=== PATIENT | female | born 1995 | race Caucasian/White ===

== ENCOUNTER → 2017-03-13 | Outpatient (CLI) | payer OTHER ==
[2017-03-13 12:43] LABS: BASO % 0.2 % (0.0-1.0); EOS # 0.2 K/mm3 (0.0-0.50); EOS % 1.2 % (0.0-3.0); LARGE UNSTAINED CELL # 0.1 K/mm3 (0.0-0.4); LARGE UNSTAINED CELL % 1.2 % (0.0-4.0); LYMPH # 1.9 K/mm3 (1.5-6.5); LYMPH % 14.6 % (24.0-44.0); MEAN CORPUSCULAR HEMOGLOBIN 31.9 pg (27.0-33.0); MEAN CORPUSCULAR HGB CONC 32.9 g/dl (32.0-36.5); MEAN CORPUSCULAR VOLUME 96.9 fl (80.0-96.0); MONO # 0.6 K/mm3 (0.0-0.8); NEUTROPHILS # 9.2 K/mm3 (1.8-7.7); NEUTROPHILS % 77.9 % (36.0-66.0); PLATELET COUNT, AUTOMATED 261 k/mm3 (150-450); RED CELL DISTRIBUTION WIDTH 12.6 % (11.5-14.5); WHITE BLOOD COUNT 11.8 K/mm3 (4.0-10.0)
[2017-03-14 10:48] LABS: HBsAg Prenatal NEGATIVE (NEGATIVE)
== END ==
LOC: M LAB 11:59
PROVIDERS: ATTEND Advanced Practice Midwife
DX: Z34.81 Encounter for supervision of other normal pregnancy, first trimester (principal); Z36 Encounter for antenatal screening of mother

== ENCOUNTER 2017-03-29 09:46 | Emergency (ER) | payer OTHER ==
[~2017-03-29] VITALS: Ht 172.7 cm; Wt 64.0 kg
[2017-03-29 09:47] VITALS: BP 116/81
[2017-03-29] MEDS ORDERED: FOLI1TAB2 PO (09:55)
[2017-03-29] MEDS ORDERED: PRENTAB40 PO (09:55)
[2017-03-29] MEDS ORDERED: PEPC1TAB4 PO (10:41)
[2017-03-29] MEDS ORDERED: BENA25CA4 PO (10:41)
[2017-03-29] MEDS ORDERED: MAGICMW SSP (10:41)
== END 2017-03-29 10:45 | disposition home or self-care (01) ==
LOC: M ED 10:09
DX: L30.9 Dermatitis, unspecified (principal); J02.8 Acute pharyngitis due to other specified organisms; Z3A.10 10 weeks gestation of pregnancy; Z88.0 Allergy status to penicillin; Z88.1 Allergy status to other antibiotic agents; Z88.8 Allergy status to other drugs, medicaments and biological substances; Z79.899 Other long term (current) drug therapy

== ENCOUNTER → 2017-03-29 | Outpatient (REF) | payer OTHER ==
[~2017-03-29] MED LIST: BENA25CA4 PO; FOLI1TAB2 PO; MAGICMW SSP; PEPC1TAB4 PO; PRENTAB40 PO
[2017-04-07 07:16] LABS: SUMMARY SEE SEPARATE REPORT
== END ==
LOC: M LAB REF 13:08
PROVIDERS: ATTEND Advanced Practice Midwife
DX: Z34.81 Encounter for supervision of other normal pregnancy, first trimester (principal); Z36 Encounter for antenatal screening of mother

== ENCOUNTER → 2017-04-10 | Outpatient (REF) | payer OTHER, MEDICAID | LOC: M LAB REF 13:56 | PROVIDERS: ATTEND Specialist | DX: Z34.82 Encounter for supervision of other normal pregnancy, second trimester (principal) ==

== ENCOUNTER → 2017-05-08 | Outpatient (CLI) | payer MEDICAID ==
--- NOTE | 2017-05-09 09:48 | REP ---
OB ULTRASOUND: Real-time sonographic evaluation of the gravid uterus performed utilizing transabdominal and endovaginal technique. There is a single living intrauterine gestation with an estimated gestational age of 17 weeks 4 days based on today's ultrasound measurements. EDC 10/12/2017. BPD 37 mm 17 weeks 1 day, 38th percentile HC 141 mm 17 weeks 3 days, 45th percentile AC 120 mm 17 weeks 5 days, 55th percentile FL 24 mm 17 weeks 2 days, 43rd percentile HC/AC ratio 1.17 within normal range. Estimated weight 197 grams, 45th percentile. Cervix is closed and measures 3.9 cm in length. heart rate 139 beats per minute. SEEN/GROSSLY UNREMARKABLE Lateral ventricles Yes Posterior fossa Yes Upper lip Yes Four-chamber heart Yes LVOT No RVOT Yes Stomach Yes Cord insertion No Three vessel cord No Kidneys No Bladder No Spine No position variable. Placenta is posterior and grade 0. On transvaginal images, the inferior tip of the placenta extends up to the internal cervical os consistent with a marginal previa. Amniotic fluid appears within normal limits for gestational age. Signed by Holger Moreno MD 05/09/2017 07:44 P
== END ==
LOC: M SMT 14:48
PROVIDERS: ATTEND Specialist
DX: Z34.82 Encounter for supervision of other normal pregnancy, second trimester (principal); Z36 Encounter for antenatal screening of mother; Z3A.17 17 weeks gestation of pregnancy

== ENCOUNTER → 2017-05-31 | Outpatient (CLI) | payer MEDICAID, OTHER ==
[~2017-05-31] MED LIST changes: +ACET50TA PO; -FOLI1TAB2 PO; +FOLI1TAB4 PO; +PRENTAB31 PO; +PRIL20CA9 PO; +SUCR10SS PO; +TUMS500C PO; +ZOFR4TAB3 PO
--- NOTE | 2017-05-31 16:10 | REP ---
Clinical: Anatomical evaluation. Comparison: 05/08/2017 . Findings: Examination demonstrates a single live intrauterine in variable presentation. motion is identified by technologist. Placenta is noted posteriorly and grade zero with evidence for marginal placenta previa approximately 12 mm from the internal os. Amniotic fluid volume is normal. Cervix measures 3.9 cm in length and appears closed. No evidence for nuchal cord. Gestational age by LMP 18 weeks 6 days with PEYTON 10/03/2017 . Gestational age by current measurements 17 weeks 4 days with PEYTON 10/12/2017 . FHR equals 139 beats per minute. Estimated weight 197 grams (45th percentile). Anatomical assessment demonstrates normal structures including cranium, choroid plexus, cavum, cerebellum/posterior fossa, facial features, lungs, four-chamber heart/ventricular outflow tracts, diaphragm, stomach, and extremities. Limited evaluation of the three-vessel cord/cord insertion, kidneys, bladder and spine. Impression: 1. Single live intrauterine in variable presentation demonstrating appropriate interval growth. 2. Marginal placenta previa again noted. 3. Anatomical limitations may warrant reevaluation and follow-up. Signed by Dayne Quezada MD 05/31/2017 04:02 P
== END ==
LOC: M SMT 14:23
PROVIDERS: ATTEND Advanced Practice Midwife
DX: O44.22 Partial placenta previa NOS or without hemorrhage, second trimester (principal); Z36 Encounter for antenatal screening of mother; Z3A.18 18 weeks gestation of pregnancy

== ENCOUNTER → 2017-07-06 | Outpatient (CLI) | payer OTHER ==
[2017-07-06 14:25] LABS: MEAN CORPUSCULAR HEMOGLOBIN 32.6 pg (27.0-33.0); MEAN CORPUSCULAR HGB CONC 33.4 g/dl (32.0-36.5); MEAN CORPUSCULAR VOLUME 97.6 fl (80.0-96.0); RED CELL DISTRIBUTION WIDTH 12.9 % (11.5-14.5); WHITE BLOOD COUNT 14.1 K/mm3 (4.0-10.0)
== END ==
LOC: M SMT 10:11
PROVIDERS: ATTEND Obstetrics & Gynecology
DX: Z34.82 Encounter for supervision of other normal pregnancy, second trimester (principal); Z36 Encounter for antenatal screening of mother

== ENCOUNTER → 2017-07-18 | Outpatient (CLI) | payer OTHER ==
[~2017-07-18] MED LIST changes: +ADVI200C5 PO; +CALC500C16 PO; +COLA100C5 PO; +MULT1TAB18 PO
--- NOTE | 2017-07-18 15:05 | REP ---
OB ULTRASOUND: Real-time sonographic evaluation of the gravid uterus is performed. There is a single living intrauterine gestation with estimated gestational age 27 weeks 5 days, EDC 10/12/2017. Today's measurements indicate appropriate growth. Biometry and Growth: BPD 65 mm = 26 weeks 1 day, 20th percentile HC 247 mm = 26 weeks 6 days, 31st percentile AC 222 mm = 26 weeks 4 days, 29th percentile FL 53 mm = 28 weeks 0 days, 56th percentile HC/AC ratio 1.11 within normal range. Estimated weight 1024 grams, 28th percentile. SEEN/GROSSLY UNREMARKABLE Lateral ventricles Yes Posterior fossa Yes Upper lip Yes Four-chamber heart Yes LVOT Yes RVOT Yes Stomach Yes Cord insertion Yes Three vessel cord Yes Kidneys Yes Bladder Yes Spine Yes The umbilical cord is coiled just above the internal cervical os. Cervical length: Closed and measures 3.9 cm in length. heart rate: 153 beats per minute. position: Vertex. Placenta: Posterior and grade 1 with no previa or abruption. Amniotic fluid: Within normal limits, JOHNY 10.0 within normal range of 9.4 to 22.7. S/D ratio 3.45 is within normal range. RI 0.71 is within normal range. Signed by Holger Moreno MD 07/18/2017 05:24 P
== END ==
LOC: M SMT 13:00
PROVIDERS: ATTEND Obstetrics & Gynecology
DX: Z34.82 Encounter for supervision of other normal pregnancy, second trimester (principal); Z36 Encounter for antenatal screening of mother; Z3A.27 27 weeks gestation of pregnancy

== ENCOUNTER 2017-07-28 13:01 | Emergency (ER) | payer OTHER ==
[~2017-07-28] VITALS: Ht 172.7 cm; Wt 75.5 kg
[~2017-07-28 13:01] MED LIST changes: -ACET50TA PO; -ADVI200C5 PO; -CALC500C16 PO; -COLA100C5 PO; -MULT1TAB18 PO; -PRENTAB31 PO; -PRIL20CA9 PO; -SUCR10SS PO; -TUMS500C PO; -ZOFR4TAB3 PO
[2017-07-28] MEDS ORDERED: PRENTAB31 PO (13:25)
[2017-07-28] MEDS ORDERED: NS 1,000 ML IV ONE ×2 (14:00→15:45)
[2017-07-28] MEDS ORDERED: ONDANSETRON 4MG/2ML VIAL (J2405) IV ONE (14:00)
[2017-07-28] MEDS ORDERED: FAMOTIDINE 20 MG TAB PO ONE (14:45)
[2017-07-28] MEDS ORDERED: raNITIdine SYRUP 150 MG/10 ML UDC PO ONE (14:45)
[2017-07-28 14:59] LABS: METHADONE URINE NEGATIVE (NEGATIVE)
--- NOTE | 2017-07-28 14:59 | REP ---
Clinical: Maternal nausea and vomiting for well being. Comparison: 07/18/2017 . Findings: Examination demonstrates a single live intrauterine in cephalic presentation. motion is identified by technologist. Placenta is noted posteriorly and grade 1 without evidence for placenta previa or abruption. Amniotic fluid volume is normal. Cervix measures 3.0 cm in length and appears closed. No evidence for nuchal cord. Gestational age by LMP 30 weeks 3 days with PEYTON 10/03/2017 . Gestational age by first US 29 weeks 1 day with PEYTON 10/12/2017 . FHR equals 150 beats per minute. Amniotic fluid index 7.5 cm (8.9 - 23.6). Examination was terminated before biophysical profile could be completed. Tone - 2 Movement - 2 AFV - 2 Breathing - not determined. Impression: 1. Single live intrauterine in cephalic presentation. 2. Amniotic fluid volume is below normal limits. 3. Biophysical profile could not be completed and breathing cannot be determined due to the patient's inability to tolerate examination. Signed by Dayne Quezada MD 07/28/2017 02:50 P
[2017-07-28 15:10] LABS: ANION GAP 12 MEQ/L (8-16); BLOOD UREA NITROGEN 4 MG/DL (7-18); CALCIUM LEVEL 8.7 MG/DL (8.5-10.1); CARBON DIOXIDE LEVEL 22 MEQ/L (21-32); CHLORIDE LEVEL 107 MEQ/L (98-107); GLOMERULAR FILTRATION RATE > 60.0 (>60); GLUCOSE, FASTING 95 MG/DL (70-105); POTASSIUM SERUM 3.6 MEQ/L (3.5-5.1); SODIUM LEVEL 141 MEQ/L (136-145)
[2017-07-28] MEDS ORDERED: LORazepam 2 MG/ML VIAL (J2060) IV STA (15:10)
[2017-07-28 15:14] LABS: ALBUMIN 3.4 GM/DL (3.2-5.2); ALBUMIN/GLOBULIN RATIO 0.79 (1.00-1.93); BILIRUBIN,DIRECT 0.1 MG/DL (0.0-0.2); BILIRUBIN,TOTAL 0.4 MG/DL (0.2-1.0); TOTAL PROTEIN 7.7 GM/DL (6.4-8.2)
[2017-07-28] MEDS ORDERED: FAMOTIDINE IV BAG 20 MG in APPROPRIATE DILUENT 1 EA IV ONE (15:15)
[2017-07-28 15:26] LABS: BASO % 0.1 % (0.0-1.0); EOS # 0.2 K/mm3 (0.0-0.50); EOS % 1.5 % (0.0-3.0); LARGE UNSTAINED CELL # 0.1 K/mm3 (0.0-0.4); LARGE UNSTAINED CELL % 0.3 % (0.0-4.0); LYMPH % 5.9 % (24.0-44.0); MEAN CORPUSCULAR HEMOGLOBIN 32.7 pg (27.0-33.0); MEAN CORPUSCULAR VOLUME 93.4 fl (80.0-96.0); MONO # 0.5 K/mm3 (0.0-0.8); MONO % 2.8 % (0.0-5.0); NEUTROPHILS % 89.4 % (36.0-66.0); PLATELET COUNT, AUTOMATED 241 k/mm3 (150-450); RED CELL DISTRIBUTION WIDTH 12.7 % (11.5-14.5); WHITE BLOOD COUNT 16.8 K/mm3 (4.0-10.0)
[2017-07-28] MEDS ORDERED: PROMETHAZINE INJ 25 MG/ML VIAL (J2550) IV ONE (15:45)
[2017-07-28] MEDS ORDERED: MORPHINE 4 MG/ML 1ML SYRINGE IV ONE (16:00)
[2017-07-28 16:26] VITALS: BP 128/79
[2017-07-29] MEDS ORDERED: ZOFR4TAB3 PO (15:02)
[2017-07-29] MEDS ORDERED: PRIL20CA9 PO (15:02)
[2017-10-01] MEDS ORDERED: TUMS500C PO (15:07)
[2017-10-04] MEDS ORDERED: CALC500C16 PO (07:35)
[2017-10-04] MEDS ORDERED: MULT1TAB18 PO (07:36)
[2017-10-04] MEDS ORDERED: BENA25CA4 PO (07:37)
[2017-10-04] MEDS ORDERED: ACET50TA PO (07:38)
[2017-10-04] MEDS ORDERED: ADVI200C5 PO (07:39)
[2017-10-04] MEDS ORDERED: COLA100C5 PO (07:39)
== END 2017-07-28 17:15 | disposition admitted as inpatient to this hospital (09) ==
LOC: M ED 13:01
DX: O21.0 Mild hyperemesis gravidarum (principal); Z86.59 Personal history of other mental and behavioral disorders; Z87.891 Personal history of nicotine dependence; F12.10 Cannabis abuse, uncomplicated; Z3A.29 29 weeks gestation of pregnancy; Z79.899 Other long term (current) drug therapy; Z88.0 Allergy status to penicillin
CPT/HCPCS: 76815; 76819; 76820; 80048; 80076; 80307; 81001; 83690; 85025; 96361; 96365; 96374; 96375; 99284; J2060; J2405

== ENCOUNTER 2017-07-28 17:13 | Outpatient (CLI) | payer OTHER ==
[~2017-07-28] VITALS: Ht 172.7 cm; Wt 73.0 kg
[~2017-07-28 17:13] MED LIST changes: +PRENTAB31 PO
[2017-07-28 17:27] VITALS: BP 117/66
[2017-07-28 17:28] VITALS: BP 117/66
[2017-07-28] MEDS ORDERED: LR 1,000 ML IV ONE (19:00)
[2017-07-28] MEDS ORDERED: LR 1,000 ML IV SCH (19:00)
[2017-07-28] MEDS: PROMETHAZINE INJ 25 MG/ML VIAL (J2550) IM PRN (19:24)
[2017-07-28] MEDS ORDERED: zolPIDEM TARTRATE 5 MG TAB PO ONE (20:45)
[2017-07-28] MEDS ORDERED: BICITRA 30ML SOLN UDC PO ONE (20:45)
[2017-07-28 20:59] VITALS: BP 126/78
[2017-07-28 23:50] VITALS: BP 104/58
[2017-07-29 02:07] VITALS: BP 99/55
[2017-07-29] MEDS: PROMETHAZINE INJ 25 MG/ML VIAL (J2550) IM PRN (04:15)
[2017-07-29] MEDS ORDERED: MORPHINE 10 MG/ML 1ML VIAL IV ONE (04:45)
[2017-07-29] MEDS ORDERED: MORPHINE 10 MG/ML 1ML VIAL As Ordered ONE (04:46)
[2017-07-29 06:29] VITALS: BP 108/58
[2017-07-29 07:22] VITALS: BP 108/55
[2017-07-29] MEDS ORDERED: PROCHLORPERAZINE 10 MG/2 ML VIAL (J0780) IV PRN (10:30)
[2017-07-29] MEDS ORDERED: PROMETHAZINE INJ 25 MG/ML VIAL (J2550) IV PRN (10:30)
[2017-07-29 10:53] VITALS: BP 104/58
[2017-07-29] MEDS ORDERED: MULTIVITAMIN -ADULT INJECTION 10 ML, THIAMINE INJection 100 MG, FOLIC ACID 1 MG in NS 1... IV ONE (11:00)
[2017-07-29 12:00] VITALS: BP 118/66
[2017-07-29] MEDS ORDERED: METOCLOPRAMIDE 5 MG TAB PO PRN (12:15)
--- NOTE | 2017-07-29 13:27 | REP ---
Clinical: Acute epigastric and right upper quadrant abdominal pain. Technique: Moreno scale ultrasound using curved array transducer. Findings: The liver, spleen and pancreas are normal in contour, size, and echogenicity without focal hepatic or pancreatic lesions identified. The gallbladder is normal without gallstones, wall thickening or pericholecystic fluid. No biliary ductal dilatation is appreciated, and the common bile duct measures 2.0 mm diameter. The kidneys demonstrate mild pelviectasis/proximal hydronephrosis which may be induced. Right kidney measures 11.9 x 5.0 x 4.8 cm. Left kidney measures 11.2 x 4.6 x 5.4 cm. No ascites. Visualized portions of the abdominal aorta normal and measures 1.6 cm maximal diameter. Impression: 1. Mild right hydronephrosis and left pelviectasis which may be secondary to . 2. Otherwise normal complete abdominal ultrasound. Signed by Dayne Quezada MD 07/29/2017 01:19 P
[2017-07-29 14:03] LABS: MEAN CORPUSCULAR HEMOGLOBIN 33.3 pg (27.0-33.0); MEAN CORPUSCULAR HGB CONC 35.1 g/dl (32.0-36.5); MEAN CORPUSCULAR VOLUME 94.9 fl (80.0-96.0); RED CELL DISTRIBUTION WIDTH 12.5 % (11.5-14.5)
[2017-07-29 14:23] LABS: ALBUMIN 2.3 GM/DL (3.2-5.2); ALBUMIN/GLOBULIN RATIO 0.77 (1.00-1.93); ALKALINE PHOSPHATASE 53 U/L (45-117); ALT/SGPT 14 U/L (12-78); AMYLASE 57 U/L (25-115); ANION GAP 9 MEQ/L (8-16); AST/SGOT 17 U/L (15-37); BILIRUBIN,TOTAL 0.3 MG/DL (0.2-1.0); BLOOD UREA NITROGEN 3 MG/DL (7-18); CALCIUM LEVEL 7.5 MG/DL (8.5-10.1); CARBON DIOXIDE LEVEL 23 MEQ/L (21-32); CHLORIDE LEVEL 111 MEQ/L (98-107); CREATININE FOR GFR 0.43 MG/DL (0.55-1.02); GLOMERULAR FILTRATION RATE > 60.0 (>60); GLUCOSE, FASTING 69 MG/DL (70-105); MAGNESIUM LEVEL 1.5 MG/DL (1.8-2.4); POTASSIUM SERUM 3.4 MEQ/L (3.5-5.1); SODIUM LEVEL 143 MEQ/L (136-145); TOTAL PROTEIN 5.3 GM/DL (6.4-8.2)
[2017-07-29] MEDS ORDERED: MAGNESIUM OXIDE 400 MG TAB (MAG-OX) PO ONE (15:00)
[2017-07-29] MEDS ORDERED: OMEPRAZOLE 20 MG CAP PO ONE (15:00)
[2017-07-29] MEDS ORDERED: ACETAMINOPHEN 500 MG TAB PO PRN (15:00)
[2017-07-29] MEDS ORDERED: ONDANSETRON 4 MG ORAL DISINTEGRATING TAB (S0181) PO PRN (15:00)
[2017-07-29] MEDS ORDERED: POTASSIUM CHLORIDE 10 MEQ SR TABLET PO ONE (15:00)
[2017-07-29] MEDS ORDERED: PRIL20CA9 PO (15:02)
[2017-07-29] MEDS ORDERED: ZOFR4TAB3 PO (15:02)
[2017-07-29 15:41] VITALS: BP 114/80
[2017-07-29] MEDS ORDERED: cefTRIAXone SOD 1 GM in D5W MINI-BAG PLUS 50 ML IV ONE (16:00)
[2017-10-01] MEDS ORDERED: TUMS500C PO (15:07)
[2017-10-04] MEDS ORDERED: CALC500C16 PO (07:35)
[2017-10-04] MEDS ORDERED: MULT1TAB18 PO (07:36)
[2017-10-04] MEDS ORDERED: BENA25CA4 PO (07:37)
[2017-10-04] MEDS ORDERED: ACET50TA PO (07:38)
[2017-10-04] MEDS ORDERED: COLA100C5 PO (07:39)
[2017-10-04] MEDS ORDERED: ADVI200C5 PO (07:39)
== END 2017-07-29 17:00 | disposition home or self-care (01) ==
LOC: M LDO 17:13
PROVIDERS: ATTEND Obstetrics & Gynecology
DX: O99.89 Other specified diseases and conditions complicating pregnancy, childbirth and the puerperium (principal); Z3A.29 29 weeks gestation of pregnancy; R11.2 Nausea with vomiting, unspecified; R19.7 Diarrhea, unspecified; R10.13 Epigastric pain; N39.0 Urinary tract infection, site not specified; F11.21 Opioid dependence, in remission; F12.20 Cannabis dependence, uncomplicated; A08.4 Viral intestinal infection, unspecified
CPT/HCPCS: 36415; 76700; 80053; 82150; 83690; 83735; 85027; 96365; 96372; 96375; J0696; J3411

== ENCOUNTER 2017-07-30 02:08 | Inpatient (IN) | payer OTHER ==
[~2017-07-30] VITALS: Ht 172.7 cm; Wt 73.0 kg
[2017-07-30] VITALS (8 sets, daily range): BP systolic 118–148; BP diastolic 65–86
[~2017-07-30 02:08] MED LIST changes: +PRIL20CA9 PO; +ZOFR4TAB3 PO
[2017-07-30] MEDS ORDERED: MORPHINE 10 MG/ML 1ML VIAL IV ONE (03:00)
[2017-07-30 03:03] LABS: MEAN CORPUSCULAR HEMOGLOBIN 32.6 pg (27.0-33.0); MEAN CORPUSCULAR HGB CONC 35.1 g/dl (32.0-36.5); MEAN CORPUSCULAR VOLUME 92.9 fl (80.0-96.0); RED CELL DISTRIBUTION WIDTH 12.6 % (11.5-14.5); WHITE BLOOD COUNT 14.2 K/mm3 (4.0-10.0)
[2017-07-30 03:14] LABS: INR 0.94
[2017-07-30 03:54] LABS: ALBUMIN 2.9 GM/DL (3.2-5.2); ALBUMIN/GLOBULIN RATIO 0.73 (1.00-1.93); ALKALINE PHOSPHATASE 67 U/L (45-117); ALT/SGPT 19 U/L (12-78); ANION GAP 15 MEQ/L (8-16); AST/SGOT 35 U/L (15-37); BILIRUBIN,TOTAL 0.5 MG/DL (0.2-1.0); BLOOD UREA NITROGEN 3 MG/DL (7-18); CALCIUM LEVEL 8.2 MG/DL (8.5-10.1); CARBON DIOXIDE LEVEL 19 MEQ/L (21-32); CHLORIDE LEVEL 106 MEQ/L (98-107); CREATININE FOR GFR 0.63 MG/DL (0.55-1.02); GLOMERULAR FILTRATION RATE > 60.0 (>60); GLUCOSE, FASTING 88 MG/DL (70-105); POTASSIUM SERUM 3.5 MEQ/L (3.5-5.1); SODIUM LEVEL 140 MEQ/L (136-145); TOTAL PROTEIN 6.9 GM/DL (6.4-8.2)
[2017-07-30] MEDS: PROMETHAZINE INJ 25 MG/ML VIAL (J2550) IV PRN (06:26)
[2017-07-30] MEDS ORDERED: ACETAMINOPHEN 650 MG SUPP PR ONE (08:00)
[2017-07-30] MEDS ORDERED: PANTOPRAZOLE 40MG INJ (PROTONIX) (C9113) IV SCH (09:00)
[2017-07-30 11:49] LABS: AMYLASE 102 U/L (25-115)
[2017-07-30 12:18] LABS: BASO % 0.2 % (0.0-1.0); EOS % 0.4 % (0.0-3.0); LARGE UNSTAINED CELL # 0.1 K/mm3 (0.0-0.4); LYMPH # 1.3 K/mm3 (1.5-6.5); LYMPH % 9.3 % (24.0-44.0); MEAN CORPUSCULAR HEMOGLOBIN 33.2 pg (27.0-33.0); MEAN CORPUSCULAR HGB CONC 35.3 g/dl (32.0-36.5); MONO # 0.7 K/mm3 (0.0-0.8); MONO % 5.3 % (0.0-5.0); NEUTROPHILS # 10.9 K/mm3 (1.8-7.7); NEUTROPHILS % 83.8 % (36.0-66.0); PLATELET COUNT, AUTOMATED 209 k/mm3 (150-450); RED CELL DISTRIBUTION WIDTH 12.7 % (11.5-14.5); WHITE BLOOD COUNT 12.9 K/mm3 (4.0-10.0)
[2017-07-30 12:23] LABS: AMYLASE 66 U/L (25-115)
[2017-07-30] MEDS ORDERED: oxyCODONE 5MG TAB PO ONE (13:30)
[2017-07-30] MEDS: OMEPRAZOLE 20 MG CAP PO SCH ×2 (13:50→22:02)
[2017-07-30] MEDS ORDERED: LIDOCAINE VISCOUS 2% SOLN 15ML UDC PO ONE (18:15)
[2017-07-30] MEDS ORDERED: MAALOX 30 ML SUSP *UDC PO ONE (18:15)
[2017-07-30] MEDS: MAALOX 30 ML SUSP *UDC PO PRN (22:13)
[2017-07-31] MEDS: MAALOX 30 ML SUSP *UDC PO PRN (01:58)
[2017-07-31] MEDS: PROMETHAZINE INJ 25 MG/ML VIAL (J2550) IV PRN ×2 (01:58→16:21)
[2017-07-31 05:49] VITALS: BP 130/81
[2017-07-31 07:57] VITALS: BP 127/78
[2017-07-31] MEDS: SUCRALFATE SUSP 1GM/10ML UD PO SCH ×3 (09:00→21:28)
[2017-07-31] MEDS: OMEPRAZOLE 20 MG CAP PO SCH (09:00)
[2017-07-31] MEDS: KCL 20MEQ IN D5/0.45NS 1000ML 1,000 ML IV SCH ×2 (09:47→18:29)
[2017-07-31 09:58] LABS: BASO % 0.1 % (0.0-1.0); EOS % 0.3 % (0.0-3.0); LARGE UNSTAINED CELL # 0.1 K/mm3 (0.0-0.4); LARGE UNSTAINED CELL % 0.7 % (0.0-4.0); LYMPH # 1.4 K/mm3 (1.5-6.5); LYMPH % 9.3 % (24.0-44.0); MEAN CORPUSCULAR HEMOGLOBIN 32.9 pg (27.0-33.0); MEAN CORPUSCULAR HGB CONC 34.8 g/dl (32.0-36.5); MEAN CORPUSCULAR VOLUME 94.3 fl (80.0-96.0); MONO # 0.6 K/mm3 (0.0-0.8); NEUTROPHILS # 12.4 K/mm3 (1.8-7.7); NEUTROPHILS % 85.6 % (36.0-66.0); PLATELET COUNT, AUTOMATED 267 k/mm3 (150-450); RED CELL DISTRIBUTION WIDTH 12.4 % (11.5-14.5); WHITE BLOOD COUNT 14.5 K/mm3 (4.0-10.0)
[2017-07-31 10:20] LABS: ALBUMIN/GLOBULIN RATIO 0.75 (1.00-1.93); ALKALINE PHOSPHATASE 70 U/L (45-117); ALT/SGPT 19 U/L (12-78); ANION GAP 14 MEQ/L (8-16); AST/SGOT 25 U/L (15-37); BILIRUBIN,TOTAL 0.7 MG/DL (0.2-1.0); BLOOD UREA NITROGEN 3 MG/DL (7-18); CALCIUM LEVEL 8.2 MG/DL (8.5-10.1); CARBON DIOXIDE LEVEL 20 MEQ/L (21-32); CHLORIDE LEVEL 106 MEQ/L (98-107); CREATININE FOR GFR 0.51 MG/DL (0.55-1.02); GLOMERULAR FILTRATION RATE > 60.0 (>60); GLUCOSE, FASTING 67 MG/DL (70-105); POTASSIUM SERUM 3.2 MEQ/L (3.5-5.1); SODIUM LEVEL 140 MEQ/L (136-145)
[2017-07-31 10:26] VITALS: BP 137/78
[2017-07-31] MEDS: MORPHINE 2 MG/ML 1ML SYRINGE IV PRN ×3 (10:29→21:29)
--- NOTE | 2017-07-31 10:48 | HPE ---
DATE OF ADMISSION: 07/31/2017 22-year-old, 1, para 0 female at 30 and 1/7 weeks gestation by last menstrual period and consistent with 9-week ultrasound, estimated date of confinement (EDC) of 10/08/2017, presents with severe mid epigastric abdominal pain that is 10 out of 10 in severity for 4 days. The pain started suddenly. The pain started at rest with no precipitating factors. Her nausea and vomiting increased after the pain started. The nausea comes in waves. She has inability to tolerate oral intake. She has had intermittent nausea and vomiting throughout the , for which she smokes marijuana daily to help keep the nausea under control. She was initially seen in the emergency room and then subsequently discharged home on 07/28/2017. She then represented as the pain was unrelenting. MEDICAL HISTORY: 1. History of opioid abuse and polysubstance abuse. 2. History of pectus excavatum. SURGICAL HISTORY: 1. Appendectomy. 2. JYOTI Procedure for pectus excavatum in 2011. 3. Removal of Bar from JYOTI Procedure 2014 ALLERGIES: AUGMENTIN. SOCIAL HISTORY: The patient has a history of multiple drug abuse. She does smoke cigarettes. She smokes marijuana daily. She has been with her current partner for 4 years. FAMILY HISTORY: Noncontributory. PHYSICAL EXAMINATION: Blood pressure 127/78, pulse 101, respiratory rate 20, temperature 98.7. She appears significantly uncomfortable. HEAD AND NECK EXAM: Normal. LUNGS: Clear. HEART: Regular rate and rhythm. ABDOMEN: Tender in the epigastrium in the midline. Pain extends up into the lower sternum in the xiphoid process area. The entire costal margin on the left and right is also tender. She has a negative Salinas's sign. The uterus is nontender, gravid, soft, nondistended. heart tones are category 1, contractions none. EXTREMITIES: Nontender. LABORATORIES: Blood type A positive, Rubella immune. IMAGING: Right upper quadrant ultrasound is within normal limits. Metabolic panel is normal. ASSESSMENT: 22-year-old 1 at 30 and 1/7 weeks gestation by last menstrual period, consistent with 9-week ultrasound, presents with severe epigastric and substernal pain with increased nausea and vomiting, unclear etiology of her symptoms. Differential diagnosis includes peptic ulcer disease, hiatal hernia with torsion, possible cannabis vomiting syndrome and also possible complications related to JYOTI procedure that she had years ago. The patient will be admitted for IV fluids, pain management. She will be treated with proton pump inhibitor for possible gastric ulcer. We will consult gastroenterology for their expertise in this matter. Consider consulting cardiothoracic surgery in regard to her sternal chest pain. JOHN
[2017-07-31] MEDS ORDERED: E-Z-HD 98% w/w 340GM SUSP BTL As Ordered ONE (12:55)
[2017-07-31] MEDS ORDERED: E-Z-GAS II EFFERVESCENT PACKET (SODIUM BICARB./CITRIC ACID/SIMETHICONE) As Ordered ONE (12:55)
[2017-07-31] MEDS ORDERED: E-Z-PAQUE 96% w/w SUSP 176GM BTL As Ordered ONE (12:55)
[2017-07-31 14:06] VITALS: BP 139/78
[2017-07-31] MEDS ORDERED: GASTROGRAFIN SOLUTION 30ML PO ONE (14:45)
[2017-07-31] MEDS ORDERED: GASTROGRAFIN SOLUTION 30ML (Q9963) PO ONE (15:15)
--- NOTE | 2017-07-31 15:16 | REP ---
Clinical: Epigastric pain. History of Xenia procedure. Findings: Lung bases are clear. Visualized portions of the heart and pericardium are normal. Dense oral contrast within the esophagus, stomach, and left upper quadrant cause significant metallic streak artifact and limit evaluation. Liver, spleen, pancreas, gallbladder, bilateral adrenal glands appear normal for noncontrast evaluation. Kidneys demonstrate hydronephrosis and proximal hydroureter which may be secondary to . Portion of normal enlarged uterus is identified within the [id number] visualized abdomen. No ascites. No obvious adenopathy. No free air. Visualized musculoskeletal structures are intact. Impression: 1. Limited by metallic streak artifact from dense barium in the esophagus, stomach and left upper quadrant. Intrauterine noted. 2. Kidneys demonstrate likely induced hydronephrosis. 3. No further obvious abnormality. Signed by Dayne Quezada MD 07/31/2017 03:07 P
--- NOTE | 2017-07-31 15:28 | REP ---
Clinical: with epigastric pain and history of Xenia procedure. Findings: Dense barium outlines the esophageal lumen and demonstrates a small hiatal hernia at the gastroesophageal junction. The mediastinum is otherwise normal by noncontrast evaluation with normal thoracic aorta, heart and pericardium. No obvious abnormal fluid collection, adenopathy or inflammatory stranding to suggest mediastinitis. The tracheobronchial tree is patent. Bilateral lung mead are symmetric, well aerated and clear. No pulmonary parenchymal consolidation, pleural effusion or pneumothorax. Surrounding musculoskeletal structures appear normal. No obvious changes to the anterior chest wall noted. Impression: 1. Findings suggest small hiatal hernia. 2. The mediastinum is unremarkable and without evidence for mediastinitis. 3. No acute mediastinal or pleuroparenchymal process. Signed by Dayne Quezada MD 07/31/2017 03:18 P
[2017-07-31 15:31] LABS: ABG BASE EXCESS -6.8 (-2.0-2.0); ABG HCO3 14.9 MEQ/L (22.0-26.0); ABG PARTIAL PRESSURE CO2 20.6 mmHg (35.0-45.0); ABG PARTIAL PRESSURE O2 103.8 mmHg (75.0-100.0); ABG TOTAL CO2 15.5 MEQ/L (22.0-29.0); ABG pH (ARTERIAL) 7.476 UNITS (7.350-7.450)
--- NOTE | 2017-07-31 17:16 | CR ---
DATE OF CONSULTATION: 07/31/2017 The patient is seen at the request of Dr. Pearce for sudden onset of epigastric pain. HISTORY OF THE PRESENT ILLNESS: The patient is a 22-year-old 1, para 0 white female who is 30 weeks , who this past Sunday morning awoke suddenly with stabbing epigastric pain. This happened very soon after she got up from bed. This pain has been constant up until today. It was accompanied by nausea and vomiting. It literally came out of the blue, and she had not experienced this type of pain before. She has no shortness of breath with this pain. She does not have a cough, but when she does cough occasionally, she does hurt in the epigastrium. It does not hurt when she takes a deep breath. It, of course, hurts when she has nausea and vomiting. It is notable that the nausea and vomiting started after her pain. She cannot remember what she had for dinner the night before, but she had not had breakfast prior to the onset of this pain in the morning. She has had no diarrhea or constipation. She has had no melena or hematochezia. Most notably, since Sunday she has also had shaking chills. She has not taken her temperature. She has not had any sweats or night sweats. She is status post a Xenia procedure for pectus excavatum. The Xenia procedure required two bars, which is rather unusual. The bars were removed in 2014. PAST MEDICAL HISTORY: Medical illnesses: None. She has had a substance abuse issue, which I will discuss below. MEDICATIONS AT HOME: Tylenol PAST SURGICAL HISTORY: Xenia procedure and an appendectomy. EXPOSURES: She has one dog at home, a Rottweiler. No birds or cats. No exposures to tuberculosis. TRAVEL HISTORY: None outside [facility]. 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 HABITS: Stopped smoking when she became . She has had a substance abuse issue since the age of 14. Her substances of choice have been opioids and Suboxone. She states that she has been clean for the last year after having gone to rehab. It started out by her taking her mom's Darvocet when she was 14 years old. She does occasionally smoke marijuana, particularly the last few days for her pain control. She said she only takes "a couple hits." FAMILY HISTORY: Not applicable and noncontributory. ALLERGIES: AUGMENTIN. REVIEW OF SYSTEMS: CONSTITUTIONAL: See history of the present illness. EYES: Without diplopia, without transient monocular blindness, without prior jaundice. NOSE: Without epistaxis. MOUTH: Has her own teeth. RESPIRATORY: See history of the present illness. CARDIAC: See history of the present illness. Without tachycardia, palpitations or peripheral edema. GASTROINTESTINAL: See history of the present illness. GENITOURINARY: See history of the present illness. Without hematuria, dysuria or prior history of renal stones. ENDOCRINE: Without diabetes, without thyroid disease. LYMPHATICS: Without lumps and bumps in her neck, axilla or groin. NEUROLOGIC: Without prior paresthesias, paralyses or prior seizures. PSYCHIATRIC: With the above substance abuse. No pathologic psychoses, anxieties or depression. HEMATOLOGIC: Without prolonged bleeding times. PHYSICAL EXAMINATION: Well developed, well nourished white female in acute distress secondary to abdominal pain. VITAL SIGNS: Temperature is 99.1 with a heart rate of 88 to 101 and a respiratory rate of 18 to 20 without the use of accessory muscles who is on room air; however, there are no saturations measured. Blood pressure is 139/78. EYES: Pupils equal, round and reactive to light. Extraocular motor intact. Sclerae nonicteric. NOSE: Without deformity. MOUTH: Shows her mucous membranes to be pink and moist. Lips and commissures without lesions. There is no thrush. HEAD: Head is normocephalic. NECK: Neck is supple. There is no jugular venous distention. No subcutaneous emphysema. Trachea is midline. There is no lymphadenopathy. No thyromegaly. She has 2+ carotid upstrokes. LUNGS: Show bilaterally equal breath sounds without wheezes, rhonchi or rales with normal vesicular sounds. Percussion note is full to the diaphragm. CARDIAC: Cardiac is without murmurs, clicks, gallops or rubs. I cannot feel her point of maximum impulse (PMI). S1, S2 are normal. The Xenia procedure scars are well healed. ABDOMEN: Tender in the epigastrium. She does not, however, have rigidity or marked guarding. There is no real rebound tenderness. The tenderness is really in and around her epigastrium. Bowel sounds are positive but hypoactive. There is no costovertebral angle tenderness. EXTREMITIES: Show pretibial edema, no calf tenderness, no differential swelling of the upper extremities. SKIN: Warm, dry and perfused without cyanosis or mottling, including that of the nail beds and the knees. NEUROLOGIC: Shows II-XII intact along with gross motor and gross sensation intact. Gait is not tested. PSYCHIATRIC: Shows her to be awake and alert, oriented times three with appropriate mood and affect and conversational. Her white count today is 14.5 with a hemoglobin and hematocrit of 12.0 and 34.5. Platelet count is 267 with a differential that shows 85% neutrophils, 9% lymphocytes, 4% monocytes. There are no immature forms. No toxic granulations. Her electrolytes show a potassium of 3.2 with a total CO2 of 20, which is marginally low with a CO2 yesterday of 19. Glucose is 67 with a calcium of 8.2 and a corresponding albumin of 3.0. AST and ALT are normal. Amylase and lipase are also normal at 66 and 100 respectively. Her amylase and lipase on admission were 102 over 48. Blood gases, which I have ordered, are pending. PT/INR are 12.7 and 0.94 respectively with a PTT of 24 seconds, her fibrinogen is 392, all within normal limits. Urinalysis shows 2+ ketones, 2+ glucose, 1+ protein but is negative for leukocyte esterase. There is 1+ urine bacteria but only 2 white cells per high power field. There is no imaging on her at all. IMPRESSION: 1. Acute epigastric pain, sudden in onset. 2. Status post Xenia procedure in 2011 with the bars being removed in 2014. 3. Mild metabolic acidosis with a total CO2 of 19. 4. Rigor since Sunday. PLAN AND DISCUSSION: This sounds like an acute inflammatory event. It is located in the epigastrium; however, her lipase and amylase are normal. I do note that they have come down in the last 24 hours, however, and maybe this is a transient pancreatitis. She states that she does not drink, however. Her appendix is out, so we cannot invoke appendicitis. I was asked to see her with regard to complications of the Xenia procedure. I would be doubtful if this is at all related to the Xenia procedure as she had the bars out in 2014. It would be very unusual for mediastinitis to occur this late and furthermore it would have been a more indolent course. I do think we are going to need some imaging. She is now past the embryogenic stage of development. I have spoken to Dr. Pearce, and he has no objections to obtaining CT scans of both her chest and abdomen with contrast material. I do not think she has a perforated viscus as she has no real rebound. She is ketonuric secondary to starvation, although I cannot really explain her increased urine glucose other than as a byproduct of gestation. Certainly her glucoses do not point to diabetes, either chronic or gestational. I am worried about the rigors as that is usually a marker for underlying infection. If she has mediastinitis, we should be able to see inflammatory changes in the mediastinum. Her white count is going up. After review of the CT scans, I will continue to follow along. I can think of very unusual causes for acute epigastric pain, including that referable to the aorta and aortic aneurysm, although I feel no abdominal mass and she is very young. She does not look marfanoid, and I would be loath to invoke an aortic dissection at this point in time.
[2017-07-31 17:59] VITALS: BP 100/54
--- NOTE | 2017-07-31 18:51 | CR.PDOC ---
[facility] Consultation Consultation DATE OF CONSULTATION: Jul 31, 2017 at 09:30 REFERRING PROVIDER: Dr. Paras Pearce ATTENDING PHYSICIAN: Dr. Paras Pearce REASON FOR CONSULTATION/CHIEF COMPLAINT: Severe epigastric abdominal pain. HISTORY OF PRESENT ILLNESS: 22-year-old woman with 30 weeks gestation ( 1) was amitted with severe epigastric abdominal pain and Gi consulted for the same. Patient reports having nausea and vomiting, and later started having severe epigastric abdominal pain since 4 days. Patient continues to have vomiting and unable to tolerate oral diet. Patient does notice streaks of blood initially but no further episodes of blood in the vomiting. Patient reports smoking marijuana daily and she quit smoking cigarettes when she was diagnosed with . Patient denies taking any NSAID. Pertinent negative GI symptoms: Patient denies fever, chills, diarrhea, unintentional weight loss, melena or hematochezia. Patient reports regular bowel movements. 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 Skin: No rash ENT: No ear discharge/ pain, No dysphagia. Eyes: No photophobia. Home medications: reviewed. No Plavix and No anticoagulants Medical h/o: As above. Surgical h/o: Appendectomy, JYOTI procedure for pectus excavatum in 2011 and removal of bar from JYOTI procedure in 2014. Social H/o: history of multiple drug abuse. She quit smoke cigarettes since she was diagnosed with . She smokes marijuana daily Family h/o of GI cancers - None Prior Endoscopies: --- EGD - None. --- Colonoscopy - None Exam: Vitals: reviewed General: Alert and oriented x 3, not in distress HEENT: NO pallor, no icterus. Normal oropharynx, NO cervical lymph nodes. Chest: symmetric with bilateral clear air entry, CVS: S1, S2 heard, normal, no murmurs . Abdomen: non-distended, no surgical scars, soft, tenderness in epigastric area with no palpable masses, normal bowel sounds heard. negative jamil sign. gravid uterus palpable. Rectal exam: Deferred at this time Extremities: no pedal edema, pulses palpable. 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 Moves all extremities Skin: no rash. Labs: reviewed. Imaging of abdomen: --- None ( addendum -Patient was recommended Esophagogram but in the interim had Surgery eval and underwent CT abdomen and chest after I have seen the patient- noted with small hiatal hernia but no acute abnormality. ) IMPRESSION: -- Severe epigastric abdominal pain with nausea and vomiting- likely related marijuana use related. No overt active GI bleeding and Imaing not suggestive any acute pathology. -- with 30 weeks gestation. Recommendations: -- Continue IV PPI drip for 24 hours and switch to PO PPI (40 mg dose) daily for 8 weeks course to be taken rail walker on empty stomach. -- Continue sucralfate 3 - 4 times a day for 5 days. -- NPO for atleast 24 hours. -- IV hydration. -- Pain medications as per primary team but avoid NSAIDs. -- Elective EGD after delivery for further evaluation. -- refer to GI clinic electively. -- Plan of care discussed with patient and primary physician Allergies Coded Allergies: Amoxicillin (Verified Allergy, Intermediate, vomiting, 03/29/17) Clavulanic Acid (Verified Allergy, Intermediate, stomach pains/vomiting, ) Home Medications Scheduled Multivitamins/ ( Forte) 1 Tab Tab, 1 TAB PO DAILY, (Reported) Omeprazole (Prilosec) 20 Mg Cap, 20 MG PO BID, #30 Scheduled PRN Ondansetron (Zofran Odt) 4 Mg Tab, 4 MG PO Q4H PRN for NAUSEA, #30 ELIZABETH WOODALL MD Jul 31, 2017 18:50
--- NOTE | 2017-07-31 19:06 | REP ---
ESOPHAGRAM: The procedure was performed by RICCI Rios under the direct supervision of Dr. Oreilly. All imaging was reviewed with Dr. Oreilly prior to dictation. This a somewhat limited examination due to the patient's status of being 30 weeks . The oropharyngeal stages of deglutition appeared unremarkable. Esophageal transport was prompt and efficient. There was no evidence of esophagitis, stricture, mucosal ring or hiatal hernia. Gastroesophageal reflux was not observed. The visualized portion of the stomach was grossly normal. No gross masses or lesions were identified. At this point the patient became sick to her stomach. We sat her back down and upon being seated she proceeded to vomit up the barium. The duodenum and proximal small bowel were not visualized on this examination due to patient condition. IMPRESSION: Grossly unremarkable upper GI examination. Fluoroscopy time 42 seconds. Reviewed by RICCI Donald 08/03/2017 12:05 PEdited and Signed by Medhat Oreilly MD 08/03/2017 02:12 P
[2017-07-31] MEDS: PANTOPRAZOLE 40MG INJ (PROTONIX) (C9113) IV SCH (21:00)
[2017-07-31 22:35] VITALS: BP 131/68
[2017-08-01 01:55] VITALS: BP 159/74
[2017-08-01] MEDS: KCL 20MEQ IN D5/0.45NS 1000ML 1,000 ML IV SCH ×3 (02:00→17:16)
[2017-08-01] MEDS: PROMETHAZINE INJ 25 MG/ML VIAL (J2550) IV PRN ×2 (02:21→13:07)
[2017-08-01] MEDS: MORPHINE 2 MG/ML 1ML SYRINGE IV PRN ×4 (05:07→21:45)
[2017-08-01 05:52] VITALS: BP 125/77
[2017-08-01 06:32] LABS: BASO % 0.1 % (0.0-1.0); EOS # 0.1 K/mm3 (0.0-0.50); EOS % 0.8 % (0.0-3.0); LARGE UNSTAINED CELL # 0.2 K/mm3 (0.0-0.4); LARGE UNSTAINED CELL % 1.5 % (0.0-4.0); LYMPH # 1.3 K/mm3 (1.5-6.5); LYMPH % 12.1 % (24.0-44.0); MEAN CORPUSCULAR HEMOGLOBIN 33.2 pg (27.0-33.0); MEAN CORPUSCULAR HGB CONC 35.9 g/dl (32.0-36.5); MEAN CORPUSCULAR VOLUME 92.6 fl (80.0-96.0); MONO # 0.5 K/mm3 (0.0-0.8); MONO % 4.9 % (0.0-5.0); NEUTROPHILS # 8.3 K/mm3 (1.8-7.7); NEUTROPHILS % 80.6 % (36.0-66.0); PLATELET COUNT, AUTOMATED 230 k/mm3 (150-450); RED CELL DISTRIBUTION WIDTH 12.5 % (11.5-14.5); WHITE BLOOD COUNT 10.4 K/mm3 (4.0-10.0)
[2017-08-01 06:56] LABS: ANION GAP 11 MEQ/L (8-16); BLOOD UREA NITROGEN 1 MG/DL (7-18); CALCIUM LEVEL 7.7 MG/DL (8.5-10.1); CARBON DIOXIDE LEVEL 21 MEQ/L (21-32); CHLORIDE LEVEL 107 MEQ/L (98-107); CREATININE FOR GFR 0.33 MG/DL (0.55-1.02); GLOMERULAR FILTRATION RATE > 60.0 (>60); GLUCOSE, FASTING 91 MG/DL (70-105); POTASSIUM SERUM 2.7 MEQ/L (3.5-5.1); SODIUM LEVEL 139 MEQ/L (136-145)
[2017-08-01] MEDS ORDERED: KCL 10MEQ IN 100ML SWI (KRUN) 10 MEQ in APPROPRIATE DILUENT 1 EA IV ONE ×6 (08:00→17:00)
[2017-08-01] MEDS: SUCRALFATE SUSP 1GM/10ML UD PO SCH (08:29)
[2017-08-01] MEDS: PANTOPRAZOLE 40MG INJ (PROTONIX) (C9113) IV SCH ×2 (08:30→21:04)
[2017-08-01 14:00] VITALS: BP 120/61
--- NOTE | 2017-08-01 14:30 | IPN ---
DATE: 08/01/2017 Ms. Davis still has her epigastric pain. It is being somewhat dulled and controlled with narcotic analgesia. She has not vomited in the last 24 hours. 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 Her vital signs show a T-max of 98.2 with a heart rate that ranges between 83 and 125 with a regular rate and rhythm and respiratory rate of 16 to 18 without the use of accessory muscles. No saturations are recorded on her. Blood pressure is ranging between 125/77 to 159/74. Her intake and output the past 24 hours has been recorded as 750 in and 400 out for a positivity of 350 mL. She weighs 73 kg today, which is the same as yesterday. On physical examination, her lungs show bilaterally equal sounds which are normal vesicular in nature. percussion notes are full to the diaphragm. Cardiac Exam: Without murmurs, clicks, gallops, or rubs. I cannot feel her PMI. S1, S2 are normal. Abdomen: Still very tender in the epigastrium, but there is no voluntary or involuntary guarding. There are no peritoneal signs. There is no costovertebral angle (CVA) tenderness. Bowel sounds are positive. Extremities: No pretibial edema. No calf tenderness. No differential swelling of the upper extremities. Skin: Warm, dry and perfused. Without cyanosis or mottling, including that of the nail beds and knees. Neck: Supple. There is no jugular venous distention. No subcutaneous emphysema. Trachea is midline. Mouth: Shows her mucous membranes to be pink and moist. Lips and commissures are without lesions. There is no thrush. Eyes: Show her pupils to be equal and reactive. Extraocular movements intact. Sclerae nonicteric. Neurologic: Shows II-XII intact along with gross motor and gross sensation intact. Gait is not tested. Psychiatric shows her to be awake, alert, and oriented times three with appropriate mood and affect and conversational. Her white count today is 10.4, down from 14.5 yesterday. Hemoglobin and hematocrit are 11.2 and 31.1 respectively with a platelet count of 230. H and H are essentially unchanged. Differential shows 80% neutrophils, 12% lymphocytes, 4% monocytes. There are no immature forms and no toxic granulations. Her chemistries today show a potassium of 3.7 with the remainder of her electrolytes normal. Her BUN and creatinine are 1 and 0.33. Glucose is 91 with a calcium of 7.7. Her blood gases yesterday afternoon showed a pH of 7.47, pCO2 of 20, pO2 of 103, with a base excess of -6.8. CT of her chest and abdomen yesterday show no evidence of anatomic disease, including evidence of inflammation and/or mediastinitis, which could be secondary to her prior Xenia bars. I really did not think that the Xenia bars were culprits in this presentation as they were put in 2011 and were removed in 2014. I see no other pathology in the chest to explain her pain. Furthermore, I do not see any real pathology below the diaphragm, including pancreatitis or gallbladder disease. She has some mild hydronephrosis, more pronounced on the left side, but very mild. IMPRESSION: 1. Acute epigastric pain, slightly new onset, etiology unknown at this point in time. 2. Status post Xenia procedure in 2011 with the bars being removed in 2014. 3. Metabolic acidosis with a base excess of -6.8 with a pCO2 of 20 and a normal pH. 4. Hypokalemia. PLAN AND DISCUSSION: I am really quite unclear about her metabolic acidosis. Certainly, she looks to be over breathing and compensating for the acidosis, but I also suspect there is an anxiety component to it as her CO2 is lower than it should be in order to correct the base excess of -6.8. I have asked Dr. Jernigan of the hospitalist service to see her and to weigh in on the acidosis. She has normal glucoses. She did have some glucose in her urine along with ketones in her urine, but I assigned that to starvation as she had not eaten and was vomiting since Sunday. That certainly however does not explain the glycosuria. She is hypokalemic, which would be explained by vomiting. I would expect her to have an alkalosis from vomiting if it were significant. Her creatinine is normal with a BUN which is very low. I have never seen a BUN of 1 in an adult and I am not really sure if that is significant. I also noted yesterday that she had 1+ urine protein which at the time I assigned to proteinuria of . That however may not be the case. She however does not look as if she has nephrotic syndrome. I will await Dr. Jernigan's evaluation. I think I can definitively say however that the constellation of symptoms is not related to the prior Xenia procedure.
[2017-08-01 14:47] LABS: ANION GAP 10 MEQ/L (8-16); BLOOD UREA NITROGEN < 1 MG/DL (7-18); CALCIUM LEVEL 7.4 MG/DL (8.5-10.1); CARBON DIOXIDE LEVEL 22 MEQ/L (21-32); CHLORIDE LEVEL 109 MEQ/L (98-107); CREATININE FOR GFR 0.35 MG/DL (0.55-1.02); GLOMERULAR FILTRATION RATE > 60.0 (>60); GLUCOSE, FASTING 92 MG/DL (70-105); POTASSIUM SERUM 3.1 MEQ/L (3.5-5.1); SODIUM LEVEL 141 MEQ/L (136-145)
[2017-08-01 18:12] VITALS: BP 119/65
[2017-08-01 18:26] LABS: ABG BASE EXCESS -3.3 (-2.0-2.0); ABG HCO3 19.4 MEQ/L (22.0-26.0); ABG PARTIAL PRESSURE O2 90.8 mmHg (75.0-100.0); ABG STANDARD HCO3 21.7 MEQ/L (22.0-26.0); ABG TOTAL CO2 20.2 MEQ/L (22.0-29.0); ABG pH (ARTERIAL) 7.458 UNITS (7.350-7.450)
[2017-08-01] MEDS ORDERED: MORPHINE 2 MG/ML 1ML SYRINGE As Ordered ONE (21:40)
[2017-08-01 22:19] VITALS: BP 138/89
[2017-08-02] MEDS: KCL 20MEQ IN D5/0.45NS 1000ML 1,000 ML IV SCH ×3 (01:46→18:30)
[2017-08-02 02:08] VITALS: BP 142/82
[2017-08-02] MEDS: PROMETHAZINE INJ 25 MG/ML VIAL (J2550) IV PRN (03:03)
[2017-08-02] MEDS: MORPHINE 2 MG/ML 1ML SYRINGE IV PRN ×5 (03:59→21:39)
[2017-08-02 06:26] VITALS: BP 90/53
[2017-08-02] MEDS: PANTOPRAZOLE 40MG INJ (PROTONIX) (C9113) IV SCH ×2 (08:43→21:39)
[2017-08-02] MEDS: SUCRALFATE SUSP 1GM/10ML UD PO SCH ×2 (08:50→21:00)
[2017-08-02 08:57] LABS: ANION GAP 12 MEQ/L (8-16); BLOOD UREA NITROGEN < 1 MG/DL (7-18); CALCIUM LEVEL 8.2 MG/DL (8.5-10.1); CARBON DIOXIDE LEVEL 21 MEQ/L (21-32); CHLORIDE LEVEL 108 MEQ/L (98-107); CREATININE FOR GFR 0.44 MG/DL (0.55-1.02); GLOMERULAR FILTRATION RATE > 60.0 (>60); GLUCOSE, FASTING 87 MG/DL (70-105); POTASSIUM SERUM 3.5 MEQ/L (3.5-5.1); SODIUM LEVEL 141 MEQ/L (136-145)
[2017-08-02 10:00] VITALS: BP 117/57
[2017-08-02 14:00] VITALS: BP 111/55
[2017-08-02 18:31] VITALS: BP 136/80
[2017-08-02 22:30] VITALS: BP 127/73
[2017-08-03] MEDS: KCL 20MEQ IN D5/0.45NS 1000ML 1,000 ML IV SCH ×2 (02:29→09:37)
[2017-08-03] MEDS: MORPHINE 2 MG/ML 1ML SYRINGE IV PRN (02:29)
[2017-08-03 06:30] VITALS: BP 124/60
[2017-08-03] MEDS ORDERED: ONDANSETRON 4 MG ORAL DISINTEGRATING TAB (S0181) SL PRN (07:15)
[2017-08-03] MEDS ORDERED: ACETAMINOPHEN 500 MG TAB PO PRN (07:15)
[2017-08-03] MEDS: PANTOPRAZOLE 40MG INJ (PROTONIX) (C9113) IV SCH (09:00)
[2017-08-03] MEDS: SUCRALFATE SUSP 1GM/10ML UD PO SCH (09:00)
[2017-08-03] MEDS ORDERED: SUCR10SS PO (10:10)
[2017-08-03] MEDS ORDERED: ACET50TA PO (10:21)
--- NOTE | 2017-08-03 12:29 | DSES ---
DATE OF ADMISSION: 07/31/2017 DATE OF DISCHARGE: 22-year-old, 1, estimated date of delivery 10/08/2017, admitted by Dr. Pearce on 07/31/2017, at 30+ weeks gestation with reports of intractable nausea and vomiting related to epigastric pain. Consultation was obtained with GI. A small hiatal hernia was noted, but otherwise normal studies and findings. She has been started on omeprazole daily for relief of symptoms. Today, Nicki states she feels better. Nursing states she ate a full regular breakfast without vomiting. The patient reports it hurt, but I ate anyway. Vital signs are stable. She is normotensive and afebrile, appears in no apparent distress, and NST with category one tracing. ASSESSMENT: Primipara at 30+ weeks gestation, epigastric pain, and hiatal hernia. PLAN: The patient desires discharge home. Reviewed small frequent meals with protein to reduce symptoms. She was counseled to avoid having an empty stomach. Continue her vitamins and the omeprazole. Recommend she follow up in the office next week. Routine precautions. After hours access labor daily. kick counts and warnings were reviewed.
--- NOTE | 2017-08-03 14:26 | CR ---
DATE OF CONSULTATION: 08/01/2017 REASON FOR CONSULTATION: Abnormal arterial blood gas (ABG). The following is a summary of her presentation: This is a 22-year-old patient of Dr. Jin who presented with abdominal pain , nausea, and vomiting. She was admitted on 07/31/2017. The patient shares with me that she has had nausea throughout the entire length of her and it has been difficult to deal with. She has been treating it by smoking marijuana which has provided some relief recently, though she has had pain in her upper abdomen. It is made worse with the use of food, made better with morphine in the hospital, is associated with nausea and she has had difficulty eating and drinking. She does not describe vomiting any blood or coffee-ground emesis. The patient was admitted to the hospital and was seen in consultation by Dr. Rosas in relation to a previous surgery that she has had and has also been seen by gastroenterology (GI) to assess the cause of her nausea, vomiting, and abdominal pain. I was consulted as she had a question about an ABG which may have been abnormal. Past medical history is notable for substance abuse and a pectus excavatum. Surgical history is notable for an appendectomy, a Xenia procedure, and removal of metal from the Xenia procedure. ALLERGIES: AUGMENTIN. She has smoked marijuana daily. The patient is not a good historian regarding her family history. Medications currently in the hospital include Protonix, morphine, sucralfate, which she has been having difficulty taking, Phenergan, she has received simethicone, viscus lidocaine, OxyIR. This is her first and she is 30 weeks . Review of systems is notable for no headache, no visual changes, no runny nose, no sore throat. She has difficulty with painful swallowing which has not been helped with the use of lidocaine, sucralfate, or a proton pump inhibitor (PPI), is helped with morphine. She has not described any fever, chills, diarrhea, or dysuria. On physical examination, temperature 98.5, pulse 77, respiratory rate 18, blood pressure 120/61. She is tall and relatively thin appearing without a protuberant abdomen. She was initially very uncomfortable, though, upon my arrival, but became more comfortable during my stay. Head is normocephalic. Pupils are equal, round, reactive, anicteric, noninjected. Mucous membranes are moist. Neck is supple. No cervical or supraclavicular lymphadenopathy. Breathing is symmetrical. I:E ratio is 1:3. No accessory muscle use. She is speaking in complete sentences. Heart is in a regular rate and rhythm. Normal S1, S2, regular. Distal pulses are 2+. Capillary refill is less than 2 seconds. There is no significant lower extremity edema. Abdomen is gravid, but less so than I would anticipate based on my limited level of knowledge of the gravid abdomen. Mild epigastric tenderness without rebound or guarding. She is moving all four extremities. She has a somewhat flattened affect. White cell count 10.4, hemoglobin 11.2, and platelets of 230. Sodium 141, potassium 3.1, chloride 109, carbon dioxide 22, BUN is less than 1, creatinine 0.35, prealbumin is 16.7. Initial blood gas on 07/31/2017, was 7.47, 20, 103, and 14. Repeated on 08/01/2017, is 7.45, 28, 90, and 19. Imaging done during this stay includes: An esophageal x-ray which shows no significant stricture or ulcer. CT of the head shows small hiatal hernia. CT of the abdomen does not show any specific abnormality. My assessment is as follows: This is a 22-year-old with chronic vomiting, perhaps from hyperemesis gravidarum , perhaps from chronic marijuana use, likely complicated with esophagitis, perhaps esophageal or peptic ulcer, found to have respiratory alkalosis. Plan would be as follows: 1. Respiratory alkalosis. Repeat arterial blood gas (ABG) shows a minimal respiratory alkalosis which is partially compensated and most likely not particularly abnormal for the third trimester of . The day before may have been complicated by pain, but certainly at this point does not seem to be particularly abnormal. I have discussed this in person with Dr. Rosas and by phone with Dr. Pearce. 2. The patient would appear to be malnourished. This could be related to hyperemesis gravidarum, perhaps complicated by polysubstance abuse and the possibility of an underlying eating disorder could be considered. Her prealbumin is low, her BUN is quite low, and her body mass index is lower than I would anticipate for an average member of the community. 3. The patient has polysubstance use and may have an underlying psychiatric disorder. May benefit from a psychiatric consult depending on her clinical course. Will defer to the primary team for the need for or appropriating timing of that type of consult. Thank you for this interesting consult. If I can be of any further assistance in this matter, please let me know. JOHN
[2017-10-01] MEDS ORDERED: TUMS500C PO (15:07)
[2017-10-04] MEDS ORDERED: CALC500C16 PO (07:35)
[2017-10-04] MEDS ORDERED: MULT1TAB18 PO (07:36)
[2017-10-04] MEDS ORDERED: BENA25CA4 PO (07:37)
[2017-10-04] MEDS ORDERED: ACET50TA PO (07:38)
[2017-10-04] MEDS ORDERED: ADVI200C5 PO (07:39)
[2017-10-04] MEDS ORDERED: COLA100C5 PO (07:39)
== END 2017-08-03 11:15 | disposition home or self-care (01) | DRG 566 ==
LOC: M LDO 02:08 → M OBS 07-31 08:59
PROVIDERS: ADMIT Specialist; ATTEND Obstetrics & Gynecology
DX: O99.613 Diseases of the digestive system complicating pregnancy, third trimester (principal); K44.9 Diaphragmatic hernia without obstruction or gangrene; Z3A.30 30 weeks gestation of pregnancy; R10.9 Unspecified abdominal pain; F17.210 Nicotine dependence, cigarettes, uncomplicated; F12.90 Cannabis use, unspecified, uncomplicated; E87.2 Acidosis; Z88.0 Allergy status to penicillin; Z88.8 Allergy status to other drugs, medicaments and biological substances; E87.6 Hypokalemia

== ENCOUNTER → 2017-08-20 | Outpatient (CLI) | payer OTHER ==
[~2017-08-20] MED LIST changes: +ACET50TA PO; +ADVI200C5 PO; +CALC500C16 PO; +COLA100C5 PO; +MULT1TAB18 PO; +SUCR10SS PO; +TUMS500C PO
--- NOTE | 2017-08-21 07:18 | REP ---
Clinical: History of vasa previa. Comparison: 07/28/2017 . Findings: Examination demonstrates a single live intrauterine in cephalic presentation. motion is identified by technologist. Placenta is noted posteriorly and grade zero without evidence for placenta previa or abruption. Amniotic fluid volume is normal. Cervix measures 3.4 cm in length and appears closed. No evidence for nuchal cord. The head abuts the closed internal os and there is no evidence for vasa previa by current examination. Gestational age by LMP 32 weeks 3 days with PEYTON 10/12/2017 . Gestational age by current measurements 31 weeks 0 days with PEYTON 10/22/2017 . FHR equals 153 beats per minute. Estimated weight 1674 grams (17th percentile). Amniotic fluid index equals 9.1 cm. Umbilical cord SD ratio equals 3.69. Impression: 1. Single live advanced gestation in cephalic presentation demonstrating appropriate interval growth. 2. By current examination there is no evidence for vasa previa. 3. Umbilical cord SD ratio mildly elevated. Signed by Dayne Quezada MD 08/21/2017 07:09 A
== END ==
LOC: M SMT 14:41
PROVIDERS: ATTEND Obstetrics & Gynecology
DX: Z34.83 Encounter for supervision of other normal pregnancy, third trimester (principal)

== ENCOUNTER → 2017-09-13 | Outpatient (REF) | payer OTHER | LOC: M LAB REF 16:59 | PROVIDERS: ATTEND Advanced Practice Midwife | DX: Z34.83 Encounter for supervision of other normal pregnancy, third trimester (principal); Z36.85 Encounter for antenatal screening for Streptococcus B ==

== ENCOUNTER 2018-11-19 21:49 | Observation (INO) | payer MEDICAID, OTHER ==
[~2018-11-19] VITALS: Ht 172.7 cm; Wt 63.5 kg
[~2018-11-19 21:49] MED LIST changes: -ACET50TA PO; -FOLI1TAB4 PO; +FOLI1TAB5 PO; +MAPA500T17 PO; -PEPC1TAB4 PO; +PEPC1TAB5 PO; +ZOFR4TAB14 PO; -ZOFR4TAB3 PO
[2018-11-19 23:40] VITALS: BP 139/86
[2018-11-20] VITALS (7 sets, daily range): BP systolic 103–114; BP diastolic 57–67
[2018-11-20] MEDS ORDERED: ACETAMINOPHEN TAB 650MG DOSE (2X325MG) PO PRN (01:15)
[2018-11-20] MEDS ORDERED: ONDANSETRON 4MG/2ML VIAL (J2405) IV PRN (01:15)
[2018-11-20 02:13] LABS: BASO # 0.1 10^3/uL (0.0-0.2); BASO % 0.4 % (0.0-1.0); EOS # 0.6 10^3/uL (0.0-0.50); EOS % 4.7 % (0.0-3.0); HEMATOCRIT 38.5 % (36.0-47.0); HEMOGLOBIN 12.4 g/dl (12.0-15.5); LYMPH # 2.9 10^3/uL (1.5-6.5); LYMPH % 24.5 % (24.0-44.0); MEAN CORPUSCULAR HEMOGLOBIN 31.1 pg (27.0-33.0); MEAN CORPUSCULAR HGB CONC 32.2 g/dl (32.0-36.5); MEAN CORPUSCULAR VOLUME 96.5 fl (80.0-96.0); MONO # 0.9 10^3/uL (0.0-0.8); MONO % 7.2 % (0.0-5.0); NEUTROPHILS # 7.5 10^3/uL (1.8-7.7); NEUTROPHILS % 62.9 % (36.0-66.0); PLATELET COUNT, AUTOMATED 260 10^3/uL (150-450); RED BLOOD COUNT 3.99 10^6/uL (4.00-5.40)
[2018-11-20] MEDS: LR 1,000 ML IV SCH ×3 (02:15→20:20)
[2018-11-20] MEDS ORDERED: GABA800T PO (02:20)
[2018-11-20] MEDS ORDERED: PAXI40TA10 PO (02:20)
[2018-11-20] MEDS ORDERED: ZYPR2.5T2 PO (02:20)
[2018-11-20] MEDS ORDERED: PANT40TA3 PO (02:20)
[2018-11-20] MEDS ORDERED: BUPR15TA PO (02:31)
[2018-11-20] MEDS ORDERED: PRAZ5CAP PO (02:31)
[2018-11-20 02:37] LABS: ALBUMIN 3.2 GM/DL (3.2-5.2); ALT/SGPT 17 U/L (12-78); BILIRUBIN,TOTAL 0.3 MG/DL (0.2-1.0); BLOOD UREA NITROGEN 12 MG/DL (7-18); CARBON DIOXIDE LEVEL 30 MEQ/L (21-32); CHLORIDE LEVEL 107 MEQ/L (98-107); CREATININE FOR GFR 1.01 MG/DL (0.55-1.30); GLOMERULAR FILTRATION RATE > 60.0 (>60); GLUCOSE, FASTING 87 MG/DL (70-100); POTASSIUM SERUM 4.2 MEQ/L (3.5-5.1); SODIUM LEVEL 141 MEQ/L (136-145); TOTAL PROTEIN 6.7 GM/DL (6.4-8.2)
--- NOTE | 2018-11-20 02:56 | REPVR ---
EXAM: US Abdomen Complete EXAM DATE/TIME: 11/20/18 (2:03am) CLINICAL HISTORY: 23 year old female with RUQ / epigastric pain TECHNIQUE: Real-time ultrasound of the abdomen with image documentation COMPARISON: US ABDOMEN (complete) of 07/29/17 FINDINGS: The liver is visually normal in size and texture. The spleen is normal in size (10.4 cm length). The gallbladder demonstrates normal wall thickness, with no stones nor sludge appreciated. No pericholecystic fluid is seen. The sonographic Salinas's sign is reported to be (-). The CBD is not dilated (3.3 mm diameter). The kidneys are normal in size, with no solid masses and no hydronephrosis noted. The right kidney measures 11.0 cm in length. The left kidney measures 10.4 cm in length. The pancreas is unremarkable. No abnormal fluid collections are seen. The abdominal aorta appears unremarkable. IMPRESSION: No acute pathology. The gallbladder is unremarkable, with no stones identified. No biliary obstruction. Electronically signed by: Nella Mcgill On 11/20/2018 02:56:25 AM
[2018-11-20] MEDS ORDERED: OLANZapine 2.5MG TABLET PO ONE (03:00)
[2018-11-20 04:54] LABS: APPEARANCE, URINE CLEAR (CLEAR); BACTERIA, URINE AUTO NEGATIVE (NEGATIVE); BILIRUBIN, URINE AUTO NEGATIVE (NEGATIVE); BLOOD, URINE BLOOD NEGATIVE (NEGATIVE); COLOR, URINE YELLOW (YELLOW); GLUCOSE, URINE (UA) AUTO NEGATIVE (NEGATIVE); KETONE, URINE AUTO NEGATIVE (NEGATIVE); LEUKOCYTE ESTERASE, URINE AUTO NEGATIVE (NEGATIVE); MUCUS, URINE SMALL (NEGATIVE); NITRITE, URINE AUTO NEGATIVE (NEGATIVE); PROTEIN, URINE AUTO NEGATIVE (NEGATIVE); RBC, URINE AUTO 1 /HPF (0-3); SPECIFIC GRAVITY URINE AUTO 1.016 (1.002-1.035); SQUAMOUS EPITHELIAL CELL UR AU 0 /HPF (0-6); UROBILINOGEN, URINE AUTO 0.2 mg/dL (0.0-2.0); WBC, URINE AUTO 0 /HPF (0-3)
[2018-11-20] MEDS: PANTOPRAZOLE 40MG INJ (PROTONIX) (C9113) IV SCH (08:05)
[2018-11-20] MEDS: KETOROLAC 30 MG/ML VIAL (J1885) IV PRN ×2 (08:14→16:13)
[2018-11-20] MEDS: MORPHINE 4 MG/ML 1ML VIAL/SYRINGE (J2270) IV PRN ×3 (10:43→20:20)
[2018-11-20] MEDS: PARoxetine 20 MG TAB PO SCH (11:32)
[2018-11-20] MEDS: GABAPENTIN 400 MG CAP PO SCH ×3 (11:32→20:19)
[2018-11-20] MEDS: buPROPion **XL** TABLET 150MG (WELLBUTRIN XL) PO SCH (11:32)
--- NOTE | 2018-11-20 13:24 | HPE ---
DATE OF ADMISSION: 11/20/2018 The patient is being placed on observation. REASON FOR OBSERVATION: Abdominal pain. HISTORY OF PRESENT ILLNESS: The patient is a 23-year-old woman who presented to [facility] on the evening of November 19 for evaluation of pain in the right subcostal area and right flank. The patient reported that she had noted the onset of pain about a week ago. She reports that it comes and goes. It is generally there most of the time, though fairly mild, but can go away for up to 15 minutes. She reports that after she had something to eat at about 2 o'clock in the afternoon on November 19, the pain became much more severe. She has not noticed any fever or definite shaking chills. The pain became quite severe. She has noted some nausea over the last couple of days with vomiting for also probably several days intermittently. Her appetite has been poor, but she has been trying to eat. She describes pain again in the right upper quadrant area and into her right flank. She also describes that her right shoulder feels tight. She indicates she has had some blood intermittently in her stool, which she describes as red in color. In the emergency department at [facility] she underwent some testing. She apparently had a CT scan done as well as some lab work. Her complete blood count (CBC) was incomplete. I was contacted late in the evening by the physician team assistant at [facility], who was requesting my acceptance of the patient for evaluation in the emergency department at [facility], because they had no access to ultrasound, and the CBC analyzer was malfunctioning. I spoke with the nursing electrical assembly supervisor who indicated that they would prefer that the patient be accepted as a direct admission because the emergency room (ER) was quite busy with two patients on the ventilator, and they did not wish to accept the patient to the ER for evaluation. I therefore accepted the patient as a direct transfer to the floor. On arrival to the floor, she reports that she still having pain. It was not reported to me that she had a CT scan done at [facility] prior to transfer. She is now for evaluation of her pain. MEDICAL HISTORY: Patient has some anxiety and possibly depression. She sees an Nicki Crystal in [facility] for her medical care. SURGICAL HISTORY: Significant for a surgical repair of pectus excavatum back in 2011 with removal of her substernal support bar in 2014. She had an appendectomy at about age 7. ALLERGIES: AUGMENTIN. MEDICATIONS: The patient reports her current medications include: - Paxil 40 mg every morning - Wellbutrin 150 mg every morning - gallbladder 800 mg by mouth three times a day - olanzapine 2.5 mg by mouth at bedtime - prazosin 5 mg at bedtime She reports that all of these medications were restarted about a week ago after she re-acquired insurance. SOCIAL HISTORY: The patient is apparently a fairly regular smoker of marijuana. She has used some other drugs and admits to having used some Suboxone recently. She apparently does smoke cigarettes but denies any significant alcohol intake. FAMILY HISTORY: The patient's mother has accompanied her to the hospital. She reports that her mother, that is, the patient's grandmother, had apparently gallbladder disease. Mother has had some "bowel issues" and some rectal bleeding occasionally. There is not a diagnosis of inflammatory bowel disease. REVIEW OF SYSTEMS: The patient denies any prior chest pain or cardiac issues. She had no shortness of breath, cough, or wheezing. The patient reports very recently she has had some trouble voiding. She denies any dysuria or hematuria. Gastrointestinal (GI) symptoms are covered in the history of present illness. She has not had any significant bone or joint issues other than her pectus excavatum, which was treated. She denies any history of deep vein thrombosis (DVT) or pulmonary embolus. Her most recent menstrual period ended on November 10. She reported that she had bleeding that lasted about 10 days, which is unusual for her. PHYSICAL EXAMINATION: The patient's examination shows a pleasant young woman, sitting propped up on pillows in the hospital bed. She is alert and oriented. She appears somewhat anxious but not obviously in pain. SKIN: Warm and dry. Sclerae are anicteric. Mucous membranes are moist. NECK: Supple without palpable mass, and she has no bruit. HEART: Shows a regular rhythm, which is in the 60s to 70s. LUNGS: Clear to auscultation bilaterally. She has excellent range of motion in her upper extremities. She has palpable radial pulses bilaterally. HEART: Reveals a regular rate and rhythm. ABDOMEN: Flat. She has a well-healed transverse scar her right lower quadrant. She has normoactive bowel sounds. There is no sign of hernia. There is no tenderness to percussion. On palpation the patient reports some tenderness in the right subcostal area and in the epigastrium high up. The abdomen, however, is soft, and there is no guarding and no rebound. No masses appreciated. Lower extremities are without edema, and she has palpable dorsalis pedis pulses bilaterally. LABORATORY STUDIES: From [facility] that are available show a CBC without a white count with a hemoglobin of 12, hematocrit of 37. Se had a urinalysis that showed a specific gravity of 1.025 with 1+ leukocyte esterase, negative nitrite, 0-2 red cells, and 3-5 white cells per high-power field. She had an hCG that was negative. Chemistry profile showed normal BUN and creatinine, glucose, and electrolytes. Liver function tests were normal with a total protein of 7.2 and albumin of 3.6. There is a brief report in the transfer documents indicating that an abdominal and pelvic CT was normal as interpreted by the radiologist. I do not have a written copy of this report. I do have a TD, on which the images were stored, and I reviewed this, and other than perhaps an increased amount of stool in the right side of the colon, I do not see any definite abnormalities. There is one calcification low in the pelvis toward the base of the bladder, and it is not entirely clear to me whether this could represent a small ureteral stone or just a phlebolith. IMPRESSION: 1. Right upper quadrant and flank pain of unclear etiology. 2. Recent nausea and vomiting. 3. Anxiety. PLAN: We will repeat the patient's complete blood count (CBC) with differential to obtain a white blood cell count and differential. An ultrasound of the right upper quadrant and an ultrasound of the right renal system will be obtained to look for any abnormalities to account for her pain. I would note that the patient was previously evaluated for similar pains back in July 2017. This was apparently during her prior . She was seen by thoracic surgery and the hospitalist service while she was being admitted by [facility]. At that time, she underwent workup with CT of the abdomen and chest and an abdominal ultrasound. No etiology for her discomfort was identified at that time. I advised the patient that given her history of substance abuse previously and the medication she is on currently, that pain control may be more difficult, and that she should anticipate that we will not alleviate all of her pain. The patient desires to proceed with the plan as I have outlined it.
[2018-11-20] MEDS ORDERED: OLANZapine 2.5MG TABLET PO SCH (21:00)
[2018-11-20] MEDS ORDERED: PRAZOSIN 1 MG CAP PO SCH (21:00)
[2018-11-21 02:00] VITALS: BP 106/58
[2018-11-21 06:00] VITALS: BP 115/62
[2018-11-21 06:06] LABS: BASO % 0.4 % (0.0-1.0); EOS # 0.4 10^3/uL (0.0-0.50); EOS % 7.9 % (0.0-3.0); HEMOGLOBIN 11.8 g/dl (12.0-15.5); LYMPH # 1.8 10^3/uL (1.5-6.5); LYMPH % 32.5 % (24.0-44.0); MEAN CORPUSCULAR HEMOGLOBIN 31.5 pg (27.0-33.0); MEAN CORPUSCULAR HGB CONC 31.9 g/dl (32.0-36.5); MEAN CORPUSCULAR VOLUME 98.7 fl (80.0-96.0); MONO # 0.5 10^3/uL (0.0-0.8); MONO % 9.3 % (0.0-5.0); NEUTROPHILS # 2.8 10^3/uL (1.8-7.7); NEUTROPHILS % 49.5 % (36.0-66.0); PLATELET COUNT, AUTOMATED 255 10^3/uL (150-450); RED BLOOD COUNT 3.75 10^6/uL (4.00-5.40); WHITE BLOOD COUNT 5.6 10^3/uL (4.0-10.0)
[2018-11-21 06:35] LABS: ALBUMIN 2.8 GM/DL (3.2-5.2); ALT/SGPT 14 U/L (12-78); BILIRUBIN,TOTAL 0.2 MG/DL (0.2-1.0); BLOOD UREA NITROGEN 11 MG/DL (7-18); CALCIUM LEVEL 8.1 MG/DL (8.5-10.1); CARBON DIOXIDE LEVEL 29 MEQ/L (21-32); CHLORIDE LEVEL 114 MEQ/L (98-107); CREATININE FOR GFR 0.91 MG/DL (0.55-1.30); GLOMERULAR FILTRATION RATE > 60.0 (>60); GLUCOSE, FASTING 90 MG/DL (70-100); POTASSIUM SERUM 4.4 MEQ/L (3.5-5.1); SODIUM LEVEL 147 MEQ/L (136-145); TOTAL PROTEIN 5.8 GM/DL (6.4-8.2)
[2018-11-21] MEDS: GABAPENTIN 400 MG CAP PO SCH ×2 (07:54→15:37)
[2018-11-21] MEDS: PARoxetine 20 MG TAB PO SCH (07:54)
[2018-11-21] MEDS: buPROPion **XL** TABLET 150MG (WELLBUTRIN XL) PO SCH (07:54)
[2018-11-21] MEDS: PANTOPRAZOLE 40MG INJ (PROTONIX) (C9113) IV SCH (07:54)
[2018-11-21] MEDS: KETOROLAC 30 MG/ML VIAL (J1885) IV PRN ×2 (07:55→15:37)
[2018-11-21] MEDS: MORPHINE 4 MG/ML 1ML VIAL/SYRINGE (J2270) IV PRN ×4 (08:22→16:10)
--- NOTE | 2018-11-21 08:45 | CR ---
DATE OF CONSULTATION: 11/20/2018 This is a 23-year-old female we were asked for medical consultation. REASON FOR CONSULTATION: Chest pain. The patient is a 23-year-old female with a history of depression and anxiety disorder and drug abuse, specifically marijuana and Suboxone, who was transferred to surgical services from [facility] for evaluation of right upper quadrant abdominal pain. The patient said that the chest pain that she got during hospitalization, which told the nursing staff and surgeon, happened yesterday and was subxiphoid/retrosternal and radiating to her back, but these are the same symptoms that she had from the beginning. She also said that this has been happening for quite some time now. She has no family history of early coronary disease and she denies taking any uppers, such as amphetamine or cocaine. PAST MEDICAL HISTORY: 1. Anxiety disorder. 2. Depression. 3. History of substance abuse, such as marijuana and Suboxone, last Suboxone intake was in May, as per the patient. 4. History of pectus excavatum with surgical repair in 2011 and removal of her substernal support bars in 2014. 5. History of appendectomy. ALLERGIES: PENICILLIN. FAMILY HISTORY: Negative for early coronary artery disease. SOCIAL HISTORY: The patient denies tobacco or alcohol abuse. She admits to currently using marijuana, but denies having used Suboxone since May and did not abuse cocaine or amphetamines. MEDICATIONS: The medications she takes at home are as follows: - bupropion 150 mg daily - gabapentin 800 mg by mouth three times a day - olanzapine 2.5 mg by mouth at bedtime - pantoprazole 40 mg daily - paroxetine 40 mg daily - prazosin 5 mg by mouth at bedtime REVIEW OF SYSTEMS: Negative for all ten major systems except what is mentioned in the history of present illness. VITAL SIGNS: Blood pressure 105/57, heart rate is 55 and regular, respiratory rate is 16, temperature 98.5, oxygen saturation 97% on room air. Head is atraumatic, normocephalic. Neck is supple with no jugular venous distention (JVD). Lungs are clear to auscultation. S1, S2 audible. No murmurs appreciated. Abdomen is soft. Positive bowel sounds. No pedal edema. Skin intact. Musculoskeletal: There is reproducible tenderness in her subxiphoid area, as well as her right lower ribs. Neurologic examination, the patient is awake, alert and oriented times three. LABORATORIES: WBC 12, hemoglobin 12.4, hematocrit 38.5, platelets are 260,000. Sodium 141, potassium 4.2, chloride 107, CO2 of 30, BUN 12, creatinine 1.01, glucose 87. IMPRESSION: 1. Chest pain. PLAN: Recommendations are that this is likely costochondritis and likes this is referred pain from her prior surgery. All abdominal imaging have come back negative. Do not recommend an electrocardiogram (EKG). Do not recommend any further testing. At this time, she is very, very low risk of any coronary artery disease or cardiac events. Thus, we will sign off at this time. Please reconsult us if necessary.
[2018-11-21 10:00] VITALS: BP 132/67
[2018-11-21 14:00] VITALS: BP 119/68
--- NOTE | 2018-11-21 17:43 | IPN ---
DATE: 11/20/2018 HISTORY: The patient was admitted early this morning on transfer from [facility] with a right upper quadrant right flank and right shoulder pain. She had undergone a CT scan at [facility] that showed no significant abdominal abnormalities. Her laboratory started the studies on admission showed a minimal elevation of the white blood cell count with a normal differential, and her chemistries were unrevealing. She had a gallbladder ultrasound and ultrasound of the right kidney performed the early this morning and this showed a normal gallbladder with a common bile duct that was not dilated, and there was no pathology noted in the kidney. The patient reports this morning that she is feeling better with less pain. She is hungry. Vital signs: The patient has been afebrile since admission. Pulse is in the 60s and 70s. Her blood pressure is normal with a normal room air saturation. Intake and output is balanced with excellent urine output. PHYSICAL EXAMINATION: Patient is alert and oriented. She is much more comfortable. She moves readily without evident discomfort. The abdomen is flat and soft. She has no new labs this morning. IMPRESSION: Right upper quadrant, flank, and right shoulder discomfort of unclear etiology. Her mother does point out that the patient has been loading a lot of cut firewood recently and wonders if this might have something to do with her discomfort. The patient was counseled that the etiology of her discomfort is not clear, though certainly some of this could be related to musculoskeletal strain. There are no evident significant abnormalities showing up on a CT scan or ultrasound of the abdomen. PLAN: The patient will be started on a regular diet. Her intravenous (IV) will be cut back, and if she tolerates liquids well, this will be saline lock. She is encouraged to be up ambulatory. I will reassess her later and see if she is able to be discharged. JOHN
== END 2018-11-21 17:30 | disposition home or self-care (01) ==
LOC: M MSPAV 11-20 01:05 → INTOOBSV 11-20 01:05
PROVIDERS: ADMIT Surgery; ATTEND Surgery
DX: R10.11 Right upper quadrant pain (principal); Z79.899 Other long term (current) drug therapy; F41.9 Anxiety disorder, unspecified; F17.210 Nicotine dependence, cigarettes, uncomplicated; F12.90 Cannabis use, unspecified, uncomplicated
CPT/HCPCS: 36415; 76705; 76775; 80053; 81001; 85025; 87086; 96361; 96375; 96376; C9113; J1885; J2270

== ENCOUNTER 2019-01-24 11:19 | Emergency (ER) | payer MEDICAID, OTHER ==
[~2019-01-24] VITALS: Ht 172.7 cm; Wt 70.5 kg
[~2019-01-24 11:19] MED LIST changes: +BUPR15TA PO; +FOLI1TAB11 PO; -FOLI1TAB5 PO; +GABA800T4 PO; -MAPA500T17 PO; +MAPA500T2 PO; +PANT40TA3 PO; +PAXI40TA10 PO; +PRAZ5CAP PO; +ZYPR2.5T2 PO
[2019-01-24] MEDS ORDERED: OLAN10TA2 PO (11:26)
[2019-01-24] MEDS ORDERED: QUET1TAB8 (11:26)
[2019-01-24] MEDS ORDERED: PARO15TA PO (11:26)
[2019-01-24] MEDS ORDERED: cloNIDine HCL 0.3 MG/24 HR PATCH TOP STA (11:58)
[2019-01-24] MEDS ORDERED: diphenhydrAMINE INJ 50MG/ML VIAL (J1200) IM STA (11:59)
[2019-01-24] MEDS ORDERED: PROMETHAZINE INJ 25 MG/ML VIAL (J2550) IM ONE (12:00)
[2019-01-24 12:32] VITALS: BP 126/82
[2019-01-24] MEDS ORDERED: PROM25TA22 PO (13:45)
[2019-01-24] MEDS ORDERED: HYDR-643 PO (13:47)
[2019-01-24 17:30] VITALS: BP 118/63
== END 2019-01-24 17:32 | disposition home or self-care (01) ==
LOC: M ED 11:19
DX: F11.23 Opioid dependence with withdrawal (principal); Z79.899 Other long term (current) drug therapy; Z88.0 Allergy status to penicillin; Z88.8 Allergy status to other drugs, medicaments and biological substances
CPT/HCPCS: 96372; 99284; J1200

== ENCOUNTER 2019-01-26 18:49 | Inpatient (IN) | payer OTHER ==
[~2019-01-26] VITALS: Ht 172.7 cm; Wt 70.3 kg
[~2019-01-26 18:49] MED LIST changes: +HYDR-643 PO; +OLAN10TA2 PO; +PARO15TA PO; +PROM25TA22 PO; +QUET1TAB8
[2019-01-26 19:40] LABS: HEMATOCRIT 32.1 % (36.0-47.0); HEMOGLOBIN 10.8 g/dl (12.0-15.5); MEAN CORPUSCULAR HEMOGLOBIN 31.2 pg (27.0-33.0); MEAN CORPUSCULAR HGB CONC 33.6 g/dl (32.0-36.5); MEAN CORPUSCULAR VOLUME 92.8 fl (80.0-96.0); PLATELET COUNT, AUTOMATED 239 10^3/uL (150-450); RED BLOOD COUNT 3.46 10^6/uL (4.00-5.40); WHITE BLOOD COUNT 5.9 10^3/uL (4.0-10.0)
[2019-01-26] MEDS ORDERED: MORPHINE 30 MG TAB **MSIR PO ONE (20:00)
[2019-01-26] MEDS ORDERED: PHENobarbital 30 MG TAB PO ONE (20:00)
[2019-01-26 20:02] LABS: AMPHETAMINES LEVEL URINE NEGATIVE (NEGATIVE); BARBITURATES URINE NEGATIVE (NEGATIVE); BENZODIAZEPINES URINE NEGATIVE (NEGATIVE); CANNABINOIDS URINE POSITIVE (NEGATIVE); COCAINE METABOLITE URINE NEGATIVE (NEGATIVE); METHADONE URINE NEGATIVE (NEGATIVE); OPIATES URINE NEGATIVE (NEGATIVE); PHENCYCLIDINE URINE NEGATIVE (NEGATIVE)
[2019-01-26 20:11] LABS: ACETAMINOPHEN LEVEL < 2.0 UG/ML (10.0-30.0); ALT/SGPT 28 U/L (12-78); BILIRUBIN,DIRECT < 0.1 MG/DL (0.0-0.2); BILIRUBIN,TOTAL 0.2 MG/DL (0.2-1.0); BLOOD UREA NITROGEN 14 MG/DL (7-18); CALCIUM LEVEL 7.7 MG/DL (8.5-10.1); CARBON DIOXIDE LEVEL 27 MEQ/L (21-32); CHLORIDE LEVEL 107 MEQ/L (98-107); CREATININE FOR GFR 0.82 MG/DL (0.55-1.30); ETHYL ALCOHOL (ETHANOL) < 0.003 % (0.000-0.010); GLOMERULAR FILTRATION RATE > 60.0 (>60); GLUCOSE, FASTING 93 MG/DL (70-100); POTASSIUM SERUM 4.1 MEQ/L (3.5-5.1); SALICYLATE LEVEL 2.8 MG/DL (5.0-30.0); SODIUM LEVEL 143 MEQ/L (136-145); TOTAL PROTEIN 6.5 GM/DL (6.4-8.2)
[2019-01-27] MEDS ORDERED: PHENobarbital 30 MG TAB PO ONE (05:30)
[2019-01-27] MEDS ORDERED: SERTRALINE HCL 50 MG TAB PO SCH (09:00)
[2019-01-27] MEDS ORDERED: GABAPENTIN 400 MG CAP PO ONE (09:45)
[2019-01-27] MEDS ORDERED: PARoxetine 10MG TABLET PO ONE (09:45)
[2019-01-27] MEDS ORDERED: OLANZapine 5 MG TAB PO ONE (09:45)
[2019-01-27] MEDS ORDERED: MAALOX 30 ML SUSP *UDC PO PRN (13:45)
[2019-01-27] MEDS ORDERED: ACETAMINOPHEN TAB 650MG DOSE (2X325MG) PO PRN (13:45)
[2019-01-27] MEDS ORDERED: MOM 30ML SUSPENSION UDC PO PRN (13:45)
[2019-01-27 14:26] VITALS: BP 109/69
[2019-01-27 14:32] VITALS: BP 109/69
[2019-01-27] MEDS: LORazepam 2 MG TAB PO PRN ×2 (14:49→22:16)
[2019-01-27] MEDS: NICOTINE 21MG/24HR 1 EA TRANSDERMAL TD SCH (14:50)
[2019-01-27] MEDS: FOLIC ACID 1 MG TAB PO SCH (14:50)
[2019-01-27] MEDS: MULTIVITAMINS/MINERALS THERAP 1 TAB PO SCH (14:50)
[2019-01-27] MEDS: THIAMINE 100 MG TAB PO SCH ×2 (14:50→21:25)
[2019-01-27 18:00] VITALS: BP 110/72
[2019-01-27] MEDS: traZODone 50 MG TAB PO PRN (21:26)
[2019-01-27 22:15] VITALS: BP 105/60
[2019-01-28] MEDS ORDERED: OLANZapine ORAL DISINTEGRATING TAB 5MG PO PRN (01:45)
[2019-01-28 06:33] VITALS: BP 106/69
[2019-01-28 06:42] VITALS: BP 106/69
[2019-01-28] MEDS: MULTIVITAMINS/MINERALS THERAP 1 TAB PO SCH (08:22)
[2019-01-28] MEDS: PARoxetine 10MG TABLET PO SCH (08:22)
[2019-01-28] MEDS: THIAMINE 100 MG TAB PO SCH ×2 (08:22→20:46)
[2019-01-28] MEDS: FOLIC ACID 1 MG TAB PO SCH (08:22)
[2019-01-28] MEDS: NICOTINE 21MG/24HR 1 EA TRANSDERMAL TD SCH (08:23)
[2019-01-28 08:26] VITALS: BP 124/77
[2019-01-28] MEDS: LORazepam 2 MG TAB PO PRN (08:29)
[2019-01-28 09:53] VITALS: BP 100/56
--- NOTE | 2019-01-28 10:22 | HPEPDOC ---
[facility] Medical History & Physical Date of Admission Jan 27, 2019 History and Physical PCP: Nicki Crystal NP ATTENDING: Dr. Gwyn Smith HPI: 23yoF admitted to [facility] for unspecified mood disorder, being medically examined today. No acute medical complaints today. Denies any fevers, chills, weakness, fatigue, RAZA, CP, SOB, cough, palpitations, abdominal pain, N/V/D or changes in bowel or bladder habits. PMHx: Anxiety Depression Bipolar disorder ADHD PTSD H/O SI Substance use PSHX: appendectomy SOCHX: Resides in: [facility] Marital Status: single Kids: 1 Employment: unemployed Tobacco use: 1 ppd ETOH:1 drink per year Illicit Drugs: H/O opiates oxycontin, Morphine, fentanyl IV Drug Use: Denies Tattoos done unprofessionally: several FAMHX: Mother: Alive, h/o SA, drank antifreeze, anxiety/depression, Bipolar disorder Father: unknown Siblings: Alive, well Children: Alive, well Unexpected deaths due to medical reasons: None. ROS: As noted in HPI, otherwise 11pt ROS of systems reviewed and remarkable only for LMP 01/10/19 PE: GEN: 23yoF, appears stated age. Well-nourished, well developed. No acute distress. Alert and oriented x 3. Anxious throughout exam. HEENT: Normocephalic, atraumatic. Pupils are equal, round, and reactive to light. Extraocular movements are intact. No nystagmus appreciated. Sclera are nonicteric. Conjunctiva without injection. Nose midline. Nasal turbinates without bogginess. EACs both patent BL. TMs both visualized and au with good cone of light, no bulging or erythema. No facial asymmetry. Moist mucous membranes. Dentition fair. Pharynx pink and moist, no cobblestoning. Neck supple, trachea midline. No lymphadenopathy or thyromegaly appreciated. CHEST: Regular rate and rhythm, +S1, +S2 LUNGS: Clear to auscultation bilaterally. No wheezes, rales, or rhonchi. Breathing appears symmetric and easy. Patient is speaking in full sentences. No accessory muscle use. ABD: Round, soft, non-tender, non-distended. +Bowel sounds throughout. No rebound or guarding. No costovertebral angle tenderness. EXT: Pulses 2+ bilaterally dorsalis pedis and radial. No lower extremity edema appreciated. SKIN: Sula, dry, warm. Capillary refill <2sec. No rashes. NEURO: Alert and oriented x 3. Cranial nerves III-XII are intact. No focal deficits appreciated. EKG: pending A&P: 23yoF admitted to [facility] for unspecified mood disorder 1. Psych. Plan per Psychiatry. Obtain baseline EKG to assure the safety of psychiatric medications as they can prolong the QT interval. 2. Nicotine dependence. Patch available. 3. Tatoos done unprofessionally. Pt requests HIV/hepatitis screening. 4. Follow up with PCP on discharge. 5. H/O Substance abuse. Management per psychiatry. 6. Abn AST. recheck CMP in AM. 7. Add HCG to admission labs. 8. Abn UA 01/26/19. UC 01/26/19 negative. Pt is not reporting any urinary symptoms. 9. Staff member Lora ZARAGOZA present throughout exam. Vital Signs Vital Signs Date Time Temp Pulse Resp B/P (MAP) Pulse Ox O2 Delivery O2 Flow Rate FiO2 01/28/19 09:53 97.0 80 16 100/56 (71) 01/28/19 08:20 Room Air 01/27/19 14:32 98 Laboratory Data Labs 24H Item Value Date Time White Blood Count 5.9 10^3/uL 01/26/191926 Red Blood Count 3.46 10^6/uL L 01/26/191926 Hemoglobin 10.8 g/dl L 01/26/191926 Hematocrit 32.1 % L 01/26/191926 Mean Corpuscular Volume 92.8 fl 01/26/191926 Mean Corpuscular Hemoglobin 31.2 pg 01/26/191926 Mean Corpuscular Hemoglobin Concent 33.6 g/dl 01/26/191926 Red Cell Distribution Width 11.0 % L 01/26/191926 Platelet Count 239 10^3/uL 01/26/191926 Nucleated Red Blood Cells % (auto) 0.0 % 01/26/191926 Sodium Level 143 MEQ/L 01/26/191930 Potassium Level 4.1 MEQ/L 01/26/191930 Chloride Level 107 MEQ/L 01/26/191930 Carbon Dioxide Level 27 MEQ/L 01/26/191930 Anion Gap 9 MEQ/L 01/26/191930 Blood Urea Nitrogen 14 MG/DL 01/26/191930 Creatinine 0.82 MG/DL 01/26/191930 Glomerular Filtration Rate > 60.0 01/26/191930 Fasting Glucose 93 MG/DL 01/26/191930 Calcium Level 7.7 MG/DL L 01/26/191930 Total Bilirubin 0.2 MG/DL 01/26/191930 Direct Bilirubin < 0.1 MG/DL 01/26/191930 Aspartate Amino Transf (AST/SGOT) 48 U/L H 01/26/191930 Alanine Aminotransferase (ALT/SGPT) 28 U/L 01/26/191930 Alkaline Phosphatase 94 U/L 01/26/191930 Total Protein 6.5 GM/DL 01/26/191930 Albumin 3.0 GM/DL L 01/26/191930 Albumin/Globulin Ratio 0.86 L 01/26/191930 Thyroid Stimulating Hormone (TSH) 2.670 uIU/ML 01/26/191930 Salicylates Level 2.8 MG/DL L 01/26/191930 Urine Opiates Screen NEGATIVE 01/26/191931 Urine Methadone Screen NEGATIVE 01/26/191931 Acetaminophen Level < 2.0 UG/ML L 01/26/191930 Urine Barbiturates Screen NEGATIVE 01/26/191931 Urine Phencyclidine Screen NEGATIVE 01/26/191931 Urine Amphetamines Screen NEGATIVE 01/26/191931 Urine Benzodiazepines Screen NEGATIVE 01/26/191931 Urine Cocaine Metabolite Screen NEGATIVE 01/26/191931 Urine Cannabinoids Screen POSITIVE H 01/26/191931 Ethyl Alcohol Level < 0.003 % 01/26/191930 Microbiology Microbiology 01/26/19 Urine Culture - Final, Complete Home Medications Scheduled Gabapentin (Gabapentin) 800 Mg Tab, 800 MG PO TID Olanzapine (Olanzapine) 10 Mg Tab, 5 MG PO QAM Paroxetine (Paroxetine HCl) 15 Mg Halftab, 30 MG PO QAM Quetiapine Fumerate (Quetiapine Fumarate) 100 Mg Tab, QHS Allergies Coded Allergies: Amoxicillin (Verified Allergy, Intermediate, vomiting, 01/26/19) Clavulanic Acid (Verified Allergy, Intermediate, stomach pains/vomiting, 01/26/19) Betty Locke Jan 28, 2019 10:22
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
[2019-01-28] MEDS ORDERED: PARoxetine 10MG TABLET PO ONE (11:00)
[2019-01-28] MEDS: METHADONE 10 MG TAB (S0109) PO SCH ×2 (11:54→20:45)
[2019-01-28] MEDS: GABAPENTIN 400 MG CAP PO SCH ×3 (11:55→20:46)
[2019-01-28 13:38] LABS: HCG, SERUM QUALITATIVE NEGATIVE (NEGATIVE)
[2019-01-28 14:28] VITALS: BP 110/68
[2019-01-28 18:18] VITALS: BP 124/88
[2019-01-28] MEDS: QUEtiapine FUMARATE 100 MG TAB PO SCH (20:46)
[2019-01-28] MEDS: traZODone 50 MG TAB PO PRN (20:46)
[2019-01-29 06:12] VITALS: BP 121/74
[2019-01-29 06:28] VITALS: BP 121/74
--- NOTE | 2019-01-29 08:00 | ECGEPIP ---
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
[2019-01-29] MEDS: FOLIC ACID 1 MG TAB PO SCH (08:04)
[2019-01-29] MEDS: PARoxetine 10MG TABLET PO SCH (08:04)
[2019-01-29] MEDS: NICOTINE 21MG/24HR 1 EA TRANSDERMAL TD SCH (08:04)
[2019-01-29] MEDS: MULTIVITAMINS/MINERALS THERAP 1 TAB PO SCH (08:04)
[2019-01-29] MEDS: THIAMINE 100 MG TAB PO SCH ×2 (08:04→22:34)
[2019-01-29] MEDS: GABAPENTIN 400 MG CAP PO SCH ×3 (08:04→22:34)
[2019-01-29] MEDS: METHADONE 10 MG TAB (S0109) PO SCH ×2 (08:04→22:37)
--- NOTE | 2019-01-29 08:43 | MHIPNPDOC ---
[facility] Progress Note Progress Note DATE OF SERVICE: 01/29/19 HISTORY: Patient is a 23 -year-old , female, with a history of substance abuse, depression, ptsd, self-injury, and multiple admissions to [facility] who present to ED endorsing SI with plan to stop eating and drinking due to opiate w/d symptoms of body aches, diarrhea, N/V) since leaving [facility] 12/26/17 where she was started on suboxone and left AMA with a script of suboxone for 1 wk that ran out 4 days ago causing herself to go into opiate withdrawal. Pt also endorsing in the ED depression, anxiety, low energy, poor concentration, CAH to kill herself, and VH of things flying by, clowns, and cloudy vision. Pt stated in the ED that she had been living with her boyfriend and his mother who are supportive of her until she had to go to a homeless [facility] where she's been living since 01/24/19. VITAL SIGNS: See below. NEW TEST RESULTS: See below. CURRENT MEDICATIONS: See below. MENTAL STATUS EXAMINATION: General Appearance: unkempt, disheveled, appears stated age, hospital scrubs/clothing Build: average Demeanor: average, withdrawn Eye Contact: average Activity: average, anxious Behavior: cooperative, withdrawn Speech: clear, reg/rate,rhythm,volume Mood: depressed, anxious Mood "sad" Affect: constricted, flat, congruent, anxious, irritable Thought Process: logical/linear, depressed, intact Thought Content (Delusions): none reported, denies SI, HI, AVH Thought Content (Other): none reported, appropriate Thought Content (Aggressive): none reported Perception (Hallucinations): none reported Perception (Other): none reported Cognition (Impairment of): none reported Cognition(Intelligence Est.): average Oriented: Awake, Alert, Oriented times three Insight: fair Judgment: Fair Psychosis: Denies DIAGNOSES: Depression unspecified R/O substance induce depression secondary opiate withdrawal opiate/cannabis use d/o ptsd ASSESSMENT:Pt seen and states she doesn't feel the methadone is enough, asking for suboxone. Discussed the fact that when she leaves I will not be prescribing her suboxone and she will not have a doctor to prescribe it immediately so she could go thru withdrawal again. To prevent that will continue methadone taper Pt states she's "sad" due to withdrawal and upset she will continued on methadone taper to enable her better on d/c. Pt upset and walked out. Denies SI/HI, hallucinations, delusions. States she's tolerating her other medications and that they're beneficial. Feels safe here. MANAGEMENT PLAN: continue plan Medications: methadone taper for opiate w/d starting at 10mg bid Paxil 30mg daily gabapentin 800mg tid seroquel 100mg qhs TIME SPENT: 30 minutes. Vital Signs Vital Signs Date Time Temp Pulse Resp B/P (MAP) Pulse Ox O2 Delivery O2 Flow Rate FiO2 01/29/19 08:04 16 01/29/19 06:28 75 121/74 01/29/19 06:12 97.4 01/28/19 08:20 Room Air 01/27/19 14:32 98 Laboratory Data 24H Labs Laboratory Tests 2 01/29/19 07:18: Nucleated Red Blood Cells % (auto) 0.0, Anion Gap 7L, Glomerular Filtration Rate > 60.0, Blood Urea Nitrogen 13, Creatinine 0.79, Sodium Level 140, Potassium Level 3.9, Chloride Level 105, Carbon Dioxide Level 28, Calcium Level 8.9#, Aspartate Amino Transf (AST/SGOT) 13, Alanine Aminotransferase (ALT/SGPT) 14, Alkaline Phosphatase 67, Total Bilirubin 0.5#, Total Protein 7.6, Albumin 3.7#, Albumin/Globulin Ratio 0.95L CBC/BMP Laboratory Tests 01/29/19 07:18 Red Blood Count 4.81, Mean Corpuscular Volume 85.7, Mean Corpuscular Hemoglobin 27.4, Mean Corpuscular Hemoglobin Concent 32.0, Red Cell Distribution Width 13.0, Calcium Level 8.9 #, Aspartate Amino Transf (AST/SGOT) 13, Alanine Aminotransferase (ALT/SGPT) 14, Alkaline Phosphatase 67, Total Bilirubin 0.5 #, Total Protein 7.6, Albumin 3.7 # Current Medications Current Medications Acetaminophen (Tylenol Tab) 650 mg Q6HP PRN PO HEADACHE or DISCOMFORT Last administered on 01/27/19at 21:26; Start 01/27/19 at 13:45 Al Hydrox/Mg Hydrox/Simethicone (Mylanta) 30 ml Q4HP PRN PO HEARTBURN/INDIGESTION; Start 01/27/19 at 13:45 Aripiprazole (AbiLIFY) 2.5 mg BID PO Last administered on 01/28/19 08:22; Start 01/27/19 at 09:00; Stop 01/28/19 at 10:59; Status DC Folic Acid (Folic Acid) 1 mg DAILY PO Last administered on 01/29/19 08:04; Start 01/27/19 at 09:00 Gabapentin (Neurontin) 800 mg TID PO Last administered on 01/29/19 08:04; Start 01/28/19 at 09:00 Lorazepam (Ativan) 2 mg ASDIRECTED PRN PO SEE PROTOCOL Last administered on 01/28/19 08:29; Start 01/27/19 at 13:45; Stop 01/28/19 at 10:59; Status DC Magnesium Hydroxide (Milk Of Magnesia) 30 ml DAILYPRN PRN PO CONSTIPATION; Start 01/27/19 at 13:45 Methadone HCl (Dolophine) 10 mg BID PO Last administered on 01/29/19 08:04; Start 01/28/19 at 09:00 Multivitamins (Theragram-M) 1 tab DAILY PO Last administered on 01/29/19 08:04; Start 01/27/19 at 09:00 Nicotine (Nicoderm Cq 21mg) 1 patch DAILY TD Last administered on 01/29/19 08:04; Start 01/27/19 at 09:00 Olanzapine (ZyPREXA ZYDIS) 5 mg Q6HP PRN PO ANXIETY/AGITATION Last administered on 01/28/19 01:39; Start 01/28/19 at 01:45; Stop 01/28/19 at 10:59; Status DC Paroxetine HCl (PAXil) 30 mg QAM PO Last administered on 01/29/19 08:04; Start 01/28/19 at 09:00 Quetiapine Fumarate (SEROquel) 100 mg QHS PO Last administered on 01/28/19 20:46; Start 01/28/19 at 21:00 Sertraline HCl (Zoloft) 50 mg DAILY PO ; Start 01/27/19 at 09:00; Stop 01/27/19 at 17:13; Status DC Thiamine HCl (Thiamine HCl) 100 mg BID PO Last administered on 3/6/19at 08:04; Start 01/27/19 at 14:00; Stop 01/29/19 at 21:01 Trazodone HCl (Desyrel) 50 mg QHSP PRN PO INSOMNIA Last administered on 01/28/19at 20:46; Start 01/27/19 at 13:45 Allergies Coded Allergies: Amoxicillin (Verified Allergy, Intermediate, vomiting, 01/26/19) Clavulanic Acid (Verified Allergy, Intermediate, stomach pains/vomiting, 01/26/19) LIBERTY ROBBINS DO Jan 29, 2019 8:43 am
[2019-01-29 09:30] LABS: HEPATITIS B SURFACE ANTIGEN NEGATIVE (NEGATIVE)
[2019-01-29 09:56] LABS: HEPATITIS B CORE ANTIBODY IGM NEGATIVE (NEGATIVE); HEPATITIS C VIRUS ABY INDEX < 0.0 INDEX (<0.8)
[2019-01-29 09:58] LABS: HEPATITIS A ANTIBODY IGM NEGATIVE (NEGATIVE); HIV 1&2 SCREEN CENTAUR NEGATIVE (NEGATIVE)
[2019-01-29 13:51] LABS: HEMATOCRIT 35.3 % (36.0-47.0); HEMOGLOBIN 11.9 g/dl (12.0-15.5); MEAN CORPUSCULAR HEMOGLOBIN 30.7 pg (27.0-33.0); MEAN CORPUSCULAR HGB CONC 33.7 g/dl (32.0-36.5); PLATELET COUNT, AUTOMATED 274 10^3/uL (150-450); RED BLOOD COUNT 3.88 10^6/uL (4.00-5.40); WHITE BLOOD COUNT 6.6 10^3/uL (4.0-10.0)
[2019-01-29 14:43] LABS: ALBUMIN 3.1 GM/DL (3.2-5.2); ALT/SGPT 25 U/L (12-78); BILIRUBIN,TOTAL 0.1 MG/DL (0.2-1.0); BLOOD UREA NITROGEN 11 MG/DL (7-18); CALCIUM LEVEL 8.3 MG/DL (8.5-10.1); CARBON DIOXIDE LEVEL 29 MEQ/L (21-32); CHLORIDE LEVEL 106 MEQ/L (98-107); CREATININE FOR GFR 0.94 MG/DL (0.55-1.30); GLOMERULAR FILTRATION RATE > 60.0 (>60); GLUCOSE, FASTING 77 MG/DL (70-100); POTASSIUM SERUM 4.5 MEQ/L (3.5-5.1); SODIUM LEVEL 143 MEQ/L (136-145); TOTAL PROTEIN 6.6 GM/DL (6.4-8.2)
[2019-01-29 18:32] VITALS: BP 120/68
[2019-01-29 19:33] VITALS: BP 120/68
[2019-01-29] MEDS: QUEtiapine FUMARATE 100 MG TAB PO SCH (22:34)
[2019-01-30 06:41] VITALS: BP 109/63
[2019-01-30] MEDS: MULTIVITAMINS/MINERALS THERAP 1 TAB PO SCH (08:29)
[2019-01-30] MEDS: FOLIC ACID 1 MG TAB PO SCH (08:29)
[2019-01-30] MEDS: GABAPENTIN 400 MG CAP PO SCH ×3 (08:29→20:43)
[2019-01-30] MEDS: NICOTINE 21MG/24HR 1 EA TRANSDERMAL TD SCH (08:29)
[2019-01-30] MEDS: PARoxetine 10MG TABLET PO SCH (08:29)
[2019-01-30] MEDS: METHADONE 10 MG TAB (S0109) PO SCH ×2 (08:30→20:43)
--- NOTE | 2019-01-30 11:04 | MHIPNPDOC ---
[facility] Progress Note Progress Note DATE OF SERVICE: 01/30/19 HISTORY: Patient is a 23 -year-old , female, with a history of substance abuse, depression, ptsd, self-injury, and multiple admissions to [facility] who present to ED endorsing SI with plan to stop eating and drinking due to opiate w/d symptoms of body aches, diarrhea, N/V) since leaving [facility] 12/26/17 where she was started on suboxone and left AMA with a script of suboxone for 1 wk that ran out 4 days ago causing herself to go into opiate withdrawal. Pt also endorsing in the ED depression, anxiety, low energy, poor concentration, CAH to kill herself, and VH of things flying by, clowns, and cloudy vision. Pt stated in the ED that she had been living with her boyfriend and his mother who are supportive of her until she had to go to a homeless snf where she's been living since 01/24/19. VITAL SIGNS: See below. NEW TEST RESULTS: See below. CURRENT MEDICATIONS: See below. MENTAL STATUS EXAMINATION: General Appearance: unkempt, disheveled, appears stated age, hospital scrubs/clothing Build: average Demeanor: average, withdrawn Eye Contact: average Activity: average, anxious Behavior: uncooperative, withdrawn Speech: clear, reg/rate,rhythm,volume Mood: depressed, anxious Mood "I'm not coming" Affect: constricted, flat, congruent, anxious, irritable Thought Process: logical/linear, depressed, intact Thought Content (Delusions): none reported, denies SI, HI, AVH Thought Content (Other): none reported, appropriate Thought Content (Aggressive): none reported Perception (Hallucinations): none reported Perception (Other): none reported Cognition (Impairment of): none reported Cognition(Intelligence Est.): average Oriented: Awake, Alert, Oriented times three Insight: fair Judgment: Fair Psychosis: Denies DIAGNOSES: Depression unspecified R/O substance induce depression secondary opiate withdrawal opiate/cannabis use d/o ptsd ASSESSMENT:Pt refused to be seen today. Continues to endorse opiate withdrawal even though she's on methadone and upset not receiving suboxone. Per yesterday" Discussed the fact that when she leaves I will not be prescribing her suboxone and she will not have a doctor to prescribe it immediately so she could go thru withdrawal again. To prevent that will continue methadone taper. Pt states she's "sad" due to withdrawal and upset she will continued on methadone taper to enable her better on d/c. Pt upset and walked out. Denies SI/HI, hallucinations, delusions. States she's tolerating her other medications and that they're beneficial." Feels safe here. MANAGEMENT PLAN: continue plan Medications: methadone taper for opiate w/d starting at 10mg bid Paxil 30mg daily gabapentin 800mg tid seroquel 100mg qhs TIME SPENT: 30 minutes. Vital Signs Vital Signs Date Time Temp Pulse Resp B/P (MAP) Pulse Ox O2 Delivery O2 Flow Rate FiO2 01/30/19 08:30 18 01/30/19 06:41 98.8 58 109/63 (78) 01/28/19 08:20 Room Air 01/27/19 14:32 98 Laboratory Data 24H Labs Laboratory Tests 2 01/29/19 13:22: Nucleated Red Blood Cells % (auto) 0.0, Anion Gap 8, Glomerular Filtration Rate > 60.0, Blood Urea Nitrogen 11, Creatinine 0.94, Sodium Level 143, Potassium Level 4.5, Chloride Level 106, Carbon Dioxide Level 29, Calcium Level 8.3L, Aspartate Amino Transf (AST/SGOT) 23, Alanine Aminotransferase (ALT/SGPT) 25, Alkaline Phosphatase 86, Total Bilirubin 0.1L, Total Protein 6.6, Albumin 3.1L, Albumin/Globulin Ratio 0.89L CBC/BMP Laboratory Tests 01/29/19 13:22 Red Blood Count 3.88 L, Mean Corpuscular Volume 91.0, Mean Corpuscular Hemoglobin 30.7, Mean Corpuscular Hemoglobin Concent 33.7, Red Cell Distribution Width 11.0 L, Calcium Level 8.3 L, Aspartate Amino Transf (AST/SGOT) 23, Alanine Aminotransferase (ALT/SGPT) 25, Alkaline Phosphatase 86, Total Bilirubin 0.1 L, Total Protein 6.6, Albumin 3.1 L Current Medications Current Medications Acetaminophen (Tylenol Tab) 650 mg Q6HP PRN PO HEADACHE or DISCOMFORT Last administered on 01/27/19at 21:26; Start 01/27/19 at 13:45 Al Hydrox/Mg Hydrox/Simethicone (Mylanta) 30 ml Q4HP PRN PO HEARTBURN/INDIGESTION; Start 01/27/19 at 13:45 Aripiprazole (AbiLIFY) 2.5 mg BID PO Last administered on 01/28/19 08:22; Start 01/27/19 at 09:00; Stop 01/28/19 at 10:59; Status DC Folic Acid (Folic Acid) 1 mg DAILY PO Last administered on 01/30/19 08:29; Start 01/27/19 at 09:00 Gabapentin (Neurontin) 800 mg TID PO Last administered on 01/30/19 08:29; Start 01/28/19 at 09:00 Lorazepam (Ativan) 2 mg ASDIRECTED PRN PO SEE PROTOCOL Last administered on 01/28/19 08:29; Start 01/27/19 at 13:45; Stop 01/28/19 at 10:59; Status DC Magnesium Hydroxide (Milk Of Magnesia) 30 ml DAILYPRN PRN PO CONSTIPATION; Start 01/27/19 at 13:45 Methadone HCl (Dolophine) 10 mg BID PO Last administered on 01/30/19 08:30; Start 01/28/19 at 09:00 Multivitamins (Theragram-M) 1 tab DAILY PO Last administered on 01/30/19 08:29; Start 01/27/19 at 09:00 Nicotine (Nicoderm Cq 21mg) 1 patch DAILY TD Last administered on 01/30/19 08:29; Start 01/27/19 at 09:00 Olanzapine (ZyPREXA ZYDIS) 5 mg Q6HP PRN PO ANXIETY/AGITATION Last administered on 01/28/19 01:39; Start 01/28/19 at 01:45; Stop 01/28/19 at 10:59; Status DC Paroxetine HCl (PAXil) 30 mg QAM PO Last administered on 01/30/19 08:29; Start 01/28/19 at 09:00 Quetiapine Fumarate (SEROquel) 100 mg QHS PO Last administered on 01/29/19 22:34; Start 01/28/19 at 21:00 Sertraline HCl (Zoloft) 50 mg DAILY PO ; Start 01/27/19 at 09:00; Stop 01/27/19 at 17:13; Status DC Thiamine HCl (Thiamine HCl) 100 mg BID PO Last administered on 01/29/19at 22:34; Start 01/27/19 at 14:00; Stop 01/29/19 at 21:01; Status DC Trazodone HCl (Desyrel) 50 mg QHSP PRN PO INSOMNIA Last administered on 01/28/19at 20:46; Start 01/27/19 at 13:45 Allergies Coded Allergies: Amoxicillin (Verified Allergy, Intermediate, vomiting, 01/26/19) Clavulanic Acid (Verified Allergy, Intermediate, stomach pains/vomiting, 01/26/19) LIBERTY ROBBINS DO Jan 30, 2019 11:04 am
[2019-01-30 18:00] VITALS: BP 112/70
[2019-01-30] MEDS: QUEtiapine FUMARATE 100 MG TAB PO SCH (20:43)
[2019-01-31 06:00] VITALS: BP 95/54
[2019-01-31] MEDS: NICOTINE 21MG/24HR 1 EA TRANSDERMAL TD SCH (08:14)
[2019-01-31] MEDS: PARoxetine 10MG TABLET PO SCH (08:14)
[2019-01-31] MEDS: GABAPENTIN 400 MG CAP PO SCH ×3 (08:14→20:20)
[2019-01-31] MEDS: METHADONE 10 MG TAB (S0109) PO SCH ×2 (08:14→20:21)
[2019-01-31] MEDS: MULTIVITAMINS/MINERALS THERAP 1 TAB PO SCH (08:14)
[2019-01-31] MEDS: FOLIC ACID 1 MG TAB PO SCH (08:14)
--- NOTE | 2019-01-31 10:58 | MHIPNPDOC ---
[facility] Progress Note Progress Note DATE OF SERVICE: 01/31/19 HISTORY: Patient is a 23 -year-old , female, with a history of substance abuse, depression, ptsd, self-injury, and multiple admissions to [facility] who present to ED endorsing SI with plan to stop eating and drinking due to opiate w/d symptoms of body aches, diarrhea, N/V) since leaving [facility] 12/26/17 where she was started on suboxone and left AMA with a script of suboxone for 1 wk that ran out 4 days ago causing herself to go into opiate withdrawal. Pt also endorsing in the ED depression, anxiety, low energy, poor concentration, CAH to kill herself, and VH of things flying by, clowns, and cloudy vision. Pt stated in the ED that she had been living with her boyfriend and his mother who are supportive of her until she had to go to a homeless long-term where she's been living since 01/24/19. VITAL SIGNS: See below. NEW TEST RESULTS: See below. CURRENT MEDICATIONS: See below. MENTAL STATUS EXAMINATION: General Appearance: unkempt, disheveled, appears stated age, hospital scrubs/clothing Build: average Demeanor: average, withdrawn Eye Contact: average Activity: average, anxious Behavior: cooperative, withdrawn Speech: clear, reg/rate,rhythm,volume Mood: depressed, anxious Mood "so-so" Affect: constricted, flat, congruent, anxious Thought Process: logical/linear, depressed, intact Thought Content (Delusions): none reported, denies SI, HI, AVH Thought Content (Other): none reported, appropriate Thought Content (Aggressive): none reported Perception (Hallucinations): none reported Perception (Other): none reported Cognition (Impairment of): none reported Cognition(Intelligence Est.): average Oriented: Awake, Alert, Oriented times three Insight: fair Judgment: Fair Psychosis: Denies DIAGNOSES: Depression unspecified R/O substance induce depression secondary opiate withdrawal opiate/cannabis use d/o ptsd ASSESSMENT:Pt seen in room today and states she's slowly starting to get better with less opiate withdrawal symptoms. States her mood is "so-so" and denies SI. Per treatment team pt isolative to room most of the day in bed and only came ou t in late afternoon. D/c data processing systems project planner called inpatient rehabs to start the referral process for the pt which she is appreciative of. Continues to endorse overall depression and avolition. enies SI/HI, hallucinations, delusions. States she's tolerating her other medications and that they're beneficial. Feels safe here. MANAGEMENT PLAN: continue plan Medications: methadone taper for opiate w/d starting at 10mg bid Paxil 30mg daily gabapentin 800mg tid seroquel 100mg qhs TIME SPENT: 30 minutes. Vital Signs Vital Signs Date Time Temp Pulse Resp B/P (MAP) Pulse Ox O2 Delivery O2 Flow Rate FiO2 01/31/19 08:14 16 01/31/19 06:00 99.0 75 95/54 (68) 01/28/19 08:20 Room Air 01/27/19 14:32 98 Current Medications Current Medications Acetaminophen (Tylenol Tab) 650 mg Q6HP PRN PO HEADACHE or DISCOMFORT Last administered on 01/27/19 21:26; Start 01/27/19 at 13:45 Al Hydrox/Mg Hydrox/Simethicone (Mylanta) 30 ml Q4HP PRN PO HEARTBURN/INDIGESTION; Start 01/27/19 at 13:45 Aripiprazole (AbiLIFY) 2.5 mg BID PO Last administered on 01/28/19 08:22; Start 01/27/19 at 09:00; Stop 01/28/19 at 10:59; Status DC Folic Acid (Folic Acid) 1 mg DAILY PO Last administered on 01/31/19 08:14; Start 01/27/19 at 09:00 Gabapentin (Neurontin) 800 mg TID PO Last administered on 01/31/19 08:14; Start 01/28/19 at 09:00 Lorazepam (Ativan) 2 mg ASDIRECTED PRN PO SEE PROTOCOL Last administered on 01/28/19 08:29; Start 01/27/19 at 13:45; Stop 01/28/19 at 10:59; Status DC Magnesium Hydroxide (Milk Of Magnesia) 30 ml DAILYPRN PRN PO CONSTIPATION; Start 01/27/19 at 13:45 Methadone HCl (Dolophine) 10 mg BID PO Last administered on 01/31/19 08:14; Start 01/28/19 at 09:00 Multivitamins (Theragram-M) 1 tab DAILY PO Last administered on 01/31/19 08:14; Start 01/27/19 at 09:00 Nicotine (Nicoderm Cq 21mg) 1 patch DAILY TD Last administered on 01/31/19 08:14; Start 01/27/19 at 09:00 Olanzapine (ZyPREXA ZYDIS) 5 mg Q6HP PRN PO ANXIETY/AGITATION Last administered on 01/28/19 01:39; Start 01/28/19 at 01:45; Stop 01/28/19 at 10:59; Status DC Paroxetine HCl (PAXil) 30 mg QAM PO Last administered on 01/31/19 08:14; Start 01/28/19 at 09:00 Quetiapine Fumarate (SEROquel) 100 mg QHS PO Last administered on 01/30/19 20:43; Start 01/28/19 at 21:00 Sertraline HCl (Zoloft) 50 mg DAILY PO ; Start 01/27/19 at 09:00; Stop 01/27/19 at 17:13; Status DC Thiamine HCl (Thiamine HCl) 100 mg BID PO Last administered on 01/29/19 22:34; Start 01/27/19 at 14:00; Stop 01/29/19 at 21:01; Status DC Trazodone HCl (Desyrel) 50 mg QHSP PRN PO INSOMNIA Last administered on 01/28/19 20:46; Start 01/27/19 at 13:45 Allergies Coded Allergies: Amoxicillin (Verified Allergy, Intermediate, vomiting, 01/26/19) Clavulanic Acid (Verified Allergy, Intermediate, stomach pains/vomiting, 01/26/19) LIBERTY ROBBINS DO Jan 31, 2019 10:58 am
[2019-01-31 18:12] VITALS: BP 117/67
[2019-01-31] MEDS: QUEtiapine FUMARATE 100 MG TAB PO SCH (20:20)
[2019-02-01 06:14] VITALS: BP 124/68
[2019-02-01] MEDS: FOLIC ACID 1 MG TAB PO SCH (08:08)
[2019-02-01] MEDS: NICOTINE 21MG/24HR 1 EA TRANSDERMAL TD SCH (08:08)
[2019-02-01] MEDS: METHADONE 10 MG TAB (S0109) PO SCH ×2 (08:08→20:46)
[2019-02-01] MEDS: MULTIVITAMINS/MINERALS THERAP 1 TAB PO SCH (08:08)
[2019-02-01] MEDS: PARoxetine 10MG TABLET PO SCH (08:09)
[2019-02-01] MEDS: GABAPENTIN 400 MG CAP PO SCH ×3 (08:09→20:45)
[2019-02-01 18:43] VITALS: BP 106/59
[2019-02-01] MEDS: QUEtiapine FUMARATE 100 MG TAB PO SCH (20:46)
[2019-02-02 06:09] VITALS: BP 124/66
[2019-02-02] MEDS: MULTIVITAMINS/MINERALS THERAP 1 TAB PO SCH (08:53)
[2019-02-02] MEDS: PARoxetine 10MG TABLET PO SCH (08:53)
[2019-02-02] MEDS: FOLIC ACID 1 MG TAB PO SCH (08:53)
[2019-02-02] MEDS: GABAPENTIN 400 MG CAP PO SCH ×3 (08:53→20:25)
[2019-02-02] MEDS: NICOTINE 21MG/24HR 1 EA TRANSDERMAL TD SCH (08:53)
[2019-02-02] MEDS: METHADONE 10 MG TAB (S0109) PO SCH ×2 (08:53→20:26)
[2019-02-02 18:00] VITALS: BP 118/75
[2019-02-02] MEDS: QUEtiapine FUMARATE 100 MG TAB PO SCH (20:25)
[2019-02-03 06:20] VITALS: BP 117/68
[2019-02-03] MEDS: MULTIVITAMINS/MINERALS THERAP 1 TAB PO SCH (08:30)
[2019-02-03] MEDS: FOLIC ACID 1 MG TAB PO SCH (08:30)
[2019-02-03] MEDS: PARoxetine 10MG TABLET PO SCH (08:31)
[2019-02-03] MEDS: GABAPENTIN 400 MG CAP PO SCH ×3 (08:31→20:55)
[2019-02-03] MEDS: NICOTINE 21MG/24HR 1 EA TRANSDERMAL TD SCH (08:31)
[2019-02-03] MEDS: METHADONE 10 MG TAB (S0109) PO SCH (08:32)
--- NOTE | 2019-02-03 09:47 | MHIPNPDOC ---
[facility] Progress Note Progress Note DATE OF SERVICE: 02/03/19 HISTORY: Patient is a 23 -year-old , female, with a history of substance abuse, depression, ptsd, self-injury, and multiple admissions to [facility] who present to ED endorsing SI with plan to stop eating and drinking due to opiate w/d symptoms of body aches, diarrhea, N/V) since leaving [facility] 12/26/17 where she was started on suboxone and left AMA with a script of suboxone for 1 wk that ran out 4 days ago causing herself to go into opiate withdrawal. Pt also endorsing in the ED depression, anxiety, low energy, poor concentration, CAH to kill herself, and VH of things flying by, clowns, and cloudy vision. Pt stated in the ED that she had been living with her boyfriend and his mother who are supportive of her until she had to go to a homeless alf where she's been living since 01/24/19. VITAL SIGNS: See below. NEW TEST RESULTS: See below. CURRENT MEDICATIONS: See below. MENTAL STATUS EXAMINATION: General Appearance: unkempt, disheveled, appears stated age, hospital scrubs/clothing Build: average Demeanor: average, withdrawn Eye Contact: average Activity: average, isolative to room, not participating in treatment Behavior: cooperative, withdrawn Speech: clear, reg/rate,rhythm,volume Mood: depressed, annoyed Mood "ok" Affect: constricted, flat, congruent, annoyed Thought Process: logical/linear, depressed, intact Thought Content (Delusions): none reported, denies SI, HI, AVH Thought Content (Other): none reported, appropriate Thought Content (Aggressive): none reported Perception (Hallucinations): none reported Perception (Other): none reported Cognition (Impairment of): none reported Cognition(Intelligence Est.): average Oriented: Awake, Alert, Oriented times three Insight: fair Judgment: Fair Psychosis: Denies DIAGNOSES: Depression unspecified R/O substance induce depression secondary opiate withdrawal opiate/cannabis use d/o ptsd ASSESSMENT:Per treatment team this am pt is not participating in treatment, groups, follow-up with rehab phone calls and has been lying in bed refusing to get up or meet with staff. Pt seen this morning in her room in bed and highly encouraged to participate in treatment, talk with staff, attend groups, and call rehabs. Pt states "ok... I will" slightly annoyed. Pt opiate withdrawal improved and will d/c methadone to 10mg daily to prepare pt for d/c later this week when will receive no methadone. D/c corporate event planner called inpatient rehabs to start the referral process for the pt and pt highly encourage to call rehabs. Continues to endorse overall depression and avolition. Denies SI/HI, hallucinations, delusions. States she's tolerating her other medications and that they're beneficial. Feels safe here. MANAGEMENT PLAN: continue plan Medications: methadone taper for opiate w/d to 10mg daily Paxil 30mg daily gabapentin 800mg tid seroquel 100mg qhs TIME SPENT: 30 minutes. Vital Signs Vital Signs Date Time Temp Pulse Resp B/P (MAP) Pulse Ox O2 Delivery O2 Flow Rate FiO2 02/03/19 08:32 65 18 02/03/19 06:20 98.2 117/68 (84) 01/28/19 08:20 Room Air Current Medications Current Medications Acetaminophen (Tylenol Tab) 650 mg Q6HP PRN PO HEADACHE or DISCOMFORT Last administered on 01/27/19 21:26; Start 01/27/19 at 13:45 Al Hydrox/Mg Hydrox/Simethicone (Mylanta) 30 ml Q4HP PRN PO HEARTBURN/INDIGESTION; Start 01/27/19 at 13:45 Aripiprazole (AbiLIFY) 2.5 mg BID PO Last administered on 01/28/19 08:22; Start 01/27/19 at 09:00; Stop 01/28/19 at 10:59; Status DC Folic Acid (Folic Acid) 1 mg DAILY PO Last administered on 02/03/19 08:30; Start 01/27/19 at 09:00 Gabapentin (Neurontin) 800 mg TID PO Last administered on 02/03/19 08:31; Start 01/28/19 at 09:00 Lorazepam (Ativan) 2 mg ASDIRECTED PRN PO SEE PROTOCOL Last administered on 01/28/19 08:29; Start 01/27/19 at 13:45; Stop 01/28/19 at 10:59; Status DC Magnesium Hydroxide (Milk Of Magnesia) 30 ml DAILYPRN PRN PO CONSTIPATION; Start 01/27/19 at 13:45 Methadone HCl (Dolophine) 10 mg BID PO Last administered on 02/03/19 08:32; Start 01/28/19 at 09:00; Stop 02/03/19 at 09:36; Status DC Methadone HCl (Dolophine) 10 mg DAILY PO ; Start 02/04/19 at 09:00 Miscellaneous (Unresolved Clarification Entry) SEE LABEL COMMENTS DAILY XX ; Start 02/03/19 at 09:00 Multivitamins (Theragram-M) 1 tab DAILY PO Last administered on 02/03/19 08:30; Start 01/27/19 at 09:00 Nicotine (Nicoderm Cq 21mg) 1 patch DAILY TD Last administered on 02/03/19 08:31; Start 01/27/19 at 09:00 Olanzapine (ZyPREXA ZYDIS) 5 mg Q6HP PRN PO ANXIETY/AGITATION Last administered on 01/28/19 01:39; Start 01/28/19 at 01:45; Stop 01/28/19 at 10:59; Status DC Paroxetine HCl (PAXil) 30 mg QAM PO Last administered on 02/03/19 08:31; Start 01/28/19 at 09:00 Quetiapine Fumarate (SEROquel) 100 mg QHS PO Last administered on 02/02/19 20:25; Start 01/28/19 at 21:00 Sertraline HCl (Zoloft) 50 mg DAILY PO ; Start 01/27/19 at 09:00; Stop 01/27/19 at 17:13; Status DC Thiamine HCl (Thiamine HCl) 100 mg BID PO Last administered on 01/29/19 22:34; Start 01/27/19 at 14:00; Stop 01/29/19 at 21:01; Status DC Trazodone HCl (Desyrel) 50 mg QHSP PRN PO INSOMNIA Last administered on 01/28/19 20:46; Start 01/27/19 at 13:45 Allergies Coded Allergies: Amoxicillin (Verified Allergy, Intermediate, vomiting, 01/26/19) Clavulanic Acid (Verified Allergy, Intermediate, stomach pains/vomiting, 01/26/19) LIBERTY ROBBINS DO Feb 03, 2019 9:47 am
[2019-02-03 18:00] VITALS: BP 115/68
[2019-02-03] MEDS: QUEtiapine FUMARATE 100 MG TAB PO SCH (20:55)
[2019-02-04 06:15] VITALS: BP 112/70
[2019-02-04] MEDS: GABAPENTIN 400 MG CAP PO SCH ×3 (09:08→20:07)
[2019-02-04] MEDS: FOLIC ACID 1 MG TAB PO SCH (09:08)
[2019-02-04] MEDS: NICOTINE 21MG/24HR 1 EA TRANSDERMAL TD SCH (09:08)
[2019-02-04] MEDS: PARoxetine 10MG TABLET PO SCH (09:08)
[2019-02-04] MEDS: MULTIVITAMINS/MINERALS THERAP 1 TAB PO SCH (09:08)
[2019-02-04] MEDS: METHADONE 10 MG TAB (S0109) PO SCH (09:09)
--- NOTE | 2019-02-04 09:52 | MHIPNPDOC ---
[facility] Progress Note Progress Note DATE OF SERVICE: 02/04/19 HISTORY: Patient is a 23 -year-old , female, with a history of substance abuse, depression, ptsd, self-injury, and multiple admissions to [facility] who present to ED endorsing SI with plan to stop eating and drinking due to opiate w/d symptoms of body aches, diarrhea, N/V) since leaving [facility] 12/26/17 where she was started on suboxone and left AMA with a script of suboxone for 1 wk that ran out 4 days ago causing herself to go into opiate withdrawal. Pt also endorsing in the ED depression, anxiety, low energy, poor concentration, CAH to kill herself, and VH of things flying by, clowns, and cloudy vision. Pt stated in the ED that she had been living with her boyfriend and his mother who are supportive of her until she had to go to a homeless intermediate where she's been living since 01/24/19. VITAL SIGNS: See below. NEW TEST RESULTS: See below. CURRENT MEDICATIONS: See below. MENTAL STATUS EXAMINATION: General Appearance: unkempt, disheveled, appears stated age, hospital scrubs/clothing Build: average Demeanor: average, less withdrawn Eye Contact: average Activity: average Behavior: cooperative, less withdrawn Speech: clear, reg/rate,rhythm,volume Mood: less depressed Mood "ok" Affect: less constricted, congruent Thought Process: logical/linear, depressed, intact Thought Content (Delusions): none reported, denies SI, HI, AVH Thought Content (Other): none reported, appropriate Thought Content (Aggressive): none reported Perception (Hallucinations): none reported Perception (Other): none reported Cognition (Impairment of): none reported Cognition(Intelligence Est.): average Oriented: Awake, Alert, Oriented times three Insight: fair Judgment: Fair Psychosis: Denies DIAGNOSES: Depression unspecified R/O substance induce depression secondary opiate withdrawal opiate/cannabis use d/o ptsd ASSESSMENT:Pt is participating more in treatment and called rehab facilities yesterday with a possible bed at [place] [facility] tomorrow that she's looking forward to. Pt opiate withdrawal improving and tolerated methadone change to 10mg daily yesterday to prepare pt for d/c later this week when will receive no methadone. States depression and avolition are improving. Denies SI/HI, hallucinations, delusions. States she's tolerating her other medications and that they're beneficial. Feels safe here. MANAGEMENT PLAN: continue plan Medications: methadone taper for opiate w/d to 10mg daily Paxil 30mg daily gabapentin 800mg tid seroquel 100mg qhs TIME SPENT: 30 minutes. Vital Signs Vital Signs Date Time Temp Pulse Resp B/P (MAP) Pulse Ox O2 Delivery O2 Flow Rate FiO2 02/04/19 09:09 61 12 02/04/19 06:15 99.0 112/70 (84) Current Medications Current Medications Acetaminophen (Tylenol Tab) 650 mg Q6HP PRN PO HEADACHE or DISCOMFORT Last administered on 01/27/19 21:26; Start 01/27/19 at 13:45 Al Hydrox/Mg Hydrox/Simethicone (Mylanta) 30 ml Q4HP PRN PO HEARTBURN/INDIGESTION; Start 01/27/19 at 13:45 Aripiprazole (AbiLIFY) 2.5 mg BID PO Last administered on 01/28/19 08:22; Start 01/27/19 at 09:00; Stop 01/28/19 at 10:59; Status DC Folic Acid (Folic Acid) 1 mg DAILY PO Last administered on 02/04/19 09:08; Start 01/27/19 at 09:00 Gabapentin (Neurontin) 800 mg TID PO Last administered on 02/04/19 09:08; Start 01/28/19 at 09:00 Lorazepam (Ativan) 2 mg ASDIRECTED PRN PO SEE PROTOCOL Last administered on 01/28/19 08:29; Start 01/27/19 at 13:45; Stop 01/28/19 at 10:59; Status DC Magnesium Hydroxide (Milk Of Magnesia) 30 ml DAILYPRN PRN PO CONSTIPATION; Start 01/27/19 at 13:45 Methadone HCl (Dolophine) 10 mg BID PO Last administered on 02/03/19 08:32; Start 01/28/19 at 09:00; Stop 02/03/19 at 09:36; Status DC Methadone HCl (Dolophine) 10 mg DAILY PO Last administered on 02/04/19 09:09; Start 02/04/19 at 09:00 Miscellaneous (Unresolved Clarification Entry) SEE LABEL COMMENTS DAILY XX ; Start 02/03/19 at 09:00 Multivitamins (Theragram-M) 1 tab DAILY PO Last administered on 02/04/19 09:08; Start 01/27/19 at 09:00 Nicotine (Nicoderm Cq 21mg) 1 patch DAILY TD Last administered on 02/04/19 09:08; Start 01/27/19 at 09:00 Olanzapine (ZyPREXA ZYDIS) 5 mg Q6HP PRN PO ANXIETY/AGITATION Last administered on 01/28/19 01:39; Start 01/28/19 at 01:45; Stop 01/28/19 at 10:59; Status DC Paroxetine HCl (PAXil) 30 mg QAM PO Last administered on 02/04/19 09:08; Start 01/28/19 at 09:00 Quetiapine Fumarate (SEROquel) 100 mg QHS PO Last administered on 02/03/19at 20:55; Start 01/28/19 at 21:00 Sertraline HCl (Zoloft) 50 mg DAILY PO ; Start 01/27/19 at 09:00; Stop 01/27/19 at 17:13; Status DC Thiamine HCl (Thiamine HCl) 100 mg BID PO Last administered on 01/29/19 22:34; Start 01/27/19 at 14:00; Stop 01/29/19 at 21:01; Status DC Trazodone HCl (Desyrel) 50 mg QHSP PRN PO INSOMNIA Last administered on 01/28/19 20:46; Start 01/27/19 at 13:45 Allergies Coded Allergies: Amoxicillin (Verified Allergy, Intermediate, vomiting, 01/26/19) Clavulanic Acid (Verified Allergy, Intermediate, stomach pains/vomiting, 01/26/19) LIBERTY ROBBINS DO Feb 04, 2019 9:52 am
[2019-02-04 18:00] VITALS: BP 126/77
[2019-02-04] MEDS: QUEtiapine FUMARATE 100 MG TAB PO SCH (20:07)
[2019-02-05 06:37] VITALS: BP 102/58
[2019-02-05] MEDS: NICOTINE 21MG/24HR 1 EA TRANSDERMAL TD SCH (09:00)
[2019-02-05] MEDS ORDERED: PAXI30TA11 PO (09:06)
[2019-02-05] MEDS ORDERED: QUET1TAB8 PO (09:06)
--- NOTE | 2019-02-05 09:06 | MHDSPDOC ---
[facility] Discharge Summary Discharge Summary DATE OF ADMISSION: Jan 27, 2019 at 2:06 pm DATE OF DISCHARGE: Feb 05, 2019 DISCHARGE DIAGNOSES: Depression unspecified R/O substance induce depression secondary opiate withdrawal opiate/cannabis use d/o ptsd REASON FOR ADMISSION: Patient is a 23 -year-old , female, with a history of substance abuse, depression, ptsd, self-injury, and multiple admissions to [facility] who present to ED endorsing SI with plan to stop eating and drinking due to opiate w/d symptoms of body aches, diarrhea, N/V) since [facility] where she was started on suboxone and left [place] with a script of suboxone for 1 wk that ran out 4 days ago causing herself to go into opiate withdrawal. Pt also endorsing in the ED depression, anxiety, low energy, poor concentration, CAH to kill herself, and VH of things flying by, clowns, and cloudy vision. Pt stated in the ED that she had been living with her boyfriend and his mother who are supportive of her until she had to go to a homeless half-way where she's been living since 01/24/19. CONSULTANTS INVOLVED: none TREATMENT AND PROGRESS ON THE UNIT : Pt was admitted to [facility], seen for psychiatric assessment and started on a methadone taper for opiate withdrawal that she tolerated well with improvement of opiate withdrawal symptoms to none. She was restarted on her paxil 30mg daily, seroquel 100mg qhs for mood, and gabapentin 800mg tid. She was provided trazodone 50mg qhs prn insomnia. Pt found her medications beneficial and tolerated them well. She attended groups daily toward the end of her stay when she was feeling better. Her symptoms improved with treatment. On day of discharge she denied depression, anxiety, insomnia, SI/HI, hallucinations, delusions. She was discharged to friend's parents house as she works toward getting into rehab. Will follow-up at [facility]. She felt safe for discharge. DISCHARGE ASSESSMENT: Pt states she's her mood is good and she's looking forward to going to rehab today. Pt has participating more in treatment and attending groups. Pt opiate withdrawal improved to none after tolerating methadone taper. States depression and avolition are greatly improved. Denies depression, anxiety, insomnia, opiate withdrawal, SI/HI, hallucinations, delusions. States she's tolerating her medications and feels they're beneficial. Feels safe to be discharged. MENTAL STATUS EXAMINATION ON DISCHARGE: General Appearance: clean, appears stated age, hospital scrubs/clothing Build: average Demeanor: average Eye Contact: average Activity: average Behavior: cooperative Speech: clear, reg/rate,rhythm,volume Mood: euthymic, full Mood "good" Affect: euthymic, full Thought Process: logical/linear, intact, future oriented toward recovery Thought Content (Delusions): none reported, denies SI, HI, AVH Thought Content (Other): none reported, appropriate Thought Content (Aggressive): none reported Perception (Hallucinations): none reported Perception (Other): none reported Cognition (Impairment of): none reported Cognition(Intelligence Est.): average Oriented: Awake, Alert, Oriented times three Insight: fair-good Judgment: Fair-good Psychosis: Denies MEDICATIONS ON DISCHARGE: Paxil 30mg daily gabapentin 800mg tid seroquel 100mg qhs PLAN/FOLLOWUP ARRANGEMENTS: D/c to friend's parent's house as she works toward getting into rehab. Will follow-up at [facility]. The amount of time spent in the coordination of care for this patient was ap proximately 30 minutes. Vital Signs/I&Os Vital Signs Date Time Temp Pulse Resp B/P (MAP) Pulse Ox O2 Delivery O2 Flow Rate FiO2 02/05/19 06:37 97.6 58 14 102/58 (73) Laboratory Data Microbiology Microbiology 01/26/19 Urine Culture - Final, Complete Medications Scheduled Gabapentin (Gabapentin) 800 Mg Tab, 800 MG PO TID, (Reported) Olanzapine (Olanzapine) 10 Mg Tab, 5 MG PO QAM, (Reported) Paroxetine (Paroxetine HCl) 15 Mg Halftab, 30 MG PO QAM, (Reported) Quetiapine Fumerate (Quetiapine Fumarate) 100 Mg Tab, QHS, (Reported) Allergies Coded Allergies: Amoxicillin (Verified Allergy, Intermediate, vomiting, 01/26/19) Clavulanic Acid (Verified Allergy, Intermediate, stomach pains/vomiting, 01/26/19) LIBERTY ROBBINS DO Feb 05, 2019 9:06 am
[2019-02-05] MEDS: PARoxetine 10MG TABLET PO SCH (09:10)
[2019-02-05] MEDS: GABAPENTIN 400 MG CAP PO SCH ×2 (09:10→15:06)
[2019-02-05] MEDS: MULTIVITAMINS/MINERALS THERAP 1 TAB PO SCH (09:10)
[2019-02-05] MEDS: FOLIC ACID 1 MG TAB PO SCH (09:10)
[2019-02-05] MEDS: METHADONE 10 MG TAB (S0109) PO SCH (09:11)
== END 2019-02-05 17:13 | disposition home or self-care (01) | DRG 754 ==
LOC: M ED 18:49 → M ED INP 01-27 14:06 → M PSY 01-27 14:20
PROVIDERS: ADMIT Psychiatry & Neurology Psychiatry; ATTEND Psychiatry & Neurology Psychiatry
DX: F32.9 Major depressive disorder, single episode, unspecified (principal); F19.94 Other psychoactive substance use, unspecified with psychoactive substance-induced mood disorder; F11.90 Opioid use, unspecified, uncomplicated; F12.90 Cannabis use, unspecified, uncomplicated; F43.10 Post-traumatic stress disorder, unspecified; Z79.899 Other long term (current) drug therapy; Z88.0 Allergy status to penicillin; Z88.8 Allergy status to other drugs, medicaments and biological substances; F17.200 Nicotine dependence, unspecified, uncomplicated

== ENCOUNTER 2019-02-26 11:04 | Inpatient (IN) | payer OTHER ==
[~2019-02-26] VITALS: Ht 172.7 cm; Wt 76.0 kg
[~2019-02-26 11:04] MED LIST changes: +PARoxetine 10MG TABLET PO SCH; +PAXI30TA11 PO; +QUET1TAB8 PO
[2019-02-26] MEDS ORDERED: LORazepam 2 MG/ML VIAL (J2060) IM STA (11:18)
[2019-02-26] MEDS ORDERED: GABAPENTIN 400 MG CAP PO ONE (11:30)
[2019-02-26] MEDS ORDERED: PARoxetine 10MG TABLET PO ONE (11:30)
[2019-02-26] MEDS ORDERED: buPROPion 100 MG TAB PO ONE (11:30)
[2019-02-26] MEDS ORDERED: PARO30TA3 PO (12:09)
[2019-02-26] MEDS ORDERED: BUPR50TA PO (12:09)
[2019-02-26] MEDS ORDERED: NICO2GUM40 PO (12:09)
[2019-02-26] MEDS ORDERED: QUET1TAB8 PO (12:09)
[2019-02-26] MEDS ORDERED: LORazepam 2 MG TAB PO STA (12:55)
[2019-02-26] MEDS ORDERED: MAALOX 30 ML SUSP *UDC PO PRN (14:30)
[2019-02-26] MEDS ORDERED: ACETAMINOPHEN TAB 650MG DOSE (2X325MG) PO PRN (14:30)
[2019-02-26] MEDS ORDERED: MOM 30ML SUSPENSION UDC PO PRN (14:30)
[2019-02-26 15:57] VITALS: BP 132/86
[2019-02-26] MEDS ORDERED: GABAPENTIN 400 MG CAP PO SCH (16:00)
[2019-02-26] MEDS ORDERED: IBUPROFEN 800 MG TAB PO PRN (17:00)
[2019-02-26] MEDS: GABAPENTIN 400 MG CAP PO SCH ×2 (17:11→20:30)
[2019-02-26] MEDS: hydrOXYzine 50 MG TAB PO PRN (17:48)
[2019-02-26] MEDS: METHADONE 10 MG TAB (S0109) PO SCH (20:30)
[2019-02-26] MEDS ORDERED: QUEtiapine FUMARATE 100 MG TAB PO SCH (21:00)
[2019-02-27] MEDS: OLANZapine ORAL DISINTEGRATING TAB 5MG PO PRN (06:46)
[2019-02-27 06:52] VITALS: BP 136/82
[2019-02-27] MEDS: PARoxetine 10MG TABLET PO SCH (08:05)
[2019-02-27] MEDS: GABAPENTIN 400 MG CAP PO SCH ×3 (08:05→21:27)
[2019-02-27] MEDS: METHADONE 10 MG TAB (S0109) PO SCH ×2 (08:07→20:02)
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
[2019-02-27] MEDS: buPROPion (WELLBUTRIN SR) 100 MG SR TAB PO SCH ×2 (14:06→20:02)
[2019-02-27 18:00] VITALS: BP 106/60
[2019-02-27] MEDS: hydrOXYzine 50 MG TAB PO PRN (19:53)
[2019-02-27] MEDS: traZODone 50 MG TAB PO PRN (21:19)
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
[2019-02-28 06:31] VITALS: BP 116/67
[2019-02-28] MEDS: METHADONE 10 MG TAB (S0109) PO SCH ×2 (08:05→21:50)
[2019-02-28] MEDS: GABAPENTIN 400 MG CAP PO SCH ×3 (08:05→21:50)
[2019-02-28] MEDS: NICOTINE 21MG/24HR 1 EA TRANSDERMAL TD SCH (08:05)
[2019-02-28] MEDS: buPROPion (WELLBUTRIN SR) 100 MG SR TAB PO SCH ×2 (08:05→21:49)
[2019-02-28] MEDS: PARoxetine 10MG TABLET PO SCH (08:05)
--- NOTE | 2019-02-28 17:32 | MHIPN ---
DATE: 02/28/2019 SUBJECTIVE: "I'm feeling better. I want to go to a substance abuse rehab." OBJECTIVE: She is a 23-year-old female with history of depression and significant substance abuse problems who was admitted because of suicidal thoughts to hurt herself. Her anxiety increased after her Wellbutrin was raised from 100 mg to 300 mg. Currently her Wellbutrin has been decreased, and patient is feeling better. Patient is also on methadone for her opioid dependence. MENTAL STATUS EXAMINATION: Appearance: Well groomed. Behavior cooperative. Eye contact normal. Speech spontaneous, conversant. Mood is mildly depressed. Affect is appropriate for the mood. Thought process linear, goal directed. Thought content: Denies any suicidal or homicidal ideas. Denied any delusions. She is alert and oriented to time, place, and person. Memory is intact. Denied any auditory or visual hallucinations. Insight and judgment are fair. DIAGNOSES: 1. 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 2. Opioid and cannabis use disorder. 3. Posttraumatic stress disorder. VITAL SIGNS: Temperature 97.3, pulse is 83, respiratory rate is 14, blood pressure is 116/67. CURRENT MEDICATIONS: - Paxil 30 mg once daily - bupropion 100 mg twice a day - gabapentin 400 mg three times a day - trazodone 50 mg at bedtime as needed ASSESSMENT: Patient has some craving for drugs. Mildly depressed. PLAN: Continue current medication. Continue individual and group therapy. Coordination of care provided with social media marketing analyst, nursing staff, and treatment team. ANTICIPATED DISCHARGE: 3-4 days.
[2019-02-28] MEDS: traZODone 50 MG TAB PO PRN (23:11)
[2019-03-01 07:06] VITALS: BP 115/73
[2019-03-01] MEDS: NICOTINE 21MG/24HR 1 EA TRANSDERMAL TD SCH (08:23)
[2019-03-01] MEDS: GABAPENTIN 400 MG CAP PO SCH ×3 (08:24→20:03)
[2019-03-01] MEDS: PARoxetine 10MG TABLET PO SCH (08:24)
[2019-03-01] MEDS: METHADONE 10 MG TAB (S0109) PO SCH ×2 (08:24→20:04)
[2019-03-01] MEDS: buPROPion (WELLBUTRIN SR) 100 MG SR TAB PO SCH ×2 (08:24→20:04)
--- NOTE | 2019-03-01 17:35 | MHIPN ---
DATE: 03/01/2019 SUBJECTIVE: "I'm feeling very anxious. I need something to help with my anxiety." OBJECTIVE: She is a 23-year-old female with a history of depression and substance abuse problems who was admitted because of suicidal thoughts. Patient asked for increase of her methadone; however, she agreed to take increased Paxil for her anxiety. MENTAL STATUS EXAMINATION: Well groomed, alert, oriented to time, place, and person, cooperative. Made good eye contact. Speech is spontaneous, conversant. Mood is mildly depressed. Affect is appropriate for the mood. Thought process is linear, goal directed. Thought content: Denies any suicidal or homicidal ideas. Denied any delusions. Her memory is intact. Denied any auditory or visual hallucinations. Insight and judgment are fair. DIAGNOSES: 1. Depressive disorder, not otherwise specified, rule out depressive disorder due to substance abuse. 2. Opioid and cannabis use disorder. 3. Posttraumatic stress disorder. VITAL SIGNS: Temperature 97.2, pulse 91, respiratory rate 14, blood pressure 115/73. MEDICATIONS: - Paxil 30 mg daily - bupropion 100 mg twice a day - methadone 10 mg twice a day - gabapentin 400 mg twice a day PLAN: Increase Paxil to 40 mg once daily. Titrate and continue to monitor the patient. ESTIMATED LENGTH OF STAY: 4-5 dys. Continue individual and group therapy. DISCHARGE PLAN: Discharge her to an inpatient rehabilitation.
[2019-03-01 18:00] VITALS: BP 104/58
[2019-03-01] MEDS: traZODone 50 MG TAB PO PRN (22:17)
[2019-03-02 07:05] VITALS: BP 107/56
[2019-03-02] MEDS: buPROPion (WELLBUTRIN SR) 100 MG SR TAB PO SCH ×2 (09:08→20:05)
[2019-03-02] MEDS: PARoxetine 20 MG TAB PO SCH (09:08)
[2019-03-02] MEDS: GABAPENTIN 400 MG CAP PO SCH ×3 (09:08→20:05)
[2019-03-02] MEDS: NICOTINE 21MG/24HR 1 EA TRANSDERMAL TD SCH (09:09)
[2019-03-02] MEDS: METHADONE 10 MG TAB (S0109) PO SCH ×2 (09:09→20:05)
[2019-03-02 18:00] VITALS: BP 118/76
--- NOTE | 2019-03-02 19:11 | MHIPN ---
DATE: 03/02/2019 SUBJECTIVE: "I am feeling better and I am less depressed, I slept well." OBJECTIVE: She is a 23-year-old female with a history of depression and significant substance abuse problem, who was admitted because of suicidal thoughts. Currently, she is improving, and she wants to go to a substance abuse rehabilitation program. MENTAL STATUS EXAMINATION: Appearancde: Well groomed. Behavior is cooperative. Eye contact is normal. Speech is spontaneous, conversant. Mood is mildly depressed. Affect is appropriate for the mood. Thought process is linear, goal directed. Thought content: Denies any suicidal or homicidal ideas. Denied any delusions. She is alert and oriented to time, place and person. Her memory is intact. Denied any auditory or visual hallucinations. Insight and judgment are fair. DIAGNOSES: 1. Depressive disorder, unspecified. 2. Opioid and cannabis use disorder. 3. Posttraumatic stress disorder. VITAL SIGNS: Temperature 96.5, pulse 57, respiratory rate 16, blood pressure 107/66. Laboratories: Complete blood count (CBC): She is mildly anemic. Otherwise, within normal limits. Basic metabolic panel (BMP) within normal limits. HCG is negative. Toxicology: Positive for cannabis. MEDICATIONS: - Paxil 30 mg daily - bupropion 100 mg twice a day - methadone 10 mg twice a day - gabapentin 400 mg twice a day PLAN: Continue current medications. Continue individual and group therapy. Estimated length of stay is 3 to 4 days.
[2019-03-02] MEDS: traZODone 50 MG TAB PO PRN (21:03)
[2019-03-03 06:33] VITALS: BP 122/75
[2019-03-03] MEDS: NICOTINE 21MG/24HR 1 EA TRANSDERMAL TD SCH (08:08)
[2019-03-03] MEDS: PARoxetine 20 MG TAB PO SCH (08:09)
[2019-03-03] MEDS: METHADONE 10 MG TAB (S0109) PO SCH ×2 (08:09→20:29)
[2019-03-03] MEDS: buPROPion (WELLBUTRIN SR) 100 MG SR TAB PO SCH ×2 (08:09→20:30)
[2019-03-03] MEDS: GABAPENTIN 400 MG CAP PO SCH (08:09)
--- NOTE | 2019-03-03 13:47 | MHIPN ---
DATE: 03/03/2019 SUBJECTIVE: "I am still very anxious, though I don't have any suicidal thoughts. I feel it would have been better if I were ". OBJECTIVE: She is a 23-year-old female who has history of depression and a significant substance abuse problem who was admitted because of severe anxiety, panic attack and suicidal thoughts. The patient has made some improvement, but still complains of anxiety. MENTAL STATUS EXAMINATION: Appearance: Well groomed with clean clothes. Behavior is cooperative. Made good eye contact. Speech is spontaneous, conversant. Mood is depressed. Affect is appropriate for the mood. Thought process is linear, goal directed. Thought content: Denied any delusions. Has some passive suicidal thoughts. She is alert and oriented to time, place and person. Memory is intact. Denied any auditory or visual hallucinations. DIAGNOSES: 1. Depressive disorder, not otherwise specified. 2. Opioid and cannabis use disorder. 3. Posttraumatic stress disorder. VITAL SIGNS: Temperature 97.2, pulse 73, respiratory rate 16, blood pressure 122/75. MEDICATIONS: - Paxil 40 mg once daily - Wellbutrin 100 mg twice a day - methadone 10 mg twice a day - Hydroxyzine 50 mg every 4 hours as needed - gabapentin 400 mg three times a day PLAN: To increase her gabapentin 600 mg three times a day. The patient reported she was taking 800 mg three times a day. Continue observing the patient. The patient is willing to go to an inpatient rehabilitation. We are exploring the place where she could be transferred. ESTIMATED LENGTH OF STAY: 3 to 4 days.
[2019-03-03] MEDS: GABAPENTIN 300 MG CAP PO SCH ×2 (15:26→20:29)
[2019-03-03 18:05] VITALS: BP 131/79
[2019-03-03] MEDS: traZODone 50 MG TAB PO PRN (21:29)
[2019-03-04 06:33] VITALS: BP 104/59
[2019-03-04] MEDS: buPROPion (WELLBUTRIN SR) 100 MG SR TAB PO SCH ×3 (09:23→20:30)
[2019-03-04] MEDS: PARoxetine 20 MG TAB PO SCH (09:23)
[2019-03-04] MEDS: GABAPENTIN 300 MG CAP PO SCH ×3 (09:23→20:29)
[2019-03-04] MEDS: METHADONE 10 MG TAB (S0109) PO SCH ×2 (09:24→20:29)
[2019-03-04] MEDS: NICOTINE 21MG/24HR 1 EA TRANSDERMAL TD SCH (09:24)
--- NOTE | 2019-03-04 14:34 | MHIPN ---
DATE: 03/04/2019 SUBJECTIVE: "I am still depressed. I want my Wellbutrin to be increased. The panic attack I had was not due to Wellbutrin increase because it was all because of my posttraumatic stress disorder (PTSD)." OBJECTIVE: She is a 23-year-old female who has a history of depression and polysubstance abuse problems, admitted because of severe anxiety, panic attack and suicidal thoughts. She made initially some improvement. Currently, she reports she has been depressed again and had some anxiety as well. MENTAL STATUS EXAMINATION: Appearance: Well-groomed, clean clothes. Cooperative. Made good eye contact. Speech: Coherent, goal directed. Rate, rhythm and volume are good. Mood is depressed. Affect is constricted. Though content: Denied any suicidal or homicidal ideas, however, she is somewhat preoccupied. Her insight and judgment are limited. Denied any auditory or visual hallucinations. DIAGNOSES: Depressive disorder, unspecified. Opioid/cannabis use disorder. Posttraumatic stress disorder. VITAL SIGNS: Temperature 98.7, pulse 62, respiration 12, blood pressure 104/59. MEDICATIONS: - gabapentin 600 mg three times a day - Paxil 40 mg once daily - bupropion 100 mg twice a day PLAN: Plan to increase her Wellbutrin to 100 mg three times a day. Continue the rest of the medications. Continue individual and group therapy. Continuity of care is provided with the social services assistant, nursing staff and treatment team.
[2019-03-04 18:00] VITALS: BP 115/61
[2019-03-05] MEDS: hydrOXYzine 50 MG TAB PO PRN (02:08)
[2019-03-05 07:00] VITALS: BP 95/54
[2019-03-05] MEDS: buPROPion (WELLBUTRIN SR) 100 MG SR TAB PO SCH ×3 (08:29→20:14)
[2019-03-05] MEDS: PARoxetine 20 MG TAB PO SCH (08:29)
[2019-03-05] MEDS: GABAPENTIN 300 MG CAP PO SCH ×3 (08:29→20:15)
[2019-03-05] MEDS: NICOTINE 21MG/24HR 1 EA TRANSDERMAL TD SCH (08:29)
[2019-03-05] MEDS: METHADONE 5 MG TAB (S0109) PO SCH ×2 (09:59→20:14)
--- NOTE | 2019-03-05 14:09 | MHIPN ---
DATE: 03/05/2019 SUBJECTIVE: Increase of Wellbutrin helped me. I am less depressed. OBJECTIVE: She is a 23-year-old female with history of depression, significant substance abuse problems who was admitted because of suicidal thoughts. Currently, she is improving, however, complains of some anxiety and insomnia. 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 MENTAL STATUS EXAMINATION: She is well groomed. Behavior is cooperative. Makes good eye contact. Psychomotor activity is normal. Speech spontaneous, conversant. Mood is depressed. Affect is appropriate for the mood. Denies any auditory or visual hallucinations. Denies suicidal or homicidal ideas. Thought process linear and goal directed. She is alert and oriented to time, place and person. Memory: Immediate, remote, and recent are good. Insight and judgment are fair. DIAGNOSIS: Depressive disorder unspecified. Opioid and cannabis dependent abuse disorder. Posttraumatic stress disorder (PTSD). PLAN: The plan is to increased the trazodone to 100 mg at night and add Benadryl 50 mg at night. As per the patient it helps her with her anxiety.
[2019-03-05 18:00] VITALS: BP 117/62
[2019-03-05] MEDS: diphenhydrAMINE 50 MG CAP PO SCH (20:15)
[2019-03-05] MEDS: traZODone 100 MG TAB PO PRN (20:36)
[2019-03-06 07:06] VITALS: BP 88/47
[2019-03-06] MEDS: buPROPion (WELLBUTRIN SR) 100 MG SR TAB PO SCH ×3 (08:13→20:18)
[2019-03-06] MEDS: GABAPENTIN 300 MG CAP PO SCH ×3 (08:13→20:18)
[2019-03-06] MEDS: METHADONE 5 MG TAB (S0109) PO SCH (08:13)
[2019-03-06] MEDS: PARoxetine 20 MG TAB PO SCH (08:13)
[2019-03-06] MEDS: NICOTINE 21MG/24HR 1 EA TRANSDERMAL TD SCH (08:13)
--- NOTE | 2019-03-06 11:26 | MHIPN ---
DATE: 03/06/2019 SUBJECTIVE: "I slept well and I am looking into the possibilities of getting discharged to a half-way." OBJECTIVE: She is a 23-year-old female with a history of depression, polysubstance abuse, admitted because of anxiety, panic attacks, and suicidal thoughts. Patient has made some improvement. She reports she is less depressed but has some mild anxiety. MENTAL STATUS EXAMINATION: Appearance: Well-groomed in clean clothes. Cooperative. Made good eye contact. Speech is coherent and goal-directed. Rate, rhythm and volume are good. Mood is depressed. Affect is mood congruent. Thought content: Denied any suicidal or homicidal ideas. Her insight and judgment are limited. Denied any auditory or visual hallucinations. DIAGNOSES: 1. Depressive disorder not otherwise specified. 2. Opioid cannabis use disorder. 3. Posttraumatic stress disorder. PLAN: Plan is to continue current medications of Wellbutrin 100 mg three times a day, gabapentin 600 mg three times a day, Paxil 40 mg daily. Decrease her methadone to 5 mg daily for one dose tomorrow and discontinue. Continue individual and group therapy.
[2019-03-06 18:00] VITALS: BP 113/69
[2019-03-06] MEDS: diphenhydrAMINE 50 MG CAP PO SCH (20:18)
[2019-03-06] MEDS: traZODone 100 MG TAB PO PRN (22:07)
[2019-03-06] MEDS: OLANZapine ORAL DISINTEGRATING TAB 5MG PO PRN (22:14)
[2019-03-07 06:56] VITALS: BP 111/67
[2019-03-07] MEDS: GABAPENTIN 300 MG CAP PO SCH ×3 (09:36→21:10)
[2019-03-07] MEDS: buPROPion (WELLBUTRIN SR) 100 MG SR TAB PO SCH ×3 (09:36→21:10)
[2019-03-07] MEDS: PARoxetine 20 MG TAB PO SCH (09:36)
[2019-03-07] MEDS: NICOTINE 21MG/24HR 1 EA TRANSDERMAL TD SCH (09:37)
--- NOTE | 2019-03-07 09:46 | MHIPNPDOC ---
[facility] Progress Note Progress Note DATE OF SERVICE: 03/07/19 HISTORY: Patient is a 23 -year-old , female, with a history of depression, substance abuse, SA, [facility]19 who was brought to ED by [facility] due to be endorsing extreme anxiety and panic attacks for the past 3 days causing her to fear she will be suicidal and harm herself. Pt denied knowing causing of anxiety/panic. Wellbutrin recently increased from 100mg daily to 300mg daily outpatient per pt (could easily be cause of anxiety as wellbutrin side effect is anxiety). Pt seen to have small scratches and scars on b/l arms she stated from "digging and scratching" her arms secondary to anxiety. VITAL SIGNS: See below. She is a 23-year-old female with a history of depression, polysubstance abuse, admitted because of anxiety, panic attacks, and suicidal thoughts. Patient improving. D/c methadone today and will monitor for withdrawal. Anxious so will experience withdrawal. States mood is ok but appears depressed. Complaint of anxiety and encouraged to take prn hydroxyzine. Is tolerating meds and finding helpful.. Is attending groups. Feels safe here. D/c community development planner working on rehab referral and pt is motivated to go to and complete rehab. MENTAL STATUS EXAMINATION: Appearance: Well-groomed in clean clothes. Cooperative. Made good eye contact. Speech is coherent and goal-directed. Rate, rhythm and volume are good. Mood is depressed. Affect is mood congruent. Thought content: Denied any suicidal or homicidal ideas. Her insight and judgment are limited. Denied any auditory or visual hallucinations. DIAGNOSES: 1. Depressive disorder not otherwise specified. 2. Opioid cannabis use disorder. 3. Posttraumatic stress disorder. PLAN: Plan is to continue current medications of Wellbutrin 100 mg three times a day, gabapentin 600 mg three times a day, Paxil 40 mg daily. D/C methadone Continue individual and group therapy. Vital Signs Vital Signs Date Time Temp Pulse Resp B/P (MAP) Pulse Ox O2 Delivery O2 Flow Rate FiO2 03/07/19 06:56 97.7 52 14 111/67 (82) 03/05/19 08:47 Room Air Current Medications Current Medications Acetaminophen (Tylenol Tab) 650 mg Q6HP PRN PO HEADACHE or DISCOMFORT; Start 02/26/19 at 14:30 Al Hydrox/Mg Hydrox/Simethicone (Mylanta) 30 ml Q4HP PRN PO HEARTBURN/INDIGESTION; Start 02/26/19 at 14:30 Bupropion HCl (Wellbutrin Sr) 100 mg BID PO Last administered on 03/04/19at 09:23; Start 02/27/19 at 09:00; Stop 03/04/19 at 13:32; Status DC Bupropion HCl (Wellbutrin Sr) 100 mg TID PO Last administered on 03/06/19at 20:18; Start 03/04/19 at 16:00 Diphenhydramine HCl (Benadryl) 50 mg QHS PO Last administered on 03/06/19at 20:18; Start 03/05/19 at 21:00 Gabapentin (Neurontin) 400 mg TID PO Last administered on 03/03/19at 08:09; Start 02/26/19 at 16:00; Stop 03/03/19 at 13:30; Status DC Gabapentin (Neurontin) 600 mg TID PO Last administered on 03/06/19at 20:18; Start 03/03/19 at 16:00 Gabapentin (Neurontin) 800 mg TID PO ; Start 02/26/19 at 16:00; Status Cancel Home Med (Med Rec Complete!) ASDIRECTED XX ; Start 02/26/19 at 12:15; Stop 02/26/19 at 12:15; Status DC Hydroxyzine HCl (Atarax) 50 mg Q4HP PRN PO ANXIETY/AGITATION Last administered on 03/05/19at 02:08; Start 02/26/19 at 17:00; Stop 03/05/19 at 13:50; Status DC Ibuprofen (Advil) 800 mg Q6HP PRN PO MODERATE PAIN (PS 5-7); Start 02/26/19 at 17:00 Lorazepam (Ativan) 2 mg STAT STAT IM Last administered on 02/26/19at 11:39; St art 02/26/19 at 11:18; Stop 02/26/19 at 11:19; Status DC Lorazepam (Ativan) 2 mg STAT STAT PO Last administered on 02/26/19at 13:06; Start 02/26/19 at 12:55; Stop 02/26/19 at 12:57; Status DC Magnesium Hydroxide (Milk Of Magnesia) 30 ml DAILYPRN PRN PO CONSTIPATION; Start 02/26/19 at 14:30 Methadone HCl (Dolophine) 5 mg BID PO Last administered on 03/06/19 08:13; Start 03/05/19 at 09:00; Stop 03/06/19 at 11:19; Status DC Methadone HCl (Dolophine) 10 mg BID PO Last administered on 03/04/19 20:29; Start 02/26/19 at 21:00; Stop 03/05/19 at 09:51; Status DC Miscellaneous (Unresolved Clarification Entry) SEE LABEL COMMENTS DAILY XX ; S tart 03/05/19 at 09:00; Stop 03/05/19 at 13:54; Status DC Nicotine (Nicoderm Cq 21mg) 1 patch DAILY TD Last administered on 03/06/19 08:13; Start 02/28/19 at 09:00 Olanzapine (ZyPREXA ZYDIS) 5 mg Q4HP PRN PO ANXIETY/AGITATION Last administered on 03/06/19at 22:14; Start 02/26/19 at 14:30 Paroxetine HCl (PAXil) 30 mg DAILY PO ; Start 02/26/19 at 09:00; Stop 02/26/19 at 14:51; Status DC Paroxetine HCl (PAXil) 30 mg DAILY PO Last administered on 03/01/19at 08:24; Start 02/27/19 at 09:00; Stop 03/01/19 at 15:05; Status DC Paroxetine HCl (PAXil) 40 mg DAILY PO Last administered on 03/06/19at 08:13; Start 03/02/19 at 09:00 Quetiapine Fumarate (SEROquel) 100 mg QHS PO ; Start 02/26/19 at 21:00; Status Cancel Trazodone HCl (Desyrel) 50 mg QHSP PRN PO INSOMNIA Last administered on 03/03/19 21:29; Start 02/26/19 at 14:30; Stop 03/05/19 at 13:50; Status DC Trazodone HCl (Desyrel) 100 mg QHSP PRN PO INSOMNIA Last administered on 03/06/19at 22:07; Start 03/05/19 at 13:45 Allergies Coded Allergies: amoxicillin (Verified Allergy, Mild, STOMACH PAINS/VOMITING, 02/26/19) clavulanic acid (Verified Allergy, Mild, STOMACH PAINS/VOMITING, 02/26/19) LIBERTY ROBBINS DO Mar 07, 2019 9:46 am
[2019-03-07] MEDS ORDERED: METHADONE 5 MG TAB (S0109) PO ONE (12:00)
[2019-03-07 18:32] VITALS: BP 109/63
[2019-03-07] MEDS: diphenhydrAMINE 50 MG CAP PO SCH (21:10)
[2019-03-08 07:03] VITALS: BP 92/46
[2019-03-08] MEDS: buPROPion (WELLBUTRIN SR) 100 MG SR TAB PO SCH ×3 (08:30→20:07)
[2019-03-08] MEDS: PARoxetine 20 MG TAB PO SCH (08:30)
[2019-03-08] MEDS: NICOTINE 21MG/24HR 1 EA TRANSDERMAL TD SCH (08:30)
[2019-03-08] MEDS: GABAPENTIN 300 MG CAP PO SCH ×3 (08:30→20:07)
[2019-03-08] MEDS: OLANZapine ORAL DISINTEGRATING TAB 5MG PO PRN (17:17)
[2019-03-08] MEDS ORDERED: QUEtiapine FUMARATE 100 MG TAB PO ONE (18:00)
[2019-03-08 18:39] VITALS: BP 116/72
[2019-03-08] MEDS: traZODone 100 MG TAB PO PRN (20:07)
[2019-03-08] MEDS: diphenhydrAMINE 50 MG CAP PO SCH (20:07)
[2019-03-09 06:35] VITALS: BP 108/59
[2019-03-09] MEDS: NICOTINE 21MG/24HR 1 EA TRANSDERMAL TD SCH (09:00)
[2019-03-09] MEDS: GABAPENTIN 300 MG CAP PO SCH ×3 (09:10→20:07)
[2019-03-09] MEDS: PARoxetine 20 MG TAB PO SCH (09:10)
[2019-03-09] MEDS: buPROPion (WELLBUTRIN SR) 100 MG SR TAB PO SCH ×3 (09:10→20:06)
[2019-03-09] MEDS: NICOTINE POLACRILEX 2 MG GUM PO PRN ×2 (12:59→15:08)
[2019-03-09 18:29] VITALS: BP 118/78
[2019-03-09] MEDS: diphenhydrAMINE 50 MG CAP PO SCH (20:07)
[2019-03-10 07:12] VITALS: BP 115/57
[2019-03-10] MEDS: NICOTINE 21MG/24HR 1 EA TRANSDERMAL TD SCH (08:57)
[2019-03-10] MEDS: NICOTINE POLACRILEX 2 MG GUM PO PRN (08:58)
[2019-03-10] MEDS: PARoxetine 20 MG TAB PO SCH (08:59)
[2019-03-10] MEDS: GABAPENTIN 300 MG CAP PO SCH (08:59)
[2019-03-10] MEDS: buPROPion (WELLBUTRIN SR) 100 MG SR TAB PO SCH (08:59)
[2019-03-10] MEDS ORDERED: GABA-843 PO (10:08)
[2019-03-10] MEDS ORDERED: PARO20TA3 PO (10:08)
[2019-03-10] MEDS ORDERED: BUPR10TASR PO (10:08)
[2019-03-10] MEDS ORDERED: TRAZ10TA PO (10:09)
--- NOTE | 2019-03-10 10:09 | MHDSPDOC ---
[facility] Discharge Summary Discharge Summary DATE OF ADMISSION: Feb 26, 2019 at 2:29 pm DATE OF DISCHARGE: March 10, 2019 DISCHARGE DIAGNOSES: 1. Depressive disorder not otherwise specified. 2. Opioid cannabis use disorder. 3. Posttraumatic stress disorder. REASON FOR ADMISSION: Patient is a 23 -year-old , female, with a history of depression, substance abuse, SA, admit [facility] 02/03/19 who was brought to ED by [facility] due to be endorsing extreme anxiety and panic attacks for the past 3 days causing her to fear she will be suicidal and harm herself. Pt denied knowing causing of anxiety/panic. Wellbutrin recently increased from 100mg daily to 300mg daily outpatient per pt (could easily be cause of anxiety a s wellbutrin side effect is anxiety). Pt seen to have small scratches and scars on b/l arms she stated from "digging and scratching" her arms secondary to anxiety. CONSULTANTS INVOLVED: none TREATMENT AND PROGRESS ON THE UNIT : Pt was admitted to [facility], seen for psychiatric assessment and started on a methadone taper for opiate withdrawal that she tolerated well with improvement of opiate withdrawal symptoms to none. She was restarted on her paxil increased to 40mg daily, wellbutrin 100mg tid for mood, and gabapentin 600mg tid. She was provided trazodone 50mg qhs prn insomnia. Pt found her medications beneficial and tolerated them well. She attended groups daily toward the end of her stay when she was feeling better. Her symptoms improved with treatment. On day prior to d/c (12/09/18) peer pt told staff that pt and another pt swapping meds while also handing out jellybeans and pt's both restricted visitors and had to take meds at med window with oral check and sitting in med room watch for 10min after taking meds. Pt denies she was swapping meds and that they were just sharing jellybeans. On day of discharge she denied depression, anxiety, insomnia, SI/HI, hallucinations, delusions. She was discharged to mother's home as she works toward getting into rehab. Will follow-up at [facility]. She felt safe for discharge. DISCHARGE ASSESSMENT: Pt states she's her mood is good and she's plans to stay with her mom. Pt has participating more in treatment and attending groups. Pt opiate withdrawal improved to none after tolerating methadone taper. States depression and anxiety are greatly improved. Denies depression, anxiety, insomnia, opiate withdrawal, SI/HI, hallucinations, delusions. States she's tolerating her medications and feels they're beneficial. Feels safe to be discharged. MENTAL STATUS EXAMINATION ON DISCHARGE: 1. Depressive disorder not otherwise specified. 2. Opioid cannabis use disorder. 3. Posttraumatic stress disorder. MEDICATIONS ON DISCHARGE: Wellbutrin 100 mg three times a day gabapentin 600 mg three times a day Paxil 40 mg daily PLAN/FOLLOWUP ARRANGEMENTS: D/c to DSS with follow-up at [facility]. The amount of time spent in the coordination of care for this patient was approximately 30 minutes. Vital Signs/I&Os Vital Signs Date Time Temp Pulse Resp B/P (MAP) Pulse Ox O2 Delivery O2 Flow Rate FiO2 03/10/19 07:12 97.6 69 16 115/57 (76) 03/05/19 08:47 Room Air Medications Scheduled Bupropion HCl (Bupropion HCl) 50 Mg Halftab, 300 MG PO DAILY, (Reported) RX WRITTEN FOR 100MG DAILY, PT STATES DR.AMANDA GONZÁLES RECENTLY INCREASED TO 300MG DAILY Gabapentin (Gabapentin) 800 Mg Tab, 800 MG PO TID, (Reported) Paroxetine HCl (Paroxetine) 30 Mg Tab, 30 MG PO DAILY, (Reported) Quetiapine Fumarate (Quetiapine Fumarate) 100 Mg Tab, 100 MG PO QHS, (Reported) Scheduled PRN Nicotine Polacrilex (Nicotine Gum) 2 Mg Gum, 2 MG PO for NICOTINE WITHDRAWAL, (Reported) Allergies Coded Allergies: amoxicillin (Verified Allergy, Mild, STOMACH PAINS/VOMITING, 02/26/19) clavulanic acid (Verified Allergy, Mild, STOMACH PAINS/VOMITING, 02/26/19) LIBERTY ROBBINS DO Mar 10, 2019 10:09 am
== END 2019-03-10 11:40 | disposition home or self-care (01) | DRG 754 ==
LOC: M ED 11:04 → M ED INP 14:29 → M PSY 15:51
PROVIDERS: ADMIT Psychiatry & Neurology Psychiatry; ATTEND Psychiatry & Neurology Psychiatry
DX: F32.9 Major depressive disorder, single episode, unspecified (principal); R45.851 Suicidal ideations; F12.90 Cannabis use, unspecified, uncomplicated; F11.90 Opioid use, unspecified, uncomplicated; F43.10 Post-traumatic stress disorder, unspecified; Z79.899 Other long term (current) drug therapy; Z88.0 Allergy status to penicillin; Z88.8 Allergy status to other drugs, medicaments and biological substances

== ENCOUNTER 2019-06-10 12:20 | Inpatient (IN) | payer OTHER ==
[~2019-06-10] VITALS: Ht 172.7 cm; Wt 75.6 kg
[~2019-06-10 12:20] MED LIST changes: +BUPR10TASR PO; +BUPR50TA PO; +GABA-843 PO; +NICO2GUM40 PO; +PARO20TA3 PO; +PARO30TA3 PO; -PARoxetine 10MG TABLET PO SCH; +TRAZ10TA PO
[2019-06-10] MEDS ORDERED: NICO1PAT36 TOP (12:33)
[2019-06-10] MEDS ORDERED: DEPA1TAB3 PO (12:33)
[2019-06-10] MEDS ORDERED: BUPR-321 PO (12:33)
[2019-06-10] MEDS ORDERED: SUBO12MI SL (12:33)
[2019-06-10 13:01] LABS: HEMATOCRIT 44.7 % (36.0-47.0); HEMOGLOBIN 14.8 g/dl (12.0-15.5); MEAN CORPUSCULAR HEMOGLOBIN 30.3 pg (27.0-33.0); MEAN CORPUSCULAR HGB CONC 33.1 g/dl (32.0-36.5); MEAN CORPUSCULAR VOLUME 91.4 fl (80.0-96.0); PLATELET COUNT, AUTOMATED 220 10^3/uL (150-450); RED BLOOD COUNT 4.89 10^6/uL (4.00-5.40); WHITE BLOOD COUNT 6.1 10^3/uL (4.0-10.0)
[2019-06-10 13:33] LABS: AMPHETAMINES LEVEL URINE NEGATIVE (NEGATIVE); BARBITURATES URINE NEGATIVE (NEGATIVE); BENZODIAZEPINES URINE NEGATIVE (NEGATIVE); CANNABINOIDS URINE POSITIVE (NEGATIVE); COCAINE METABOLITE URINE NEGATIVE (NEGATIVE); METHADONE URINE NEGATIVE (NEGATIVE); OPIATES URINE NEGATIVE (NEGATIVE); PHENCYCLIDINE URINE NEGATIVE (NEGATIVE)
[2019-06-10 13:34] LABS: HCG, SERUM QUALITATIVE NEGATIVE (NEGATIVE)
[2019-06-10 13:42] LABS: ACETAMINOPHEN LEVEL < 2.0 UG/ML (10.0-30.0); ALBUMIN 4.2 GM/DL (3.2-5.2); ALT/SGPT 23 U/L (12-78); BILIRUBIN,DIRECT < 0.1 MG/DL (0.0-0.2); BILIRUBIN,TOTAL 0.4 MG/DL (0.2-1.0); BLOOD UREA NITROGEN 12 MG/DL (7-18); CALCIUM LEVEL 9.2 MG/DL (8.5-10.1); CARBON DIOXIDE LEVEL 28 MEQ/L (21-32); CHLORIDE LEVEL 103 MEQ/L (98-107); CREATININE FOR GFR 1.03 MG/DL (0.55-1.30); ETHYL ALCOHOL (ETHANOL) < 0.003 % (0.000-0.010); GLOMERULAR FILTRATION RATE > 60.0 (>60); GLUCOSE, FASTING 83 MG/DL (70-100); POTASSIUM SERUM 3.9 MEQ/L (3.5-5.1); SALICYLATE LEVEL < 1.7 MG/DL (5.0-30.0); SODIUM LEVEL 139 MEQ/L (136-145); TOTAL PROTEIN 8.3 GM/DL (6.4-8.2)
[2019-06-10] MEDS ORDERED: LORazepam 2 MG TAB PO STA (13:49)
[2019-06-10] MEDS ORDERED: ONDANSETRON 4 MG ORAL DISINTEGRATING TAB (Q0162 PER 1MG) PO ONE (14:00)
[2019-06-10] MEDS ORDERED: BUPR75TA5 PO (14:50)
[2019-06-10] MEDS ORDERED: SUBO8MIS SL (14:50)
[2019-06-10] MEDS ORDERED: NICO2GUM8 PO (14:50)
[2019-06-10] MEDS ORDERED: MAALOX 30 ML SUSP *UDC PO PRN (15:15)
[2019-06-10] MEDS ORDERED: MOM 30ML SUSPENSION UDC PO PRN (15:15)
[2019-06-10] MEDS ORDERED: ACETAMINOPHEN TAB 650MG DOSE (2X325MG) PO PRN (15:15)
[2019-06-10] MEDS: NICOTINE 21MG/24HR 1 EA TRANSDERMAL TD SCH (17:48)
[2019-06-10] MEDS ORDERED: hydrOXYzine 50 MG TAB PO PRN (18:15)
[2019-06-10 20:52] VITALS: BP 122/87
[2019-06-10] MEDS: traZODone 50 MG TAB PO PRN (20:52)
[2019-06-10] MEDS: DIVALPROEX 500 MG TAB PO SCH (20:52)
[2019-06-10] MEDS: diphenhydrAMINE 50 MG CAP PO PRN (22:02)
[2019-06-11 06:29] VITALS: BP 122/68
[2019-06-11] MEDS: NICOTINE 21MG/24HR 1 EA TRANSDERMAL TD SCH (08:54)
[2019-06-11] MEDS: DIVALPROEX 500 MG TAB PO SCH ×2 (08:55→21:45)
[2019-06-11] MEDS: BUPRENORPHINE/NALOXONE 8-2MG SUBLINGUAL TABLET(SUBOXONE) SL SCH (08:55)
[2019-06-11] MEDS: buPROPion 100 MG TAB PO SCH (08:55)
--- NOTE | 2019-06-11 10:34 | MHHPEPDOC ---
[facility] History & Physical Vital Signs Vital Signs Date Time Temp Pulse Resp B/P (MAP) Pulse Ox O2 Delivery O2 Flow Rate FiO2 06/11/19 06:29 99.7 70 16 122/68 (86) 06/10/19 15:48 99 06/10/19 12:21 Room Air Laboratory Data 24H Labs Laboratory Tests 2 06/10/19 12:45: Nucleated Red Blood Cells % (auto) 0.0, Anion Gap 8, Glomerular Filtration Rate > 60.0, Calcium Level 9.2, Aspartate Amino Transf (AST/SGOT) 20, Alanine Aminotransferase (ALT/SGPT) 23, Alkaline Phosphatase 91, Total Bilirubin 0.4, Direct Bilirubin < 0.1, Total Protein 8.3H, Albumin 4.2, Albumin/Globulin Ratio 1.02, Thyroid Stimulating Hormone (TSH) 2.850, Human Chorionic Gonadotropin, Qual NEGATIVE, Salicylates Level < 1.7L, Urine Amphetamines Screen NEGATIVE, Urine Benzodiazepines Screen NEGATIVE, Urine Opiates Screen NEGATIVE, Urine Methadone Screen NEGATIVE, Acetaminophen Level < 2.0L, Urine Barbiturates Screen NEGATIVE, Urine Phencyclidine Screen NEGATIVE, Urine Cocaine Metabolite Screen NEGATIVE, Urine Cannabinoids Screen POSITIVEH, Ethyl Alcohol Level < 0.003 CBC/BMP Laboratory Tests 06/10/19 12:45 Red Blood Count 4.89, Mean Corpuscular Volume 91.4, Mean Corpuscular Hemoglobin 30.3, Mean Corpuscular Hemoglobin Concent 33.1, Red Cell Distribution Width 11.9 Medications Scheduled Buprenorphine HCl/Naloxone HCl (Suboxone 8 mg-2 mg Sl Film) 1 Each Film, 1.5 STRIP SL DAILY, (Reported) Bupropion HCl (Bupropion HCl) 75 Mg Tablet, 75 MG PO DAILY, (Reported) Divalproex Sodium (Depakote) 500 Mg Tablet.dr, 500 MG PO BID, (Reported) Nicotine (Nicotine Patch) 14 Mg/24 Hr Patch.td24, 1 PATCH TOP DAILY, (Reported) Scheduled PRN Nicotine Polacrilex (Nicorette) 2 Mg Gum, 2 MG PO Q2H PRN for NICOTINE WITHDRAWAL, (Reported) Allergies Coded Allergies: haloperidol (Verified Allergy, Severe, tardive dyskinesia, 06/10/19) amoxicillin (Verified Allergy, Mild, STOMACH PAINS/VOMITING, 02/26/19) clavulanic acid (Verified Allergy, Mild, STOMACH PAINS/VOMITING, 02/26/19) RACHELLE MONTANEZ DO Jun 11, 2019 10:34
[2019-06-11] MEDS: diphenhydrAMINE 50 MG CAP PO PRN ×3 (11:33→22:46)
--- NOTE | 2019-06-11 16:21 | IPNPDOC ---
Text Note Date of Service The patient was seen on 06/11/19. NOTE It was requested by [facility] to consult on the patient. Upon the presence of MD in [facility], pt has refused any medical visit today. As per RN pt has refused psychiatrist too. Please do not hesitate to reconsult when pt agreeable. VS,Fishbone, I+O VS, Fishbone, I+O Vital Signs Date Time Temp Pulse Resp B/P (MAP) Pulse Ox O2 Delivery O2 Flow Rate FiO2 06/11/19 06:29 99.7 70 16 122/68 (86) 06/10/19 15:48 99 06/10/19 12:21 Room Air LALIT SOLORZANO MD Jun 11, 2019 16:20
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
[2019-06-11] MEDS: LURASIDONE 20 MG TAB (LATUDA) PO SCH (18:08)
[2019-06-11] MEDS ORDERED: LORazepam 0.5 MG TAB PO ONE (18:15)
[2019-06-11 18:33] VITALS: BP 112/60
[2019-06-11] MEDS: traZODone 50 MG TAB PO PRN (21:45)
[2019-06-12 06:32] VITALS: BP 92/54
[2019-06-12] MEDS: buPROPion 100 MG TAB PO SCH (08:01)
[2019-06-12] MEDS: DIVALPROEX 500 MG TAB PO SCH ×2 (08:01→22:09)
[2019-06-12] MEDS: BUPRENORPHINE/NALOXONE 8-2MG SUBLINGUAL TABLET(SUBOXONE) SL SCH (08:01)
[2019-06-12] MEDS: NICOTINE 21MG/24HR 1 EA TRANSDERMAL TD SCH (08:01)
[2019-06-12] MEDS: diphenhydrAMINE 50 MG CAP PO PRN ×2 (14:22→22:21)
[2019-06-12] MEDS: LURASIDONE 20 MG TAB (LATUDA) PO SCH (17:58)
[2019-06-12 18:00] VITALS: BP 111/60
--- NOTE | 2019-06-12 18:25 | MHIPNPDOC ---
[facility] Progress Note Progress Note Inpatient Progress Note Nicki Davis Age 24 Female Date of : 1995 Date of Service: 06/12/2019 History of Present Illness The patient presents to . She is a 24 year old woman with a history of reported bipolar disorder previously treated on our inpatient unit and presents in a reported paranoid state where she feels others are watching her, reporting that she does hear auditory hallucinations of a man speaking to her telling her negative things about herself and that she should harm herself. She describes that she does have episodes of depression with low mood, fatigue, and impulsivity. However, on screening for phoebe she does not appear to qualify and she has very little impulsive behavior when she reports being "high" which is likely an elaboration of being within euthymia. The patient describes that she was feeling significantly paranoid on the unit and that she had for the last several months increasing auditory hallucinations and paranoia. She describes that these are separate from her depressed mood and can occur with or without. She does describe significant guilt and psychosocial stressors in the form of being refused access to her child of which she shares joint custody with. She reports currently being on Depakote and Wellbutrin as an outpatient. Interval History The patient is met with today. She describes she still has paranoia and that the Ativan has been unhelpful. She states in the past she has been given 2 mg of Ativan at night due to her significant substance use history. I discussed that if her paranoia was the primary problem that a medication such as fluphenazine would be more helpful. She reports no effects positive or negative from Latuda at this time. She has been isolative to room at times and staff have noticed no major outbursts as she had had when she had presented. She has been cooperating with the medical provider and does appear to be very mildly improved. Review Of Systems Denies any side effects from Latuda such as tremors or GI upset. Psychotherapy None on this visit. Vital Signs Reviewed. Mental Status Examination General: Fair hygiene Speech: Sparse Thought processes: Linear and logical MSK: Smooth and coordinated gait, no signs of tremors or involuntary orofacial movements Thought content: Paranoid and worried Abstract reasoning, and computation: Intact Description of associations: [employer] Description of abnormal or psychotic thoughts: Denies any suicidal or homicidal ideation. Denies any auditory or visual hallucinations. Does not appear to be responding to internal stimuli. Appears to be endorsing paranoid ideation that she is being watched. Judgment: poor Insight: poor Orientation: Alert and orientated 3 Cognition: Grossly normal Recent and remote memory: Intact Attention span and concentration: Intact Fund of knowledge: Adequate Mood: "bad" Affect: Dysphoric with a constricted range Diagnoses Unspecified psychotic disorder: unstable. Rule out substance induced. Opioid use disorder, severe. Tobacco use disorder, severe. Cannabis use disorder, severe. Assessment and Plan The patient a 24 year old woman with a reported history of significant substance use presents in a paranoid state. She does use a significant amount of cannabis that can likely lead to chronic paranoia. Her underlying mental health problems are not easily parsed out from her significant substance use and current replacement treatment for opioid use Discontinue Latuda and start fluphenazine 5 mg nightly. Disposition The patient will need a further inpatient admission in order to treat her paranoia and bizarre affect, as well as inability to care for herself. Time Spent 10 minutes [id number]. Vital Signs Vital Signs Date Time Temp Pulse Resp B/P (MAP) Pulse Ox O2 Delivery O2 Flow Rate FiO2 06/12/19 06:32 98.5 80 14 92/54 (67) 06/10/19 15:48 99 06/10/19 12:21 Room Air Current Medications Current Medications Acetaminophen (Tylenol Tab) 650 mg Q6HP PRN PO HEADACHE or DISCOMFORT; Start 06/10/19 at 15:15 Al Hydrox/Mg Hydrox/Simethicone (Mylanta) 30 ml Q4HP PRN PO HEARTBURN/INDIGESTION; Start 06/10/19 at 15:15 Buprenorphine/ Naloxone (Suboxone 8/2mg) 1.5 tab DAILY SL Last administered on 06/12/19at 08:01; Start 06/11/19 at 09:00 Bupropion HCl (Wellbutrin) 100 mg DAILY PO Last administered on 06/12/19at 08:01; Start 06/11/19 at 09:00 Diphenhydramine HCl (Benadryl) 50 mg Q4HP PRN PO ANXIETY/AGITATION Last administered on 06/12/19at 14:22; Start 06/10/19 at 21:45 Divalproex Sodium (Depakote) 500 mg BID PO Last administered on 06/12/19 08:01; Start 06/10/19 at 21:00 Home Med (Med Rec Complete!) ASDIRECTED XX ; Start 06/10/19 at 15:00; Stop 06/10/19 at 15:00; Status DC Hydroxyzine HCl (Atarax) 50 mg Q4HP PRN PO anxiety Last administered on 06/10/19 18:22; Start 06/10/19 at 18:15 Lorazepam (Ativan) 2 mg STAT STAT PO Last administered on 06/10/19 13:55; Start 06/10/19 at 13:49; Stop 06/10/19 at 13:50; Status DC Lurasidone HCl (Latuda) 20 mg DAILY@18 PO Last administered on 06/12/19 17:58; Start 06/11/19 at 18:00 Magnesium Hydroxide (Milk Of Magnesia) 30 ml DAILYPRN PRN PO CONSTIPATION Last administered on 06/11/19 11:34; Start 06/10/19 at 15:15 Nicotine (Nicoderm Cq 21mg) 1 patch DAILY TD Last administered on 06/12/19 08:01; Start 06/10/19 at 09:00 Trazodone HCl (Desyrel) 50 mg QHSP PRN PO INSOMNIA Last administered on 06/11/19 21:45; Start 06/10/19 at 15:15 Allergies Coded Allergies: haloperidol (Verified Adverse Reaction, Severe, tardive dyskinesia, 06/12/19) amoxicillin (Verified Adverse Reaction, Mild, STOMACH PAINS/VOMITING, 06/12/19) clavulanic acid (Verified Adverse Reaction, Mild, STOMACH PAINS/VOMITING, 06/12/19) RACHELLE MONTANEZ DO Jun 12, 2019 18:25
[2019-06-12] MEDS: traZODone 50 MG TAB PO PRN (22:21)
--- NOTE | 2019-06-13 06:34 | MHIPNPDOC ---
[facility] Progress Note Progress Note Inpatient Progress Note Nicki Davis Age 24 Female Date of : 1995 Date of Service: 06/13/2019 History of Present Illness The patient presents to [facility]. She is a 24-year-old woman with a history of reported bipolar disorder previously treated on our inpatient unit and presents in a reported paranoid state where she feels others are watching her, reporting that she does hear auditory hallucinations of a man speaking to her telling her negative things about herself and that she should harm herself. She describes that she does have episodes of depression with low mood, fatigue, and impulsivity. However, on screening for phoebe she does not appear to qualify and she has very little impulsive behavior when she reports being "high" which is likely an elaboration of being within euthymia. The patient describes that she was feeling significantly paranoid on the unit and that she had for the last several months increasing auditory hallucinations and paranoia. She describes that these are separate from her depressed mood and can occur with or without. She does describe significant guilt and psychosocial stressors in the form of being refused access to her child of which she shares joint custody with. She reports currently being on Depakote and Wellbutrin as an outpatient. Interval History The patients is met with today. She describes feeling increasingly paranoid and was unable to leave her room for the majority of the day. She describes that she has not noticed significant effect from the fluphenazine, positive or negative. She continues to report difficulties with severe anxiety. She at times appears to be medication seeking for high dose Ativan, which is consistent with her previous admissions. Staff has noted that she is generally isolated to her room with no major behavioral problems. She does not attend groups fairly regularly. Review Of Systems As above. Psychotherapy None on this visit. Vital Signs Reviewed. Mental Status Examination General: Fair hygiene Speech: Sparse Thought processes: Linear and logical MSK: Smooth and coordinated gait, no signs of tremors or involuntary orofacial movements Thought content: Paranoid and worried Abstract reasoning, and computation: Intact Description of associations: [employer] Description of abnormal or psychotic thoughts: Admits to hopelessness due to anxiety but denies overt suicidal ideation or homicidal ideation. Denies any auditory or visual hallucinations. Does not appear to be responding to internal stimuli. Appears to be endorsing paranoid ideation that she is being watched. Judgment: poor Insight: poor Orientation: Alert and orientated 3 Cognition: Grossly normal Recent and remote memory: Intact Attention span and concentration: Intact Fund of knowledge: Adequate Mood: "bad" Affect: Dysphoric with a constricted range Diagnoses Unspecified psychotic disorder: unstable. Rule out substance induced. Opioid use disorder, severe. Tobacco use disorder, severe. Cannabis use disorder, severe. Assessment and Plan The patient a 24-year-old woman with a reported history of significant substance use presents in a paranoid state. She does use a significant amount of cannabis that can likely lead to chronic paranoia. Her underlying mental health problems are not easily parsed out from her significant substance use and current replacement treatment for opioid use Increase fluphenazine to 5 mg nightly with Zyprexa Zydis 5 mg every 4 hours PRN for paranoia and anxiety. Disposition The patient will need a further inpatient admission in order to treat her paranoia and bizarre affect, as well as inability to care for herself. Time Spent 15 minutes [id number]. Sunday Vital Signs Vital Signs Date Time Temp Pulse Resp B/P (MAP) Pulse Ox O2 Delivery O2 Flow Rate FiO2 06/12/19 18:00 98.9 88 16 111/60 (77) 06/10/19 15:48 99 06/10/19 12:21 Room Air Current Medications Current Medications Acetaminophen (Tylenol Tab) 650 mg Q6HP PRN PO HEADACHE or DISCOMFORT; Start 06/10/19 at 15:15 Al Hydrox/Mg Hydrox/Simethicone (Mylanta) 30 ml Q4HP PRN PO HEARTBURN/INDIGESTION; Start 06/10/19 at 15:15 Buprenorphine/ Naloxone (Suboxone 8/2mg) 1.5 tab DAILY SL Last administered on 06/12/19at 08:01; Start 06/11/19 at 09:00 Bupropion HCl (Wellbutrin) 100 mg DAILY PO Last administered on 06/12/19at 08:01; Start 06/11/19 at 09:00 Diphenhydramine HCl (Benadryl) 50 mg Q4HP PRN PO ANXIETY/AGITATION Last administered on 06/12/19at 22:21; Start 06/10/19 at 21:45 Divalproex Sodium (Depakote) 500 mg BID PO Last administered on 06/12/19 22:09; Start 06/10/19 at 21:00 Fluphenazine HCl (Prolixin) 5 mg QHS PO Last administered on 06/12/19at 22:09; Start 06/12/19 at 21:00 Home Med (Med Rec Complete!) ASDIRECTED XX ; Start 06/10/19 at 15:00; Stop 06/10/19 at 15:00; Status DC Hydroxyzine HCl (Atarax) 50 mg Q4HP PRN PO anxiety Last administered on 06/10/19at 18:22; Start 06/10/19 at 18:15 Lorazepam (Ativan) 2 mg STAT STAT PO Last administered on 06/10/19 13:55; Start 06/10/19 at 13:49; Stop 06/10/19 at 13:50; Status DC Lurasidone HCl (Latuda) 20 mg DAILY@18 PO Last administered on 06/12/19at 17:58; Start 06/11/19 at 18:00; Stop 06/12/19 at 18:48; Status DC Magnesium Hydroxide (Milk Of Magnesia) 30 ml DAILYPRN PRN PO CONSTIPATION Last administered on 06/11/19 11:34; Start 06/10/19 at 15:15 Nicotine (Nicoderm Cq 21mg) 1 patch DAILY TD Last administered on 06/12/19 08:01; Start 06/10/19 at 09:00 Trazodone HCl (Desyrel) 50 mg QHSP PRN PO INSOMNIA Last administered on 06/12/19 22:21; Start 06/10/19 at 15:15 Allergies Coded Allergies: haloperidol (Verified Adverse Reaction, Severe, tardive dyskinesia, 06/12/19) amoxicillin (Verified Adverse Reaction, Mild, STOMACH PAINS/VOMITING, 06/12/19) clavulanic acid (Verified Adverse Reaction, Mild, STOMACH PAINS/VOMITING, 06/12/19) RACHELLE MONTANEZ DO Jun 13, 2019 06:34
[2019-06-13 06:47] VITALS: BP 97/55
[2019-06-13] MEDS: DIVALPROEX 500 MG TAB PO SCH ×2 (08:05→20:40)
[2019-06-13] MEDS: NICOTINE 21MG/24HR 1 EA TRANSDERMAL TD SCH (08:06)
[2019-06-13] MEDS: buPROPion 100 MG TAB PO SCH (08:06)
[2019-06-13] MEDS: BUPRENORPHINE/NALOXONE 8-2MG SUBLINGUAL TABLET(SUBOXONE) SL SCH (08:07)
[2019-06-13] MEDS: diphenhydrAMINE 50 MG CAP PO PRN ×2 (11:51→17:11)
[2019-06-13 18:00] VITALS: BP 111/67
[2019-06-13] MEDS: traZODone 50 MG TAB PO PRN (20:40)
[2019-06-13] MEDS: OLANZapine ORAL DISINTEGRATING TAB 5MG PO PRN (20:40)
[2019-06-14 06:40] VITALS: BP 98/53
[2019-06-14] MEDS: NICOTINE 21MG/24HR 1 EA TRANSDERMAL TD SCH (08:07)
[2019-06-14] MEDS: DIVALPROEX 500 MG TAB PO SCH ×2 (08:07→20:53)
[2019-06-14] MEDS: buPROPion 100 MG TAB PO SCH (08:07)
[2019-06-14] MEDS: BUPRENORPHINE/NALOXONE 8-2MG SUBLINGUAL TABLET(SUBOXONE) SL SCH (08:08)
[2019-06-14] MEDS ORDERED: IBUPROFEN 400 MG TAB PO PRN (13:15)
[2019-06-14] MEDS: OLANZapine ORAL DISINTEGRATING TAB 5MG PO PRN (15:04)
[2019-06-14 18:16] VITALS: BP 108/70
[2019-06-15] MEDS: traZODone 50 MG TAB PO PRN ×2 (00:41→20:54)
[2019-06-15 06:46] VITALS: BP 114/62
[2019-06-15] MEDS: buPROPion 100 MG TAB PO SCH (08:01)
[2019-06-15] MEDS: NICOTINE 21MG/24HR 1 EA TRANSDERMAL TD SCH (08:01)
[2019-06-15] MEDS: DIVALPROEX 500 MG TAB PO SCH ×2 (08:01→20:54)
[2019-06-15] MEDS: BUPRENORPHINE/NALOXONE 8-2MG SUBLINGUAL TABLET(SUBOXONE) SL SCH (08:02)
--- NOTE | 2019-06-15 09:40 | MHIPN ---
DATE OF SERVICE: 06/14/2019 CHIEF COMPLAINT: Says has a headache. SUBJECTIVE: Seen for followup in the presence of staff. She is lying in bed. Says has a headache and that it started recently. Says had such a headache in the past. She feels tired, as well. She indicates had been feeling depressed. Vague on suicidal thoughts. MENTAL STATUS EXAMINATION: She is lying in bed. She is coherent. No agitation. No psychomotor retardation. Appears a bit tired. She is vague on suicidal thoughts. Has a restricted affect. No homicidal ideas or intents. No evidence of any psychosis. Cognition grossly intact. Judgment is questionable, as is insight. ASSESSMENT: 1. Other specified psychotic disorder. 2. Consider a mood disorder with psychosis. 3. Opioid use disorder. PLAN: Continue current care and observations. Will give her some ibuprofen to help with the headache. Will also continue with current observations. Further recommendations will be made depending on the clinical picture. VITAL SIGNS: Blood pressure 98/53, pulse 75, temperature 97.9.
[2019-06-15 18:22] VITALS: BP 101/51
[2019-06-15] MEDS: OLANZapine ORAL DISINTEGRATING TAB 5MG PO PRN (21:41)
[2019-06-16 06:22] VITALS: BP 102/59
[2019-06-16] MEDS: DIVALPROEX 500 MG TAB PO SCH ×2 (08:22→21:15)
[2019-06-16] MEDS: buPROPion 100 MG TAB PO SCH (08:23)
[2019-06-16] MEDS: NICOTINE 21MG/24HR 1 EA TRANSDERMAL TD SCH (08:23)
[2019-06-16] MEDS: PILL CUTTER 1 EACH XX PRN (08:26)
[2019-06-16] MEDS: BUPRENORPHINE/NALOXONE 8-2MG SUBLINGUAL TABLET(SUBOXONE) SL SCH (08:26)
--- NOTE | 2019-06-16 10:39 | MHIPNPDOC ---
[facility] Progress Note Progress Note Inpatient Progress Note Date of Service: 06/16/2019 History of Present Illness The patient presents to [facility]. She is a 24-year-old woman with a history of reported bipolar disorder previously treated on our inpatient unit and presents in a reported paranoid state where she feels others are watching her, reporting that she does hear auditory hallucinations of a man speaking to her telling her negative things about herself and that she should harm herself. She describes that she does have episodes of depression with low mood, fatigue, and impulsivity. However, on screening for phoebe she does not appear to qualify and she has very little impulsive behavior when she reports being "high" which is likely an elaboration of being within euthymia. The patient describes that she was feeling significantly paranoid on the unit and that she had for the last several months increasing auditory hallucinations and paranoia. She describes that these are separate from her depressed mood and can occur with or without. She does describe significant guilt and psychosocial stressors in the form of being refused access to her child of which she shares joint custody with. She reports currently being on Depakote and Wellbutrin as an outpatient. Interval History The patient was met with several times today. Initially, she was found to be in her bedroom reporting that she felt "sick," but could not describe it. She was seen by the medical provider over the weekend for reported UTI of what she was started on antibiotic for. She reports significant paranoia, but does not engage the provider significantly on the first visit. She does find this provider later in the day and wishes to speak with him. She describes significant paranoia and auditory hallucinations that are fake in nature, but reportedly tell the patient that she should leave the unit. The patient asks for medications to be changed as she feels the fluphenazine is not very effective for her symptoms at this time. Review Of Systems Reports feelings of malaise. Denies GI upset. Denies fevers. Denies night sweats or any other signs and symptoms of medication side effects. Psychotherapy None on this visit. Vital Signs Reviewed. Mental Status Examination General: Fair hygiene Speech: Sparse Thought processes: Linear and logical MSK: Smooth and coordinated gait, no signs of tremors or involuntary orofacial movements Thought content: Paranoid and worried Abstract reasoning, and computation: Intact Description of associations: Luc[employer] Description of abnormal or psychotic thoughts: Admits to hopelessness due to a nxiety but denies overt suicidal ideation or homicidal ideation. Denies any auditory or visual hallucinations. Does not appear to be responding to internal stimuli. Appears to be endorsing paranoid ideation that she is being watched. Judgment: poor Insight: poor Orientation: Alert and orientated 3 Cognition: Grossly normal Recent and remote memory: Intact Attention span and concentration: Intact Fund of knowledge: Adequate Mood: "bad" Affect: Dysphoric with a constricted range Diagnoses Unspecified psychotic disorder: unstable. Rule out substance induced. Opioid use disorder, severe. Tobacco use disorder, severe. Cannabis use disorder, severe. Assessment and Plan The patient will likely need a medication adjustment to a stronger second gener ation. Discontinue fluphenazine at this time and start Invega 3 mg nightly. Auditory hallucinations, continue Depakote 500 mg BID. Psychometric testing, we'll have to wait as the patient reports feeling fairly paranoid and unable to attend to her needs. Disposition The patient will need a further inpatient admission in order to treat her paranoia and bizarre affect, as well as inability to care for herself. Time Spent 20 minutes [id number]. Sunday Vital Signs Vital Signs Date Time Temp Pulse Resp B/P (MAP) Pulse Ox O2 Delivery O2 Flow Rate FiO2 06/16/19 06:22 97.4 76 16 102/59 (73) 06/14/19 08:28 Room Air 06/10/19 15:48 99 Laboratory Data 24H Labs Laboratory Tests 2 06/15/19 20:45: Urine Color YELLOW, Urine Appearance HAZY, Urine pH 7.0, Urine Specific [place] 1.012, Urine Protein NEGATIVE, Urine Glucose (UA) NEGATIVE, Urine Ketones TRACEH, Urine Blood NEGATIVE, Urine Nitrite NEGATIVE, Urine Bilirubin NEGATIVE, Urine Urobilinogen 0.2, Urine Leukocyte Esterase NEGATIVE, Urine WBC (Auto) 3, Urine RBC (Auto) 0, Urine Hyaline Casts (Auto) 0, Urine Bacteria (Auto) 2+H, Urine Squamous Epithelial Cells 7, Urine Mucus (Auto) SMALL, Urine Sperm (Auto) Current Medications Current Medications Acetaminophen (Tylenol Tab) 650 mg Q6HP PRN PO HEADACHE or DISCOMFORT; Start 06/10/19 at 15:15 Al Hydrox/Mg Hydrox/Simethicone (Mylanta) 30 ml Q4HP PRN PO HE ARTBURN/INDIGESTION; Start 06/10/19 at 15:15 Buprenorphine/ Naloxone (Suboxone 8/2mg) 1.5 tab DAILY SL Last administered on 06/16/19at 08:26; Start 06/11/19 at 09:00 Bupropion HCl (Wellbutrin) 100 mg DAILY PO Last administered on 06/16/19 08:23; Start 06/11/19 at 09:00 Diphenhydramine HCl (Benadryl) 50 mg Q4HP PRN PO ANXIETY/AGITATION Last administered on 06/13/19at 17:11; Start 06/10/19 at 21:45; Stop 06/13/19 at 18:24; Status DC Divalproex Sodium (Depakote) 500 mg BID PO Last administered on 06/16/19 08:22; Start 06/10/19 at 21:00 Fluphenazine HCl (Prolixin) 5 mg QHS PO Last administered on 06/12/19at 22:09; Start 06/12/19 at 21:00; Stop 06/13/19 at 09:05; Status DC Fluphenazine HCl (Prolixin) 10 mg QHS PO Last administered on 06/15/19at 20:54; Start 06/13/19 at 21:00 Home Med (Med Rec Complete!) ASDIRECTED XX ; Start 06/10/19 at 15:00; Stop 06/10/19 at 15:00; Status DC Hydroxyzine HCl (Atarax) 50 mg Q4HP PRN PO anxiety Last administered on 06/10/19at 18:22; Start 06/10/19 at 18:15 Ibuprofen (Advil) 400 mg TIDP PRN PO HEADACHE Last administered on 06/15/19at 14:11; Start 06/14/19 at 13:15 Lorazepam (Ativan) 2 mg STAT STAT PO Last administered on 06/10/19at 13:55; Start 06/10/19 at 13:49; Stop 06/10/19 at 13:50; Status DC Lurasidone HCl (Latuda) 20 mg DAILY@18 PO Last administered on 06/12/19at 17:58; Start 06/11/19 at 18:00; Stop 06/12/19 at 18:48; Status DC Magnesium Hydroxide (Milk Of Magnesia) 30 ml DAILYPRN PRN PO CONSTIPATION Last administered on 06/11/19 11:34; Start 06/10/19 at 15:15 Nicotine (Nicoderm Cq 21mg) 1 patch DAILY TD Last administered on 06/15/19 08:01; Start 06/10/19 at 09:00 Olanzapine (ZyPREXA ZYDIS) 5 mg Q4HP PRN PO ANXIETY/AGITATION Last administered on 06/15/19 21:41; Start 06/13/19 at 18:30 Trazodone HCl (Desyrel) 50 mg QHSP PRN PO INSOMNIA Last administered on 06/15/19 20:54; Start 06/10/19 at 15:15 Allergies Coded Allergies: haloperidol (Verified Adverse Reaction, Severe, tardive dyskinesia, 06/12/19) amoxicillin (Verified Adverse Reaction, Mild, STOMACH PAINS/VOMITING, 06/12/19) clavulanic acid (Verified Adverse Reaction, Mild, STOMACH PAINS/VOMITING, 06/12/19) RACHELLE MONTANEZ DO Jun 16, 2019 10:39
[2019-06-16 18:00] VITALS: BP 109/56
[2019-06-16] MEDS ORDERED: CHLORASEPTIC SPRAY MT PRN (18:00)
[2019-06-16] MEDS ORDERED: LORazepam 0.5 MG TAB PO ONE (18:30)
[2019-06-16] MEDS ORDERED: PALIPERIDONE 3 MG ER TAB (INVEGA) PO ONE (18:30)
[2019-06-16] MEDS: traZODone 50 MG TAB PO PRN (21:15)
[2019-06-17 06:36] VITALS: BP 101/56
[2019-06-17] MEDS: NICOTINE 21MG/24HR 1 EA TRANSDERMAL TD SCH (08:04)
[2019-06-17] MEDS: DIVALPROEX 500 MG TAB PO SCH ×2 (08:05→20:20)
[2019-06-17] MEDS: PILL CUTTER 1 EACH XX PRN (10:55)
[2019-06-17] MEDS: BUPRENORPHINE/NALOXONE 8-2MG SUBLINGUAL TABLET(SUBOXONE) SL SCH (10:55)
--- NOTE | 2019-06-17 12:36 | MHIPNPDOC ---
[facility] Progress Note Progress Note Date of Service: 06/17/2019 History of Present Illness The patient presents to [facility]. She is a 24-year-old woman with a history of reported bipolar disorder previously treated on our inpatient unit and presents in a reported paranoid state where she feels others are watching her, reporting that she does hear auditory hallucinations of a man speaking to her telling her negative things about herself and that she should harm herself. She describes that she does have episodes of depression with low mood, fatigue, and impulsivity. However, on screening for phoebe she does not appear to qualify and she has very little impulsive behavior when she reports being "high" which is likely an elaboration of being within euthymia. The patient describes that she was feeling significantly paranoid on the unit and that she had for the last several months increasing auditory hallucinations and paranoia. She describes that these are separate from her depressed mood and can occur with or without. She does describe significant guilt and psychosocial stressors in the form of being refused access to her child of which she shares joint custody with. She reports currently being on Depakote and Wellbutrin as an outpatient. Interval History The patient is met with today multiple different times. Initially in the morning, she was noted to be fairly agitated and upset when her Suboxone order was up for renewal. Some of the nursing staff were concerned that she was primarily behavioral, she has remained isolated to room and has not attended groups. She has been noted to take her medication and subsequently go to sleep. At time, she reports auditory hallucinations, but initially this morning reports that she's feeling better with very little if no auditory hallucinations. Later on the day when she is checked on again, she declines to do the psychometric testing, but states that she was feeling better and subsequently found this provider again and stated that she was feeling "worse." Review Of Systems Denies any side effects from her medications to determine her GI upset. Reports no further "malaise." Psychotherapy None on this visit. Vital Signs Reviewed. Mental Status Examination General: Fair hygiene Speech: Sparse Thought processes: Linear and logical MSK: Smooth and coordinated gait, no signs of tremors or involuntary orofacial movements Thought content: Paranoid and worried Abstract reasoning, and computation: Intact Description of associations: loose Description of abnormal or psychotic thoughts: The patient admits to continued hopelessness and passive suicidal ideation. Denies homicidal ideation. Admits to continuing auditory hallucinations that are fluctuating. Denies visual hallucinations. Does not appear to be responding to internal stimuli. Judgment: poor Insight: poor Orientation: Alert and orientated 3 Cognition: Grossly normal Recent and remote memory: Intact Attention span and concentration: Intact Fund of knowledge: Adequate Mood: "bad" Affect: Dysphoric with a constricted range Diagnoses Unspecified psychotic disorder: unstable. Rule out substance induced. Opioid use disorder, severe. Tobacco use disorder, severe. Cannabis use disorder, severe. Assessment and Plan The patient's current situation appears to be fairly complex and nuanced. She has declined to do the psychometric testing today, which could be quite helpful. She does appear to be isolating to her room to a significant degree beyond what would be considered behavioral as she interacts very little and stays in her bed for the majority of the day. We'll continue Suboxone 1.5 tablets daily, continuing Depakote 500 mg BID, levels drawn today at roughly 89, which is therapeutic. We'll increase Invega to 6 mg daily as there did appear to be some effect. It's not entirely clear what her diagnosis is, but it does not appear to be improving well. Disposition The patient will need a further inpatient stay due to the severity of the reported psychotic symptoms as well as the severe social isolation. Further testing will help elaborate whether there is any secondary gain, but at this time, the patient's symptoms and presentation due warrant further inpatient stay for treatment and titration of medications. Time Spent 20 minutes [id number]. Sunday Vital Signs Vital Signs Date Time Temp Pulse Resp B/P (MAP) Pulse Ox O2 Delivery O2 Flow Rate FiO2 06/17/19 06:36 98.6 80 12 101/56 (71) 06/14/19 08:28 Room Air Laboratory Data 24H Labs Laboratory Tests 2 06/17/19 11:17: Valproic Acid (Depakene) Level 87.1 Current Medications Current Medications Acetaminophen (Tylenol Tab) 650 mg Q6HP PRN PO HEADACHE or DISCOMFORT; Start 06/10/19 at 15:15 Al Hydrox/Mg Hydrox/Simethicone (Mylanta) 30 ml Q4HP PRN PO HEARTBURN/INDIGESTION; Start 06/10/19 at 15:15 Buprenorphine/ Naloxone (Suboxone 8/2mg) 1.5 tab DAILY SL Last administered on 06/17/19at 10:55; Start 06/11/19 at 09:00 Bupropion HCl (Wellbutrin) 100 mg DAILY PO Last administered on 06/16/19at 0 8:23; Start 06/11/19 at 09:00; Stop 06/16/19 at 17:53; Status DC Diphenhydramine HCl (Benadryl) 50 mg Q4HP PRN PO ANXIETY/AGITATION Last administered on 06/13/19at 17:11; Start 06/10/19 at 21:45; Stop 06/13/19 at 18:24; Status DC Divalproex Sodium (Depakote) 500 mg BID PO Last administered on 06/17/19 08:05; Start 06/10/19 at 21:00 Fluphenazine HCl (Prolixin) 5 mg QHS PO Last administered on 06/12/19at 22:09; Start 06/12/19 at 21:00; Stop 06/13/19 at 09:05; Status DC Fluphenazine HCl (Prolixin) 10 mg QHS PO Last administered on 06/15/19at 20:54; Start 06/13/19 at 21:00; Stop 06/16/19 at 17:53; Status DC Home Med (Med Rec Complete!) ASDIRECTED XX ; Start 06/10/19 at 15:00; Stop 06/10/19 at 15:00; Status DC Hydroxyzine HCl (Atarax) 50 mg Q4HP PRN PO anxiety Last administered on 06/10/19 18:22; Start 06/10/19 at 18:15 Ibuprofen (Advil) 400 mg TIDP PRN PO HEADACHE Last administered on 06/15/19at 14:11; Start 06/14/19 at 13:15 Lorazepam (Ativan) 2 mg STAT STAT PO Last administered on 06/10/19 13:55; Start 06/10/19 at 13:49; Stop 06/10/19 at 13:50; Status DC Lurasidone HCl (Latuda) 20 mg DAILY@18 PO Last administered on 06/12/19 17:58; Start 06/11/19 at 18:00; Stop 06/12/19 at 18:48; Status DC Magnesium Hydroxide (Milk Of Magnesia) 30 ml DAILYPRN PRN PO CONSTIPATION Last administered on 7/17/19at 11:34; Start 06/10/19 at 15:15 Miscellaneous (Unresolved Clarification Entry) SEE LABEL COMMENTS DAILY XX ; Start 06/17/19 at 09:00; Stop 06/17/19 at 10:55; Status DC Nicotine (Nicoderm Cq 21mg) 1 patch DAILY TD Last administered on 06/15/19at 08:01; Start 06/10/19 at 09:00 Olanzapine (ZyPREXA ZYDIS) 5 mg Q4HP PRN PO ANXIETY/AGITATION Last administered on 06/15/19at 21:41; Start 06/13/19 at 18:30 Paliperidone (Invega) 3 mg QHS PO ; Start 06/17/19 at 21:00 Phenol (Chloraseptic [place]) 1 spray Q2HP PRN MT SORE THROAT Last administered on 06/17/19at 10:25; Start 06/16/19 at 18:00 Trazodone HCl (Desyrel) 50 mg QHSP PRN PO INSOMNIA Last administered on 06/16/19at 21:15; Start 06/10/19 at 15:15 Allergies Coded Allergies: haloperidol (Verified Adverse Reaction, Severe, tardive dyskinesia, 06/12/19) amoxicillin (Verified Adverse Reaction, Mild, STOMACH PAINS/VOMITING, 06/12/19) clavulanic acid (Verified Adverse Reaction, Mild, STOMACH PAINS/VOMITING, 06/12/19) RACHELLE MONTANEZ DO Jun 17, 2019 12:36
[2019-06-17 18:00] VITALS: BP 105/64
[2019-06-17] MEDS: traZODone 50 MG TAB PO PRN (20:19)
[2019-06-17] MEDS ORDERED: PALIPERIDONE 3 MG ER TAB (INVEGA) PO SCH (21:00)
[2019-06-18 06:47] VITALS: BP 105/70
[2019-06-18] MEDS: NICOTINE 21MG/24HR 1 EA TRANSDERMAL TD SCH (07:59)
[2019-06-18] MEDS: DIVALPROEX 500 MG TAB PO SCH ×2 (08:00→21:48)
[2019-06-18] MEDS: PILL CUTTER 1 EACH XX PRN (11:07)
[2019-06-18] MEDS: BUPRENORPHINE/NALOXONE 8-2MG SUBLINGUAL TABLET(SUBOXONE) SL SCH (11:07)
--- NOTE | 2019-06-18 14:45 | MHIPNPDOC ---
[facility] Progress Note Progress Note Date of Service: 06/18/2019 History of Present Illness The patient presents to [facility]. She is a 24-year-old woman with a history of reported bipolar disorder previously treated on our inpatient unit and presents in a reported paranoid state where she feels others are watching her, reporting that she does hear auditory hallucinations of a man speaking to her telling her negative things about herself and that she should harm herself. She describes that she does have episodes of depression with low mood, fatigue, and impulsivity. However, on screening for phoebe she does not appear to qualify and she has very little impulsive behavior when she reports being "high" which is likely an elaboration of being within euthymia. The patient describes that she was feeling significantly paranoid on the unit and that she had for the last several months increasing auditory hallucinations and paranoia. She describes that these are separate from her depressed mood and can occur with or without. She does describe significant guilt and psychosocial stressors in the form of being refused access to her child of which she shares joint custody with. She reports currently being on Depakote and Wellbutrin as an outpatient. Interval History The patient this morning had difficulties and she had not been attending groups and her Suboxone was held. However, when this provider initially tried to meet with her, she had subsequently attended groups and her Suboxone was continued at current dose. The patient has generally been isolated to a room and engages very little with the treatment team. She has had noted behavioral problems when her Suboxone was delayed, becoming irritable and slamming doors. The patient has been intermittently compliant with the agreed plan regarding her Suboxone. She reports that she is doing better from her reported hallucinations and paranoia today. Psychometric testing is done today in addition to parse out whether there is underlying psychotic disorder or whether it is lingered for secondary gain. Review for insurance was done and she was granted additional days until Sunday. Review Of Systems As above. Psychotherapy None on this visit. Vital Signs Reviewed. Mental Status Examination General: Fair hygiene Speech: Sparse Thought processes: Linear and logical MSK: Smooth and coordinated gait, no signs of tremors or involuntary orofacial movements Thought content: Paranoid and worried Abstract reasoning, and computation: Intact Description of associations: [employer] Description of abnormal or psychotic thoughts: The patient denies any suicidal or homicidal ideation. Denies any auditory or visual hallucinations at this time. Does not appear to be endorsing any paranoid or bizarre ideation. Does not appear to be responding to internal stimuli. Judgment: poor Insight: poor Orientation: Alert and orientated 3 Cognition: Grossly normal Recent and remote memory: Intact Attention span and concentration: Intact Fund of knowledge: Adequate Mood: "Okay" Affect: More euthymic with a extended range Diagnoses Unspecified psychotic disorder: unstable. Rule out substance induced. Opioid use disorder, severe. Tobacco use disorder, severe. Cannabis use disorder, severe. Assessment and Plan The patient appears to be making some mild improvement on 6 mg of Invega. We'll continue her Depakote 500 mg BID. The psychometric testing will be very important in order to parse out her underlying diagnosis and whether she is presenting multiple times for secondary gain or whether she is developing a psychotic disorder. Her Suboxone will be continued at 1.5 tablets daily based upon her attending groups and languishing in her room as was discussed with her. Disposition The patient will need a further inpatient stay due to the severity of the reported psychotic symptoms as well as the severe social isolation. Further testing will help elaborate whether there is any secondary gain, but at this time, the patient's symptoms and presentation due warrant further inpatient stay for treatment and titration of medications. Time Spent 15 minutes [id number]. Sunday Vital Signs Vital Signs Date Time Temp Pulse Resp B/P (MAP) Pulse Ox O2 Delivery O2 Flow Rate FiO2 06/18/19 06:47 98.4 80 12 105/70 (82) 06/14/19 08:28 Room Air Current Medications Current Medications Acetaminophen (Tylenol Tab) 650 mg Q6HP PRN PO HEADACHE or DISCOMFORT Last adm inistered on 06/18/19at 11:07; Start 06/10/19 at 15:15 Al Hydrox/Mg Hydrox/Simethicone (Mylanta) 30 ml Q4HP PRN PO HEARTBURN/IND IGESTION; Start 06/10/19 at 15:15 Buprenorphine/ Naloxone (Suboxone 8/2mg) 1.5 tab DAILY SL Last administered on 06/18/19 11:07; Start 06/11/19 at 09:00 Bupropion HCl (Wellbutrin) 100 mg DAILY PO Last administered on 06/16/19at 08:23; Start 06/11/19 at 09:00; Stop 06/16/19 at 17:53; Status DC Diphenhydramine HCl (Benadryl) 50 mg Q4HP PRN PO ANXIETY/AGITATION Last administered on 06/13/19at 17:11; Start 06/10/19 at 21:45; Stop 06/13/19 at 18:24; Status DC Divalproex Sodium (Depakote) 500 mg BID PO Last administered on 06/18/19 08:00; Start 06/10/19 at 21:00 Fluphenazine HCl (Prolixin) 5 mg QHS PO Last administered on 06/12/19at 22:09; Start 06/12/19 at 21:00; Stop 06/13/19 at 09:05; Status DC Fluphenazine HCl (Prolixin) 10 mg QHS PO Last administered on 06/15/19at 20:54; Start 06/13/19 at 21:00; Stop 06/16/19 at 17:53; Status DC Home Med (Med Rec Complete!) ASDIRECTED XX ; Start 06/10/19 at 15:00; Stop 06/10/19 at 15:00; Status DC Hydroxyzine HCl (Atarax) 50 mg Q4HP PRN PO anxiety Last administered on 06/10/19 18:22; Start 06/10/19 at 18:15 Ibuprofen (Advil) 400 mg TIDP PRN PO HEADACHE Last administered on 06/15/19at 14:11; Start 06/14/19 at 13:15 Lorazepam (Ativan) 2 mg STAT STAT PO Last administered on 06/10/19at 13:55; Start 06/10/19 at 13:49; Stop 06/10/19 at 13:50; Status DC Lurasidone HCl (Latuda) 20 mg DAILY@18 PO Last administered on 06/12/19at 17:58; Start 06/11/19 at 18:00; Stop 06/12/19 at 18:48; Status DC Magnesium Hydroxide (Milk Of Magnesia) 30 ml DAILYPRN PRN PO CONSTIPATION Last administered on 06/11/19at 11:34; Start 06/10/19 at 15:15 Miscellaneous (Unresolved Clarification Entry) SEE LABEL COMMENTS DAILY XX ; Start 06/17/19 at 09:00; Stop 06/17/19 at 10:55; Status DC Nicotine (Nicoderm Cq 21mg) 1 patch DAILY TD Last administered on 06/15/19 08:01; Start 06/10/19 at 09:00 Olanzapine (ZyPREXA ZYDIS) 5 mg Q4HP PRN PO ANXIETY/AGITATION Last administered on 06/15/19 21:41; Start 06/13/19 at 18:30 Paliperidone (Invega) 3 mg QHS PO Last administered on 06/17/19at 20:19; Start 06/17/19 at 21:00; Stop 06/17/19 at 21:03; Status DC Paliperidone (Invega) 6 mg QHS PO ; Start 06/18/19 at 21:00 Phenol (Chloraseptic [place]) 1 spray Q2HP PRN MT SORE THROAT Last administered on 06/17/19at 10:25; Start 06/16/19 at 18:00 Trazodone HCl (Desyrel) 50 mg QHSP PRN PO INSOMNIA Last administered on 06/17/19 20:19; Start 06/10/19 at 15:15 Allergies Coded Allergies: haloperidol (Verified Adverse Reaction, Severe, tardive dyskinesia, 06/12/19) amoxicillin (Verified Adverse Reaction, Mild, STOMACH PAINS/VOMITING, 06/12/19) clavulanic acid (Verified Adverse Reaction, Mild, STOMACH PAINS/VOMITING, 06/12/19) RACHELLE MONTANEZ DO Jun 18, 2019 14:45
[2019-06-18 18:00] VITALS: BP 115/71
[2019-06-18] MEDS: PALIPERIDONE 6 MG ER TAB (INVEGA) PO SCH (21:48)
[2019-06-19 06:32] VITALS: BP 91/54
[2019-06-19] MEDS: NICOTINE 21MG/24HR 1 EA TRANSDERMAL TD SCH (08:38)
[2019-06-19] MEDS: DIVALPROEX 500 MG TAB PO SCH ×3 (08:38→22:44)
[2019-06-19] MEDS: BUPRENORPHINE/NALOXONE 8-2MG SUBLINGUAL TABLET(SUBOXONE) SL SCH (08:39)
[2019-06-19] MEDS ORDERED: ONDANSETRON 4 MG TAB (S0181) PO ONE (13:00)
[2019-06-19] MEDS ORDERED: ONDANSETRON 4 MG TAB (S0181) PO PRN (17:45)
[2019-06-19 19:08] VITALS: BP 123/59
[2019-06-19] MEDS: PALIPERIDONE 6 MG ER TAB (INVEGA) PO SCH ×2 (21:00→22:44)
[2019-06-19] MEDS: traZODone 50 MG TAB PO PRN (22:44)
[2019-06-20 06:49] VITALS: BP 97/55
[2019-06-20] MEDS: NICOTINE 21MG/24HR 1 EA TRANSDERMAL TD SCH (08:02)
[2019-06-20] MEDS: DIVALPROEX 500 MG TAB PO SCH (08:04)
[2019-06-20] MEDS: BUPRENORPHINE/NALOXONE 8-2MG SUBLINGUAL TABLET(SUBOXONE) SL SCH (08:04)
--- NOTE | 2019-06-20 08:43 | MHIPNPDOC ---
[facility] Progress Note Progress Note Date of Service: 06/19/2019 History of Present Illness The patient presents to [facility]. She is a 24-year-old woman with a history of reported bipolar disorder previously treated on our inpatient unit and presents in a reported paranoid state where she feels others are watching her, reporting that she does hear auditory hallucinations of a man speaking to her telling her negative things about herself and that she should harm herself. She describes that she does have episodes of depression with low mood, fatigue, and impulsivity. However, on screening for phoebe she does not appear to qualify and she has very little impulsive behavior when she reports being "high" which is likely an elaboration of being within euthymia. The patient describes that she was feeling significantly paranoid on the unit and that she had for the last several months increasing auditory hallucinations and paranoia. She describes that these are separate from her depressed mood and can occur with or without. She does describe significant guilt and psychosocial stressors in the form of being refused access to her child of which she shares joint custody with. She reports currently being on Depakote and Wellbutrin as an outpatient. Interval History The patient is met with today. She reports that she is feeling much improved wit h no hallucinations or paranoia currently on the Invega. She reports she is tolerating well without any side effects. She has reported some nausea throughout the day that has been resistant to a dose of Zofran. Her testing is still in process, however, preliminary results indicate a strong bias towards malingering. The patient reports that she wishes to go home tomorrow. She has de nied any suicidal or homicidal threats and has been attending groups more frequently at the prompting of staff with less agitation over frustration. Review Of Systems Denies any side effects of Invega such as tremor, headache, or other concerning side effects. Psychotherapy None on this visit. Vital Signs Reviewed. Mental Status Examination General: Fair hygiene Speech: Sparse Thought processes: Linear and logical MSK: Smooth and coordinated gait, no signs of tremors or involuntary orofacial movements Thought content: Paranoid and worried Abstract reasoning, and computation: Intact Description of associations: [employer] Description of abnormal or psychotic thoughts: The patient denies any suicidal or homicidal ideation. Denies any auditory or visual hallucinations at this time. Does not appear to be endorsing any paranoid or bizarre ideation. Does not appear to be responding to internal stimuli. Judgment: poor Insight: poor Orientation: Alert and orientated 3 Cognition: Grossly normal Recent and remote memory: Intact Attention span and concentration: Intact Fund of knowledge: Adequate Mood: "Okay" Affect: More euthymic with a extended range Diagnoses Unspecified psychotic disorder: unstable. Rule out substance induced. Opioid use disorder, severe. Tobacco use disorder, severe. Cannabis use disorder, severe. Assessment and Plan The patient appears to be making sufficient improvement on the Invega 6 mg from her reported symptoms. We will continue her other medications as below. The testing preliminary results seem to suggest that the patient is unlikely to be psychotic in nature. Secondary gain is increasingly likely as aligning her refills with her inpatient admission seem to coincide with likely overuse of her Suboxone. Contacted the medical provider to screen for the nausea and vomiting to further parse out if there is any action that needs to be taken. Disposition The patient will be discharged tomorrow. Time Spent 15 minutes [id number]. Vital Signs Vital Signs Date Time Temp Pulse Resp B/P (MAP) Pulse Ox O2 Delivery O2 Flow Rate FiO2 06/20/19 06:49 97.6 83 14 97/55 (69) 06/14/19 08:28 Room Air Current Medications Current Medications Medications (Trade) Dose Ordered Sig/Kim Route PRN Reason Start Time Stop Time Status Last Admin Dose Admin Acetaminophen (Tylenol Tab) 650 mg Q6HP PRN PO HEADACHE or DISCOMFORT 06/10/19 15:15 06/18/19 11:07 Al Hydrox/Mg Hydrox/Simethicone (Mylanta) 30 ml Q4HP PRN PO HEARTBURN/INDIGESTION 06/10/19 15:15 Buprenorphine/ Naloxone (Suboxone 8/2mg) 1.5 tab DAILY SL 06/11/19 09:00 06/20/19 08:04 Bupropion HCl (Wellbutrin) 100 mg DAILY PO 06/11/19 09:00 06/16/19 17:53 DC 06/16/19 08:23 Diphenhydramine HCl (Benadryl) 50 mg Q4HP PRN PO ANXIETY/AGITATION 06/10/19 21:45 06/13/19 18:24 DC 06/13/19 17:11 Divalproex Sodium (Depakote) 500 mg BID PO 06/10/19 21:00 06/20/19 08:04 Fluphenazine HCl (Prolixin) 5 mg QHS PO 06/12/19 21:00 06/13/19 09:05 DC 06/12/19 22:09 Fluphenazine HCl (Prolixin) 10 mg QHS PO 06/13/19 21:00 06/16/19 17:53 DC 06/15/19 20:54 Home Med (Med Rec Complete!) ASDIRECTED XX 06/10/19 15:00 06/10/19 15:00 DC Hydroxyzine HCl (Atarax) 50 mg Q4HP PRN PO anxiety 06/10/19 18:15 06/10/19 18:22 Ibuprofen (Advil) 400 mg TIDP PRN PO HEADACHE 06/14/19 13:15 06/15/19 14:11 Lorazepam (Ativan) 2 mg STAT STAT PO 06/10/19 13:49 06/10/19 13:50 DC 06/10/19 13:55 Lurasidone HCl (Latuda) 20 mg DAILY@18 PO 06/11/19 18:00 06/12/19 18:48 DC 06/12/19 17:58 Magnesium Hydroxide (Milk Of Magnesia) 30 ml DAILYPRN PRN PO CONSTIPATION 06/10/19 15:15 06/11/19 11:34 Miscellaneous (Unresolved Clarification Entry) SEE LABEL COMMENTS DAILY XX 06/17/19 09:00 06/17/19 10:55 DC Nicotine (Nicoderm Cq 21mg) 1 patch DAILY TD 06/10/19 09:00 06/19/19 08:38 Olanzapine (ZyPREXA ZYDIS) 5 mg Q4HP PRN PO ANXIETY/AGITATION 06/13/19 18:30 06/15/19 21:41 Ondansetron HCl (Zofran) 4 mg Q6HP PRN PO NAUSEA OR VOMITING 06/19/19 17:45 06/19/19 17:49 Paliperidone (Invega) 3 mg QHS PO 06/17/19 21:00 06/17/19 21:03 DC 06/17/19 20:19 Paliperidone (Invega) 6 mg QHS PO 06/18/19 21:00 06/19/19 21:00 Phenol (Chloraseptic [place]) 1 spray Q2HP PRN MT SORE THROAT 06/16/19 18:00 06/17/19 10:25 Trazodone HCl (Desyrel) 50 mg QHSP PRN PO INSOMNIA 06/10/19 15:15 06/19/19 22:44 Allergies Coded Allergies: haloperidol (Verified Adverse Reaction, Severe, tardive dyskinesia, 06/12/19) amoxicillin (Verified Adverse Reaction, Mild, STOMACH PAINS/VOMITING, 06/12/19) clavulanic acid (Verified Adverse Reaction, Mild, STOMACH PAINS/VOMITING, 06/12/19) RACHELLE MONTANEZ DO Jun 20, 2019 08:42
[2019-06-20] MEDS ORDERED: PALI1TAB3 PO (09:18)
--- NOTE | 2019-06-20 09:24 | MHDSPDOC ---
[facility] Discharge Summary Discharge Summary DATE OF ADMISSION: Jun 10, 2019 at 15:10 DATE OF DISCHARGE: 06/20/19 Discharge Nicki Davis Age 24 Female Date of : 1995 Date of Service: 06/20/2019 Diagnoses Unspecified trauma/stressor-related disorder. Factitious disorder. Opioid use disorder on Suboxone. Tobacco use disorder. Cannabis use disorder. History of Present Illness The patient presents to [facility]. She is a 24-year-old woman with a history of reported bipolar disorder previously treated on our inpatient unit and presents in a reported paranoid state where she feels others are watching her, reporting that she does hear auditory hallucinations of a man speaking to her telling her negative things about herself and that she should harm herself. She describes that she does have episodes of depression with low mood, fatigue, and impulsivity. However, on screening for phoebe she does not appear to qualify and she has very little impulsive behavior when she reports being "high" which is likely an elaboration of being within euthymia. The davion ent describes that she was feeling significantly paranoid on the unit and that she had for the last several months increasing auditory hallucinations and paranoia. She describes that these are separate from her depressed mood and can occur with or without. She does describe significant guilt and psychosocial stressors in the form of being refused access to her child of which she shares joint custody with. She reports currently being on Depakote and Wellbutrin as an outpatient. Consultants Involved Hospitalist/PCP screening Treatment and Progress On The Unit The patient was admitted to the inpatient unit and subsequently restarted on her home medications which included Wellbutrin 100 mg daily, Depakote 500 mg BID, and Latuda 20 mg daily. She was noted to endorse paranoia and hallucinations as her primary problem with some intermittent passive ideation of suicide. However, this quickly went away. Her Depakote levels were in the therapeutic range, roughly around 89, and the patient appeared to generally isolate to her room, only becoming angry when she was denied her buprenorphine. Due to the complexity of her condition and her non-response to fluphenazine that was tried up to 10 mg to treat her psychosis, she was tried on Invega and titrated up to 6 mg with g ood effect. She completed a personality assessment inventory; however, it was uninterpretable due to a strong bias towards presenting negatively, where malingering appeared to be quite high on the differential. She additionally had had a Rorschach done and the preliminary results suggested no major thought disorder, which would be consistent with the behavior observed. She reported paranoia; however, this appeared to vacillate consistently through her admission. She was noted to be only interested in getting her Suboxone. Multiple admissions compared to her I-STOP appear to support the hypothesis that she is potentially getting admitted due to overuse or diversion of her buprenorphine. The patient requested discharge, as she was doing well and had demonstrated no safety problems. She did not appear overtly paranoid or psychotic for the most part on the unit other than isolating to her room. She had had multiple somatic complaints, including nausea the day prior to discharge; however, prior to the lead medical technologist seeing her, she reported that the nausea had resolved. She additionally reported a yeast infection on her discharge. However, it was recommended that she follow up with primary care and she was given an appointment. Given the observed behavior as well as her strong bias towards attempting to demonstrate psychotic symptoms without any signs that would be consistent with such, it appeared that she had been here for secondary gain. Discharge Assessment The patient a 24-year-old woman who possibly has PTSD or another trauma-related disorder which appears much more consistent with her substance use, presents likely attempting to feign psychotic symptoms, being primarily interested in her Suboxone. When she was instructed that she would need to attend groups in order to get her Suboxone, she subsequently improved greatly and attended groups and was very social, further suggesting that the patient does not have an underlying psychotic disorder. Mental Status Examination General: Well dressed with good hygiene Speech: Spontaneous and fluid Thought processes: Linear and logical MSK: Smooth and coordinated gait, no signs of tremors or involuntary orofacial movements Thought content: Future orientated Abstract reasoning, and computation: Intact Description of associations: Intact Description of abnormal or psychotic thoughts: Denies any suicidal or homicidal ideation. Denies any auditory or visual hallucinations. Does not appear to be responding to internal stimuli. Does not appear to be endorsing any bizarre or paranoid ideation. Judgment: fair Insight: fair Orientation: Alert and orientated 3 Cognition: Grossly normal Recent and remote memory: Intact Attention span and concentration: Intact Fund of knowledge: Adequate Mood: "okay" Affect: Euthymic with a full range Follow Up The social work team worked during the predischarge meeting in order to evaluate for further issues of lethality address them fully before discharge. They worked on safety planning with the patient's family members in order to ensure that the patient will have a safe and effective discharge. Time Spent The amount of time spent in the coordination of care for this patient was approximately 30 minutes. Vital Signs/I&Os Vital Signs Date Time Temp Pulse Resp B/P (MAP) Pulse Ox O2 Delivery O2 Flow Rate FiO2 06/20/19 06:49 97.6 83 14 97/55 (69) 06/14/19 08:28 Room Air Medications Scheduled Buprenorphine HCl/Naloxone HCl (Suboxone 8 mg-2 mg Sl Film) 1 Each Film, 1.5 STRIP SL DAILY, (Reported) Divalproex Sodium (Depakote) 500 Mg Tablet.dr, 500 MG PO BID, (Reported) Nicotine (Nicotine Patch) 14 Mg/24 Hr Patch.td24, 1 PATCH TOP DAILY, (Reported) Paliperidone (Paliperidone ER) 6 Mg Tab.er.24, 6 MG PO QHS for mood for 7 Days, #7 Scheduled PRN Nicotine Polacrilex (Nicorette) 2 Mg Gum, 2 MG PO Q2H PRN for NICOTINE WITHDRAWAL, (Reported) Allergies Coded Allergies: haloperidol (Verified Adverse Reaction, Severe, tardive dyskinesia, 06/12/19) amoxicillin (Verified Adverse Reaction, Mild, STOMACH PAINS/VOMITING, 06/12/19) clavulanic acid (Verified Adverse Reaction, Mild, STOMACH PAINS/VOMITING, 06/12/19) RACHELLE MONTANEZ DO Jun 20, 2019 09:24
== END 2019-06-20 11:30 | disposition home or self-care (01) | DRG 755 ==
LOC: M ED 12:20 → M ED INP 15:10 → M PSY 17:20
PROVIDERS: ADMIT Psychiatry & Neurology Addiction Medicine; ATTEND Psychiatry & Neurology Addiction Medicine
DX: F43.9 Reaction to severe stress, unspecified (principal); F68.11 Factitious disorder imposed on self, with predominantly psychological signs and symptoms; F11.90 Opioid use, unspecified, uncomplicated; F17.200 Nicotine dependence, unspecified, uncomplicated; F12.90 Cannabis use, unspecified, uncomplicated; Z79.899 Other long term (current) drug therapy; Z88.0 Allergy status to penicillin; Z88.8 Allergy status to other drugs, medicaments and biological substances

== ENCOUNTER 2019-10-08 02:22 | Inpatient (IN) | payer OTHER ==
[~2019-10-08] VITALS: Ht 172.7 cm; Wt 68.4 kg
[~2019-10-08 02:22] MED LIST changes: +BUPR-321 PO; +BUPR75TA5 PO; +DEPA1TAB3 PO; +NICO1PAT36 TOP; +NICO2GUM8 PO; +PALI1TAB3 PO; +SUBO12MI SL; +SUBO8MIS SL
[2019-10-08] MEDS ORDERED: DRAM1CHW PO (02:54)
[2019-10-08] MEDS ORDERED: ZOFR4TAB16 PO (02:54)
[2019-10-08] MEDS ORDERED: MOM 30ML SUSPENSION UDC PO PRN (04:15)
[2019-10-08] MEDS ORDERED: ACETAMINOPHEN TAB 650MG DOSE (2X325MG) PO PRN (04:15)
[2019-10-08] MEDS ORDERED: traZODone 50 MG TAB PO PRN (04:15)
[2019-10-08] MEDS ORDERED: MAALOX 30 ML SUSP *UDC PO PRN (04:15)
[2019-10-08] MEDS ORDERED: NICOTINE 21MG/24HR 1 EA TRANSDERMAL TD PRN (04:15)
[2019-10-08 05:22] VITALS: BP 133/78
[2019-10-08 06:26] VITALS: BP 140/100
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
[2019-10-08] MEDS ORDERED: METHADONE 10 MG TAB (S0109) PO ONE (12:15)
[2019-10-08] MEDS: ONDANSETRON 4 MG ORAL DISINTEGRATING TAB (Q0162 PER 1MG) PO PRN ×2 (14:58→21:33)
[2019-10-08 16:26] VITALS: BP 115/73
[2019-10-09 00:20] VITALS: BP 126/86
[2019-10-09] MEDS ORDERED: ONDANSETRON 4MG/2ML VIAL (J2405) IV PRN (00:30)
[2019-10-09] MEDS ORDERED: ONDANSETRON 4 MG ORAL DISINTEGRATING TAB (Q0162 PER 1MG) PO PRN (00:45)
[2019-10-09 02:10] VITALS: BP 164/116
--- NOTE | 2019-10-09 08:43 | MHDSPDOC ---
[facility] Discharge Summary Discharge Summary DATE OF ADMISSION: Oct 08, 2019 at 04:11 DATE OF DISCHARGE: Oct 09, 2019 at 02:00 DISCHARGE DIAGNOSES: Unsp Depressive disorder Opioid use disorder severe Please see h/p for assessment, patient had severe N/V, unclear if withdrawal patient was transferred to medicine to have treatment of dehydration, recommend 1:1 sitter, recons psych once medically cleared for dispo back to psych. Concern that patient has been malingering for suboxone (please see ISTOP) as she ran out of it sometime ago, also tries to get Ativan and other medications, currently pr egnant, recommend caution with controlled medications. Vital Signs/I&Os Vital Signs Date Time Temp Pulse Resp B/P (MAP) Pulse Ox O2 Delivery O2 Flow Rate FiO2 10/09/19 02:10 98.2 126 20 164/116 (132) 100 Room Air Medications Scheduled Buprenorphine HCl/Naloxone HCl (Suboxone 8 mg-2 mg Sl Film) 1 Each Film, 1.5 STRIP SL DAILY, (Reported) Allergies Coded Allergies: haloperidol (Verified Adverse Reaction, Severe, tardive dyskinesia, 10/08/19) amoxicillin (Verified Adverse Reaction, Mild, STOMACH PAINS/VOMITING, 10/08/19) clavulanic acid (Verified Adverse Reaction, Mild, STOMACH PAINS/VOMITING, 10/08/19) RACHELLE MONTANEZ DO Oct 09, 2019 08:43
[2019-10-09] MEDS ORDERED: INFLUENZA QUADRIVALENT PF VACCINE 0.5ML SYRINGE (90686) IM ONE (09:00)
== END 2019-10-09 02:00 | disposition other institution (70) | DRG 754 ==
LOC: M ED 02:22 → M ED INP 04:11 → M PSY 04:55 → M MSPAV 10-09 02:10 → M PSY 10-09 02:10
PROVIDERS: ADMIT Psychiatry & Neurology Psychiatry; ATTEND Psychiatry & Neurology Addiction Medicine
DX: F32.9 Major depressive disorder, single episode, unspecified (principal); F11.90 Opioid use, unspecified, uncomplicated; Z88.8 Allergy status to other drugs, medicaments and biological substances; Z79.899 Other long term (current) drug therapy

== ENCOUNTER 2019-10-09 01:11 | Inpatient (IN) | payer OTHER ==
[~2019-10-09 01:11] MED LIST changes: +DRAM1CHW PO; +ZOFR4TAB16 PO
--- NOTE | 2019-10-09 01:20 | HPEPDOC ---
[facility] Medical History & Physical Date of Admission Oct 09, 2019 Date of Service: Oct 09, 2019 Attending Physician: REINA CARPENTER MD History and Physical TIME OF SERVICE 305AM CHIEF COMPLAINT: Nausea and vomiting HISTORY OF PRESENT ILLNESS: This is a 24 yr old F who was admitted in [facility] for management of SI and ineffective copping; per d/w her RN she has had intractable n/v that has not responded to oral zofran therefore we decided to transfer her to the medical floor so that she could receive IV zofran and IVF. Currently she is c/o of nonbloody emesis for 48H along with 10/10 epigastric pain. She denies having fevers or chills. She requested ativan because she feels "very anxious". She reports last receiving suboxone the day before yesterday. ROS: 12 point review of systems negative except as listed in HPI PAST MEDICAL / SURGICAL / PSYCHIATRIC HISTORY: Bipolar disorder Factious Disorder + SOCIAL HISTORY: + tobacco - alcohol +TCH + Suboxone w remote hx of opiate use FAMILY HISTORY: denies family hx of lung problems, heart problems or DM ALLERGIES: Please see below. HOME MEDICATIONS: Please see below. PHYSICAL EXAMINATION: VITAL SIGNS: T 98.2 / HR 126 / BP 164/116 / O2 100% on RA GENERAL APPEARANCE: well nourished / well developed HEENT: NCAT / mucus membranes slightly dry CARDIOVASCULAR: slightly tachycardic / NMRG LUNGS: CTAB on RA ABDOMEN: soft / the patient grimaces w light palpation MUSCULOSKELETAL: LIZETH x 4 extremities NEUROLOGICAL: CN 2-12 grossly intact / speech not dysarthric PSYCHIATRIC: A&OX 3 / able to understand and follow all commands/ anxious & teary LABORATORY DATA: pending MICROBIOLOGY: Please see below. ASSESSMENT: is a 24 yr old F w a PMH of Bipolar disorder who was transferred to the medical floor for management of n/v possibly due to withdrawal. PLAN: 1. N/V Possibly due to opiate withdrawal HTN and tachycardia are also likely due to withdrawal Plan: admit to medical floor / IV zofran / IVF / f/u CBC and BMP 2. Abdominal Pain Likely 2/2 n/v Plan: f/u UA 3. Possible SI Plan: 1:1 sitter / reconsult Psychiatrist once n/v have resolved 4.Bipolar Disorder Plan: f/u w Pharm on meds 5.Polysubstance Abuse Unable to give nicotine patch bc it is a preg category D drug DVT Px w SCDs Dispo: likely back to in-patient psych after less than 2 midnight's stay. Home Medications Scheduled Buprenorphine HCl/Naloxone HCl (Suboxone 8 mg-2 mg Sl Film) 1 Each Film, 1.5 STRIP SL DAILY Allergies Coded Allergies: haloperidol (Verified Adverse Reaction, Severe, tardive dyskinesia, 10/08/19) amoxicillin (Verified Adverse Reaction, Mild, STOMACH PAINS/VOMITING, 10/08/19) clavulanic acid (Verified Adverse Reaction, Mild, STOMACH PAINS/VOMITING, 10/08/19) A-FIB/CHADSVASC A-FIB History Current/History of A-Fib/PAF?: No Current PO Anticoag Therapy: REINA Bronson MD Oct 09, 2019 01:20
[2019-10-09] MEDS ORDERED: SODIUM CHLORIDE 0.9% 1000ML IV ONE (01:30)
[2019-10-09 02:10] VITALS: BP 164/116
[2019-10-09 03:13] VITALS: BP 145/95
[2019-10-09] MEDS ORDERED: ONDANSETRON 4MG/2ML VIAL (J2405) IV ONE (03:30)
[2019-10-09] MEDS: NS 1,000 ML IV SCH ×3 (03:50→23:55)
[2019-10-09] MEDS ORDERED: ONDANSETRON 4MG/2ML VIAL (J2405) IV SCH ×2 (05:00→07:30)
[2019-10-09 06:00] VITALS: BP 144/95
[2019-10-09 06:37] LABS: HEMATOCRIT 43.4 % (36.0-47.0); MEAN CORPUSCULAR HEMOGLOBIN 30.5 pg (27.0-33.0); MEAN CORPUSCULAR HGB CONC 34.6 g/dl (32.0-36.5); MEAN CORPUSCULAR VOLUME 88.4 fl (80.0-96.0); PLATELET COUNT, AUTOMATED 372 10^3/uL (150-450); RED BLOOD COUNT 4.91 10^6/uL (4.00-5.40); WHITE BLOOD COUNT 17.2 10^3/uL (4.0-10.0)
[2019-10-09 06:57] LABS: BLOOD UREA NITROGEN 14 MG/DL (7-18); CREATININE FOR GFR 0.91 MG/DL (0.55-1.30); GLUCOSE, FASTING 106 MG/DL (70-100)
[2019-10-09 06:58] LABS: CALCIUM LEVEL 9.5 MG/DL (8.5-10.1); CARBON DIOXIDE LEVEL 23 MEQ/L (21-32); CHLORIDE LEVEL 97 MEQ/L (98-107); GLOMERULAR FILTRATION RATE > 60.0 (>60); POTASSIUM SERUM 3.2 MEQ/L (3.5-5.1); SODIUM LEVEL 134 MEQ/L (136-145)
[2019-10-09] MEDS: ONDANSETRON 4MG/2ML VIAL (J2405) IV PRN ×3 (08:38→17:15)
[2019-10-09] MEDS: KCL 10MEQ/100ML SWI (KRUN) 10 MEQ in IV 1 EA IV SCH ×2 (08:39→11:28)
[2019-10-09] MEDS ORDERED: METHADONE 10 MG TAB (S0109) PO SCH (09:00)
[2019-10-09 09:44] LABS: MAGNESIUM LEVEL 2.1 MG/DL (1.8-2.4)
--- NOTE | 2019-10-09 11:40 | IPNPDOC ---
Text Note Date of Service The patient was seen on 10/09/19. NOTE Patient received the house loss. Suboxone 12 mg 2 days ago with Nurse hospital nonprofit fundraiser Patient is actively withdrawing from Opiods and recently she was found out that she is of unknown duration I discussed the case was Dr. Gomez from psychiatry as Suboxone is contraindicated in and all Bupenorphine without Naloxone can be used, which unfortunately we don't have available in pharmacy. I had a long discussion with pharmacist (Sophia) as well. Finally it was decided to start patient on methadone 10 mg by mouth twice a day and then rapidly wean off for a rapid detox. And tomorrow if the patient is feeling better , she'll be discharged back to an Inpt. mental health unit VS,Italo, I+O VS, Italo, I+O Laboratory Tests 10/09/19 05:59 Vital Signs Date Time Temp Pulse Resp B/P (MAP) Pulse Ox O2 Delivery O2 Flow Rate FiO2 10/09/19 06:00 98.2 103 18 144/95 (111) 100 Room Air I&O- Last 24 Hours up to 6 AM 10/09/19 06:00 Intake Total 250 ml Output Total 500 ml Balance -250 ml PONCHO SHIN MD Oct 09, 2019 11:40
[2019-10-09 14:00] VITALS: BP 142/98
[2019-10-09 22:00] VITALS: BP 129/70
[2019-10-10] MEDS: ONDANSETRON 4MG/2ML VIAL (J2405) IV PRN ×4 (01:41→20:28)
[2019-10-10 06:00] VITALS: BP 110/65
[2019-10-10 06:15] LABS: BASO % 0.1 % (0.0-1.0); EOS % 0.1 % (0.0-3.0); HEMATOCRIT 38.2 % (36.0-47.0); LYMPH # 1.9 10^3/uL (1.5-5.0); LYMPH % 16.8 % (24.0-44.0); MEAN CORPUSCULAR HEMOGLOBIN 30.7 pg (27.0-33.0); MEAN CORPUSCULAR HGB CONC 33.5 g/dl (32.0-36.5); MEAN CORPUSCULAR VOLUME 91.6 fl (80.0-96.0); MONO # 0.9 10^3/uL (0.0-0.8); MONO % 7.5 % (0.0-5.0); NEUTROPHILS # 8.5 10^3/uL (1.5-8.5); NEUTROPHILS % 75.1 % (36.0-66.0); PLATELET COUNT, AUTOMATED 302 10^3/uL (150-450); RED BLOOD COUNT 4.17 10^6/uL (4.00-5.40); WHITE BLOOD COUNT 11.3 10^3/uL (4.0-10.0)
[2019-10-10 06:21] LABS: HEMOGLOBIN 12.8 g/dl (12.0-15.5)
[2019-10-10 06:49] LABS: ALBUMIN 3.5 GM/DL (3.2-5.2); ALT/SGPT 18 U/L (12-78); BLOOD UREA NITROGEN 10 MG/DL (7-18); CALCIUM LEVEL 8.2 MG/DL (8.5-10.1); CARBON DIOXIDE LEVEL 28 MEQ/L (21-32); CHLORIDE LEVEL 103 MEQ/L (98-107); CREATININE FOR GFR 0.79 MG/DL (0.55-1.30); GLOMERULAR FILTRATION RATE > 60.0 (>60); GLUCOSE, FASTING 90 MG/DL (70-100); MAGNESIUM LEVEL 2.1 MG/DL (1.8-2.4); POTASSIUM SERUM 2.9 MEQ/L (3.5-5.1); SODIUM LEVEL 137 MEQ/L (136-145); TOTAL PROTEIN 7.1 GM/DL (6.4-8.2)
[2019-10-10] MEDS ORDERED: POTASSIUM CHLORIDE 10 MEQ SR TABLET PO ONE ×2 (07:00→16:00)
[2019-10-10] MEDS ORDERED: METHADONE 5 MG TAB (S0109) PO ONE (09:00)
--- NOTE | 2019-10-10 11:47 | DS.PDOC ---
Discharge Summary General Date of Admission Oct 09, 2019 at 02:01 Date of Discharge 10/10/19 Discharge Summary PROCEDURES PERFORMED DURING STAY: None. ADMITTING DIAGNOSES: 1. Opioid withdrawal, suicidal ideations, nausea, vomiting. DISCHARGE DIAGNOSES: 1. , Nausea, vomiting, or pedal withdrawal, hypokalemia, suicidal ideations. 1-2 weeks. COMPLICATIONS/CHIEF COMPLAINT: Vomiting. HISTORY OF PRESENT ILLNESS: This is a 24 yr old F who was admitted in [facility] for management of SI and ineffective copping; per d/w her RN she has had intractable n/v that has not responded to oral zofran therefore we decided to transfer her to the medical floor so that she could receive IV zofran and IVF. Currently she is c/o of nonbloody emesis for 48H along with 10/10 epigastric pain. She denies having fevers or chills. She requested ativan because she feels "very anxious". She reports last receiving suboxone the day before yesterday. HOSPITAL COURSE: Patient was transferred to medical unit from inpatient mental health unit secondary to persistent nausea, vomiting. Patient very agitated, crying, shivering, most likely going through opiate withdrawal. Patient was also found to be , about 1-2 weeks, she has been taking Suboxone as an outpatient, but she has not taken since last 2 days. She is she is been and the [facility] U. I had extensive discussion with the psychiatry adoption specialist. Dr. Major and the agreed with starting patient on methadone for rapid detox starting with 10 mg by mouth given yesterday and 5 mg every given today and she is has been advised to follow with her Suboxone provider, Suboxone is contraindicated in , but she can take subacute tracks as outpatient. Patient also was advised to follow up with [facility] and she follows up with Dr. Tellez for all her OB issues. Patient is completely asymptomatic now. No more nausea or vomiting. She has taken a shower. IV fluids have been DC'd and is very cooperative with the medical plan now. Discussed with Dr. Beckford, he will evaluate patient today and possibly will be transferred back to inpatient mental health unit. Patient's hypokalemia has been corrected with by mouth KCl 40 mEq this morning and we'll repeat labs at 2 PM the 40s patient is discharged to mental unit.. DISCHARGE MEDICATIONS: Please see below. ALLERGIES: Please see below. PHYSICAL EXAMINATION ON DISCHARGE: VITAL SIGNS: Please see below. GENERAL: Within normal limits HEENT: PERRLA. Extraocular muscles intact NECK: Supple CARDIOVASCULAR EXAMINATION: S1, S2, regular RESPIRATORY EXAMINATION: Clear to A&P ABDOMINAL EXAMINATION: , Soft, nontender, bowel sound present EXTREMITIES: No clubbing, cyanosis, edema SKIN: Within normal limits NEUROLOGICAL EXAMINATION: no Focal motor sensory deficit PSYCHIATRIC EXAMINATION: Within normal limits LABORATORY DATA: Please see below. IMAGING: None PROGNOSIS: Good ACTIVITY: As tolerated. DIET: As tolerated DISCHARGE PLAN: Discharged back to [facility] DISPOSITION: [facility]. DISCHARGE INSTRUCTIONS: 1. As per discharge instructions. ITEMS TO FOLLOWUP ON ON OUTPATIENT: 1. Further, as per [facility]. DISCHARGE CONDITION: Stable. TIME SPENT ON DISCHARGE: 30 minutes. Vital Signs/I&Os Vital Signs Date Time Temp Pulse Resp B/P (MAP) Pulse Ox O2 Delivery O2 Flow Rate FiO2 10/10/19 06:00 97.0 82 18 110/65 (80) 97 10/09/19 14:00 Room Air I&O- Last 24 Hours up to 6 AM 10/10/19 06:00 Intake Total 4000 ml Output Total 1200 ml Balance 2800 ml Laboratory Data Labs 24H Laboratory Tests 2 10/09/19 13:03: Human Chorionic Gonadotropin, Quant 95 10/10/19 06:01: Immature Granulocyte % (Auto) 0.4, Neutrophils (%) (Auto) 75.1H, Lymphocytes (%) (Auto) 16.8L, Monocytes (%) (Auto) 7.5H, Eosinophils (%) (Auto) 0.1, Basophils (%) (Auto) 0.1, Neutrophils # (Auto) 8.5, Lymphocytes # (Auto) 1.9, Monocytes # (Auto) 0.9H, Eosinophils # (Auto) 0.0, Basophils # (Auto) 0.0, Nucleated Red Blood Cells % (auto) 0.0, Anion Gap 6L, Glomerular Filtration Rate > 60.0, Calcium Level 8.2L, Magnesium Level 2.1, Total Bilirubin 1.0, Aspartate Amino T ransf (AST/SGOT) 12, Alanine Aminotransferase (ALT/SGPT) 18, Alkaline Phosphatase 58, Total Protein 7.1, Albumin 3.5, Albumin/Globulin Ratio 0.97L CBC/BMP Laboratory Tests 10/10/19 06:01 Discharge Medications Scheduled Buprenorphine HCl/Naloxone HCl (Suboxone 8 mg-2 mg Sl Film) 1 Each Film, 1.5 STRIP SL DAILY, (Reported) Allergies Coded Allergies: haloperidol (Verified Adverse Reaction, Severe, tardive dyskinesia, 10/08/19) amoxicillin (Verified Adverse Reaction, Mild, STOMACH PAINS/VOMITING, 10/08/19) clavulanic acid (Verified Adverse Reaction, Mild, STOMACH PAINS/VOMITING, 10/08/19) PONCHO SHIN MD Oct 10, 2019 11:47
[2019-10-10 14:00] VITALS: BP 138/86
[2019-10-10 14:52] LABS: BLOOD UREA NITROGEN 8 MG/DL (7-18); CALCIUM LEVEL 8.9 MG/DL (8.5-10.1); CARBON DIOXIDE LEVEL 24 MEQ/L (21-32); CHLORIDE LEVEL 104 MEQ/L (98-107); CREATININE FOR GFR 0.83 MG/DL (0.55-1.30); GLOMERULAR FILTRATION RATE > 60.0 (>60); GLUCOSE, FASTING 81 MG/DL (70-100); MAGNESIUM LEVEL 2.2 MG/DL (1.8-2.4); POTASSIUM SERUM 2.9 MEQ/L (3.5-5.1); SODIUM LEVEL 137 MEQ/L (136-145)
[2019-10-10] MEDS: KCL 10MEQ/100ML SWI (KRUN) 10 MEQ in IV 1 EA IV SCH ×2 (17:37→18:55)
[2019-10-10] MEDS ORDERED: PYRIDOXINE 50 MG TAB PO PRN (21:45)
[2019-10-10 22:00] VITALS: BP 118/70
[2019-10-11] MEDS: ONDANSETRON 4MG/2ML VIAL (J2405) IV PRN ×2 (01:02→05:49)
[2019-10-11 06:00] VITALS: BP 146/99
[2019-10-11] MEDS ORDERED: cloNIDine 0.1 MG TAB PO ONE (08:30)
[2019-10-11 09:05] VITALS: BP 138/94
[2019-10-11 09:08] LABS: BLOOD UREA NITROGEN 8 MG/DL (7-18); CALCIUM LEVEL 8.7 MG/DL (8.5-10.1); CARBON DIOXIDE LEVEL 23 MEQ/L (21-32); CHLORIDE LEVEL 102 MEQ/L (98-107); CREATININE FOR GFR 0.76 MG/DL (0.55-1.30); GLOMERULAR FILTRATION RATE > 60.0 (>60); GLUCOSE, FASTING 88 MG/DL (70-100); POTASSIUM SERUM 3.3 MEQ/L (3.5-5.1); SODIUM LEVEL 136 MEQ/L (136-145)
--- NOTE | 2019-10-11 10:37 | IPNPDOC ---
Subjective Date Seen The patient was seen on 10/11/19. Subjective Chief Complaint/HPI Patient is still has some nausea and had few episodes of vomiting yesterday, but overall improving status General: Denies: ROS Unobtainable, Chills, Night Sweats, Fatigue, Malaise, Normal Appetite, Other Symptoms Constitutional: Denies: Chills, Fever, Malaise, Night Sweats, Weakness, Fatigue, Weight Loss, Lethargy, Other Skin: Denies: Rash, Lesions, Jaundice, Bruising, Itching, Dry, Breakdown, Nail Changes, Other Pulmonary: Denies: Dyspnea, Cough, Pleuritic Chest Pain, Other Symptoms Cardiovascular: Denies: Chest Pain, Palpitations, Orthopnea, Paroxysmal Noc. Dyspnea, Edema, Lt Headedness, Other Symptoms Gastrointestinal: Reports: Nausea Musculoskeletal: Denies: Neck Pain, Back Pain, Shoulder Pain, Arm Pain, Hand Pain, Leg Pain, Foot Pain, Joint Pain, Muscle Pain, Spasms, Other Symptoms Neurological: Denies: Weakness, Numbness, Incoordination, Change in speech, Confusion, Seizures, Other Symptoms Objective Physical Examination General Exam: Positive: Alert Eye Exam: Positive: PERRLA, Conjunctiva & lids normal ENT Exam: Positive: Atraumatic, Mucous membr. moist/pink Neck Exam: Positive: Supple Chest Exam: Positive: Clear to auscultation, Normal air movement Heart Exam: Positive: Rate Normal, Normal S1, Normal S2 Abdomen Exam: Positive: Normal bowel sounds, Soft Extremity Exam: Positive: Normal pulses Skin Exam: Positive: Nl turgor and temperature Assessment /Plan Problems (1) Opioid withdrawal Status: Acute Problem Text: Patient was admitted with opiate withdrawal had a symptoms of anxiety, nausea, vomiting, body aches and pains . She did receive a methadone 10 mg on the first day and methadone 5 mg on the second day . She is still has some nausea, but she is comfortable and restful Started on clonidine 0.1 mg by mouth 1 dose to suppress autonomic withdrawal symptoms such as nausea, body aches and abdominal cramps and will continue clonidine as needed basis Dr. Beckford was called yesterday to reevaluate patient for taken her back to psych unit, but I will see official note on the chart. We'll try to call him today (2) Suicidal ideation Status: Acute Problem Text: One-to-one watch Further, as per psych (3) Status: Acute Problem Text: Patient is a 1-2 weeks . HCG testing She follows up with Dr. Tellez as outpatient (4) Hypokalemia Status: Acute Problem Text: Ptreceived potassium supplement. It is 3.1, now Will give 2 more K runs of KCl 10 mEq Repeat serum potassium and magnesium level this afternoon and a.m. Plan/VTE VTE Prophylaxis Ordered?: No VTE Exclusion Mechanical Proph: Low Risk for VTE VTE Exclusion Pharmacological: At Low Risk for VTE VS, I&O, 24H, Fishbone Vital Signs/I&O Vital Signs Date Time Temp Pulse Resp B/P (MAP) Pulse Ox O2 Delivery O2 Flow Rate FiO2 10/11/19 09:05 138/94 10/11/19 06:00 98.8 95 16 100 Room Air I&O- Last 24 Hours up to 6 AM 10/11/19 06:00 Intake Total 1160 ml Output Total 900 ml Balance 260 ml Laboratory Data 24H LABS Laboratory Tests 2 10/10/19 14:09: Anion Gap 9, Glomerular Filtration Rate > 60.0, Calcium Level 8.9, Magnesium Level 2.2 10/11/19 07:27: Anion Gap 11, Glomerular Filtration Rate > 60.0, Calcium Level 8.7 CBC/BMP Laboratory Tests 10/10/19 14:09 10/11/19 07:27 PONCHO SHIN MD Oct 11, 2019 10:37
[2019-10-11] MEDS: KCL 10MEQ/100ML SWI (KRUN) 10 MEQ in IV 1 EA IV SCH ×4 (11:37→23:59)
--- NOTE | 2019-10-11 12:01 | MHCR ---
DATE OF CONSULTATION: 10/10/2019 HISTORY OF PRESENT ILLNESS: This is a 24-year-old white female, , with a diagnosis of depressive disorder unspecified and opiate use disorder severe. She is on Suboxone from a outpatient provider. Patient was referred initially from [facility]. She was seen there for abdominal pain. She was depressed and suicidal at the time so was transferred here to [facility]. She was seen by Dr. Johnston and was hospitalized briefly in our psychiatric soto before being transferred back to medicine. Patient is having severe nausea and vomiting supposedly from her . She claims she had similar symptoms during her first . Patient has been given methadone instead of Suboxone given her . Staff report that Subutex is not on the hospital formulary. Patient is seen on a psychiatric consult at the request of the hospitalist with plans for transfer back to [facility] once the patient is medically cleared. MENTAL STATUS EXAMINATION: Patient is alert and oriented. She is reasonably cooperative. She was seen in the medical soto with a sitter. She still reports depressive symptoms but is no longer suicidal. She is complaining of severe nausea and vomiting, however. Mood is somewhat labile but no current signs of dangerousness. She is not psychotic. No signs of hallucinations or delusions. Insight and judgment appear marginal. There is likely some lingering. Requesting more methadone or Suboxone. No signs of cognitive deficits. Memory functions appear intact. DIAGNOSIS: Depressive disorder unspecified. Opiate use disorder severe. PLAN: Patient to be transferred back to [facility] once she is medically cleared.
[2019-10-11 14:00] VITALS: BP 134/79
[2019-10-11] MEDS ORDERED: IBUPROFEN 600 MG TAB PO PRN (14:00)
[2019-10-11 16:32] LABS: MAGNESIUM LEVEL 1.9 MG/DL (1.8-2.4)
[2019-10-11] MEDS ORDERED: diphenhydrAMINE 50 MG CAP PO ONE (19:00)
[2019-10-11 22:00] VITALS: BP 117/70
[2019-10-11] MEDS ORDERED: RAMELTEON 8 MG TAB (ROZEREM) PO SCH (23:00)
[2019-10-12 06:00] VITALS: BP 101/65
[2019-10-12] MEDS ORDERED: PROMETHAZINE 25 MG TAB PO PRN (06:00)
[2019-10-12] MEDS: ONDANSETRON 4MG/2ML VIAL (J2405) IV PRN (06:33)
[2019-10-12 07:03] LABS: BLOOD UREA NITROGEN 8 MG/DL (7-18); CALCIUM LEVEL 9.1 MG/DL (8.5-10.1); CARBON DIOXIDE LEVEL 26 MEQ/L (21-32); CHLORIDE LEVEL 105 MEQ/L (98-107); CREATININE FOR GFR 0.89 MG/DL (0.55-1.30); GLOMERULAR FILTRATION RATE > 60.0 (>60); GLUCOSE, FASTING 90 MG/DL (70-100); POTASSIUM SERUM 4.1 MEQ/L (3.5-5.1); SODIUM LEVEL 138 MEQ/L (136-145)
[2019-10-12] MEDS ORDERED: PROM25TA12 PO (10:13)
--- NOTE | 2019-10-12 10:46 | DS.PDOC ---
Discharge Summary General Date of Admission Oct 11, 2019 at 12:31 Date of Discharge 10/12/19 Discharge Summary PROCEDURES PERFORMED DURING STAY: None. ADMITTING DIAGNOSES: 1. Persistent nausea, vomiting, opioid Withdrawal. DISCHARGE DIAGNOSES: 1. Persistent nausea, vomiting, opioid withdrawal, hypokalemia, hyperemesis gravidarum. COMPLICATIONS/CHIEF COMPLAINT: Vomiting. HISTORY OF PRESENT ILLNESS: This is a 24 yr old F who was admitted in [facility] for management of SI and ineffective copping; per d/w her RN she has had intractable n/v that has not responded to oral zofran therefore we decided to transfer her to the medical floor so that she could receive IV zofran and IVF. Currently she is c/o of nonbloody emesis for 48H along with 10/10 epigastric pain. She denies having fevers or chills. She requested ativan because she feels "very anxious". She reports last receiving suboxone the day before yesterday.. HOSPITAL COURSE: [Patient was admitted to medical unit from inpatient mental health unit with persistent nausea, vomiting since last 48 hours. Patient's last dose of Suboxone was 2 days before admission to inpatient mental health unit. Initially patient exhibited signs and symptoms of acute opioid withdrawal, which was addressed with a short detox with methadone for 2 days. O on. She was started on clonidine yesterday and today. Patient is clinically stable, mild nausea, but she gets it with the hyperemesis gravidarum as she had previously with similar symptoms. During her last . Patient responds very well to Phenergan. I spoke with from psychiatry and I asked him to see the patient today for possible transfer to inpatient mental health unit. Dr. Beckford saw the patient and determined that she is not suicidal anymore and can be discharged home. Patient will be discharged home on by mouth Phenergan when necessary and she will follow up with her PCP and her [employer]ER, Dr. Tellez as soon as possible. DISCHARGE MEDICATIONS: Please see below. ALLERGIES: Please see below. PHYSICAL EXAMINATION ON DISCHARGE: VITAL SIGNS: Please see below. GENERAL: Within normal limits HEENT: PERRLA. Extraocular muscles intact NECK: Supple CARDIOVASCULAR EXAMINATION: , S2, regular RESPIRATORY EXAMINATION: Clear to A&P ABDOMINAL EXAMINATION: Benign EXTREMITIES: no Clubbing, cyanosis, edema SKIN: Normal NEUROLOGICAL EXAMINATION: . No focal motor sensory deficit PSYCHIATRIC EXAMINATION: , Not suicidal, homicidal danger to herself or others LABORATORY DATA: Please see below. IMAGING: None PROGNOSIS: Good ACTIVITY: As tolerated. DIET: As tolerated DISCHARGE PLAN: Follow with PCP and RAILW[employer]NA[employer]ING [employer]ER as soon as possible DISPOSITION: . Home DISCHARGE INSTRUCTIONS: 1. As per discharge instruction. ITEMS TO FOLLOWUP ON ON OUTPATIENT: 1. Follow with PCP and RAILW[employer]NA[employer]ING [employer]ER as soon as possible. DISCHARGE CONDITION: Stable. TIME SPENT ON DISCHARGE: 35 minutes. Vital Signs/I&Os Vital Signs Date Time Temp Pulse Resp B/P (MAP) Pulse Ox O2 Delivery O2 Flow Rate FiO2 10/12/19 06:00 97.6 65 18 101/65 (77) 98 10/11/19 14:00 Room Air I&O- Last 24 Hours up to 6 AM 10/12/19 06:00 Intake Total 1920 ml Output Total 550 ml Balance 1370 ml Laboratory Data Labs 24H Laboratory Tests 2 10/11/19 16:03: Magnesium Level 1.9 10/12/19 06:00: Anion Gap 7L, Glomerular Filtration Rate > 60.0, Calcium Level 9.1 CBC/BMP Laboratory Tests 10/11/19 16:03 10/11/19 19:13 10/12/19 06:00 Discharge Medications Scheduled PRN Promethazine HCl (Promethazine HCl) 25 Mg Tablet, 25 MG PO Q6HP PRN for NAUSEA OR VOMITING Allergies Coded Allergies: haloperidol (Verified Adverse Reaction, Severe, tardive dyskinesia, ) amoxicillin (Verified Adverse Reaction, Mild, STOMACH PAINS/VOMITING, 10/08/19) clavulanic acid (Verified Adverse Reaction, Mild, STOMACH PAINS/VOMITING, 10/08/19) PONCHO SHIN MD Oct 12, 2019 10:46
--- NOTE | 2019-10-13 06:55 | MHCR ---
DATE OF CONSULTATION: 10/12/2019 HISTORY OF PRESENT ILLNESS: This is a 24-year-old white female, , with a diagnosis of depressive disorder, unspecified, and opiate use disorder, severe. The patient has severe nausea and vomiting from her . She required transfer from [facility] to the medical soto for treatment and observation. She is now medically cleared by the hospitalist. The patient now reports having no wish to harm self or others. She wants to return home. The patient lives with her boyfriend and her daughter. The patient reports her relationship with her boyfriend is good. There are no safety issues at home. The patient is stressed by the severe GI symptoms from her , but otherwise denies any major stressors. She is agreeable to following up with her outpatient provider who provides her Suboxone as well as mental health services. She has no other complaints. MENTAL STATUS EXAMINATION: The patient is alert, oriented and reasonably cooperative. She is still in some discomfort from her nausea, but is not severely indisposed. She reports mild anxiety. The patient reports dysphoria from her GI upset, but is not suicidal. She denies any homicidal ideation. No current signs of impulsivity or dangerousness. The patient is not psychotic. Insight and judgment appear appropriate. No signs of cognitive deficits. DIAGNOSIS: Depressive disorder, unspecified. Opiate use disorder, severe. . PLAN: The patient may be discharged home to her family with followup with outpatient care provider.
== END 2019-10-12 11:48 | disposition home or self-care (01) | DRG 566 ==
LOC: M MSPAV 02:01 → INTOOBSV 02:01 → OBSVTOIN 10-11 12:31
PROVIDERS: ADMIT Internal Medicine; ATTEND Internal Medicine
DX: O99.321 Drug use complicating pregnancy, first trimester (principal); R45.851 Suicidal ideations; F11.23 Opioid dependence with withdrawal; R11.2 Nausea with vomiting, unspecified; Z88.0 Allergy status to penicillin; Z88.8 Allergy status to other drugs, medicaments and biological substances; F31.9 Bipolar disorder, unspecified; O99.341 Other mental disorders complicating pregnancy, first trimester; E87.6 Hypokalemia; Z3A.01 Less than 8 weeks gestation of pregnancy

== ENCOUNTER 2020-03-18 12:14 | Inpatient (IN) | payer OTHER ==
[~2020-03-18] VITALS: Ht 172.7 cm; Wt 63.0 kg
[~2020-03-18 12:14] MED LIST changes: +PROM25TA12 PO; +QUET100T2; +QUET100T2 PO; -QUET1TAB8; -QUET1TAB8 PO; -SUCR10SS PO; +SUCR1ORA2 PO; -TRAZ10TA PO; +TRAZ1TAB12 PO
[2020-03-18] MEDS ORDERED: WELL100T2 PO (17:00)
[2020-03-18] MEDS ORDERED: SUBO8MIS SL (17:00)
[2020-03-18] MEDS ORDERED: ZOLO50TA PO (17:00)
[2020-03-18] MEDS: NITROFURANTOIN (MACROBID) 100 MG CAP PO SCH (21:00)
[2020-03-18 23:16] VITALS: BP 129/73
[2020-03-18] MEDS ORDERED: METOCLOPRAMIDE INJ 10MG/2ML VIAL (J2765 PER 1) IV PRN (23:30)
--- NOTE | 2020-03-18 23:38 | HPEPDOC ---
General Date of Admission 03/18/2020 Date of Service: Mar 18, 2020 Chief Complaint The patient is a 24-year-old female admitted with a reason for visit of Suicidal Ideations. Hospitalist services consulted for confusion and suspected drug use History of Present Illness Patient is a 24-year-old female with a past medical history of bipolar disorder, anxiety, depression and opiate dependence (on Suboxone) who has presented to [facility] for evaluation of her . Hospital services consultation because of confusion and suspected drug use. Patient reports that shes been experiencing confusion for the last 2 days. She denies any recent changes in her medications. Patient reports that she takes Phenergan suppositories 25 mg. She has started this at the start of her . Reported that she took this infrequently early in the , but has been taking it on a daily basis more recently. Her last dose of medication was for AM today. Patient reports that shes been hearing voices over the last 3 days. Patient has reported that she began experiencing this after she had the inability to sleep. Patient has tried melatonin and Benadryl without any relief. Patient reports the voices she hears or her 2 year old daughter. Patient reports that shes unable to get ahold of her thoughts. Patient has been taking her medications regularly until 2 days ago. Patient follows with Nick[facility] for psychiatry. Prior to her , patient was taken off of gabapentin. The remainder of her medications remained the same. Patient reports that her nausea and vomiting has been persistent since . She does report epigastric pain, however, has indicated that this has started long before . . Currently, she reports her pain as a 10/10 and it has always been the case even prior to . She reports a burning-like sensation. Patient denies any chest pain, shortness of breath, cough, palpitations, fevers, chills, or urinary discomfort. Patient has denied any diarrhea or constipation. Patient reports her last bowel movement was yesterday. Denies any abnormalities including any blood within the stool. Patient reports that she has a poor appetite and throughout the course of her has experienced a weight loss of approximately 5-10 pounds (over 26 weeks). Home Medications Scheduled Buprenorphine HCl/Naloxone HCl (Suboxone 8 mg-2 mg Sl Film) 1 Each Film, 1 STRIP SL DAILY, (Reported) Bupropion HCl (Wellbutrin Sr) 100 Mg Tab.sr.12h, 100 MG PO BID, (Reported) Sertraline Hcl (Zoloft) 50 Mg Tablet, 1 TAB PO DAILY, (Reported) Scheduled PRN Promethazine HCl (Promethazine HCl) 25 Mg Tablet, 25 MG PO Q6HP PRN for NAUSEA OR VOMITING Allergies Coded Allergies: haloperidol (Verified Adverse Reaction, Severe, tardive dyskinesia, 03/18/20) amoxicillin (Verified Adverse Reaction, Mild, STOMACH PAINS/VOMITING, 03/18/20) clavulanic acid (Verified Adverse Reaction, Mild, STOMACH PAINS/VOMITING, 03/18/20) Past Medical History Medical History Bipolar disorder, Anxiety, Depression and Opiate dependence (on Suboxone) Surgical History No reported surgeries Family History - Patient denies any prior family history Social History - Patient reports that she has quit smoking, at the start of her - Patient denies the use of alcohol - Patient has a history of drug abuse and has been opiate dependence after she had abused morphine, Percocet and hydrocodone; she has been prescribed Suboxone 8 mg daily that she has been compliant with; patient has also a tested to the use of marijuana 3 days ago - Denies recent travel or sick contacts - Lives with boyfriend and daughter; patient reports that boyfriends brother also lives with them - Occupation; patient reports that she is unemployed and worked as a [employer] Review of Systems Other systems 10 point review of systems complete, all negative otherwise stated in HPI Vital Signs - Vitals: BP 101/65, HR 65, RR 18, Sat 98%RA, Temp 97.6F - General: Lying in bed, appears drowsy, AAOx3 - HEENT: NC, AT, PERRLA, EOMI, patients left nostril did contain dry bright yellow material - CVS: RRR, +S1S2 - Lungs: Fair air entry bilaterally, No appreciable wheezing / rales / rhonchi - Abdomen: Soft, Gravid appearing abdomen, heart monitor in place, Epigastric tenderness noted - Extremities: No lower extremity edema, No calf tenderness - Neuro: No focal motor or sensory deficit - Skin: No visible rashes Plan / VTE VTE Prophylaxis Ordered?: Yes Plan Plan Confusion - likely 2/2 medications, possibly 2/2 illicit use, possibly 2/2 withdrawal - Hospitalist service was consult and for confusion and drowsiness - Clinically patient is alert and oriented 3 - Physical does not reveal any focal neurologic deficits; pupils are round and reactive to light bilaterally - Evidence of dry bright yellow material found in left nostril - Patient has reported that she has consumed marijuana 3 days ago - Will repeat urine drug screen - Will resume Suboxone Depression / Suicidal ideation - Patient has reported that she she would rather be didnt feel this was - Patient has a history of inpatient mental health unit admissions - Extensive psychiatric history with bipolar disorder, anxiety and depression - Will keep patient bed rest with bedside commode - Suicidal precautions and one-to-one observation - Primary team has consulted psychiatry Nausea / Vomiting / Abdominal pain - likely 2/2 , - Patient has reported that she has been experiencing nausea since start of her - Has been taking Phenergan suppositories 25 mg; has increased the frequency more recently - Physical reveals epigastric tenderness - Hemoglobin appears stable - Lab work without any electrolyte abnormalities noted - Will check amylase, lipase, stool for occult blood and H. pylori workup - Primary team has already started anti-emetics continue with the same - Will start Carafate Bacteriuria of - Currently, patient has leukocytosis of 16.2 - No fevers noted - Urine analysis is consistent with possible urinary tract infection - Will check Urine cultures - Will consider starting antibiotics; patient has been given cefuroxime in October 2019 - Will start nitrofurantoin DVT prophylaxis - Will c/w early ambulation MAYA ACUÑA MD Mar 18, 2020 23:38
[2020-03-19] MEDS ORDERED: FAMO20TA PO (00:17)
[2020-03-19] MEDS ORDERED: PROM25SU2 PR (00:17)
[2020-03-19] MEDS ORDERED: PREN1TAB25 PO (00:17)
[2020-03-19 06:00] VITALS: BP 120/72
[2020-03-19 06:55] LABS: BASO % 0.3 % (0.0-1.0); EOS # 0.2 10^3/uL (0.0-0.5); EOS % 1.5 % (0.0-3.0); HEMATOCRIT 31.3 % (36.0-47.0); HEMOGLOBIN 10.5 g/dl (12.0-15.5); LYMPH % 25.8 % (24.0-44.0); MEAN CORPUSCULAR HEMOGLOBIN 31.6 pg (27.0-33.0); MEAN CORPUSCULAR HGB CONC 33.5 g/dl (32.0-36.5); MEAN CORPUSCULAR VOLUME 94.3 fl (80.0-96.0); MONO # 0.8 10^3/uL (0.0-0.8); MONO % 6.5 % (0.0-5.0); NEUTROPHILS # 7.6 10^3/uL (1.5-8.5); NEUTROPHILS % 65.2 % (36.0-66.0); PLATELET COUNT, AUTOMATED 234 10^3/uL (150-450); RED BLOOD COUNT 3.32 10^6/uL (4.00-5.40); WHITE BLOOD COUNT 11.7 10^3/uL (4.0-10.0)
[2020-03-19 07:17] LABS: BLOOD UREA NITROGEN 6 MG/DL (7-18); CALCIUM LEVEL 8.2 MG/DL (8.5-10.1); CARBON DIOXIDE LEVEL 24 MEQ/L (21-32); CHLORIDE LEVEL 105 MEQ/L (98-107); CREATININE FOR GFR 0.48 MG/DL (0.55-1.30); GLOMERULAR FILTRATION RATE > 60.0 (>60); GLUCOSE, FASTING 70 MG/DL (70-100); MAGNESIUM LEVEL 1.4 MG/DL (1.8-2.4); POTASSIUM SERUM 3.4 MEQ/L (3.5-5.1); SODIUM LEVEL 136 MEQ/L (136-145)
[2020-03-19] MEDS ORDERED: MAGNESIUM OXIDE 400 MG TAB (MAG-OX) PO ONE (08:00)
[2020-03-19 08:11] LABS: ALBUMIN 2.4 GM/DL (3.2-5.2); ALT/SGPT 12 U/L (12-78); BILIRUBIN,TOTAL 0.2 MG/DL (0.2-1.0); TOTAL PROTEIN 5.8 GM/DL (6.4-8.2)
[2020-03-19] MEDS: SUCRALFATE 1 GM TAB PO SCH ×3 (08:29→15:50)
[2020-03-19] MEDS ORDERED: BUPRENORPHINE/NALOXONE 8-2MG SUBLINGUAL TABLET(SUBOXONE) SL SCH (09:00)
[2020-03-19 09:07] LABS: APPEARANCE, URINE CLOUDY (CLEAR); BACTERIA, URINE AUTO 1+ (NEGATIVE); BILIRUBIN, URINE AUTO NEGATIVE (NEGATIVE); BLOOD, URINE BLOOD NEGATIVE (NEGATIVE); COLOR, URINE AMBER (YELLOW); GLUCOSE, URINE (UA) AUTO 1+ mg/dL (NEGATIVE); KETONE, URINE AUTO TRACE mg/dL (NEGATIVE); LEUKOCYTE ESTERASE, URINE AUTO TRACE (NEGATIVE); MUCUS, URINE SMALL (NEGATIVE); NITRITE, URINE AUTO NEGATIVE (NEGATIVE); PROTEIN, URINE AUTO NEGATIVE (NEGATIVE); RBC, URINE AUTO 1 /HPF (0-3); SQUAMOUS EPITHELIAL CELL UR AU 16 /HPF (0-6); WBC, URINE AUTO 6 /HPF (0-3)
[2020-03-19] MEDS: NITROFURANTOIN (MACROBID) 100 MG CAP PO SCH (09:38)
[2020-03-19 14:00] VITALS: BP 116/74
[2020-03-19] MEDS ORDERED: POTASSIUM CHLORIDE 10 MEQ SR TABLET PO ONE (15:30)
[2020-03-19] MEDS ORDERED: MAG400TA PO (15:41)
[2020-03-19] MEDS ORDERED: NITR100C2 PO (15:45)
--- NOTE | 2020-03-19 16:42 | DS.PDOC ---
Discharge Summary General Date of Admission Mar 18, 2020 at 23:05 Date of Discharge 03/19/20 Attending Physician: Lula Ventura MD Specialist/Consultants Involve: Ed Ontiveros DO Specialist/Consultants Involve Dr. Francis- psychiatry Discharge Summary HISTORY OF PRESENT ILLNESS: Patient is a 24-year-old female with a past medical history of bipolar disorder, anxiety, depression and opiate dependence (on Suboxone) who has presented to [facility] for evaluation of her . Patient reports that shes been experiencing confusion for the last 2 days. She denies any recent changes in her medications. Patient reports that she takes Phenergan suppositories 25 mg. She has started this at the start of her . Reported that she took this infrequently early in the , but has been taking it on a daily basis more recently. Patient reports that shes been hearing voices over the last 3 days. Patient has reported that she began experiencing this after she had the inability to sleep. Patient has tried melatonin and Benadryl without any relief. Patient reports the voices she hears or her 2 year old daughter. Patient reports that shes unable to get a hold of her thoughts. Patient has been taking her medications regularly until 2 days ago. Patient follows with Nicki Michelle for psychiatry. Prior to her , patient was taken off of gabapentin. The remainder of her medications remained the same. Patient reports that her nausea and vomiting has been persistent since . She does report epigastric pain, however, has indicated that this has started long before . Currently, she reports her pain as a 10/10 and it has always been the case even prior to . She reports a burning-like sensation. Patient denies any chest pain, shortness of breath, cough, palpit ations, fevers, chills, or urinary discomfort. Patient has denied any diarrhea or constipation. Patient reports her last bowel movement was yesterday. Denies any abnormalities including any blood within the stool. Patient reports that she has a poor appetite and throughout the course of her has experienced a weight loss of approximately 5-10 pounds (over 26 weeks). HOSPITAL COURSE: UA was + for UTI, UCx was sent. WBC improved to 11.7 after several doses of nitrofurantoin. Patient had a 1:1 sitter. She needed replacement of magnesium and potassium. Nausea was intermittent but otherwise controlled. The patient's urine drug screen was negative except for cannabinoids. The patient admits to occasionally still hearing voices, but denies homicidal or suicidal ideation currently. Dr. Francis, psychiatry, evaluated the patient and felt she was appropriate for inpatient mental health. She will be started on a daily dose of magnesium and continue nitrofurantoin for a total of 7 days. I believe her transfer is appropriate and we will be happy to be reconsulted to see her while there as well. At the time of discharge the patient denies chest pain, shortness of breath, nausea, vomiting, chills, fevers, abdominal pain. I also touched base with Dr. Ontiveros, PORTABLE [employer]CH [employer]IV[employer]ER. They are doing daily stress tests of the baby and can also be consulted during her stay with inpatient mental health. ROS: 10 point review of systems complete, all negative otherwise stated in HPI PAST MEDICAL HISTORY: Bipolar disorder, Anxiety, Depression and Opiate dependence (on Suboxone) PAST SURGICAL HISTORY: No reported surgeries FAMILY HISTORY: Patient denies any prior family history SOCIAL HISTORY: - Patient reports that she has quit smoking, at the start of her - Patient denies the use of alcohol - Patient has a history of drug abuse and has been opiate dependence after she had abused morphine, Percocet and hydrocodone; she has been prescribed Suboxone 8 mg daily that she has been compliant with; patient has also a tested to the use of marijuana 3 days ago - Denies recent travel or sick contacts - Lives with boyfriend and daughter; patient reports that boyfriends brother also lives with them - Occupation; patient reports that she is unemployed and worked as a [employer]ER VITAL SIGNS: Please see below. PHYSICAL EXAMINATION: - General: Sitting up in bed, AAOx3 - HEENT: NC, AT, PERRLA, EOMI - CVS: RRR, +S1S2 - Lungs: Fair air entry bilaterally, No appreciable wheezing / rales / rhonchi - Abdomen: Soft, Gravid appearing abdomen, heart monitor in place, Epigas tric tenderness noted - Extremities: No lower extremity edema, No calf tenderness - Neuro: No focal motor or sensory deficit - Skin: No visible rashes IMAGING: No new imaging. LABORATORY: Please see below ASSESSMENT: 24 y/o F treated for confusion likely 2/2 to UTI and medications, depression/suicidal ideation. PLAN: 1. Confusion likely multifactorial to UTI, medications - UDS neg except for marijuana - Currently patient is alert and oriented 3 - C/w treatment of UTI below 2. Depression / Suicidal ideation - C/w current treatment - Will defer to psychiatry 3. Nausea / Vomiting / Abdominal pain - likely 2/2 - Acute w/u neg - C/w antiemetics. 4. Bacteriuria in - WBC improved to 11.7, asymptomatic - UCx pending - C/w nitrofurantoin for total of 7 days. 5. Hypomagnesemia. - Supplemented with 400 mg PO daily. Recommend following up magnesium on . 6. Hypokalemia - Given 30 mEq today. Recommend following up BMP on 03/20/20. 7. Gestation 26 weeks. - office inspector doing daily stress tests - Dr. Ontiveros notified of transfer 8. Opioid dependency - C/w suboxone DISPOSITION: Discharging today to Inpatient Mental Health Unit, Dr. Francis accepting physician. Will continue to follow while there if needed. TIME SPENT ON DISCHARGE: Greater than 30 minutes. Vital Signs/I&Os Vital Signs Date Time Temp Pulse Resp B/P (MAP) Pulse Ox O2 Delivery O2 Flow Rate FiO2 03/19/20 14:00 96.8 87 15 116/74 (88) 98 Room Air I&O- Last 24 Hours up to 6 AM 03/19/20 05:59 Intake Total 120 ml Output Total 0 ml Balance 120 ml Laboratory Data Labs 24H Laboratory Tests 2 03/18/20 21:24: 03/19/20 06:32: Immature Granulocyte % (Auto) 0.7, Neutrophils (%) (Auto) 65.2, Lymphocytes (%) (Auto) 25.8, Monocytes (%) (Auto) 6.5H, Eosinophils (%) (Auto) 1.5, Basophils (%) (Auto) 0.3, Neutrophils # (Auto) 7.6, Lymphocytes # (Auto) 3.0, Monocytes # (Auto) 0.8, Eosinophils # (Auto) 0.2, Basophils # (Auto) 0.0, Nucleated Red Blood Cells % (auto) 0.0, Anion Gap 7L, Glomerular Filtration Rate > 60.0, Calcium Level 8.2L, Magnesium Level 1.4L, Total Bilirubin 0.2, Aspartate Amino Transf (AST/SGOT) 10, Alanine Aminotransferase (ALT/SGPT) 12, Alkaline Phosphatase 63, Total Protein 5.8L, Albumin 2.4#L, Albumin/Globulin Ratio 0.71L 03/19/20 08:44: Urine Color LIAN, Urine Appearance CLOUDYH, Urine pH 7.0, Urine Specific [place] 1.020, Urine Protein NEGATIVE, Urine Glucose (Auto)(UA) 1+H, Urine Ketones (Auto) TRACEH, Urine Blood NEGATIVE, Urine Nitrite NEGATIVE, Urine Bilirubin NEGATIVE, Urine Urobilinogen 2.0H, Urine Leukocyte Esterase (Auto) TRACEH, Urine WBC (Auto) 6H, Urine RBC (Auto) 1, Urine Hyaline Casts (Auto) 0, Urine Bacteria (Auto) 1+H, Urine Squamous Epithelial Cells 16, Urine Mucus (Auto) SMALL, Urine Sperm (Auto) CBC/BMP Laboratory Tests 03/19/20 06:32 Microbiology Microbiology 03/19/20 Urine Culture, Received Pending Discharge Medications Scheduled Buprenorphine HCl/Naloxone HCl (Suboxone 8 mg-2 mg Sl Film) 1 Each Film, 1 STRIP SL DAILY, (Reported) Bupropion HCl (Wellbutrin Sr) 100 Mg Tab.sr.12h, 100 MG PO BID, (Reported) Famotidine (Famotidine) 20 Mg Tablet, 20 MG PO BID, (Reported) Magnesium Oxide (Magnesium Oxide) 400 Mg Tablet, 400 MG PO DAILY Nitrofurantoin Monohyd/M-Cryst (Nitrofurantoin [place]-Mcr 100 mg) 100 Mg Capsule, 100 MG PO BID Pnv No.95/Ferrous Fum/Folic AC ( Caplet) 1 Each Tablet, 1 TAB PO DAILY, (Reported) Sertraline Hcl (Zoloft) 50 Mg Tablet, 50 MG PO DAILY, (Reported) Scheduled PRN Promethazine HCl (Promethegan) 25 Mg Supp.rect, 25 MG [place] Q6H PRN for NAUSEA OR VOMITING, (Reported) Allergies Coded Allergies: haloperidol (Verified Adverse Reaction, Severe, tardive dyskinesia, 03/18/20) amoxicillin (Verified Adverse Reaction, Mild, STOMACH PAINS/VOMITING, 03/18/20) clavulanic acid (Verified Adverse Reaction, Mild, STOMACH PAINS/VOMITING, 03/18/20) Lula Ventura MD Mar 19, 2020 16:42
[2020-03-20] MEDS ORDERED: MAGNESIUM OXIDE 400 MG TAB (MAG-OX) PO SCH (09:00)
== END 2020-03-19 16:47 | DRG 566 ==
LOC: M MSPAV 23:05 → UNDOADMIN 23:05 → UNDODISIN 03-19 11:53
PROVIDERS: ADMIT Internal Medicine; ATTEND Internal Medicine
DX: O99.322 Drug use complicating pregnancy, second trimester (principal); R45.851 Suicidal ideations; O23.42 Unspecified infection of urinary tract in pregnancy, second trimester; E83.42 Hypomagnesemia; O21.9 Vomiting of pregnancy, unspecified; F31.9 Bipolar disorder, unspecified; O99.342 Other mental disorders complicating pregnancy, second trimester; F41.9 Anxiety disorder, unspecified; Z3A.26 26 weeks gestation of pregnancy; O99.282 Endocrine, nutritional and metabolic diseases complicating pregnancy, second trimester; E87.6 Hypokalemia; F11.90 Opioid use, unspecified, uncomplicated; Z79.899 Other long term (current) drug therapy; Z88.8 Allergy status to other drugs, medicaments and biological substances; Z88.0 Allergy status to penicillin; Z87.891 Personal history of nicotine dependence

== ENCOUNTER 2020-03-18 16:29 | Outpatient (CLI) | payer OTHER ==
[~2020-03-18 16:29] MED LIST changes: +BUPRENORPHINE/NALOXONE 8-2MG SUBLINGUAL TABLET(SUBOXONE) SL SCH
[2020-03-18] MEDS ORDERED: LR 1,000 ML IV ONE (16:45)
[2020-03-18] MEDS ORDERED: WELL100T2 PO (17:00)
[2020-03-18] MEDS ORDERED: SUBO8MIS SL (17:00)
[2020-03-18] MEDS ORDERED: ZOLO50TA PO (17:00)
[2020-03-18 17:17] LABS: HEMATOCRIT 35.2 % (36.0-47.0); MEAN CORPUSCULAR HEMOGLOBIN 31.3 pg (27.0-33.0); MEAN CORPUSCULAR HGB CONC 34.1 g/dl (32.0-36.5); MEAN CORPUSCULAR VOLUME 91.7 fl (80.0-96.0); PLATELET COUNT, AUTOMATED 293 10^3/uL (150-450); RED BLOOD COUNT 3.84 10^6/uL (4.00-5.40); WHITE BLOOD COUNT 16.2 10^3/uL (4.0-10.0)
[2020-03-18 17:44] LABS: ALBUMIN 3.1 GM/DL (3.2-5.2); ALT/SGPT 16 U/L (12-78); BILIRUBIN,TOTAL 0.3 MG/DL (0.2-1.0); BLOOD UREA NITROGEN 5 MG/DL (7-18); CALCIUM LEVEL 9.3 MG/DL (8.5-10.1); CARBON DIOXIDE LEVEL 24 MEQ/L (21-32); CHLORIDE LEVEL 104 MEQ/L (98-107); CREATININE FOR GFR 0.68 MG/DL (0.55-1.30); GLOMERULAR FILTRATION RATE > 60.0 (>60); GLUCOSE, FASTING 85 MG/DL (70-100); SODIUM LEVEL 136 MEQ/L (136-145)
[2020-03-18] MEDS ORDERED: LR 1,000 ML IV SCH (18:00)
[2020-03-18 18:39] LABS: APPEARANCE, URINE TURBID (CLEAR); BACTERIA, URINE AUTO 1+ (NEGATIVE); BILIRUBIN, URINE AUTO NEGATIVE (NEGATIVE); BLOOD, URINE BLOOD NEGATIVE (NEGATIVE); COLOR, URINE AMBER (YELLOW); GLUCOSE, URINE (UA) AUTO NEGATIVE (NEGATIVE); KETONE, URINE AUTO NEGATIVE (NEGATIVE); LEUKOCYTE ESTERASE, URINE AUTO 3+ (NEGATIVE); NITRITE, URINE AUTO NEGATIVE (NEGATIVE); PROTEIN, URINE AUTO 1+ mg/dL (NEGATIVE); RBC, URINE AUTO 0 /HPF (0-3); SPECIFIC GRAVITY URINE AUTO 1.017 (1.002-1.035); SQUAMOUS EPITHELIAL CELL UR AU 54 /HPF (0-6); UROBILINOGEN, URINE AUTO 0.2 mg/dL (0.0-2.0); WBC, URINE AUTO 35 /HPF (0-3)
[2020-03-18 18:42] LABS: AMPHETAMINES URINE REFLEX NEGATIVE (NEGATIVE); BARBITURATES URINE REFLEX NEGATIVE (NEGATIVE); BENZODIAZEPINES URINE REFLEX NEGATIVE (NEGATIVE); COCAINE METABOLITE URINE REFLE NEGATIVE (NEGATIVE); METHADONE URINE REFLEX NEGATIVE (NEGATIVE); OPIATES URINE REFLEX NEGATIVE (NEGATIVE); PHENCYCLIDINE URINE REFLEX NEGATIVE (NEGATIVE)
[2020-03-18 19:12] LABS: CANNABINOIDS URINE REFLEX PENDING CONFIRMATION (NEGATIVE)
[2020-03-18 19:26] VITALS: BP 104/70
[2020-03-18 20:50] LABS: AMYLASE 77 U/L (25-115); LIPASE 54 U/L (73-393)
[2020-03-18 20:55] LABS: H PYLORI QUALITATIVE IgG NEGATIVE (NEGATIVE)
[2020-03-18] MEDS ORDERED: NITROFURANTOIN (MACROBID) 100 MG CAP PO SCH (21:00)
[2020-03-18 21:53] VITALS: BP 115/68
[2020-03-18] MEDS ORDERED: SUCRALFATE 1 GM TAB PO SCH (22:00)
[2020-03-18 22:25] LABS: MAGNESIUM LEVEL 1.5 MG/DL (1.8-2.4)
[2020-03-18 22:28] LABS: BASO % 0.1 % (0.0-1.0); EOS # 0.1 10^3/uL (0.0-0.5); EOS % 0.3 % (0.0-3.0); LYMPH # 2.2 10^3/uL (1.5-5.0); LYMPH % 13.6 % (24.0-44.0); MONO # 0.9 10^3/uL (0.0-0.8); MONO % 5.8 % (0.0-5.0); NEUTROPHILS # 12.8 10^3/uL (1.5-8.5); NEUTROPHILS % 79.8 % (36.0-66.0)
[2020-03-18 22:55] LABS: AMPHETAMINES URINE REFLEX NEGATIVE (NEGATIVE); BARBITURATES URINE REFLEX NEGATIVE (NEGATIVE); BENZODIAZEPINES URINE REFLEX NEGATIVE (NEGATIVE); COCAINE METABOLITE URINE REFLE NEGATIVE (NEGATIVE); METHADONE URINE REFLEX NEGATIVE (NEGATIVE); OPIATES URINE REFLEX NEGATIVE (NEGATIVE); PHENCYCLIDINE URINE REFLEX NEGATIVE (NEGATIVE)
--- NOTE | 2020-03-18 23:34 | HPE ---
DATE OF ADMISSION: 03/18/2020 Most of her history was taken through her medical record as patient is a poor historian. She is a 24-year-old female, 2, para 1-0-0-1, who presented at approximately 26 weeks gestation. She does have a history significant for bipolar disorder, factitious disorder. She had multiple admissions for suicidal ideation, nausea, and vomiting. She presented today with a complaint of hearing voices and nausea and vomiting. Upon evaluation in labor and delivery, her initial labs appeared to be within normal limits. Her heart rate was in the 150s initially; however, while waiting for her urine toxicology, patient went to the bathroom and came back and was found to be somewhat lethargic but was able to arouse after several attempts. Because of her extensive psych history, a psych consult has been called earlier. Awaiting her psych evaluation. Her obstetric (OB) record reviewed. Patient was seen earlier on at [facility] (ER) for similar complaint and was brought up here by her mother. Patient is receiving mental health care in [facility]. She is currently on Suboxone, sertraline, and Wellbutrin PAST MEDICAL HISTORY: Significant for bipolar disorder, factitious disorder. SOCIAL HISTORY: She is a smoker, approximately a pack of cigarettes per day. She does use marijuana and has had abuse of cocaine in the past. She is currently on Suboxone. FAMILY HISTORY: Significant for diabetes and heart disease. PHYSICAL EXAMINATION: Thin female in no acute distress. Abdomen: Is soft, nontender, nondistended. Extremities: No clubbing, cyanosis, or edema. Vaginal exam: Deferred. Tracing reviewed. heart rate 140 to 150s. No contraction. Initial labs done shows a white count of 16, hemoglobin and hematocrit (H and H) of 12 over 35 with platelet count of 293. Chemistry panel shows normal electrolytes, glucose of 85, potassium of 4, sodium 136, chloride 104, AST, ALT within normal limits. Urine toxicology pending. However, upon further review of the ER visit she had at [facility], her urine toxicology was negative for cocaine and barbiturates. ASSESSMENT: Intrauterine at 26 weeks gestation with multiple psych illness, currently complaining of hearing voices and nausea/vomiting. No episode of nausea/vomiting while in labor and delivery. PLAN: Intravenous (IV) fluid hydration. Awaiting labs. Psych consult called for patient to be evaluated.
[2020-03-19 00:13] LABS: CANNABINOIDS URINE REFLEX PENDING CONFIRMATION (NEGATIVE)
[2020-03-19] MEDS ORDERED: PREN1TAB25 PO (00:17)
[2020-03-19] MEDS ORDERED: FAMO20TA PO (00:17)
[2020-03-19] MEDS ORDERED: PROM25SU2 PR (00:17)
[2020-03-19 05:06] LABS: PLATELET ESTIMATE NORMAL (NORMAL)
[2020-03-19] MEDS ORDERED: MAG400TA PO (15:41)
[2020-03-19] MEDS ORDERED: NITR100C2 PO (15:45)
[2020-03-22 14:07] LABS: Cannabinoid Positive (.); GC Carboxy THC >300 ng/mL (Cutoff=10)
[2020-03-22 14:07] LABS: Cannabinoid Positive (.); GC Carboxy THC >300 ng/mL (Cutoff=10)
== END 2020-03-18 23:01 | disposition other institution (70) ==
LOC: M LDO 16:29
PROVIDERS: ATTEND Obstetrics & Gynecology
DX: O21.2 Late vomiting of pregnancy (principal); O99.340 Other mental disorders complicating pregnancy, unspecified trimester; F68.10 Factitious disorder imposed on self, unspecified; F31.9 Bipolar disorder, unspecified; Z79.891 Long term (current) use of opiate analgesic; Z79.899 Other long term (current) drug therapy; Z3A.26 26 weeks gestation of pregnancy
CPT/HCPCS: 36415; 59025; 80053; 80307; 81001; 82150; 83690; 83735; 85027; 86677; 87040; 87086; 96360; 96361; G0480

== ENCOUNTER 2020-03-19 14:52 | Inpatient (IN) | payer OTHER ==
[~2020-03-19] VITALS: Ht 172.7 cm; Wt 60.1 kg
[~2020-03-19 14:52] MED LIST changes: -BUPRENORPHINE/NALOXONE 8-2MG SUBLINGUAL TABLET(SUBOXONE) SL SCH; +FAMO20TA PO; +PREN1TAB25 PO; +PROM25SU2 PR; +WELL100T2 PO; +ZOLO50TA PO
[2020-03-19] MEDS ORDERED: MAG400TA PO (15:41)
[2020-03-19] MEDS ORDERED: NITR100C2 PO (15:45)
[2020-03-19] MEDS ORDERED: ACETAMINOPHEN TAB 650MG DOSE (2X325MG) PO PRN (16:30)
[2020-03-19] MEDS ORDERED: MAALOX 30 ML SUSP *UDC PO PRN (16:30)
[2020-03-19] MEDS ORDERED: MOM 30ML SUSPENSION UDC PO PRN (16:30)
[2020-03-19] MEDS ORDERED: traZODone 50 MG TAB PO PRN (16:30)
[2020-03-19 16:55] VITALS: BP 111/76
[2020-03-19] MEDS: SERTRALINE 100 MG TAB PO SCH (18:57)
[2020-03-19] MEDS: ARIPiprazole 2 MG TAB PO SCH (18:57)
[2020-03-19] MEDS: buPROPion 100 MG TAB PO SCH (21:54)
[2020-03-20 06:05] VITALS: BP 123/68
[2020-03-20] MEDS: BUPRENORPHINE/NALOXONE 8-2MG SUBLINGUAL TABLET(SUBOXONE) SL SCH (08:01)
[2020-03-20] MEDS: SERTRALINE 100 MG TAB PO SCH (08:01)
[2020-03-20] MEDS: buPROPion 100 MG TAB PO SCH ×2 (08:01→20:17)
[2020-03-20] MEDS: ARIPiprazole 2 MG TAB PO SCH (08:01)
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
--- NOTE | 2020-03-20 11:53 | HPEPDOC ---
[facility] Medical History & Physical Date of Admission Mar 19, 2020 Date of Service: Mar 20, 2020 Attending Physician: Lula Ventura MD History and Physical HISTORY OF PRESENT ILLNESS: Patient is a 24-year-old female with a past medical history of bipolar disorder, anxiety, depression and opiate dependence (on Suboxone) who has presented to [facility] ER on 03/18/20 for evaluation of her . Patient reports she was experiencing confusion for the last 2 days. She denies any recent changes in her medications. Patient reports that she takes Phenergan suppositories 25 mg. She has started this at the start of her . Reported that she took this infrequently early in the , but has been taking it on a daily basis more recently. Patient reports that shes been hearing voices over the last 3 days prior to admission. Patient has reported that she began experiencing this after she had the inability to sleep. Patient has tried melatonin and Benadryl without any relief. Patient reports the voices she hears are of her 2 year old daughter. Patient reports that shes unable to get a hold of her thoughts. Patient has been taking her medications regularly until 2 days ago. She admits to feelings of hopelessness, loss of interest and depression. Patient follows with Nicki Michelle for psychiatry. Prior to her , patient was taken off of gabapentin. The remainder of her medications remained the same. Patient reports that her nausea and vomiting has been persistent since . She does report epigastric pain, however, has indicated that this has started long before . Currently, she reports her pain as a 10/10 and it has always been the case even prior to . She reports a burning-like sensation. Patient denied any chest pain, shortness of b reath, cough, palpitations, fevers, chills, or urinary discomfort. Patient has denied any diarrhea or constipation. Denies any abnormalities including any blood within the stool. Patient reports that she has a poor appetite and throughout the course of her has experienced a weight loss of approximately 5-10 pounds (over 26 weeks). She was initially admitted under metal and plastic heater and later hospitalist service. UA was + for UTI, UCx was sent. WBC improved to 11.7 after several doses of nitrofurantoin. Patient had a 1:1 sitter. She needed replacement of magnesium and potassium. Nausea was intermittent but otherwise controlled. The patient's urine drug screen was negative except for cannabinoids. The patient admits to occasionally still hearing voices, but denies homicidal or suicidal ideation currently. Dr. Francis, psychiatry, evaluated the patient and felt she was appropriate for inpatient mental health. She will be started on a daily dose of magnesium and continue nitrofurantoin for a total of 7 days. I believe her transfer is appropriate and we will be happy to be reconsulted to see her while there as well. At the time of discharge the patient denies chest pain, shortness of breath, nausea, vomiting, chills, fevers, abdominal pain. I also touched base with Dr. Ontiveros, IMPLEMENTATION PROJECT MANAGER. They are doing daily stress tests of the baby. Dx to inpatient mental health: Unspecified depressive disorder, Unspecified psychosis. We were again consulted to see patient today. I reassessed patient today who had no acute complaints, I ordered repeat labs to ensure magnesium and potassium (we supplemented both inpatient) were stable. She denied any harmful thoughts to herself or others. She denied chest pain, n/v/d, shortness of breath, fevers or chills currently. ROS: 10 point review of systems complete, all negative otherwise stated in HPI PAST MEDICAL HISTORY: Bipolar disorder, Anxiety, Depression and Opiate dependence (on Suboxone) PAST SURGICAL HISTORY: No reported surgeries FAMILY HISTORY: Patient denies any prior family history SOCIAL HISTORY: - Patient reports that she has quit smoking, at the start of her - Patient denies the use of alcohol - Patient has a history of drug abuse and has been opiate dependence after she had abused morphine, Percocet and hydrocodone; she has been prescribed Suboxone 8 mg daily that she has been compliant with; patient has also a tested to the use of marijuana 3 days ago - Denies recent travel or sick contacts - Lives with boyfriend and daughter; patient reports that boyfriends brother also lives with them - 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 PHYSICAL EXAMINATION: - General: Sitting up in bed, AAOx3 - HEENT: NC, AT, PERRLA, EOMI - CVS: RRR, +S1S2 - Lungs: Fair air entry bilaterally, No appreciable wheezing / rales / rhonchi - Abdomen: Soft, Gravid appearing abdomen, heart monitor in place, Epigastric tenderness noted - Extremities: No lower extremity edema, No calf tenderness - Neuro: No focal motor or sensory deficit - Skin: No visible rashes IMAGING: No new imaging. LABORATORY: Please see below CURRENT MEDICATIONS: Please see below. ASSESSMENT: 24 y/o F admitted to inpatient mental health unit for unspecified depressive disorder, suicidal ideation and unspecified psychosis. PLAN: 1. Depression / Suicidal ideation - C/w current treatment - Will defer to psychiatry 2. Psychosis - Will defer to psychiatry - Acute bacteriuria not likely cause 3. Nausea / Vomiting / Abdominal pain - likely 2/2 - Acute w/u neg - C/w antiemetics. 4. Bacteriuria in , acute - WBC 11.7 03/19/20 - UCx showed NG,asymptomatic - C/w nitrofurantoin (currently day 3) for 5 days only 5. Hypomagnesemia, acute - Supplemented with 400 mg PO daily (started 03/19/20) - F/u mag level today. 6. Hypokalemia, acute - Given 30 mEq 03/19/20 - F/u BMP today 7. - gestation 26 weeks. 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 Ontiveros notified of her transfer on 03/19/20 - Would recommend consulting them to follow 8. Opioid dependency - C/w suboxone DISPOSITION: Will follow up on labs today ordered and add supplementation PRN. At this time patient is very stable, not requiring much from the medicine standpoint. After today, will sign off. If we are needed to reevalute please feel free to call at any time. Vital Signs Vital Signs Date Time Temp Pulse Resp B/P (MAP) Pulse Ox O2 Delivery O2 Flow Rate FiO2 03/20/20 06:05 98.9 82 16 123/68 (86) 96 Room Air Home Medications Scheduled Buprenorphine HCl/Naloxone HCl (Suboxone 8 mg-2 mg Sl Film) 1 Each Film, 1 STRIP SL DAILY Bupropion HCl (Wellbutrin Sr) 100 Mg Tab.sr.12h, 100 MG PO BID Famotidine (Famotidine) 20 Mg Tablet, 20 MG PO BID Magnesium Oxide (Magnesium Oxide) 400 Mg Tablet, 400 MG PO DAILY Nitrofurantoin Monohyd/M-Cryst (Nitrofurantoin [place]-Mcr 100 mg) 100 Mg Capsule, 100 MG PO BID Pnv No.95/Ferrous Fum/Folic AC ( Caplet) 1 Each Tablet, 1 TAB PO DAILY Sertraline Hcl (Zoloft) 50 Mg Tablet, 50 MG PO DAILY Scheduled PRN Promethazine HCl (Promethegan) 25 Mg Supp.rect, [address] Q6H PRN for NAUSEA OR VOMITING Allergies Coded Allergies: haloperidol (Verified Adverse Reaction, Severe, tardive dyskinesia, 03/18/20) amoxicillin (Verified Adverse Reaction, Mild, STOMACH PAINS/VOMITING, 03/18/20) clavulanic acid (Verified Adverse Reaction, Mild, STOMACH PAINS/VOMITING, 03/18/20) A-FIB/CHADSVASC A-FIB History Current/History of A-Fib/PAF?: No Current PO Anticoag Therapy: No Age/Risk Factor Scoring CHADSVASC: CHADSVASC Response (Comments) Value Age Risk Factor Age < 65 years old 0 Gender Risk Factor Female 1 Hx of CHF No 0 Hx of HTN No 0 Hx of Stroke/TIA/or VTE No 0 Hx of Diabetes No 0 Hx of Vascular Disease No 0 Total 1 Treatment Treatment ordered: NONE (encourage ambulation) Lula Ventura MD Mar 20, 2020 11:53
[2020-03-20 12:31] LABS: HEMATOCRIT 37.3 % (36.0-47.0); HEMOGLOBIN 12.4 g/dl (12.0-15.5); MEAN CORPUSCULAR HEMOGLOBIN 30.9 pg (27.0-33.0); MEAN CORPUSCULAR HGB CONC 33.2 g/dl (32.0-36.5); PLATELET COUNT, AUTOMATED 267 10^3/uL (150-450); RED BLOOD COUNT 4.01 10^6/uL (4.00-5.40)
[2020-03-20 13:03] LABS: ALBUMIN 2.8 GM/DL (3.2-5.2); ALT/SGPT 16 U/L (12-78); BILIRUBIN,TOTAL 0.4 MG/DL (0.2-1.0); BLOOD UREA NITROGEN 5 MG/DL (7-18); CALCIUM LEVEL 8.5 MG/DL (8.5-10.1); CARBON DIOXIDE LEVEL 27 MEQ/L (21-32); CHLORIDE LEVEL 103 MEQ/L (98-107); CREATININE FOR GFR 0.56 MG/DL (0.55-1.30); GLOMERULAR FILTRATION RATE > 60.0 (>60); GLUCOSE, FASTING 71 MG/DL (70-100); MAGNESIUM LEVEL 1.9 MG/DL (1.8-2.4); POTASSIUM SERUM 4.6 MEQ/L (3.5-5.1); SODIUM LEVEL 136 MEQ/L (136-145); TOTAL PROTEIN 6.4 GM/DL (6.4-8.2)
[2020-03-20] MEDS: NICOTINE 7 MG/24 HR TRANSDERMAL TD SCH (15:27)
[2020-03-20 16:21] VITALS: BP 128/82
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
[2020-03-21 06:08] VITALS: BP 131/86
[2020-03-21] MEDS: BUPRENORPHINE/NALOXONE 8-2MG SUBLINGUAL TABLET(SUBOXONE) SL SCH (08:00)
[2020-03-21] MEDS: buPROPion 100 MG TAB PO SCH ×2 (08:00→20:01)
[2020-03-21] MEDS: ARIPiprazole 2 MG TAB PO SCH (08:00)
[2020-03-21] MEDS: NICOTINE 7 MG/24 HR TRANSDERMAL TD SCH (08:00)
[2020-03-21] MEDS: SERTRALINE 100 MG TAB PO SCH (08:00)
[2020-03-21] MEDS: NITROFURANTOIN (MACROBID) 100 MG CAP PO SCH ×2 (10:16→20:01)
[2020-03-21] MEDS ORDERED: ONDANSETRON 4 MG TAB PO ONE (13:00)
[2020-03-21] MEDS ORDERED: ONDANSETRON 4 MG TAB PO PRN (16:15)
--- NOTE | 2020-03-21 16:16 | CR.PDOC ---
General Date of Consultation: Mar 21, 2020 Referring Provider: Lula Ventura MD Attending Physician: ALEX TABARES CNM Consultation REASON FOR CONSULTATION/CHIEF COMPLAINT: at 27.1 weeks admitted to [facility] HISTORY OF PRESENT ILLNESS: Patient is a 24-year-old female who is a who is 27+ weeks with PEYTON of 06/19/20. she is receiving care in [facility]. States is switching care to [facility] and has an appointment for 03/29/20. She states she has had no issues during her and had an anatomy sono done showing that she is having a female. She reports active movement. She denies vaginal bleeding, leaking of fluid or contractions. She was admitted to [facility] for depression, SI, and hearing voices. ALLERGIES: Please see below. HOME MEDICATIONS: Please see below. PAST MEDICAL HISTORY: depression, phoebe, psychosis, PTSD, anxiety, previous suicide attempts PAST SURGICAL HISTORY: appendectomy and broken sternum FAMILY HISTORY: Mother with pericarditis and hep C; Paternal grandmother with diabetes; mother with bipolar and history of opioid addiction; father heroin addiction SOCIAL HISTORY: Marital status and/or living arrangements: in a relationship and lives with him and her other child Children: 1 child and currently Employment: unemployed Tobacco use: currently smoking ETOH: denies Illicit drug use: history of opioid and marijuana use REVIEW OF SYSTEMS: RESPIRATORY: No complaints GENITOURINARY: No complaints. GASTROINTESTINAL: Reports nausea and difficulty eating. SKIN: no complaints. NEUROLOGICAL: reports fatigue. PSYCHIATRIC: Reports she is doing much better since being admitted to [facility]. PHYSICAL EXAMINATION: VITAL SIGNS: Please see below. GENERAL APPEARANCE: Appears appropriate for situation with good eye contact. RESPIRATORY: Regular rate and rhythm with no use of accessory muscles. ABDOMEN: gravid; Fundal height is about 22-23 cm. NEUROLOGICAL: A+Ox3. PSYCHIATRIC: mood is appropriate. She is able to answer all questions about her and care she has received. She states she is having a female. She appears to show excitement about her . LABORATORY DATA: Please see below. ASSESSMENT/PLAN: 1. Growth ultrasound ordered due to a size date discrepancy. 2. FHR to be obtained daily via doppler one time per day. 3. Reviewed access to care, appropriate kick count, labor signs and danger signs to report. 4. Patient is to keep her scheduled appointment in our office. Vital Signs/I&O Vital Signs Date Time Temp Pulse Resp B/P (MAP) Pulse Ox O2 Delivery O2 Flow Rate FiO2 03/21/20 06:08 98.5 80 18 131/86 (101) 99 Room Air Laboratory Data Labs 24H EXAMINATION REQUESTED: US OBS SUZAN PIÑA REASON FOR PATIENT VISIT: UNSPECIFIED DEPRESSIVE DISORDER REASON FOR EXAMINATION: growth and JOHNY. Measurements smaller than dates ADDENDUM REPORT 2 Additional re-scan images were submitted. The contour of the anterior abdominal wall is normal with no evidence of anterior abdominal wall defect. The previously described apparent contour abnormality was related to increased transducer pressure. It resolves with light transducer pressure. Electronically signed by: Bre Blum On 03/21/2020 20:31:56 PM DD: BRE BLUM MD 03/21/201751 DT: RONIT 03/21/202030 DS: RENO 03/21/202030 ADDENDUM REPORT 1 THIS REPORT CONTAINS FINDINGS THAT MAY BE CRITICAL TO PATIENT CARE. The findings were verbally communicated via telephone conference with ALEX TABARES at 8:00 PM EDT on 03/21/2020. The findings were acknowledged and understood. Electronically signed by: Bre Blum On 03/21/2020 20:00:51 PM DD: BRE BLUM MD 03/21/201751 DT: RONIT 03/21/201999 DS: RENO 03/21/201999 PROCEDURE INFORMATION: Exam: US After First Trimester, Transabdominal Exam date and time: 03/21/2020 5:52 PM Age: 24 years old Clinical indication: Lmp or gestational age (in weeks): 09/13/2019; Antepartum complications; Weight - insufficient gain; ; Additional info: Growth and johny. Measurements smaller than dates TECHNIQUE: Imaging protocol: Real-time transabdominal obstetrical ultrasound of the maternal pelvis and a second or third trimester with image documentation. COMPARISON: US OBS FOLL UP OR REPEAT EACH GES 08/20/2017 2:56 PM FINDINGS: GESTATION: Biometry BPD = 6.4 cm; estimated menstrual age = 26W 0D; 23W 6D-28W 2D HC = 25.2 cm; estimated menstrual age = 27W 3D; 25W 2D-29W 4D AC = 22.7 cm; estimated menstrual age = 27W 1D; 24W 6D-29W 2D FL = 5.2 cm; estimated menstrual age = 27W 4D; 25W 3D -29W 5D HC/AC Ratio = 1.11 (1-1.18) EFW = 1043 g (45th percentile) JOHNY= 12.3 Placenta: Posterior and free of the cervical os HR = 153 bpm Survey Lips and mouth = normal Lateral ventricles = Normal Posterior Fossa = Normal Spine = Normal Heart = four-chamber view not well seen. Outflow tracts not well seen due to position. Stomach = present Kidneys = not well seen Bladder = Normal 4 extremities = Normal Three-vessel cord = normal Abdominal cord insertion = identified Maternal: Cervix equals 4.3 cm in length and closed at the time of the examination IMPRESSION: Single live intrauterine gestation with an estimated menstrual age of 27 weeks and 1 day with expected date of delivery 06/19/2020. 2. Repeat images are recommended of the abdomen with specific attention to anterior abdominal wall.. Submitted images suggests the possibility of a anterior abdominal wall defect. This was discussed with fibre technologist Nicki Davis who will attempt to recall the patient. Electronically signed by: Bre Blum On 03/21/2020 19:32:52 PM Allergies Coded Allergies: haloperidol (Verified Adverse Reaction, Severe, tardive dyskinesia, 03/18/20) amoxicillin (Verified Adverse Reaction, Mild, STOMACH PAINS/VOMITING, 03/18/20) clavulanic acid (Verified Adverse Reaction, Mild, STOMACH PAINS/VOMITING, 03/18/20) Home Medications Scheduled Aripiprazole (Abilify) 2 Mg Tablet, 2 MG PO DAILY for mood for 7 Days, #7 Buprenorphine HCl/Naloxone HCl (Suboxone 8 mg-2 mg Sl Film) 1 Each Film, 1 STRIP SL DAILY, (Reported) Bupropion HCl (Wellbutrin Sr) 100 Mg Tab.sr.12h, 100 MG PO BID, (Reported) Famotidine (Famotidine) 20 Mg Tablet, 20 MG PO BID, (Reported) Magnesium Oxide (Magnesium Oxide) 400 Mg Tablet, 400 MG PO DAILY for 30 Days, #30 Nicotine (Nicotine Patch) 7 Mg Patch.td24, 1 PATCH TD DAILY for tobacco for 30 Days, #30 Nitrofurantoin Monohyd/M-Cryst (Nitrofurantoin [place]-Mcr 100 mg) 100 Mg Capsule, 100 MG PO BID for uti for 6 Days, #12 Pnv No.95/Ferrous Fum/Folic AC ( Caplet) 1 Each Tablet, 1 TAB PO DAILY, (Reported) Sertraline HCl (Sertraline HCl) 100 Mg Tablet, 100 MG PO DAILY for mood for 7 Days, #7 Scheduled PRN Promethazine HCl (Promethegan) 25 Mg Supp.rect, 25 MG IA Q6H PRN for NAUSEA OR VOMITING, (Reported) ALEX TABARES CNM Mar 21, 2020 16:16
[2020-03-21 16:23] VITALS: BP 122/73
--- NOTE | 2020-03-21 19:33 | REPVR ---
PROCEDURE INFORMATION: Exam: US After First Trimester, Transabdominal Exam date and time: 03/21/2020 5:52 PM Age: 24 years old Clinical indication: Lmp or gestational age (in weeks): 09/13/2019; Antepartum complications; Weight - insufficient gain; ; Additional info: Growth and johny. Measurements smaller than dates TECHNIQUE: Imaging protocol: Real-time transabdominal obstetrical ultrasound of the maternal pelvis and a second or third trimester with image documentation. COMPARISON: US OBS FOLL UP OR REPEAT EACH GES 08/20/2017 2:56 PM FINDINGS: GESTATION: Biometry BPD = 6.4 cm; estimated menstrual age = 26W 0D; 23W 6D-28W 2D HC = 25.2 cm; estimated menstrual age = 27W 3D; 25W 2D-29W 4D AC = 22.7 cm; estimated menstrual age = 27W 1D; 24W 6D-29W 2D FL = 5.2 cm; estimated menstrual age = 27W 4D; 25W 3D -29W 5D HC/AC Ratio = 1.11 (1-1.18) EFW = 1043 g (45th percentile) JOHNY= 12.3 Placenta: Posterior and free of the cervical os HR = 153 bpm Survey Lips and mouth = normal Lateral ventricles = Normal Posterior Fossa = Normal Spine = Normal Heart = four-chamber view not well seen. Outflow tracts not well seen due to position. Stomach = present Kidneys = not well seen Bladder = Normal 4 extremities = Normal Three-vessel cord = normal Abdominal cord insertion = identified Maternal: Cervix equals 4.3 cm in length and closed at the time of the examination IMPRESSION: Single live intrauterine gestation with an estimated menstrual age of 27 weeks and 1 day with expected date of delivery 06/19/2020. 2. Repeat images are recommended of the abdomen with specific attention to anterior abdominal wall.. Submitted images suggests the possibility of a anterior abdominal wall defect. This was discussed with environmental health technologist Nicki Davis who will attempt to recall the patient. Electronically signed by: Bre Blum On 03/21/2020 19:32:52 PM
--- NOTE | 2020-03-21 22:30 | MHIPNPDOC ---
[facility] Progress Note Progress Note DATE OF SERVICE: 03/21/20 HISTORY: She came to the Medical floor for hyperemesis and a urinary tract infection but then she was transferred to the inpatient mental health unit. Today, 03/21/2020 she reports sleeping well last night, she was uptat 4:30 this morning, she went back to sleep at 6 a.m. She doesn't eat much because she becomes nauseous but she also reports low appetite since she became . She says it was her doctor in [facility], Nicki Crystal, who started her on Wellbutrin, Zoloft and she also prescribed Suboxone. She says Dr. Francis prescribed Abilify last Sunday. VITAL SIGNS: See below. NEW TEST RESULTS: See below CURRENT MEDICATIONS: See below. MENTAL STATUS EXAMINATION: Mental Status Examination Mental Status Examination General Appearance: Clean, dressed in hospital clothes, pleasant and cooperative Build: thin Demeanor: average Eye Contact: average Activity: calm, cooperative Behavior: cooperative Speech: clear, spontaneous, reg/rate,rhythm,volume Mood: "I feel comfortable" Affect: full, appropriate, congruent Thought Process: logical/linear Thought Content (Delusions): none reported Thought Content (Other): Denies suicidal ideation, homicidal ideation and thought delusions Thought Content (Aggressive): none reported Perception (Hallucinations): none reported Perception (Other): none reported Cognition (Impairment of): none reported Cognition(Intelligence Est.): average Oriented: Awake, Alert, Oriented times three Insight: good Judgment: Good Psychosis: Denies ASSESSMENT: Patient seems to be stable, she is goal orientated, her mood and affect have improved, she is responding to medications MANAGEMENT PLAN: Continue current treatment plan TIME SPENT: 20 minutes. Vital Signs Vital Signs Date Time Temp Pulse Resp B/P (MAP) Pulse Ox O2 Delivery O2 Flow Rate FiO2 03/21/20 06:08 98.5 80 18 131/86 (101) 99 Room Air Laboratory Data 24H Labs Laboratory Tests 2 03/20/20 12:16: Nucleated Red Blood Cells % (auto) 0.0, Anion Gap 6L, Glomerular Filtration Rate > 60.0, Calcium Level 8.5, Magnesium Level 1.9, Total Bilirubin 0.4#, Aspartate Amino Transf (AST/SGOT) 15, Alanine Aminotransferase (ALT/SGPT) 16, Alkaline Phosphatase 75, Total Protein 6.4, Albumin 2.8L, Albumin/Globulin Ratio 0.78L CBC/BMP Laboratory Tests 03/20/20 12:16 Current Medications Current Medications Medications (Trade) Dose Ordered Sig/Kim Route PRN Reason Start Time Stop Time Status Last Admin Dose Admin Acetaminophen (Tylenol Tab) 650 mg Q6HP PRN PO HEADACHE or DISCOMFORT 03/19/20 16:30 Al Hydrox/Mg Hydrox/Simethicone (Mylanta) 30 ml Q4HP PRN PO HEARTBURN/INDIGESTION 03/19/20 16:30 03/20/20 21:04 Aripiprazole (AbiLIFY) 2 mg DAILY PO 03/19/20 09:00 03/21/20 08:00 Buprenorphine/ Naloxone (Suboxone 8/2mg) 1 tab DAILY SL 03/20/20 09:00 03/21/20 08:00 Bupropion HCl (Wellbutrin) 100 mg BID PO 03/19/20 21:00 03/21/20 08:00 Magnesium Hydroxide (Milk Of Magnesia) 30 ml DAILYPRN PRN PO CONSTIPATION 03/19/20 16:30 Nicotine (Nicoderm Cq 7 Mg) 1 patch DAILY TD 03/20/20 09:00 03/21/20 08:00 Nitrofurantoin Monoh/Nitrofur Macro (Macrobid) 100 mg BID PO 03/21/20 09:00 03/24/20 21:00 03/21/20 10:16 Sertraline HCl (Zoloft) 100 mg DAILY PO 03/19/20 09:00 03/21/20 08:00 Trazodone HCl (Desyrel) 50 mg QHSP PRN PO INSOMNIA 03/19/20 16:30 Allergies Coded Allergies: haloperidol (Verified Adverse Reaction, Severe, tardive dyskinesia, 03/18/20) amoxicillin (Verified Adverse Reaction, Mild, STOMACH PAINS/VOMITING, 03/18/20) clavulanic acid (Verified Adverse Reaction, Mild, STOMACH PAINS/VOMITING, 03/18/20) GRACIE SERRANO MD Mar 21, 2020 10:35
[2020-03-22 06:23] VITALS: BP 136/88
[2020-03-22] MEDS: NITROFURANTOIN (MACROBID) 100 MG CAP PO SCH (08:08)
[2020-03-22] MEDS: SERTRALINE 100 MG TAB PO SCH (08:08)
[2020-03-22] MEDS: buPROPion 100 MG TAB PO SCH (08:08)
[2020-03-22] MEDS: NICOTINE 7 MG/24 HR TRANSDERMAL TD SCH (08:08)
[2020-03-22] MEDS: BUPRENORPHINE/NALOXONE 8-2MG SUBLINGUAL TABLET(SUBOXONE) SL SCH (08:08)
[2020-03-22] MEDS: ARIPiprazole 2 MG TAB PO SCH (08:08)
--- NOTE | 2020-03-22 09:18 | MHIPNPDOC ---
[facility] Progress Note Progress Note DATE OF SERVICE: 03/22/20 HISTORY: . VITAL SIGNS: See below. NEW TEST RESULTS: . CURRENT MEDICATIONS: See below. MENTAL STATUS EXAMINATION: Patient is a -year old female, who is . Speech: Is . Language skills are . Thought processes including: . Thought content: . Abstract reasoning, and computation: . Description of asso ciations: . Description of abnormal or psychotic thoughts: . Judgment: . Insight: [very limited, good, fair. poor]. Orientation: . Recent and remote memory: . Attention span and concentration: . Language: . Fund of knowledge: . Mood: . Affect: . DIAGNOSES: 1. . 2. . 3. . ASSESSMENT: MANAGEMENT PLAN: . TIME SPENT: minutes. Vital Signs Vital Signs Date Time Temp Pulse Resp B/P (MAP) Pulse Ox O2 Delivery O2 Flow Rate FiO2 03/22/20 06:23 97.6 77 16 136/88 (104) 99 Room Air Current Medications Current Medications Medications (Trade) Dose Ordered Sig/Kim Route PRN Reason Start Time Stop Time Status Last Admin Dose Admin Acetaminophen (Tylenol Tab) 650 mg Q6HP PRN PO HEADACHE or DISCOMFORT 03/19/20 16:30 Al Hydrox/Mg Hydrox/Simethicone (Mylanta) 30 ml Q4HP PRN PO HEARTBURN/INDIGESTION 03/19/20 16:30 03/20/20 21:04 Aripiprazole (AbiLIFY) 2 mg DAILY PO 03/19/20 09:00 03/22/20 08:08 Buprenorphine/ Naloxone (Suboxone 8/2mg) 1 tab DAILY SL 03/20/20 09:00 03/22/20 08:08 Bupropion HCl (Wellbutrin) 100 mg BID PO 03/19/20 21:00 03/22/20 08:08 Magnesium Hydroxide (Milk Of Magnesia) 30 ml DAILYPRN PRN PO CONSTIPATION 03/19/20 16:30 Nicotine (Nicoderm Cq 7 Mg) 1 patch DAILY TD 03/20/20 09:00 03/22/20 08:08 Nitrofurantoin Monoh/Nitrofur Macro (Macrobid) 100 mg BID PO 03/21/20 09:00 03/24/20 21:00 03/22/20 08:08 Ondansetron HCl (Zofran) 4 mg Q8HP PRN PO nausea 03/21/20 16:15 Sertraline HCl (Zoloft) 100 mg DAILY PO 03/19/20 09:00 03/22/20 08:08 Trazodone HCl (Desyrel) 50 mg QHSP PRN PO INSOMNIA 03/19/20 16:30 Allergies Coded Allergies: haloperidol (Verified Adverse Reaction, Severe, tardive dyskinesia, 03/18/20) amoxicillin (Verified Adverse Reaction, Mild, STOMACH PAINS/VOMITING, 03/18/20) clavulanic acid (Verified Adverse Reaction, Mild, STOMACH PAINS/VOMITING, 03/18/20) RACHELLE MONTANEZ DO Mar 22, 2020 09:18
--- NOTE | 2020-03-22 10:37 | MHDSPDOC ---
[facility] Discharge Summary Discharge Summary DATE OF ADMISSION: Mar 19, 2020 at 14:52 DATE OF DISCHARGE: 03/22/20 Discharge Nicki Davis Age 24 Female Date of : 1995 Date of Service: 03/22/2020 Diagnoses Unspecified depressive disorder. Rule out adjustment versus malingering. Opioid use disorder, severe. History of Present Illness The patient a 24-year-old woman presents after becoming sick with hyperemesis due to her , she has a reported history of psychosis, however, it appears quite likely that it is malingering after psychological testing. The patient is admitted out of an abundance of caution due to reported hopelessness and passive suicidal ideation. Consultants Involved Hospitalist/PCP screening Treatment and Progress On The Unit The patient is admitted to the inpatient mental health unit, resumed on her home medications with no major changes other than the augmentation of Abilify 2 mg, the patient is observed and her suicidal ideation rapidly vanishes and she no longer endorses any auditory or visual hallucinations. She engages well in treatment and has improved insight and is generally friendly and amenable much to the change of her previous admissions. She eventually requested discharge as she has made significant improvement. Discharge Assessment 24-year-old woman with likely adjustment versus personality presents after reportedly having hyperemesis gravidarum. She has a history of substance abuse that makes it difficult to determine her underlying diagnosis. However, she engages well on this admission and has fair insight much of the contrary on her previous admissions. She requests discharge and has been engaging well. The patient at the time of discharge did not meet criteria for involuntary admission/extension due to having a normal mental status exam, fair insight into the situation, They are engaged in the discharge process, as well as being friendly and amenable in behavioral control and havent been engaging in any observed concerning behavior or ideation recently. They decline voluntary extension/admission at this time and must be discharged in good mike, as Im unable to make a case for holding the patient against their will. They may have historical risk factors of admissions and other interactions with psychiatry however, those are not modifiable from a clinical perspective. The patient will need to be discharged in good mike. Plan Mental Status Examination General: Well dressed with good hygiene Speech: Spontaneous and fluid Thought processes: Linear and logical MSK: Smooth and coordinated gait, no signs of tremors or involuntary orofacial movements Thought content: Future orientated Abstract reasoning, and computation: Intact Description of associations: Intact Description of abnormal or psychotic thoughts: Denies any suicidal or homicidal ideation. Denies any auditory or visual hallucinations. Does not appear to be responding to internal stimuli. Does not appear to be endorsing any bizarre or paranoid ideation. Judgment: fair Insight: fair Orientation: Alert and orientated 3 Cognition: Grossly normal Recent and remote memory: Intact Attention span and concentration: Intact Fund of knowledge: Adequate Mood: "okay" Affect: Euthymic with a full range Follow Up The social work team worked during the predischarge meeting in order to evaluate for further issues of lethality address them fully before discharge. They worked on safety planning with the patient's family members in order to ensure that the patient will have a safe and effective discharge. Time Spent The amount of time spent in the coordination of care for this patient was appro ximately 45 minutes. Sunday Vital Signs/I&Os Vital Signs Date Time Temp Pulse Resp B/P (MAP) Pulse Ox O2 Delivery O2 Flow Rate FiO2 03/22/20 06:23 97.6 77 16 136/88 (104) 99 Room Air Medications Scheduled Aripiprazole (Abilify) 2 Mg Tablet, 2 MG PO DAILY for mood for 7 Days, #7 Buprenorphine HCl/Naloxone HCl (Suboxone 8 mg-2 mg Sl Film) 1 Each Film, 1 STRIP SL DAILY, (Reported) Bupropion HCl (Wellbutrin Sr) 100 Mg Tab.sr.12h, 100 MG PO BID, (Reported) Famotidine (Famotidine) 20 Mg Tablet, 20 MG PO BID, (Reported) Magnesium Oxide (Magnesium Oxide) 400 Mg Tablet, 400 MG PO DAILY for 30 Days, #30 Nicotine (Nicotine Patch) 7 Mg Patch.td24, 1 PATCH TD DAILY for tobacco for 30 Days, #30 Nitrofurantoin Monohyd/M-Cryst (Nitrofurantoin Murray-Mcr 100 mg) 100 Mg Capsule, 100 MG PO BID for uti for 6 Days, #12 Pnv No.95/Ferrous Fum/Folic AC ( Caplet) 1 Each Tablet, 1 TAB PO DAILY, (Reported) Sertraline HCl (Sertraline HCl) 100 Mg Tablet, 100 MG PO DAILY for mood for 7 Days, #7 Scheduled PRN Promethazine HCl (Promethegan) 25 Mg Supp.rect, 25 MG SC Q6H PRN for NAUSEA OR VOMITING, (Reported) Allergies Coded Allergies: haloperidol (Verified Adverse Reaction, Severe, tardive dyskinesia, 03/18/20) amoxicillin (Verified Adverse Reaction, Mild, STOMACH PAINS/VOMITING, 03/18/20) clavulanic acid (Verified Adverse Reaction, Mild, STOMACH PAINS/VOMITING, 03/18/20) RACHELLE MONTANEZ DO Mar 22, 2020 10:37
[2020-03-22] MEDS ORDERED: NICO7PA TD (10:38)
[2020-03-22] MEDS ORDERED: SERT-138 PO (10:38)
[2020-03-22] MEDS ORDERED: ABIL1TAB13 PO (13:11)
[2020-03-22] MEDS ORDERED: NITR100C2 PO (13:12)
== END 2020-03-22 13:40 | disposition home or self-care (01) | DRG 566 ==
LOC: M PSY 14:52
PROVIDERS: ADMIT Psychiatry & Neurology Psychiatry; ATTEND Psychiatry & Neurology Addiction Medicine
DX: O99.343 Other mental disorders complicating pregnancy, third trimester (principal); F43.20 Adjustment disorder, unspecified; Z76.5 Malingerer [conscious simulation]; F11.90 Opioid use, unspecified, uncomplicated; R45.851 Suicidal ideations; Z79.899 Other long term (current) drug therapy; Z88.0 Allergy status to penicillin; Z88.8 Allergy status to other drugs, medicaments and biological substances; Z87.891 Personal history of nicotine dependence; Z3A.26 26 weeks gestation of pregnancy; E83.42 Hypomagnesemia; E87.6 Hypokalemia; F32.9 Major depressive disorder, single episode, unspecified; O99.283 Endocrine, nutritional and metabolic diseases complicating pregnancy, third trimester; O21.1 Hyperemesis gravidarum with metabolic disturbance

== ENCOUNTER 2020-04-23 00:14 | Outpatient (CLI) | payer OTHER, MEDICAID ==
[2020-04-23] VITALS (21 sets, daily range): BP systolic 104–145; BP diastolic 56–88
[~2020-04-23] VITALS: Ht 172.7 cm; Wt 60.1 kg
[~2020-04-23 00:14] MED LIST changes: +ABIL1TAB13 PO; +MAG400TA PO; +NICO7PA TD; +NITR100C2 PO; -PARO15TA PO; +PARO30TA4 PO; +SERT-138 PO
[2020-04-23] MEDS ORDERED: TUMS500C PO (00:45)
[2020-04-23] MEDS: LR 1,000 ML IV SCH ×3 (00:48→17:39)
[2020-04-23 01:04] LABS: HEMOGLOBIN 11.2 g/dl (12.0-15.5); LYMPH % 12.4 % (24.0-44.0); MEAN CORPUSCULAR HGB CONC 33.9 g/dl (32.0-36.5); MEAN CORPUSCULAR VOLUME 91.4 fl (80.0-96.0); MONO % 6.7 % (0.0-5.0); NEUTROPHILS % 79.9 % (36.0-66.0); PLATELET COUNT, AUTOMATED 274 10^3/uL (150-450); RED BLOOD COUNT 3.61 10^6/uL (4.00-5.40)
[2020-04-23 01:05] LABS: BASO % 0.2 % (0.0-1.0); EOS # 0.1 10^3/uL (0.0-0.5); EOS % 0.4 % (0.0-3.0); LYMPH # 1.6 10^3/uL (1.5-5.0); MONO # 0.9 10^3/uL (0.0-0.8); NEUTROPHILS # 10.4 10^3/uL (1.5-8.5)
[2020-04-23] MEDS: MORPHINE 4 MG/ML 1ML VIAL/SYRINGE (J2270) IV PRN ×4 (01:10→15:28)
[2020-04-23] MEDS: SUCRALFATE SUSP 1GM/10ML UD PO SCH ×3 (01:18→17:35)
[2020-04-23 01:32] LABS: ALBUMIN 2.7 GM/DL (3.2-5.2); ALT/SGPT 19 IU/L (0-32)
[2020-04-23 01:33] LABS: BLOOD UREA NITROGEN 5 MG/DL (7-18); CALCIUM LEVEL 9.3 MG/DL (8.5-10.1); CHLORIDE LEVEL 105 MEQ/L (98-107)
[2020-04-23 01:34] LABS: BILIRUBIN,TOTAL 0.3 MG/DL (0.2-1.0); CARBON DIOXIDE LEVEL 25 mmol/L (20-29); GLOMERULAR FILTRATION RATE > 60.0 (>60); GLUCOSE, FASTING 87 MG/DL (70-100); LIPASE 81 U/L (73-393); POTASSIUM SERUM 3.6 MEQ/L (3.5-5.1); SODIUM LEVEL 138 MEQ/L (136-145)
[2020-04-23 01:35] LABS: TOTAL PROTEIN 6.3 GM/DL (6.4-8.2)
[2020-04-23 02:46] LABS: AMPHETAMINES URINE REFLEX NEGATIVE (NEGATIVE); BARBITURATES URINE REFLEX NEGATIVE (NEGATIVE); BENZODIAZEPINES URINE REFLEX NEGATIVE (NEGATIVE); CANNABINOIDS URINE REFLEX PENDING CONFIRMATION (NEGATIVE); COCAINE METABOLITE URINE REFLE NEGATIVE (NEGATIVE); METHADONE URINE REFLEX NEGATIVE (NEGATIVE); OPIATES URINE REFLEX PENDING CONFIRMATION (NEGATIVE)
[2020-04-23 02:47] LABS: PHENCYCLIDINE URINE REFLEX NEGATIVE (NEGATIVE)
--- NOTE | 2020-04-23 04:53 | HPE ---
DATE OF ADMISSION: 04/23/2020 25-year-old, G2, P1 female at 31-6/7 weeks gestation by last menstrual period (LMP), consistent with ultrasound, estimated date of confinement (EDC) 06/19/2020, presents to triage with severe epigastric pain that radiates to the right side associated with nausea and vomiting. This was first reported approximately a month prior to evaluation. The pain is 10/10 in intensity. Vomiting is unrelenting. She was diagnosed with possible gallbladder problem and biliary colic on an ultrasound approximately a month ago, which showed gallstones and sludge in the gallbladder but no gallbladder wall thickening. She has been on a low-fat diet at home. She says the pain has never improved. MEDICAL HISTORY: 1. Depression. 2. Cathy. 3. Psychosis. 4. Posttraumatic stress disorder. 5. Anxiety. 6. History of suicide attempts. 7. Small hiatal hernia. 8. History of drug abuse, including opioid addiction. Currently on Suboxone. SURGICAL HISTORY: 1. Appendectomy. 2. Xenia procedure for pectus excavatum. 3. She subsequently had rods for the Xenia procedure removed from her sternum in 2014. ALLERGIES: - AUGMENTIN - HALDOL SOCIAL HISTORY: The patient lives with the father of the baby. She is currently unemployed. She smokes marijuana daily. She takes Suboxone. MEDICATIONS: - Wellbutrin SR 100 mg daily - Zoloft 100 mg daily - Abilify 10 mg daily - vitamins FAMILY HISTORY: Hepatitis C. Drug addiction. PHYSICAL EXAMINATION: Blood pressure 124/84, pulse 84, afebrile. She appears significantly uncomfortable. Head/neck exam: Normal. Lungs: Clear. Heart: Regular rate and rhythm. Abdomen: Is moderately tender diffusely in the upper abdomen, worse on the right. Tender to light touch. Patient has significant guarding. Abdomen is nondistended. Extremities: Nontender. ASSESSMENT: 25-year-old, G2, P1 at 31-6/7 weeks gestation with upper abdominal pain, nausea, and vomiting. Differential diagnosis includes: 1. Cannabis vomiting syndrome. 2. Costochondritis. 3. Gastritis. 4. Possible biliary colic. 5. Psychosomatic disorder. PLAN: Patient will be admitted for observation. She will be given intravenous (IV) fluids. Recommend starting IV Protonix as well as sucralfate. We will give narcotic pain management in order to improve the extreme pain that she is in. We will keep the patient nothing by mouth for the time being. Plan to continue to monitor the protocol. JOHN
[2020-04-23] MEDS: BUPRENORPHINE/NALOXONE 8-2MG SUBLINGUAL TABLET(SUBOXONE) SL SCH ×2 (05:44→07:27)
[2020-04-23] MEDS ORDERED: CALCIUM CARBONATE 500 MG CHEW U/D PO ONE (05:45)
[2020-04-23] MEDS ORDERED: PANTOPRAZOLE 40MG VIAL (C9113 PER 1) IV SCH (09:00)
--- NOTE | 2020-04-23 16:34 | CR ---
DATE OF CONSULTATION: 04/23/2020 CHIEF COMPLAINT: Right epigastric pain with radiation into the right axillary area. REFERRING PHYSICIAN: Dr. Blackburn HISTORY OF PRESENT ILLNESS: Nicki is a 25-year-old, 2, para 1 female, at 31-6/7 weeks' gestation who presented to the emergency room with severe epigastric pain associated with nausea and vomiting. She was diagnosed with possible gallbladder problems approximately 1 month ago, but there was no information on ultrasound. The patient states the pain has never improved. She is in severe discomfort today upon awakening. Rating her pain level is at 10/10. Describes pain as a burning and stabbing pain in the right epigastric area with radiation to the right mid axillary area that is constant. Currently receiving morphine 4 mg IV, which the patient states is helpful for about 20 minutes. Currently on Suboxone therapy with a history of drug abuse, including opioid addiction. Extensive mental health history. MEDICAL HISTORY: 1. Depression. 2. Cathy. 3. Psychosis. 4. Posttraumatic stress disorder. 5. Anxiety, 6. History of suicide attempt. 7. Small hiatal hernia. 8. History of drug abuse, including opioid addiction, currently Suboxone. SURGICAL HISTORY: 1. Appendectomy. 2. Xenia procedure for pectus excavatum. 3. Rods for the Xenia procedure removed from her sternum in 2014. ALLERGIES: - AUGMENTIN - HALDOL SOCIAL HISTORY: Lives with the father of the baby. Currently unemployed. Smokes marijuana daily. FAMILY HISTORY: Hepatitis C. Drug addiction. PHYSICAL EXAMINATION: The patient is awakened easily when entering room. Begins to rise in discomfort. Appears uncomfortable. Vital Signs: 98.2, 96, 18. Blood pressure 123/73. Denies increased pain in chest area with deep inspiration. Reporting tenderness to light touch over the right epigastric area radiating to right mid axillary area. Increased pressure placed in this area causes increased pain. Cardiac: S1, S2, normal rate and rhythm. Respiratory: Lung sounds are clear. Respirations nonlabored. ASSESSMENT: Right epigastric pain, 2, para 1, at 31-6/7 weeks' gestation, nausea and vomiting. PLAN: History and physical was reviewed with Dr. Ricks. We contacted Dr. Blackburn and recommended Toradol and observation. Dr. Ricks is not recommending pain block injection at this point. He would be glad to be reached for consult by Dr. Garcia in regards to medication management and offered to see patient in the clinic in consultation for Dr. Garcia. Concerns being Suboxone therapy and possibly weaning down and off of that so that she would have a better chance at pain control post (C) section or post vaginal delivery. Thank you for allowing us to consult with your patient. Please do not hesitate to contact us.
[2020-04-23] MEDS ORDERED: KETOROLAC 30 MG/ML 1ML VIAL IV ONE (18:00)
--- NOTE | 2020-04-23 19:08 | IPNPDOC ---
Text Note Date of Service The patient was seen on 04/23/20. NOTE Outpatient Reviewed recommendations for toradol and referral to outpatient pain management clinic Pt states "it's not just the pain, its the nausea, vomiting. I've lost weight and don't want to lose my baby." Refused to take toradol "it doesn't work, I won't try it. I just want to go home if you aren't going to help me." Offered routine reglan with prn phenergan suppositories to manage nausea "won't work." States "the morphine only works for 15 minutes" Pt agitated, crying and slamming bathroom door. 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 Crying to her mother on the phone "just come get me; they won't repeat the gallbladder ultrasound because they don't think that's it." heart reassuring for gestation. Episodes of minimal variability due to narcotic use. No contractions. Dr Garcia consulted. Agreed with plan of care regarding discharge. Is aware of pt refusing medications offered. Will discharge pt home with instructions to keep future appts for her care. VS,Fishbone, I+O VS, Fishbone, I+O Laboratory Tests 04/23/20 00:47 Vital Signs Date Time Temp Pulse Resp B/P (MAP) Pulse Ox O2 Delivery O2 Flow Rate FiO2 04/23/20 17:41 98.2 75 18 104/71 (82) 04/23/20 08:10 Room Air Mari Gonsalez CNM April 23, 2020 18:54
[2020-04-23] MEDS ORDERED: ARIPiprazole 2 MG TAB PO ONE (19:30)
[2020-04-23] MEDS ORDERED: SERTRALINE 100 MG TAB PO ONE (19:30)
[2020-04-23] MEDS ORDERED: buPROPion (WELLBUTRIN SR) 100 MG SR TAB PO ONE (19:30)
[2020-04-23] MEDS ORDERED: PROMETHAZINE 25 MG SUPP PR ONE (20:15)
--- NOTE | 2020-04-24 18:41 | CR ---
DATE OF CONSULTATION: 04/23/2020 REASON FOR CONSULTATION: Right upper quadrant pain. HISTORY OF PRESENT ILLNESS: The patient is a 25-year-old female at 31 weeks days and 6 days gestation by last menstrual period. She currently is on the labor and delivery (L and D) floor under the care of Dr. Pearce. The reason she is here is for persistent 10/10 abdominal pains. She was diagnosed a couple weeks ago with possible gallbladder disease, and she is fixated on the fact that there is something wrong with her gallbladder and feels like it needs to be removed. On her previous a couple years ago, she had similar pains that started to happen around 30 weeks as well. These pains are the same this time. They went away after she delivered her previous child. The pain is constant. The only thing that occasionally will improve it is different positioning. No change with food. She does have some nausea, vomiting, and increased heartburn along with the pain. The pain is described as mostly in the right upper quadrant, radiating around towards her side. She has had a history of a Xenia procedure for pectus excavatum when she was younger. Also had the rods removed and 2015. No recent trauma to the abdomen. No recent fevers. Imaging of the gallbladder just showed stones and sludge. No other abnormalities. PAST MEDICAL HISTORY: 1. Depression. 2. Cathy and psychosis. 3. Posttraumatic stress disorder (PTSD). 4. Anxiety. 5. Suicide attempts. 6. Small hiatal hernia. 7. Had drug abuse. PAST SURGICAL HISTORY: 1. Appendectomy. 2. Xenia procedure and matthew removal. ALLERGIES: AUGMENTIN, HALDOL. MEDICATIONS: Please see medication reconciliation. SOCIAL HISTORY: Smokes marijuana daily. Uses Suboxone. FAMILY HISTORY: Noncontributory. REVIEW OF SYSTEMS. Pertinent positives and negatives as stated in the history of present illness (HPI). PHYSICAL EXAMINATION: VITAL SIGNS: Temperature 98.7, pulse 107, respirations 18, blood pressure 134/80. HEENT: Pupils equal round and reactive to light and accommodation. HEART: S1, S2, regular rate and rhythm. LUNGS: Clear to auscultation bilaterally. ABDOMEN: Soft, tender to palpation in the right upper quadrant, and both the left and right lower rib cages have severe pain to palpation. There is guarding to the right upper abdomen and right ribcage and left rib cage as well. No rebound. EXTREMITIES: No clubbing, cyanosis, or edema. LABORATORY DATA: White count was 13, hemoglobin 11.2, platelets 274. Potassium 3.6, creatinine 0.6. The liver function tests (LFTs) were all within normal range, and bilirubin was 0.3. IMAGING STUDIES: Gallbladder ultrasound from March 24 showed layering sludge. No wall thickening. Small shadowing stones within the gallbladder. Positive sonographic Salinas sign. Common bile duct at 0.4 cm. ASSESSMENT AND PLAN: A 25-year-old female, currently 31 weeks with severe lower chest and upper right quadrant abdominal pains. At this point, her pains are severe and they are constant, and there is no elevation in any of her liver enzymes and no signs of inflammation on her ultrasound of the gallbladder. I do not feel that this is a cholecystitis or even symptomatic cholelithiasis. This is most likely consistent with severe costochondritis, especially with the severe pain to palpation of the ribs themselves on both the left and the right sides. Recommendation is to continue with anti-inflammatories. Possible discussion with pain clinic to see if there is anything they can do as far as nerve ablation. I am not sure if that is something that can be done inpatient or even during , but that would be the only other viable option at this point. There is not an indication for surgery currently. Thank you for the consult.
[2020-04-27 05:07] LABS: Cannabinoid Positive (.); Codeine Negative (Cutoff=200); GC Carboxy THC 574 ng/mL (Cutoff=10); GC Morphine 3596 ng/mL (Cutoff=200); Morphine Positive (.); Opiates Positive (.)
== END 2020-04-23 19:10 | disposition home or self-care (01) ==
LOC: M LDO 00:14
PROVIDERS: ATTEND Specialist
DX: O26.893 Other specified pregnancy related conditions, third trimester (principal); R10.13 Epigastric pain; O21.2 Late vomiting of pregnancy; Z3A.31 31 weeks gestation of pregnancy
CPT/HCPCS: 59025; 80053; 80307; 83690; 85025; 96360; 96361; 96374; 96375; 96376; C9113; G0480; J2270

== ENCOUNTER → 2020-04-26 | Outpatient (CLI) | payer OTHER, MEDICAID ==
--- NOTE | 2020-04-27 02:53 | REP ---
Clinical: Anatomical evaluation. Comparison: 03/21/2020 . Findings: Examination demonstrates a single live intrauterine in cephalic presentation. motion is identified by technologist. Placenta is noted posterior and grade I I without evidence for placenta previa or abruption. Amniotic fluid volume is normal. Cervix measures 3.4 cm in length and appears closed. No evidence for nuchal cord. Gestational age by LMP 32 weeks 2 days with PEYTON 06/19/2020 . Gestational age by current measurements 31 weeks 3 days with PEYTON 06/25/2020 . FHR equals 139 beats per minute. Amniotic fluid index: 12.0 cm Estimated weight 1688 grams ( 19th percentile). Anatomical assessment demonstrates normal structures including cranium, facial features, diaphragm, stomach, cord insertion/three-vessel cord, kidneys/bladder, and spine. Impression: Single live advanced gestation in cephalic presentation demonstrating appropriate estimated weight/growth. Limited evaluation of the heart/ventricular outflow tracts again noted due to advanced age and positioning.
== END ==
LOC: M WHC 13:50
PROVIDERS: ATTEND Advanced Practice Midwife
DX: Z36.89 Encounter for other specified antenatal screening (principal); Z3A.31 31 weeks gestation of pregnancy

== ENCOUNTER 2020-05-20 11:49 | Outpatient (CLI) | payer OTHER ==
[~2020-05-20] VITALS: Ht 172.7 cm; Wt 61.2 kg
[2020-05-20 12:09] VITALS: BP 108/61
[2020-05-20] MEDS ORDERED: MAPA500T2 PO (12:18)
[2020-05-20] MEDS ORDERED: PROM1SUP2 PR (12:18)
[2020-05-20] MEDS: KETOROLAC 30 MG/ML 1ML VIAL IV ONE (13:01)
[2020-05-20] MEDS: LACTATED RINGER'S 1000 ML IV STA (13:01)
[2020-05-20 13:34] LABS: BASO % 0.1 % (0.0-1.0); HEMATOCRIT 40.1 % (36.0-47.0); HEMOGLOBIN 12.9 g/dl (12.0-15.5); LYMPH # 1.7 10^3/uL (1.5-5.0); LYMPH % 9.5 % (24.0-44.0); MEAN CORPUSCULAR HEMOGLOBIN 30.4 pg (27.0-33.0); MEAN CORPUSCULAR HGB CONC 32.2 g/dl (32.0-36.5); MEAN CORPUSCULAR VOLUME 94.4 fl (80.0-96.0); MONO # 0.5 10^3/uL (0.0-0.8); MONO % 2.9 % (0.0-5.0); NEUTROPHILS # 15.4 10^3/uL (1.5-8.5); NEUTROPHILS % 86.8 % (36.0-66.0); PLATELET COUNT, AUTOMATED 310 10^3/uL (150-450); RED BLOOD COUNT 4.25 10^6/uL (4.00-5.40); WHITE BLOOD COUNT 17.8 10^3/uL (4.0-10.0)
[2020-05-20 13:56] LABS: AMPHETAMINES URINE REFLEX NEGATIVE (NEGATIVE); BARBITURATES URINE REFLEX NEGATIVE (NEGATIVE); BENZODIAZEPINES URINE REFLEX NEGATIVE (NEGATIVE); COCAINE METABOLITE URINE REFLE NEGATIVE (NEGATIVE); METHADONE URINE REFLEX NEGATIVE (NEGATIVE); OPIATES URINE REFLEX NEGATIVE (NEGATIVE); PHENCYCLIDINE URINE REFLEX NEGATIVE (NEGATIVE)
[2020-05-20 14:03] LABS: CANNABINOIDS URINE REFLEX PENDING CONFIRMATION (NEGATIVE)
[2020-05-20 14:07] LABS: ALBUMIN 2.8 GM/DL (3.2-5.2); ALT/SGPT 15 U/L (12-78); BILIRUBIN,TOTAL 0.2 MG/DL (0.2-1.0); BLOOD UREA NITROGEN 6 MG/DL (7-18); CALCIUM LEVEL 9.5 MG/DL (8.5-10.1); CARBON DIOXIDE LEVEL 25 MEQ/L (21-32); CHLORIDE LEVEL 104 MEQ/L (98-107); CREATININE FOR GFR 0.71 MG/DL (0.55-1.30); GLOMERULAR FILTRATION RATE > 60.0 (>60); GLUCOSE, FASTING 93 MG/DL (70-100); LIPASE 62 U/L (73-393); POTASSIUM SERUM 3.8 MEQ/L (3.5-5.1); SODIUM LEVEL 139 MEQ/L (136-145); TOTAL PROTEIN 7.1 GM/DL (6.4-8.2)
[2020-05-20] MEDS: LR 1,000 ML IV SCH (14:16)
[2020-05-20 14:17] VITALS: BP 111/52
[2020-05-20] MEDS: CALCIUM CARBONATE 500 MG CHEW U/D PO PRN (14:33)
[2020-05-20] MEDS: MORPHINE 4 MG/ML 1ML VIAL/SYRINGE (J2270) IV PRN (14:33)
[2020-05-20 16:41] VITALS: BP 136/69
[2020-05-20] MEDS: PROMETHAZINE INJ 25 MG/ML VIAL (J2550) IV PRN (18:03)
[2020-05-20 18:26] VITALS: BP 100/57
--- NOTE | 2020-05-20 23:33 | IPN ---
DATE: 05/20/2020 A 25-year-old 2, para 1 female at 35-5/7 weeks gestation, presents with severe constant right upper quadrant pain for several hours. She is vomiting intermittently. This pain is not new for her; she has had this on and off throughout . She has had vomiting syndrome for years, even prior to . OBJECTIVE: She is afebrile. Vital signs stable. She appears uncomfortable. Head and Neck Exam: Normal. Lungs: Clear. Heart: Regular. Abdomen: Nontender. She is exquisitely tender along the costal margin to light palpation. LABORATORY: White blood count 17, labs otherwise normal. ASSESSMENT: A 25-year-old 2, para 1 at 35-5/7 weeks gestation with costochondritis. The patient has multiple psych issues, as well as a history of drug use. PLAN: The patient was given IV fluids. She was given pain management. Her pain improved during hospitalization. She felt comfortable and desired to go home the same day that she was evaluated.
[2020-05-23 23:09] LABS: Cannabinoid Positive (.); GC Carboxy THC >300 ng/mL (Cutoff=10)
== END 2020-05-20 20:40 | disposition home or self-care (01) ==
LOC: M LDO 11:49
PROVIDERS: ATTEND Specialist
DX: O26.893 Other specified pregnancy related conditions, third trimester (principal); R10.11 Right upper quadrant pain; O21.8 Other vomiting complicating pregnancy; Z3A.35 35 weeks gestation of pregnancy

== ENCOUNTER → 2020-05-26 | Outpatient (REF) | payer OTHER, MEDICAID ==
[~2020-05-26] MED LIST changes: +DOCU100C16 PO; +IBUP1TAB7 PO; +PROM1SUP2 PR
== END ==
LOC: M SFHCWAGY 16:51
PROVIDERS: ATTEND Obstetrics & Gynecology
DX: Z36.89 Encounter for other specified antenatal screening (principal); Z3A.36 36 weeks gestation of pregnancy

== ENCOUNTER 2020-05-29 20:24 | Outpatient (CLI) | payer MEDICAID, OTHER ==
[~2020-05-29] VITALS: Ht 165.1 cm; Wt 61.7 kg
[~2020-05-29 20:24] MED LIST changes: -DOCU100C16 PO; -IBUP1TAB7 PO
[2020-05-29 20:55] VITALS: BP 112/65
[2020-05-29] MEDS ORDERED: buPROPion 100 MG TAB PO SCH (21:00)
[2020-05-29] MEDS ORDERED: BUPRENORPHINE/NALOXONE 8-2MG SUBLINGUAL TABLET(SUBOXONE) SL SCH ×2 (21:00→22:00)
[2020-05-29] MEDS ORDERED: KETOROLAC 30 MG/ML 1ML VIAL As Ordered ONE (21:50)
[2020-05-29] MEDS: BUPRENORPHINE/NALOXONE 8-2MG SUBLINGUAL TABLET(SUBOXONE) SL ONE (21:53)
[2020-05-29] MEDS: KETOROLAC 60MG 2ML VIAL IM ONE (21:54)
[2020-05-29 22:13] LABS: AMPHETAMINES URINE REFLEX NEGATIVE (NEGATIVE); BARBITURATES URINE REFLEX NEGATIVE (NEGATIVE); BENZODIAZEPINES URINE REFLEX NEGATIVE (NEGATIVE); COCAINE METABOLITE URINE REFLE NEGATIVE (NEGATIVE); METHADONE URINE REFLEX NEGATIVE (NEGATIVE); OPIATES URINE REFLEX NEGATIVE (NEGATIVE); PHENCYCLIDINE URINE REFLEX NEGATIVE (NEGATIVE)
[2020-05-29 22:36] LABS: CANNABINOIDS URINE REFLEX PENDING CONFIRMATION (NEGATIVE)
[2020-05-30 02:23] VITALS: BP 89/53
[2020-05-30 07:48] VITALS: BP 118/64
[2020-05-30] MEDS ORDERED: SERTRALINE 100 MG TAB PO SCH (09:00)
[2020-05-30] MEDS ORDERED: PRENATAL VITAMINS CHEWABLE TABLET PO SCH (09:00)
[2020-05-30] MEDS ORDERED: ARIPiprazole 2 MG TAB PO SCH (09:00)
[2020-05-30] MEDS: BUPRENORPHINE/NALOXONE 8-2MG SUBLINGUAL TABLET(SUBOXONE) SL ONE (09:03)
[2020-05-30 09:05] VITALS: BP 101/58
--- NOTE | 2020-05-30 10:03 | IPN ---
DATE: 05/30/2020 25-year-old, G2, P1 female at 37-1/7 weeks gestation presents with right upper abdominal pain for the last day, which got worse. She had intermittent vomiting. The patient has a history of drug use as well as psychiatric issues. She takes Suboxone but has run out of her prescription. She is unable to get that filled until the following Sunday. OBJECTIVE: Vital signs: Blood pressure 112/65. Pulse 59. Afebrile. She appears mildly uncomfortable. Head and neck: Exam normal. Lungs: Clear. Heart: Regular. Abdomen: Nontender. Gravid. heart tones category 1. Contractions rare. Extremities: Nontender. ASSESSMENT: 25-year-old, G2, P1 female at 37-1/7 weeks gestation with costochondritis. Patient has multiple psychiatric issues as well as a history of drug use. PLAN: We will give Suboxone for pain management since the patient is on Suboxone for maintenance anyway. Also give one dose of Toradol to help with pain. Patient will be observed to assess response to pain management. She will followup with her Suboxone clinic on Sunday for maintenance.
[2020-06-03 04:07] LABS: Cannabinoid Positive (.); GC Carboxy THC >300 ng/mL (Cutoff=10)
== END 2020-05-30 10:00 | disposition home or self-care (01) ==
LOC: M LDO 20:24
PROVIDERS: ATTEND Specialist
DX: O21.9 Vomiting of pregnancy, unspecified (principal); O99.89 Other specified diseases and conditions complicating pregnancy, childbirth and the puerperium; M94.0 Chondrocostal junction syndrome [Tietze]; Z3A.37 37 weeks gestation of pregnancy; Z86.59 Personal history of other mental and behavioral disorders

== ENCOUNTER 2020-06-11 05:40 | Inpatient (IN) | payer MEDICAID, OTHER ==
[2020-06-11] VITALS (33 sets, daily range): BP systolic 97–138; BP diastolic 51–92
[~2020-06-11] VITALS: Ht 172.7 cm; Wt 63.6 kg
[~2020-06-11 05:40] MED LIST changes: +BUPR-69 PO; -BUPR50TA PO; +PANT40TA29 PO; -PANT40TA3 PO; -PROM25SU2 PR; +PROM25SU3 PR
[2020-06-11] MEDS: LR 1,000 ML IV SCH ×2 (08:11→13:03)
[2020-06-11] MEDS ORDERED: PROMETHAZINE INJ 25 MG/ML VIAL (J2550) IV ONE (08:15)
[2020-06-11] MEDS ORDERED: ceFAZolin SOD 2 GM in IV 1 EA IV ONE (08:15)
[2020-06-11] MEDS ORDERED: BUTORPHANOL 2 MG/ML INJ (J0595) IV ONE (08:15)
[2020-06-11] MEDS ORDERED: LACTATED RINGER'S 1000 ML IV ONE (08:15)
--- NOTE | 2020-06-11 08:15 | IPNPDOC ---
Text Note Date of Service The patient was seen on 06/11/20. NOTE Outpatient 25yo PEYTON 06/19/2020. Presents @ 38w6d with complaints of abdominal pain and cramping. Denies LOF, bleeding. Fetus is active. Appears uncomfortable, writhing in bed. Abdomen soft, gravid. No UC palpated. No UC on monitor. FH 135, Cat I SVE 2/50/-2. UA 2+blood, 3+ leuk esterase, 32WBC, 3+ bacteria Will hydrate, sedate. Treat urine. Evaluate for labor. Mari Gonsalez CNM Jun 11, 2020 08:15
[2020-06-11] MEDS: BUPRENORPHINE/NALOXONE 8-2MG SUBLINGUAL TABLET(SUBOXONE) SL SCH ×2 (08:40→21:43)
[2020-06-11 09:12] LABS: AMPHETAMINES URINE REFLEX NEGATIVE (NEGATIVE); BARBITURATES URINE REFLEX NEGATIVE (NEGATIVE); BENZODIAZEPINES URINE REFLEX NEGATIVE (NEGATIVE); COCAINE METABOLITE URINE REFLE NEGATIVE (NEGATIVE); METHADONE URINE REFLEX NEGATIVE (NEGATIVE); OPIATES URINE REFLEX NEGATIVE (NEGATIVE); PHENCYCLIDINE URINE REFLEX NEGATIVE (NEGATIVE)
[2020-06-11 09:48] LABS: CANNABINOIDS URINE REFLEX PENDING CONFIRMATION (NEGATIVE)
[2020-06-11] MEDS ORDERED: LR 1,000 ML IV SCH (11:17)
[2020-06-11] MEDS ORDERED: OXYTOCIN DRIP 30 UNITS in IV 1 EA IV SCH ×2 (11:30→15:50)
[2020-06-11 11:48] LABS: HEMATOCRIT 34.4 % (36.0-47.0); HEMOGLOBIN 11.3 g/dl (12.0-15.5); MEAN CORPUSCULAR HEMOGLOBIN 30.1 pg (27.0-33.0); MEAN CORPUSCULAR HGB CONC 32.8 g/dl (32.0-36.5); MEAN CORPUSCULAR VOLUME 91.7 fl (80.0-96.0); PLATELET COUNT, AUTOMATED 272 10^3/uL (150-450); RED BLOOD COUNT 3.75 10^6/uL (4.00-5.40); WHITE BLOOD COUNT 12.6 10^3/uL (4.0-10.0)
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
[2020-06-11] MEDS ORDERED: FENTANYL 2MCG/ML ROPIVACAINE 0.2% IN 0.9% NACL 100ML IVBAG As Ordered ONE (13:17)
--- NOTE | 2020-06-11 14:31 | IPNPDOC ---
Text Note Date of Service The patient was seen on 06/11/20. NOTE Progress Comfortable with intrathecal placement SROM during placement 1340, clear fluid. FH 145, moderate variability. Early decels with recovery UC irregular, pitocin started SVE unchanged Anticipate NSVB VS,Fishbone, I+O VS, Fishbone, I+O Laboratory Tests 06/11/20 11:34 Vital Signs Date Time Temp Pulse Resp B/P (MAP) Pulse Ox O2 Delivery O2 Flow Rate FiO2 06/11/20 13:59 99.0 83 18 107/60 (76) Mari Gonsalez CNM Jun 11, 2020 14:31
[2020-06-11] MEDS ORDERED: ePHEDrine SULFATE 25 MG/5 ML(5MG/ML) SYRINGE As Ordered ONE (15:22)
[2020-06-11] MEDS ORDERED: FENTANYL/ROPIVACAINE/NACL BAG 100 ML EPIDURAL SCH (15:30)
[2020-06-11] MEDS ORDERED: diphenhydrAMINE 50MG/ML VIAL (J1200) IV PRN ×3 (15:30→19:45)
[2020-06-11] MEDS ORDERED: REFRIGERATOR IV KEYS XX PRN (15:30)
[2020-06-11] MEDS ORDERED: ONDANSETRON 4MG/2ML VIAL IV PRN ×2 (15:30→19:15)
[2020-06-11] MEDS ORDERED: NALOXONE INJ 0.4MG/1ML VIAL (J2310 PER 1MG) IV PRN ×2 (15:30→19:45)
[2020-06-11] MEDS ORDERED: ePHEDrine SULFATE 25 MG/5 ML(5MG/ML) SYRINGE IV PRN (15:30)
[2020-06-11] MEDS ORDERED: EPIDURAL/PCA KEYS XX PRN ×2 (15:30→19:45)
[2020-06-11] MEDS ORDERED: EPIDURAL COMMENT XX SCH (15:30)
[2020-06-11] MEDS ORDERED: LACTATED RINGER'S 1000 ML IV PRN (15:30)
[2020-06-11] MEDS ORDERED: fentaNYL 100 MCG/2 ML INJECTION (J3010) As Ordered ONE ×3 (15:50→17:01)
[2020-06-11 15:58] LABS: CORD GAS PH A 7.366 UNITS
[2020-06-11 15:59] LABS: CORD GAS HCO3 A 18.5 MEQ/L; CORD GAS O2 SAT A 99.9 %; CORD GAS PO2 A 189.4 mmHg; CORD GAS SBC A 19.6 MEQ/L; CORD GAS TCO2 A 19.5 MEQ/L
[2020-06-11] MEDS ORDERED: propofoL 200 MG/20 ML VIAL As Ordered ONE ×2 (15:59→16:28)
[2020-06-11] MEDS ORDERED: OXYTOCIN INJ 10 UNITS/ML VIAL (J2590) As Ordered ONE ×2 (15:59→16:11)
[2020-06-11] MEDS ORDERED: LIDOCAINE PRES-FREE 2% 10ML AMP As Ordered ONE (15:59)
[2020-06-11] MEDS ORDERED: ACETAMINOPHEN TAB 650MG DOSE (2X325MG) PO PRN (16:00)
[2020-06-11] MEDS ORDERED: RHOGAM 300 MCG (1500 IU) INJ (J2790) IM SCH (16:00)
[2020-06-11] MEDS ORDERED: ACETAMINOPHEN 500 MG TAB PO PRN (16:00)
[2020-06-11] MEDS ORDERED: PERCOCET 5MG/325MG TAB PO PRN ×2 (16:00)
[2020-06-11] MEDS ORDERED: MEASLES,MUMPS,RUBELLA VACCINE INJ (MMR-II) (90707) SC SCH (16:00)
[2020-06-11] MEDS ORDERED: SUCCINYLCHOLINE 100 MG/5 ML SYRINGE (J0330) As Ordered ONE (16:00)
[2020-06-11] MEDS ORDERED: MOM 30ML SUSPENSION UDC PO PRN (16:00)
[2020-06-11] MEDS ORDERED: METHYLERGONOVINE MALEATE 0.2 MG TAB PO PRN (16:00)
--- NOTE | 2020-06-11 16:01 | IPNPDOC ---
Text Note Date of Service The patient was seen on 06/11/20. NOTE Progress Called to room for passage of large clot followed by loss of heart tones @ 1520. Attempted to find FH via doppler and ultrasound. Dr Hurd and Dr Livingston in room to a ssist. Slow FH noted on sono by Dr Livingston Stat called. NICU notified. VS,Fishbone, I+O VS, Fishbone, I+O Laboratory Tests 06/11/20 11:34 Vital Signs Date Time Temp Pulse Resp B/P (MAP) Pulse Ox O2 Delivery O2 Flow Rate FiO2 06/11/20 13:59 99.0 83 18 107/60 (76) Mari Gonsalez CNM Jun 11, 2020 16:01
[2020-06-11 16:02] LABS: CORD GAS ABE V -12.3; CORD GAS HCO3 V 20.6 MEQ/L; CORD GAS O2 SAT V 76.4 %; CORD GAS PCO2 V 95.6 mmHg; CORD GAS PH V 6.952 UNITS; CORD GAS PO2 V 50.7 mmHg; CORD GAS SBC V 14.4 MEQ/L; CORD GAS TCO2 V 23.6 MEQ/L
[2020-06-11] MEDS ORDERED: KETOROLAC 60MG 2ML VIAL As Ordered ONE (16:07)
[2020-06-11] MEDS ORDERED: ONDANSETRON 4MG/2ML VIAL As Ordered ONE ×2 (16:07→17:09)
[2020-06-11] MEDS ORDERED: ceFAZolin 1GM VIAL (J0690 PER 500MG) As Ordered ONE (16:10)
[2020-06-11] MEDS ORDERED: APPROPRIATE DILUENT As Ordered ONE (16:11)
[2020-06-11] MEDS ORDERED: MIDAZOLAM INJ 2MG/2ML VIAL (J2250 PER 1MG) As Ordered ONE (16:14)
--- NOTE | 2020-06-11 16:17 | IPNPDOC ---
Text Note Date of Service The patient was seen on 06/11/20. NOTE Assist note. Came into room to assist in finding baby heart beat at 1531. Alen Anayadeshaungege Mari CNM (primary provider) and Bong Parr MD (consulting intern provider) in the room. TAUS: shows faint heart beat at around 30 BPM. Providers in agreement for emergent section for concerns. Patient verbally consented by Dr. Hurd. Patient rushed back to OR for emergent delivery under general anesthesia. I assisted Dr. Hurd during the section. Please see Dr. Hurd dictation for details. DO Yara VS,Josiasbone, I+O VS, Fishbone, I+O Laboratory Tests 06/11/20 11:34 Vital Signs Date Time Temp Pulse Resp B/P (MAP) Pulse Ox O2 Delivery O2 Flow Rate FiO2 06/11/20 13:59 99.0 83 18 107/60 (76) JULIANNA MATTHEWS DO Jun 11, 2020 16:17
[2020-06-11] MEDS ORDERED: ACETAMINOPHEN 1000MG 100ML IV BTL (OFIRMEV) (J0131 PER 10MG) As Ordered ONE (17:02)
[2020-06-11] MEDS: fentaNYL 100 MCG/2 ML INJECTION (J3010) IV PRN ×5 (17:05→20:06)
[2020-06-11] MEDS ORDERED: PROMETHAZINE INJ 25 MG/ML VIAL (J2550) As Ordered ONE (17:08)
[2020-06-11] MEDS: PROMETHAZINE INJ 25 MG/ML VIAL (J2550) IV PRN ×2 (17:13→17:35)
[2020-06-11] MEDS ORDERED: ACETAMINOPHEN *IV* 1,000 MG IV ONE ×2 (17:15)
[2020-06-11] MEDS: HYDROMORPHONE HCL 0.5 MG/ 0.5 ML SYRINGE (J1170 PER 1) IV PRN ×5 (17:20→17:45)
[2020-06-11] MEDS ORDERED: HYDROMORPHONE HCL 0.5 MG/ 0.5 ML SYRINGE (J1170 PER 1) As Ordered ONE ×3 (17:20→17:53)
[2020-06-11] MEDS ORDERED: CALCIUM CARBONATE 500 MG CHEW U/D PO ONE (18:15)
[2020-06-11] MEDS ORDERED: ceFAZolin SOD 1 GM in D5W MINI-BAG PLUS 50 ML IV SCH (19:30)
[2020-06-11] MEDS: DOCUSATE SODIUM 100 MG CAP PO SCH (21:44)
[2020-06-11] MEDS: ONDANSETRON 4MG/2ML VIAL IV PRN (22:18)
[2020-06-11] MEDS: KETOROLAC 30 MG/ML 1ML VIAL IV SCH (22:18)
[2020-06-11] MEDS: NS 1,000 ML IV SCH (22:19)
[2020-06-11] MEDS: MORPHINE 1MG/ML IN 0.9% NACL 100ML IV BAG IV PRN (22:45)
[2020-06-12] VITALS (9 sets, daily range): BP systolic 112–138; BP diastolic 64–88
[2020-06-12] MEDS: KETOROLAC 30 MG/ML 1ML VIAL IV SCH ×3 (04:38→23:03)
--- NOTE | 2020-06-12 07:22 | IPNPDOC ---
Text Note Date of Service The patient was seen on 06/12/20. NOTE PO #1 Reports adequate pain management. Dhillon draining clear yellow urine. Has been out of bed with assist. VSS, afebrile, normotensive Breasts soft Fundus firm, NT Dressing dry and intact Lochia rubra scant without odor PO #1 Routine care. Transition to oral pain medications. Consider discharge in am VS,Fishbone, I+O VS, Fishbone, I+O Laboratory Tests 06/11/20 11:34 Vital Signs Date Time Temp Pulse Resp B/P (MAP) Pulse Ox O2 Delivery O2 Flow Rate FiO2 06/12/20 05:30 97.2 40 14 138/64 (88) 96 Room Air I&O- Last 24 Hours up to 6 AM 06/12/20 06:00 Intake Total 4490 ml Output Total 3675 ml Balance 815 ml Mari Gonsalez CNM Jun 12, 2020 07:21
[2020-06-12 07:40] LABS: HEMATOCRIT 32.4 % (36.0-47.0); HEMOGLOBIN 10.4 g/dl (12.0-15.5); MEAN CORPUSCULAR HEMOGLOBIN 30.1 pg (27.0-33.0); MEAN CORPUSCULAR HGB CONC 32.1 g/dl (32.0-36.5); MEAN CORPUSCULAR VOLUME 93.6 fl (80.0-96.0); PLATELET COUNT, AUTOMATED 246 10^3/uL (150-450); RED BLOOD COUNT 3.46 10^6/uL (4.00-5.40); WHITE BLOOD COUNT 15.7 10^3/uL (4.0-10.0)
[2020-06-12] MEDS: PRENATAL VITAMINS CHEWABLE TABLET PO SCH (08:16)
[2020-06-12] MEDS: ARIPiprazole 2 MG TAB PO SCH (08:17)
[2020-06-12] MEDS: DOCUSATE SODIUM 100 MG CAP PO SCH ×2 (08:17→21:17)
[2020-06-12] MEDS: BUPRENORPHINE/NALOXONE 8-2MG SUBLINGUAL TABLET(SUBOXONE) SL SCH ×2 (08:17→18:08)
[2020-06-12] MEDS: SERTRALINE 100 MG TAB PO SCH (08:17)
[2020-06-12] MEDS ORDERED: BOOSTRIX/ADACEL VACCINE (DIPHTH/PERTUSS/ACELL/TETANUS) 0.5ML SYR IM ONE (09:00)
[2020-06-12] MEDS ORDERED: buPROPion 100 MG TAB PO SCH (09:00)
[2020-06-12] MEDS: buPROPion (WELLBUTRIN SR) 100 MG SR TAB PO SCH ×2 (09:54→21:17)
[2020-06-12] MEDS: NICOTINE POLACRILEX 2 MG GUM PO PRN ×2 (09:54→18:11)
[2020-06-12] MEDS: ceFAZolin SOD 2 GM in IV 1 EA IV SCH ×2 (09:54→17:00)
--- NOTE | 2020-06-12 11:23 | REP ---
REASON: Assess for foreign body status post . Seen in the mid upper abdomen, there is a curvilinear radiodensity superimposed over the 2nd and 3rd lumbar vertebral bodies. The etiology of this curvilinear density is uncertain. It could represent a foreign body. It needs to be correlated clinically. Scattered air densities are seen in the abdomen and pelvis secondary to the patient's . The osseous structures are within normal limits. IMPRESSION: Single curvilinear radiodensity in the upper mid abdomen, etiology uncertain. Clinical correlation necessary. Foreign body cannot be ruled out. It cannot be stated by this examination whether this density is within or superimposed upon the patient. These findings have been discussed w Dr. Garcia at the time the exam was submitted for review Electronically Signed by Jeanmarie Tuttle DO 06/12/2020 11:53 A
[2020-06-12] MEDS: ONDANSETRON 4MG/2ML VIAL IV PRN (16:50)
[2020-06-12] MEDS ORDERED: IBUPROFEN 800 MG TAB PO SCH (18:00)
[2020-06-12] MEDS: MORPHINE 1MG/ML IN 0.9% NACL 100ML IV BAG IV PRN (19:10)
[2020-06-12] MEDS: NS 1,000 ML IV SCH (21:17)
[2020-06-13] VITALS: BP 110/59
[2020-06-13] MEDS: ceFAZolin SOD 2 GM in IV 1 EA IV SCH (00:40)
[2020-06-13 04:00] VITALS: BP 121/71
[2020-06-13] MEDS: KETOROLAC 30 MG/ML 1ML VIAL IV SCH ×2 (04:55→14:54)
[2020-06-13 08:00] VITALS: BP 126/73
[2020-06-13] MEDS: NICOTINE POLACRILEX 2 MG GUM PO PRN (09:20)
[2020-06-13] MEDS: PRENATAL VITAMINS CHEWABLE TABLET PO SCH (09:26)
[2020-06-13] MEDS: buPROPion (WELLBUTRIN SR) 100 MG SR TAB PO SCH (09:26)
[2020-06-13] MEDS: BUPRENORPHINE/NALOXONE 8-2MG SUBLINGUAL TABLET(SUBOXONE) SL SCH ×2 (09:26→15:34)
[2020-06-13] MEDS: SERTRALINE 100 MG TAB PO SCH (09:33)
[2020-06-13] MEDS: ARIPiprazole 2 MG TAB PO SCH (09:33)
[2020-06-13] MEDS: DOCUSATE SODIUM 100 MG CAP PO SCH (09:33)
[2020-06-13] MEDS ORDERED: DOCU100C16 PO (11:01)
[2020-06-13] MEDS ORDERED: IBUP1TAB7 PO (11:01)
[2020-06-14 00:07] LABS: Cannabinoid Positive (.); GC Carboxy THC >300 ng/mL (Cutoff=10)
== END 2020-06-13 15:40 | disposition home or self-care (01) | DRG 540 ==
LOC: M LDO 05:40 → M LDI 11:57 → M PED 17:00
PROVIDERS: ADMIT Advanced Practice Midwife; ATTEND Advanced Practice Midwife
PROC: 10D00Z1 Extraction of Products of Conception, Low, Open Approach (ICD-10-PCS; principal; 2020-06-11 16:48)
DX: O76 Abnormality in fetal heart rate and rhythm complicating labor and delivery (principal); O45.8X3 Other premature separation of placenta, third trimester; O36.5930 Maternal care for other known or suspected poor fetal growth, third trimester, not applicable or unspecified; Z37.0 Single live birth; Z88.0 Allergy status to penicillin; Z88.8 Allergy status to other drugs, medicaments and biological substances; Z79.899 Other long term (current) drug therapy; Z3A.38 38 weeks gestation of pregnancy; Z91.19 Patient's noncompliance with other medical treatment and regimen

== ENCOUNTER 2020-06-14 19:37 | Emergency (ER) | payer OTHER ==
[~2020-06-14] VITALS: Ht 172.7 cm; Wt 59.1 kg
[~2020-06-14 19:37] MED LIST changes: +DOCU100C16 PO; +IBUP1TAB7 PO
[2020-06-14 20:28] LABS: BASO % 0.1 % (0.0-1.0); EOS % 0.2 % (0.0-3.0); HEMATOCRIT 32.3 % (36.0-47.0); HEMOGLOBIN 10.9 g/dl (12.0-15.5); LYMPH # 1.3 10^3/uL (1.5-5.0); LYMPH % 12.7 % (24.0-44.0); MEAN CORPUSCULAR HEMOGLOBIN 30.1 pg (27.0-33.0); MEAN CORPUSCULAR HGB CONC 33.7 g/dl (32.0-36.5); MEAN CORPUSCULAR VOLUME 89.2 fl (80.0-96.0); MONO # 0.6 10^3/uL (0.0-0.8); MONO % 5.7 % (0.0-5.0); NEUTROPHILS # 8.3 10^3/uL (1.5-8.5); NEUTROPHILS % 80.8 % (36.0-66.0); PLATELET COUNT, AUTOMATED 315 10^3/uL (150-450); RED BLOOD COUNT 3.62 10^6/uL (4.00-5.40); WHITE BLOOD COUNT 10.3 10^3/uL (4.0-10.0)
[2020-06-14] MEDS ORDERED: KETOROLAC 30 MG/ML 1ML VIAL IV ONE (20:30)
[2020-06-14] MEDS ORDERED: METOCLOPRAMIDE INJ 10MG/2ML VIAL (J2765 PER 1) IV ONE (20:30)
[2020-06-14] MEDS ORDERED: NS 1,000 ML IV ONE (20:30)
[2020-06-14 20:57] LABS: ALBUMIN 2.5 GM/DL (3.2-5.2); ALT/SGPT 11 U/L (12-78); BILIRUBIN,DIRECT < 0.1 MG/DL (0.0-0.2); BILIRUBIN,TOTAL 0.5 MG/DL (0.2-1.0); BLOOD UREA NITROGEN 8 MG/DL (7-18); CALCIUM LEVEL 8.7 MG/DL (8.5-10.1); CARBON DIOXIDE LEVEL 26 MEQ/L (21-32); CHLORIDE LEVEL 107 MEQ/L (98-107); CREATININE FOR GFR 0.67 MG/DL (0.55-1.30); GLOMERULAR FILTRATION RATE > 60.0 (>60); GLUCOSE, FASTING 91 MG/DL (70-100); LIPASE 66 U/L (73-393); POTASSIUM SERUM 3.9 MEQ/L (3.5-5.1); SODIUM LEVEL 139 MEQ/L (136-145); TOTAL PROTEIN 6.3 GM/DL (6.4-8.2)
--- NOTE | 2020-06-14 21:25 | REPVR ---
PROCEDURE INFORMATION: Exam: CT Head Without Contrast Exam date and time: 06/14/2020 9:09 PM Age: 25 years old Clinical indication: Pain; Headache; Additional info: Severe headache TECHNIQUE: Imaging protocol: Computed tomography of the head without contrast. Axial and coronal reformatted images were created and reviewed. Radiation optimization: All CT scans at this facility use at least one of these dose optimization techniques: automated exposure control; mA and/or kV adjustment per patient size (includes targeted exams where dose is matched to clinical indication); or iterative reconstruction. COMPARISON: No relevant prior studies available. FINDINGS: Brain: Benign appearing calcifications in the basal ganglia bilaterally. No CT evidence of acute intracranial hemorrhage or acute territorial infarction. No significant mass effect or midline shift. Basal cisterns patent. Ventricles: Normal in size and configuration. Bones/joints: No acute osseous abnormality. Sinuses: Grossly unremarkable. Mastoid air cells: Grossly unremarkable. Soft tissues: Grossly unremarkable. IMPRESSION: 1. No CT evidence of acute intracranial pathology. 2. Additional findings, as above. Electronically signed by: Guero Portillo On 06/14/2020 21:25:26 PM
[2020-06-14 23:00] VITALS: BP 145/89
== END 2020-06-14 23:44 | disposition home or self-care (01) ==
LOC: M ED 19:37
DX: O89.4 Spinal and epidural anesthesia-induced headache during the puerperium (principal); F33.9 Major depressive disorder, recurrent, unspecified; K21.9 Gastro-esophageal reflux disease without esophagitis; F17.210 Nicotine dependence, cigarettes, uncomplicated; Z88.1 Allergy status to other antibiotic agents; Z88.8 Allergy status to other drugs, medicaments and biological substances; Z79.899 Other long term (current) drug therapy
CPT/HCPCS: 70450; 80048; 80076; 83690; 85025; 86850; 86900; 86901; 96361; 96374; 96375; 99284; J1885; J2765

== ENCOUNTER 2020-06-16 20:25 | Emergency (ER) | payer OTHER ==
[~2020-06-16] VITALS: Ht 172.7 cm; Wt 59.1 kg
[2020-06-16 20:25] VITALS: BP 152/90
[~2020-06-16 20:25] MED LIST changes: -BUPR-69 PO; +BUPR50TA PO; -PANT40TA29 PO; +PANT40TA3 PO; +PROM25SU2 PR; -PROM25SU3 PR
[2020-06-17] MEDS ORDERED: BUPR8SUB SL (02:48)
[2020-06-17] MEDS ORDERED: ONDA-83 PO (10:17)
[2020-06-17] MEDS ORDERED: ABIL1TAB13 PO (10:17)
[2020-06-17] MEDS ORDERED: SERT-138 PO (10:17)
[2020-06-17] MEDS ORDERED: DOCU100C16 PO (10:17)
[2020-06-17] MEDS ORDERED: IBUP1TAB7 PO (10:17)
== END 2020-06-16 21:20 | disposition left against medical advice (07) ==
LOC: M ED 20:25
DX: Z53.21 Procedure and treatment not carried out due to patient leaving prior to being seen by health care provider (principal)

== ENCOUNTER 2020-06-17 02:29 | Emergency (ER) | payer OTHER ==
[~2020-06-17] VITALS: Ht 172.7 cm; Wt 59.1 kg
[~2020-06-17 02:29] MED LIST changes: -BUPR8SUB SL; -CIPR-249 PO; -DIPH50CA PO; -KETO10TAB PO; -METR-265 PO; -ONDA-83 PO; -PRED20TA PO
[2020-06-17] MEDS ORDERED: BUPR8SUB SL (02:48)
[2020-06-17] MEDS ORDERED: METOCLOPRAMIDE INJ 10MG/2ML VIAL (J2765 PER 1) As Ordered ONE (04:07)
[2020-06-17] MEDS ORDERED: KETOROLAC 30 MG/ML 1ML VIAL As Ordered ONE (04:07)
[2020-06-17] MEDS ORDERED: NS 1,000 ML IV ONE (04:15)
[2020-06-17] MEDS ORDERED: KETOROLAC 30 MG/ML 1ML VIAL IV ONE (04:15)
[2020-06-17] MEDS ORDERED: dexameTHASONE 20MG/5ML VIAL (J1100 PER 1MG) IV ONE (04:15)
[2020-06-17] MEDS ORDERED: METOCLOPRAMIDE INJ 10MG/2ML VIAL (J2765 PER 1) IV ONE (04:15)
[2020-06-17 06:36] LABS: BASO % 0.2 % (0.0-1.0); EOS # 0.1 10^3/uL (0.0-0.5); EOS % 0.6 % (0.0-3.0); HEMATOCRIT 31.7 % (36.0-47.0); HEMOGLOBIN 10.3 g/dl (12.0-15.5); LYMPH # 1.3 10^3/uL (1.5-5.0); LYMPH % 16.6 % (24.0-44.0); MEAN CORPUSCULAR HEMOGLOBIN 29.9 pg (27.0-33.0); MEAN CORPUSCULAR HGB CONC 32.5 g/dl (32.0-36.5); MEAN CORPUSCULAR VOLUME 92.2 fl (80.0-96.0); MONO # 0.3 10^3/uL (0.0-0.8); MONO % 3.1 % (0.0-5.0); NEUTROPHILS # 6.4 10^3/uL (1.5-8.5); NEUTROPHILS % 79.1 % (36.0-66.0); PLATELET COUNT, AUTOMATED 296 10^3/uL (150-450); RED BLOOD COUNT 3.44 10^6/uL (4.00-5.40); WHITE BLOOD COUNT 8.1 10^3/uL (4.0-10.0)
[2020-06-17 06:49] LABS: INR 1.09; PROTHROMBIN TIME 13.8 SECONDS (11.8-14.0)
[2020-06-17 06:53] LABS: BLOOD UREA NITROGEN 5 MG/DL (7-18); CALCIUM LEVEL 7.7 MG/DL (8.5-10.1); CARBON DIOXIDE LEVEL 24 MEQ/L (21-32); CHLORIDE LEVEL 110 MEQ/L (98-107); CREATININE FOR GFR 0.56 MG/DL (0.55-1.30); GLOMERULAR FILTRATION RATE > 60.0 (>60); GLUCOSE, FASTING 84 MG/DL (70-100); POTASSIUM SERUM 3.7 MEQ/L (3.5-5.1); SODIUM LEVEL 139 MEQ/L (136-145)
[2020-06-17] MEDS ORDERED: PROMETHAZINE INJ 25 MG/ML VIAL (J2550) IV ONE (08:30)
[2020-06-17] MEDS ORDERED: IBUP1TAB7 PO (10:17)
[2020-06-17] MEDS ORDERED: ONDA-83 PO (10:17)
[2020-06-17] MEDS ORDERED: DOCU100C16 PO (10:17)
[2020-06-17] MEDS ORDERED: SERT-138 PO (10:17)
[2020-06-17] MEDS ORDERED: ABIL1TAB13 PO (10:17)
[2020-06-17 11:02] VITALS: BP 159/81
== END 2020-06-17 11:08 | disposition home or self-care (01) ==
LOC: M ED 02:29 → EDBD 02:29 → M ED 11:08
DX: O89.4 Spinal and epidural anesthesia-induced headache during the puerperium (principal); F41.9 Anxiety disorder, unspecified; F33.9 Major depressive disorder, recurrent, unspecified; Z11.59 Encounter for screening for other viral diseases; F17.210 Nicotine dependence, cigarettes, uncomplicated; Z88.0 Allergy status to penicillin; Z88.8 Allergy status to other drugs, medicaments and biological substances; Z79.899 Other long term (current) drug therapy
CPT/HCPCS: 80048; 85025; 85610; 85730; 96361; 96374; 96375; 99285; J1100; J1885; J2765; U0002

== ENCOUNTER → 2020-06-17 | Outpatient (CLI) | payer OTHER ==
[~2020-06-17] MED LIST changes: +BUPR-69 PO; -BUPR50TA PO; +BUPR8SUB SL; +CIPR-249 PO; +DIPH50CA PO; +KETO10TAB PO; +METR-265 PO; +ONDA-83 PO; +PANT40TA29 PO; -PANT40TA3 PO; +PRED20TA PO; -PROM25SU2 PR; +PROM25SU3 PR
== END | disposition home or self-care (01) ==
LOC: M OPCLI4PV 11:24
PROVIDERS: ATTEND Anesthesiology
DX: G97.1 Other reaction to spinal and lumbar puncture (principal); K21.9 Gastro-esophageal reflux disease without esophagitis; Z88.0 Allergy status to penicillin; Z79.899 Other long term (current) drug therapy; F32.9 Major depressive disorder, single episode, unspecified; F90.9 Attention-deficit hyperactivity disorder, unspecified type; F43.10 Post-traumatic stress disorder, unspecified; F41.9 Anxiety disorder, unspecified

== ENCOUNTER 2020-07-26 10:36 | Emergency (ER) | payer OTHER ==
[~2020-07-26] VITALS: Ht 172.7 cm; Wt 52.3 kg
[~2020-07-26 10:36] MED LIST changes: +BUPR8SUB SL; +ONDA-83 PO
[2020-07-26] MEDS ORDERED: NS 1,000 ML IV ONE (11:15)
[2020-07-26] MEDS ORDERED: KETOROLAC 30 MG/ML 1ML VIAL IV ONE (11:15)
[2020-07-26] MEDS ORDERED: PROMETHAZINE INJ 25 MG/ML VIAL (J2550) IV ONE (11:15)
[2020-07-26] MEDS ORDERED: ISOVUE-370 76% 100ML VIAL As Ordered ONE (11:24)
[2020-07-26] MEDS ORDERED: BUPRENORPHINE/NALOXONE 8-2MG SUBLINGUAL TABLET(SUBOXONE) SL ONE (11:30)
[2020-07-26 11:42] LABS: BASO % 0.3 % (0.0-1.0); EOS % 0.3 % (0.0-3.0); HEMATOCRIT 39.1 % (36.0-47.0); HEMOGLOBIN 13.4 g/dl (12.0-15.5); LYMPH # 1.2 10^3/uL (1.5-5.0); LYMPH % 12.7 % (24.0-44.0); MEAN CORPUSCULAR HEMOGLOBIN 29.7 pg (27.0-33.0); MEAN CORPUSCULAR HGB CONC 34.3 g/dl (32.0-36.5); MEAN CORPUSCULAR VOLUME 86.7 fl (80.0-96.0); MONO # 0.3 10^3/uL (0.0-0.8); MONO % 3.1 % (0.0-5.0); NEUTROPHILS # 8.1 10^3/uL (1.5-8.5); NEUTROPHILS % 83.4 % (36.0-66.0); PLATELET COUNT, AUTOMATED 366 10^3/uL (150-450); RED BLOOD COUNT 4.51 10^6/uL (4.00-5.40); WHITE BLOOD COUNT 9.7 10^3/uL (4.0-10.0)
--- NOTE | 2020-07-26 11:51 | REPVR ---
PROCEDURE INFORMATION: Exam: US Abdomen, Limited; Right Upper Quadrant Exam date and time: 07/26/2020 11:41 AM Age: 25 years old Clinical indication: Abdominal pain; Additional info: Ruq pain TECHNIQUE: Imaging protocol: US abdomen. Real time ultrasound with image documentation. Limited exam focused on the right upper quadrant. COMPARISON: GALLBLADDER US 03/24/2020 10:37 PM FINDINGS: Limitations: Patient reportedly refused full exam and would not lie flat or hold still. Liver: The liver is homogeneous in echotexture where visualized. No demonstrated mass or intrahepatic biliary ductal dilatation. Gallbladder: The gallbladder contains stones. It was not fully evaluated, including for wall thickening or pericholecystic fluid. Sonographic [place] sign was not commented on. Common bile duct: The common bile duct could not be identified. Pancreas: The pancreas is largely obscured by overlying bowel gas. Right kidney: The right kidney was not visualized. IMPRESSION: Limited exam as above. Cholelithiasis present, as on 03/24/20. Electronically signed by: Guero Garcia On 07/26/2020 11:51:23 AM
[2020-07-26 11:59] LABS: ALBUMIN 3.9 GM/DL (3.2-5.2); BILIRUBIN,DIRECT 0.1 MG/DL (0.0-0.2); BILIRUBIN,TOTAL 0.4 MG/DL (0.2-1.0); TOTAL PROTEIN 7.7 GM/DL (6.4-8.2)
--- NOTE | 2020-07-26 12:35 | REPVR ---
PROCEDURE INFORMATION: Exam: CT Abdomen And Pelvis With Contrast Exam date and time: 07/26/2020 11:12 AM Age: 25 years old Clinical indication: Abdominal pain TECHNIQUE: Imaging protocol: Computed tomography of the abdomen and pelvis with intravenous contrast. Radiation optimization: All CT scans at this facility use at least one of these dose optimization techniques: automated exposure control; mA and/or kV adjustment per patient size (includes targeted exams where dose is matched to clinical indication); or iterative reconstruction. Contrast material: ISOVUE 370; Contrast volume: 100 ml; Contrast route: INTRAVENOUS (IV); COMPARISON: CT Abdomen without contrast 07/31/2017 2:53 PM FINDINGS: Lungs: The visualized lung bases are essentially clear. Liver: The liver demonstrates some focal fatty change along the falciform. It appears otherwise unremarkable. Gallbladder and bile ducts: No gallstones are evident, but ultrasound would be more sensitive. No gross biliary ductal dilatation. Pancreas: Normal. No ductal dilation. Spleen: Normal. No splenomegaly. Adrenals: Normal. No mass. Kidneys and ureters: Normal. No hydronephrosis. Stomach and bowel: The unopacified small bowel is not significantly distended to suggest obstruction. There is probably wall thickening, rather than simply underdistention, involving much of the transverse, descending and sigmoid colon. Appendix: No evidence of appendicitis. Intraperitoneal space: There is no free air. Small free fluid in the pelvis is not clearly outside physiologic limits. Vasculature: Unremarkable. No abdominal aortic aneurysm. Lymph nodes: Unremarkable. No enlarged lymph nodes. Bladder: Grossly unremarkable. Reproductive: No gross adnexal abnormality is apparent, but ultrasound would be more appropriate in this regard. Bones/joints: Unremarkable. No acute fracture. Soft tissues: Unremarkable. Other findings: There is a mild levoscoliotic curvature versus positional change. IMPRESSION: Probable wall thickening, rather than simply underdistention, involving much of the transverse, descending and sigmoid colon. Correlate as to possible non-specific colitis. Electronically signed by: Guero Garcia On 07/26/2020 12:35:25 PM
[2020-07-26] MEDS ORDERED: METR-265 PO (14:44)
[2020-07-26] MEDS ORDERED: KETO10TAB PO (14:44)
[2020-07-26] MEDS ORDERED: CIPR-249 PO (14:44)
[2020-07-26] MEDS ORDERED: metroNIDAZOLE (FLAGYL) 500MG TABLET PO ONE (14:45)
[2020-07-26] MEDS ORDERED: CIPROFLOXACIN 500MG TABLET PO ONE (14:45)
[2020-07-26 15:14] VITALS: BP 151/84
== END 2020-07-26 15:30 | disposition home or self-care (01) ==
LOC: M ED 10:36
DX: K52.9 Noninfective gastroenteritis and colitis, unspecified (principal); F43.10 Post-traumatic stress disorder, unspecified; F32.9 Major depressive disorder, single episode, unspecified; Z79.899 Other long term (current) drug therapy; Z88.1 Allergy status to other antibiotic agents; Z88.8 Allergy status to other drugs, medicaments and biological substances
CPT/HCPCS: 74177; 76705; 80047; 80076; 81001; 83690; 84702; 85025; 93041; 96361; 96374; 96375; 99284; J1885; Q9967

== ENCOUNTER 2020-09-01 21:26 | Emergency (ER) | payer OTHER ==
[~2020-09-01] VITALS: Ht 172.7 cm; Wt 51.4 kg
[~2020-09-01 21:26] MED LIST changes: +CIPR-249 PO; +KETO10TAB PO; +METR-265 PO
[2020-09-01] MEDS ORDERED: PRED20TA PO (21:38)
[2020-09-01] MEDS ORDERED: DIPH50CA PO (21:38)
[2020-09-02] MEDS ORDERED: diphenhydrAMINE 50MG CAP PO ONE (00:45)
[2020-09-02 01:53] VITALS: BP 131/84
[2020-09-02 02:27] LABS: CHLAMYDIA DNA AMPLIFICATION NEGATIVE (NEGATIVE); GC DNA AMPLIFICATION NEGATIVE (NEGATIVE)
[2020-09-02 12:37] LABS: HEPATITIS B SURFACE ANTIBODY NEGATIVE (POSITIVE); HEPATITIS B SURFACE ANTIGEN NEGATIVE (NEGATIVE); HEPATITIS C VIRUS ABY INDEX 0.1 INDEX (<0.8); HIV 1&2 SCREEN CENTAUR NEGATIVE (NEGATIVE)
[2020-09-05 13:07] LABS: HSV-1 DNA Negative (Negative); HSV-2 DNA Negative (Negative)
== END 2020-09-02 02:05 | disposition home or self-care (01) ==
LOC: M ED 21:26
DX: L29.9 Pruritus, unspecified (principal); F41.9 Anxiety disorder, unspecified; F17.200 Nicotine dependence, unspecified, uncomplicated; F12.10 Cannabis abuse, uncomplicated; Z88.1 Allergy status to other antibiotic agents; Z88.8 Allergy status to other drugs, medicaments and biological substances; Z79.899 Other long term (current) drug therapy

== ENCOUNTER 2020-10-16 11:02 | Emergency (ER) | payer OTHER ==
[~2020-10-16] VITALS: Ht 172.7 cm; Wt 52.3 kg
[~2020-10-16 11:02] MED LIST changes: +DIPH50CA PO; +PRED20TA PO
[2020-10-16] MEDS ORDERED: ARIP1TAB6 PO (11:11)
[2020-10-16] MEDS ORDERED: BUPR1SUB35 SL (11:11)
[2020-10-16] MEDS ORDERED: ARIP1TAB4 (11:11)
[2020-10-16] MEDS ORDERED: NS 1,000 ML IV ONE (11:30)
[2020-10-16] MEDS ORDERED: PROMETHAZINE INJ 25 MG/ML VIAL (J2550) IV ONE (11:45)
[2020-10-16 11:55] LABS: BASO % 0.2 % (0.0-1.0); EOS % 0.1 % (0.0-3.0); HEMATOCRIT 39.1 % (36.0-47.0); HEMOGLOBIN 12.7 g/dl (12.0-15.5); LYMPH # 0.9 10^3/uL (1.5-5.0); LYMPH % 9.7 % (24.0-44.0); MEAN CORPUSCULAR HEMOGLOBIN 29.3 pg (27.0-33.0); MEAN CORPUSCULAR HGB CONC 32.5 g/dl (32.0-36.5); MEAN CORPUSCULAR VOLUME 90.1 fl (80.0-96.0); MONO # 0.2 10^3/uL (0.0-0.8); MONO % 2.5 % (0.0-5.0); NEUTROPHILS # 7.7 10^3/uL (1.5-8.5); NEUTROPHILS % 87.2 % (36.0-66.0); PLATELET COUNT, AUTOMATED 341 10^3/uL (150-450); RED BLOOD COUNT 4.34 10^6/uL (4.00-5.40); WHITE BLOOD COUNT 8.9 10^3/uL (4.0-10.0)
[2020-10-16 12:14] LABS: AMPHETAMINES LEVEL URINE NEGATIVE (NEGATIVE); BARBITURATES URINE NEGATIVE (NEGATIVE); BENZODIAZEPINES URINE POSITIVE (NEGATIVE); CANNABINOIDS URINE POSITIVE (NEGATIVE); COCAINE METABOLITE URINE POSITIVE (NEGATIVE); METHADONE URINE NEGATIVE (NEGATIVE); OPIATES URINE POSITIVE (NEGATIVE); PHENCYCLIDINE URINE NEGATIVE (NEGATIVE)
[2020-10-16] MEDS ORDERED: LORazepam 2 MG/ML VIAL IM STA (12:26)
[2020-10-16] MEDS ORDERED: BUPRENORPHINE/NALOXONE 8-2MG SUBLINGUAL TABLET(SUBOXONE) SL STA ×2 (12:34→23:09)
[2020-10-16 12:45] LABS: BLOOD UREA NITROGEN 17 MG/DL (7-18); CREATININE FOR GFR 0.82 MG/DL (0.55-1.30); GLUCOSE, FASTING 105 MG/DL (70-100)
[2020-10-16] MEDS ORDERED: CAPSAICIN 0.025% CR 60 GM TOP ONE (12:45)
[2020-10-16 12:46] LABS: ACETAMINOPHEN LEVEL < 2.0 UG/ML (10.0-30.0); ALBUMIN 4.5 GM/DL (3.2-5.2); ALT/SGPT 27 U/L (12-78); BILIRUBIN,DIRECT 0.1 MG/DL (0.0-0.2); BILIRUBIN,TOTAL 0.4 MG/DL (0.2-1.0); CALCIUM LEVEL 9.3 MG/DL (8.5-10.1); CARBON DIOXIDE LEVEL 22 MEQ/L (21-32); CHLORIDE LEVEL 109 MEQ/L (98-107); CK-MB VALUE MASS 1.5 NG/ML (<3.6); CPK CREATINE PHOSPHOKINASE 124 U/L (26-192); ETHYL ALCOHOL (ETHANOL) < 0.003 % (0.000-0.010); GLOMERULAR FILTRATION RATE > 60.0 (>60); LIPASE 93 U/L (73-393); MB/CK RELATIVE INDEX 1.21 (< OR =4); SALICYLATE LEVEL 3.1 MG/DL (5.0-30.0); SODIUM LEVEL 139 MEQ/L (136-145); TOTAL PROTEIN 8.1 GM/DL (6.4-8.2); TROPONIN I < 0.02 NG/ML (< 0.10)
[2020-10-16 13:18] LABS: HCG, SERUM QUALITATIVE NEGATIVE (NEGATIVE)
--- NOTE | 2020-10-16 15:06 | ECGEPIP ---
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
[2020-10-16 17:46] LABS: CK-MB VALUE MASS 1.2 NG/ML (<3.6); CPK CREATINE PHOSPHOKINASE 97 U/L (26-192); MB/CK RELATIVE INDEX 1.24 (< OR =4); TROPONIN I < 0.02 NG/ML (< 0.10)
[2020-10-16] MEDS ORDERED: SERT-138 PO (18:06)
--- NOTE | 2020-10-17 06:35 | ECGEPIP ---
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
[2020-10-17] MEDS ORDERED: SERTRALINE HCL 50 MG TAB PO SCH (09:00)
[2020-10-17] MEDS: BUPRENORPHINE/NALOXONE 8-2MG SUBLINGUAL TABLET(SUBOXONE) SL SCH ×2 (09:04→20:05)
[2020-10-17 20:27] VITALS: BP 112/67
== END 2020-10-17 20:36 ==
LOC: M ED 11:02
DX: R45.851 Suicidal ideations (principal); F11.23 Opioid dependence with withdrawal; R10.9 Unspecified abdominal pain; R07.9 Chest pain, unspecified; R94.31 Abnormal electrocardiogram [ECG] [EKG]; Z20.828 Contact with and (suspected) exposure to other viral communicable diseases; Z88.1 Allergy status to other antibiotic agents; Z88.8 Allergy status to other drugs, medicaments and biological substances; Z79.899 Other long term (current) drug therapy
CPT/HCPCS: 80048; 80076; 80307; 81001; 82550; 82553; 83690; 84443; 84702; 84703; 85025; 93005; 93041; 94760; 96361; 96374; 99285; G0480; U0002

== ENCOUNTER 2021-02-01 18:30 | Inpatient (IN) | payer OTHER ==
[~2021-02-01] VITALS: Ht 172.7 cm; Wt 51.8 kg
[~2021-02-01 18:30] MED LIST changes: +ARIP1TAB4; +ARIP1TAB6 PO; -BUPR-321 PO; +BUPR100T10 PO; +BUPR1SUB35 SL; +GABA-282 PO; -GABA-843 PO; -MAG400TA PO; +MAGN400T35 PO
[2021-02-01] MEDS ORDERED: DEPO150I12 IM ×2 (18:47→21:56)
[2021-02-01] MEDS ORDERED: PARO20TA3 (18:47)
[2021-02-01] MEDS ORDERED: BUPR1FIL3 SL (21:56)
[2021-02-01] MEDS ORDERED: ADDE20TA PO (21:56)
[2021-02-01] MEDS ORDERED: PARO20TA3 PO (21:56)
[2021-02-02] MEDS ORDERED: ACETAMINOPHEN TAB 650MG DOSE (2X325MG) PO PRN (02:40)
[2021-02-02] MEDS ORDERED: MAALOX 30 ML SUSP *UDC PO PRN (02:40)
[2021-02-02] MEDS ORDERED: MOM 30ML SUSPENSION UDC PO PRN (02:40)
[2021-02-02] MEDS ORDERED: traZODone 50 MG TAB PO PRN (02:40)
[2021-02-02] MEDS ORDERED: OLANZapine ORAL DISINTEGRATING TAB 5MG PO PRN (02:40)
[2021-02-02 04:04] VITALS: BP 105/63
[2021-02-02 06:00] VITALS: BP 108/57
[2021-02-02] MEDS: PARoxetine 20MG TABLET PO SCH (08:01)
[2021-02-02] MEDS: NICOTINE 21MG/24HR 1 EA TRANSDERMAL TD SCH (08:02)
[2021-02-02] MEDS: BUPRENORPHINE/NALOXONE 2-0.5MG SUBLINGUAL TABLET(SUBOXONE) SL SCH ×2 (08:30→21:00)
[2021-02-02] MEDS: ADDERALL 5 MG TAB PO SCH ×2 (10:11→14:22)
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
[2021-02-02 17:53] VITALS: BP 118/70
[2021-02-03 06:23] VITALS: BP 109/77
[2021-02-03 07:07] LABS: CHOLESTEROL RISK RATIO 3.166 (<5)
[2021-02-03] MEDS: PARoxetine 20MG TABLET PO SCH (08:06)
[2021-02-03] MEDS: ARIPiprazole 10 MG TAB PO SCH (08:06)
[2021-02-03] MEDS: BUPRENORPHINE/NALOXONE 2-0.5MG SUBLINGUAL TABLET(SUBOXONE) SL SCH ×2 (08:07→20:51)
[2021-02-03] MEDS: ADDERALL 5 MG TAB PO SCH ×2 (08:07→14:13)
[2021-02-03] MEDS: NICOTINE 21MG/24HR 1 EA TRANSDERMAL TD SCH (08:07)
[2021-02-03] MEDS: CARBAMIDE PEROXIDE 6.5% OTIC SOLN 15ML AU SCH ×2 (09:00→21:00)
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
[2021-02-03] MEDS: ALBUTEROL 90 MCG/ACT 8GM HFA INHALER INH SCH ×2 (14:13→20:51)
[2021-02-03 18:42] VITALS: BP 107/55
[2021-02-03] MEDS ORDERED: diphenhydrAMINE 25MG CAP PO PRN (21:25)
[2021-02-04 06:41] VITALS: BP 97/53
[2021-02-04] MEDS: ALBUTEROL 90 MCG/ACT 8GM HFA INHALER INH SCH (08:46)
[2021-02-04] MEDS: ARIPiprazole 10 MG TAB PO SCH (08:47)
[2021-02-04] MEDS: ADDERALL 5 MG TAB PO SCH (08:47)
[2021-02-04] MEDS: NICOTINE 21MG/24HR 1 EA TRANSDERMAL TD SCH (08:49)
[2021-02-04] MEDS: BUPRENORPHINE/NALOXONE 2-0.5MG SUBLINGUAL TABLET(SUBOXONE) SL SCH (08:49)
[2021-02-04] MEDS: CARBAMIDE PEROXIDE 6.5% OTIC SOLN 15ML AU SCH (08:50)
[2021-02-04] MEDS ORDERED: PARoxetine 20MG TABLET PO SCH (09:00)
[2021-02-04] MEDS ORDERED: ARIP1TAB PO (10:14)
[2021-02-04] MEDS ORDERED: VENTAER INH (10:14)
[2021-02-04] MEDS ORDERED: NICO4GUM42 MT (10:14)
[2021-02-04] MEDS ORDERED: PARO40TA3 PO (10:14)
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
== END 2021-02-04 12:05 | disposition home or self-care (01) | DRG 753 ==
LOC: M ED 18:30 → M ED INP 18:31 → M PSY 02-02 04:00
PROVIDERS: ADMIT Psychiatry & Neurology Psychiatry; ATTEND Psychiatry & Neurology Psychiatry
DX: F31.9 Bipolar disorder, unspecified (principal); R45.851 Suicidal ideations; F43.10 Post-traumatic stress disorder, unspecified; F17.200 Nicotine dependence, unspecified, uncomplicated; F41.1 Generalized anxiety disorder; F90.9 Attention-deficit hyperactivity disorder, unspecified type; Z79.899 Other long term (current) drug therapy; Z88.0 Allergy status to penicillin; Z88.8 Allergy status to other drugs, medicaments and biological substances; F12.90 Cannabis use, unspecified, uncomplicated; J45.909 Unspecified asthma, uncomplicated; H61.23 Impacted cerumen, bilateral

== ENCOUNTER 2021-02-15 11:31 | Inpatient (IN) | payer OTHER ==
[~2021-02-15] VITALS: Ht 172.7 cm; Wt 50.9 kg
[~2021-02-15 11:31] MED LIST changes: +ADDE20TA PO; +ARIP1TAB PO; +BUPR1FIL3 SL; +DEPO150I12 IM; +NICO4GUM42 MT; +PARO20TA3; +PARO40TA3 PO; +VENTAER INH
[2021-02-15 12:22] LABS: HEMATOCRIT 40.6 % (36.0-47.0); HEMOGLOBIN 13.7 g/dl (12.0-15.5); MEAN CORPUSCULAR HEMOGLOBIN 31.4 pg (27.0-33.0); MEAN CORPUSCULAR HGB CONC 33.7 g/dl (32.0-36.5); MEAN CORPUSCULAR VOLUME 92.9 fl (80.0-96.0); PLATELET COUNT, AUTOMATED 262 10^3/uL (150-450); RED BLOOD COUNT 4.37 10^6/uL (4.00-5.40); WHITE BLOOD COUNT 6.6 10^3/uL (4.0-10.0)
[2021-02-15] MEDS ORDERED: NICOTINE POLACRILEX 2 MG GUM PO ONE (13:15)
[2021-02-15 13:19] LABS: ACETAMINOPHEN LEVEL < 2.0 UG/ML (10.0-30.0); ALBUMIN 4.1 GM/DL (3.2-5.2); ALT/SGPT 24 U/L (12-78); BILIRUBIN,DIRECT 0.1 MG/DL (0.0-0.2); BILIRUBIN,TOTAL 0.3 MG/DL (0.2-1.0); BLOOD UREA NITROGEN 21 MG/DL (7-18); CARBON DIOXIDE LEVEL 30 MEQ/L (21-32); CHLORIDE LEVEL 107 MEQ/L (98-107); ETHYL ALCOHOL (ETHANOL) < 0.003 % (0.000-0.010); GLOMERULAR FILTRATION RATE > 60.0 (>60); GLUCOSE, FASTING 93 MG/DL (70-100); HCG, SERUM QUANTITATIVE < 1.0 MIU/ML; POTASSIUM SERUM 4.2 MEQ/L (3.5-5.1); SALICYLATE LEVEL < 1.7 MG/DL (5.0-30.0); SODIUM LEVEL 141 MEQ/L (136-145); TOTAL PROTEIN 7.6 GM/DL (6.4-8.2)
[2021-02-15] MEDS ORDERED: ALBU8.5H INH (13:25)
[2021-02-15] MEDS ORDERED: NICO4GUM41 MT (13:25)
[2021-02-15] MEDS ORDERED: PARO40TA2 PO (13:25)
[2021-02-15] MEDS ORDERED: BUPR150T12 PO (13:25)
[2021-02-15] MEDS ORDERED: ARIP1TAB PO (13:25)
[2021-02-15 16:48] LABS: AMPHETAMINES LEVEL URINE POSITIVE (NEGATIVE); BARBITURATES URINE NEGATIVE (NEGATIVE); BENZODIAZEPINES URINE NEGATIVE (NEGATIVE); CANNABINOIDS URINE POSITIVE (NEGATIVE); COCAINE METABOLITE URINE NEGATIVE (NEGATIVE); METHADONE URINE NEGATIVE (NEGATIVE); OPIATES URINE NEGATIVE (NEGATIVE); PHENCYCLIDINE URINE NEGATIVE (NEGATIVE)
[2021-02-15 17:58] LABS: RSV AMPLIFICATION NEGATIVE (NEGATIVE)
[2021-02-15] MEDS ORDERED: MAALOX 30 ML SUSP *UDC PO PRN (18:55)
[2021-02-15] MEDS ORDERED: ALBUTEROL 90 MCG/ACT 8GM HFA INHALER INH PRN (18:55)
[2021-02-15] MEDS ORDERED: MOM 30ML SUSPENSION UDC PO PRN (18:55)
[2021-02-15] MEDS ORDERED: ACETAMINOPHEN TAB 650MG DOSE (2X325MG) PO PRN (18:55)
[2021-02-15] MEDS ORDERED: NICOTINE POLACRILEX 2 MG GUM PO PRN (18:55)
[2021-02-15] MEDS ORDERED: traZODone 50 MG TAB PO PRN (18:55)
--- NOTE | 2021-02-15 20:16 | ECGEPIP ---
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
[2021-02-15 21:32] VITALS: BP 102/78
[2021-02-16 06:59] VITALS: BP 109/64
[2021-02-16] MEDS: BUPRENORPHINE/NALOXONE 8-2MG SUBLINGUAL TABLET(SUBOXONE) SL SCH (09:31)
[2021-02-16] MEDS: buPROPion **XL** TABLET 150MG (WELLBUTRIN XL) PO SCH (09:32)
[2021-02-16] MEDS: PARoxetine 20MG TABLET PO SCH (09:32)
[2021-02-16] MEDS: ARIPiprazole 10 MG TAB PO SCH (09:32)
[2021-02-16] MEDS: ADDERALL 5 MG TAB PO SCH ×2 (09:32→14:20)
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
[2021-02-16] MEDS: NICOTINE 21MG/24HR 1 EA TRANSDERMAL TD SCH (12:45)
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
[2021-02-16 16:54] VITALS: BP 105/57
[2021-02-16] MEDS: hydrOXYzine 50 MG TAB PO SCH ×2 (18:16→23:44)
[2021-02-17] MEDS: hydrOXYzine 50 MG TAB PO SCH ×5 (06:00→18:42)
[2021-02-17 06:49] VITALS: BP 104/63
[2021-02-17] MEDS: NICOTINE 21MG/24HR 1 EA TRANSDERMAL TD SCH (10:27)
[2021-02-17] MEDS: ARIPiprazole 10 MG TAB PO SCH (10:27)
[2021-02-17] MEDS: PARoxetine 20MG TABLET PO SCH (10:27)
[2021-02-17] MEDS: buPROPion **XL** TABLET 150MG (WELLBUTRIN XL) PO SCH (10:28)
[2021-02-17] MEDS: BUPRENORPHINE/NALOXONE 8-2MG SUBLINGUAL TABLET(SUBOXONE) SL SCH (10:28)
[2021-02-17] MEDS: ADDERALL 5 MG TAB PO SCH ×2 (10:28→14:21)
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
[2021-02-17 18:21] VITALS: BP 105/63
[2021-02-18] MEDS: hydrOXYzine 50 MG TAB PO SCH ×6 (05:49→23:14)
[2021-02-18] MEDS: NICOTINE 21MG/24HR 1 EA TRANSDERMAL TD SCH (08:43)
[2021-02-18] MEDS: ADDERALL 5 MG TAB PO SCH ×2 (08:43→14:29)
[2021-02-18] MEDS: buPROPion **XL** TABLET 150MG (WELLBUTRIN XL) PO SCH (08:43)
[2021-02-18] MEDS: PARoxetine 20MG TABLET PO SCH (08:43)
[2021-02-18] MEDS: ARIPiprazole 10 MG TAB PO SCH (08:43)
[2021-02-18] MEDS: BUPRENORPHINE/NALOXONE 8-2MG SUBLINGUAL TABLET(SUBOXONE) SL SCH (09:32)
[2021-02-18] MEDS ORDERED: OLANZapine ORAL DISINTEGRATING TAB 5MG PO PRN (12:35)
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
[2021-02-18] MEDS ORDERED: BUPR150T12 PO (14:35)
[2021-02-18 16:40] VITALS: BP 112/72
[2021-02-19] MEDS: hydrOXYzine 50 MG TAB PO SCH ×3 (05:44→17:28)
[2021-02-19] MEDS: PARoxetine 20MG TABLET PO SCH (08:11)
[2021-02-19] MEDS: ARIPiprazole 10 MG TAB PO SCH (08:11)
[2021-02-19] MEDS: ADDERALL 5 MG TAB PO SCH ×2 (08:12→15:17)
[2021-02-19] MEDS: NICOTINE 21MG/24HR 1 EA TRANSDERMAL TD SCH (08:12)
[2021-02-19] MEDS: buPROPion **XL** TABLET 150MG (WELLBUTRIN XL) PO SCH (08:12)
[2021-02-19] MEDS: BUPRENORPHINE/NALOXONE 8-2MG SUBLINGUAL TABLET(SUBOXONE) SL SCH (09:17)
[2021-02-19] MEDS: GABAPENTIN 300 MG CAP PO SCH ×3 (11:38→21:36)
[2021-02-19 17:41] VITALS: BP 117/70
[2021-02-20] MEDS: hydrOXYzine 50 MG TAB PO SCH ×5 (06:00→15:33)
[2021-02-20] MEDS: ADDERALL 5 MG TAB PO SCH ×2 (08:19→15:22)
[2021-02-20] MEDS: BUPRENORPHINE/NALOXONE 8-2MG SUBLINGUAL TABLET(SUBOXONE) SL SCH (08:19)
[2021-02-20] MEDS: buPROPion **XL** TABLET 150MG (WELLBUTRIN XL) PO SCH (08:19)
[2021-02-20] MEDS: PARoxetine 20MG TABLET PO SCH (08:20)
[2021-02-20] MEDS: ARIPiprazole 10 MG TAB PO SCH (08:20)
[2021-02-20] MEDS: NICOTINE 21MG/24HR 1 EA TRANSDERMAL TD SCH (08:20)
[2021-02-20] MEDS: GABAPENTIN 300 MG CAP PO SCH ×3 (08:20→21:00)
--- NOTE | 2021-02-20 10:58 | MHIPN ---
[facility] PROGRESS NOTE DATE: 02/19/2021 The patient today states, "I'm not doing bad today." She says she is less depressed and she slept good. She wants me to start her on Neurontin, she says she took this before and it helped her with her anxiety. MENTAL STATUS EXAMINATION: She is alert and oriented times three. She is pleasant and cooperative, verbally spontaneous. There is no formal thought disorder noted. She says her mood is "better." Affect is appropriate to mood. She is not psychotic, suicidal, or homicidal. Concentration and memory is good. Insight and judgment good. DIAGNOSES: Unspecified bipolar disorder. Posttraumatic stress disorder (PTSD). Cannabis use disorder. Attention deficit hyperactivity disorder (ADHD). Generalized anxiety disorder. Opioid use disorder by history. TREATMENT PLAN: At this point, I will go ahead and start her on the gabapentin 300 mg three times a day and we will continue to monitor the patient for continued resolution of suicidal ideations. The patient is supposed to be going to an inpatient rehabilitation program on Sunday.
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
[2021-02-20 17:24] VITALS: BP 95/51
[2021-02-21] MEDS: hydrOXYzine 50 MG TAB PO SCH ×2 (05:55)
[2021-02-21] MEDS: buPROPion **XL** TABLET 150MG (WELLBUTRIN XL) PO SCH (07:36)
[2021-02-21] MEDS: ADDERALL 5 MG TAB PO SCH (07:36)
[2021-02-21] MEDS: GABAPENTIN 300 MG CAP PO SCH (07:36)
[2021-02-21] MEDS: PARoxetine 20MG TABLET PO SCH (07:37)
[2021-02-21] MEDS: NICOTINE 21MG/24HR 1 EA TRANSDERMAL TD SCH (07:37)
[2021-02-21] MEDS: BUPRENORPHINE/NALOXONE 8-2MG SUBLINGUAL TABLET(SUBOXONE) SL SCH (07:38)
[2021-02-21] MEDS: ARIPiprazole 10 MG TAB PO SCH (07:38)
== END 2021-02-21 09:08 | disposition home or self-care (01) | DRG 753 ==
LOC: M ED 11:31 → M ED INP 19:05 → M PSY 21:14
PROVIDERS: ADMIT Psychiatry & Neurology Psychiatry; ATTEND Psychiatry & Neurology Psychiatry
DX: F31.9 Bipolar disorder, unspecified (principal); E46 Unspecified protein-calorie malnutrition; F43.10 Post-traumatic stress disorder, unspecified; F12.90 Cannabis use, unspecified, uncomplicated; F17.200 Nicotine dependence, unspecified, uncomplicated; F41.1 Generalized anxiety disorder; J45.909 Unspecified asthma, uncomplicated; Z79.899 Other long term (current) drug therapy; Z88.0 Allergy status to penicillin; Z88.8 Allergy status to other drugs, medicaments and biological substances; K44.9 Diaphragmatic hernia without obstruction or gangrene

== ENCOUNTER 2021-03-08 10:20 | Inpatient (IN) | payer OTHER ==
[~2021-03-08] VITALS: Ht 172.7 cm; Wt 57.8 kg
[2021-03-08] MEDS: NICOTINE 21MG/24HR 1 EA TRANSDERMAL TD SCH (09:00)
[~2021-03-08 10:20] MED LIST changes: +ALBU8.5H INH; +BUPR150T12 PO; +BUPRENORPHINE/NALOXONE 8-2MG SUBLINGUAL TABLET(SUBOXONE) SL ONE; +NICO4GUM41 MT; +PARO40TA2 PO
[2021-03-08] MEDS ORDERED: ADDE20CA3 PO (10:26)
[2021-03-08] MEDS ORDERED: PARoxetine 20MG TABLET PO ONE (11:25)
[2021-03-08] MEDS ORDERED: BUPRENORPHINE/NALOXONE 2-0.5MG SUBLINGUAL TABLET(SUBOXONE) SL ONE (11:25)
[2021-03-08] MEDS ORDERED: ARIPiprazole 10 MG TAB PO ONE (11:25)
[2021-03-08] MEDS ORDERED: BUPRENORPHINE/NALOXONE 8-2MG SUBLINGUAL TABLET(SUBOXONE) SL ONE (11:25)
[2021-03-08 11:26] LABS: HEMATOCRIT 47.3 % (36.0-47.0); HEMOGLOBIN 15.1 g/dl (12.0-15.5); MEAN CORPUSCULAR HEMOGLOBIN 30.7 pg (27.0-33.0); MEAN CORPUSCULAR HGB CONC 31.9 g/dl (32.0-36.5); MEAN CORPUSCULAR VOLUME 96.1 fl (80.0-96.0); PLATELET COUNT, AUTOMATED 280 10^3/uL (150-450); RED BLOOD COUNT 4.92 10^6/uL (4.00-5.40); WHITE BLOOD COUNT 7.2 10^3/uL (4.0-10.0)
[2021-03-08] MEDS ORDERED: AMPHETAMINE/DEXTROAMPHETAMINE 5 MG *ER* CAPSULE (ADDERALL XR) PO ONE (11:30)
[2021-03-08] MEDS ORDERED: buPROPion **XL** TABLET 150MG (WELLBUTRIN XL) PO ONE (11:30)
[2021-03-08 11:49] LABS: HCG, SERUM QUALITATIVE NEGATIVE (NEGATIVE)
[2021-03-08] MEDS ORDERED: PILL CUTTER 1 EACH XX ONE (11:50)
[2021-03-08 11:58] LABS: BLOOD UREA NITROGEN 16 MG/DL (7-18); CALCIUM LEVEL 9.8 MG/DL (8.5-10.1); CARBON DIOXIDE LEVEL 18 MEQ/L (21-32); CHLORIDE LEVEL 107 MEQ/L (98-107); CREATININE FOR GFR 0.88 MG/DL (0.55-1.30); GLOMERULAR FILTRATION RATE > 60.0 (>60); GLUCOSE, FASTING 84 MG/DL (70-100); POTASSIUM SERUM 4.5 MEQ/L (3.5-5.1); SODIUM LEVEL 137 MEQ/L (136-145)
[2021-03-08 12:05] LABS: AMPHETAMINES LEVEL URINE NEGATIVE (NEGATIVE); BARBITURATES URINE NEGATIVE (NEGATIVE); BENZODIAZEPINES URINE NEGATIVE (NEGATIVE); CANNABINOIDS URINE POSITIVE (NEGATIVE); COCAINE METABOLITE URINE NEGATIVE (NEGATIVE); METHADONE URINE NEGATIVE (NEGATIVE); OPIATES URINE NEGATIVE (NEGATIVE); PHENCYCLIDINE URINE NEGATIVE (NEGATIVE)
[2021-03-08 13:15] LABS: ACETAMINOPHEN LEVEL < 2.0 UG/ML (10.0-30.0); ALBUMIN 4.3 GM/DL (3.2-5.2); ALT/SGPT 36 U/L (12-78); BILIRUBIN,DIRECT 0.2 MG/DL (0.0-0.2); BILIRUBIN,TOTAL 0.5 MG/DL (0.2-1.0); ETHYL ALCOHOL (ETHANOL) < 0.003 % (0.000-0.010); SALICYLATE LEVEL 2.2 MG/DL (5.0-30.0); TOTAL PROTEIN 8.3 GM/DL (6.4-8.2)
[2021-03-08] MEDS ORDERED: ONDANSETRON 4 MG ORAL DISINTEGRATING TAB PO ONE (13:55)
[2021-03-08] MEDS ORDERED: BUPR150T12 PO (15:35)
[2021-03-08] MEDS ORDERED: ADDE20TA PO (15:35)
[2021-03-08] MEDS ORDERED: MOM 30ML SUSPENSION UDC PO PRN (16:25)
[2021-03-08] MEDS ORDERED: traZODone 50 MG TAB PO PRN (16:25)
[2021-03-08] MEDS ORDERED: IBUPROFEN 400MG TAB PO PRN (16:25)
[2021-03-08] MEDS ORDERED: MAALOX 30 ML SUSP *UDC PO PRN (16:25)
[2021-03-08 22:58] VITALS: BP 123/79
[2021-03-09 06:16] VITALS: BP 121/68
[2021-03-09] MEDS: NICOTINE 21MG/24HR 1 EA TRANSDERMAL TD SCH (08:33)
[2021-03-09] MEDS: PARoxetine 20MG TABLET PO SCH (08:34)
[2021-03-09] MEDS ORDERED: ARIPiprazole 10 MG TAB PO SCH (09:00)
[2021-03-09] MEDS ORDERED: buPROPion **XL** TABLET 150MG (WELLBUTRIN XL) PO SCH (09:00)
[2021-03-09] MEDS ORDERED: BUPRENORPHINE/NALOXONE 8-2MG SUBLINGUAL TABLET(SUBOXONE) SL SCH (09:00)
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
[2021-03-09] MEDS: BUPRENORPHINE/NALOXONE 8-2MG SUBLINGUAL TABLET(SUBOXONE) SL SCH (10:17)
[2021-03-09] MEDS: ARIPiprazole 15 MG TAB (AbiLIFY) PO SCH (10:17)
[2021-03-09] MEDS: PILL CUTTER 1 EACH XX PRN (10:18)
[2021-03-09 16:34] VITALS: BP 116/66
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
[2021-03-10] MEDS: ARIPiprazole 15 MG TAB (AbiLIFY) PO SCH (08:41)
[2021-03-10] MEDS: NICOTINE 21MG/24HR 1 EA TRANSDERMAL TD SCH (08:42)
[2021-03-10] MEDS: PARoxetine 20MG TABLET PO SCH (08:42)
[2021-03-10] MEDS: PILL CUTTER 1 EACH XX PRN (09:52)
[2021-03-10] MEDS: BUPRENORPHINE/NALOXONE 8-2MG SUBLINGUAL TABLET(SUBOXONE) SL SCH (09:53)
[2021-03-10] MEDS ORDERED: ADDERALL 5 MG TAB PO ONE (14:30)
--- NOTE | 2021-03-10 17:01 | MHIPN ---
PROGRESS NOTE DATE: 03/10/2021 SUBJECTIVE: "I'm depressed, I can't concentrate, I need my Adderall." OBJECTIVE: The patient is a 25-year-old female mother of two children living with her fiance and her children, who was admitted because of suicidal thoughts. She was brought by her mother. The patient has a long history of mental illness and has been diagnosed with bipolar 1 disorder. She also has an extensive history of substance abuse. She is currently on Suboxone. She has had multiple psychiatric hospitalizations. Now currently, she reports she is depressed, but she does not have any suicidal thoughts. MENTAL STATUS EXAMINATION: Casually dressed. Fairly well groomed. Made good eye contact. Psychomotor activity is retarded. Speech rate, rhythm, and volume are good. Mood is depressed. Affect is constricted. Thought process is linear and goal directed. Thought content denied any suicidal or homicidal ideas. Perception denied any auditory or visual hallucinations. Insight and judgment are limited. Memory immediate, remote, and recent are good. Attention is good. VITAL SIGNS: Temperature 97.9, pulse 60, respiratory rate 16, blood pressure 116/66, pulse oximetry 995. LABORATORY DATA: CBC within normal limits. CMP within normal limits. Toxicology: She was positive for cannabis. DIAGNOSES: 1. Bipolar 1 disorder most recent episode depressed. 2. Panic disorder with agoraphobia. 3. Opioid use disorder. 4. Cannabis use disorder. PLAN: To add Adderall 10 mg twice daily. Increase her fluoxetine to 20 mg once daily. Estimated length of stay four to five days. Time spent: 25 minutes.
[2021-03-10 18:32] VITALS: BP 137/84
[2021-03-11] MEDS: ARIPiprazole 15 MG TAB (AbiLIFY) PO SCH (08:18)
[2021-03-11] MEDS: PARoxetine 20MG TABLET PO SCH (08:18)
[2021-03-11] MEDS: ADDERALL 5 MG TAB PO SCH ×2 (08:18→14:06)
[2021-03-11] MEDS: NICOTINE 21MG/24HR 1 EA TRANSDERMAL TD SCH (08:18)
[2021-03-11] MEDS: BUPRENORPHINE/NALOXONE 8-2MG SUBLINGUAL TABLET(SUBOXONE) SL SCH (09:53)
--- NOTE | 2021-03-11 15:12 | MHIPNPDOC ---
[facility] Progress Note Progress Note DATE OF SERVICE: 03/11/21 SUBJECTIVE: "I'm depressed but Adderall is helping me" OBJECTIVE: The patient is a 25-year-old female mother of two children living with her fiance and her children, who was admitted because of suicidal thoughts. She was brought by her mother. The patient has a long history of mental illness and has been diagnosed with bipolar 1 disorder. She also has an extensive history of substance abuse. She is currently on Suboxone. She has had multiple psychiatric hospitalizations. Now currently, she reports she is depressed, but she does not have any suicidal thoughts. Reports her energy is improved. MENTAL STATUS EXAMINATION: Casually dressed. Fairly well groomed. Made good eye contact. Psychomotor activity is retarded. Speech rate, rhythm, and volume are good. Mood is depressed. Affect is constricted. Thought process is linear and goal directed. Thought content denied any suicidal or homicidal ideas. Perception denied any auditory or visual hallucinations. Insight and judgment are limited. Memory immediate, remote, and recent are good. Attention is good. VITAL SIGNS: Temperature 97.9, pulse 60, respiratory rate 16, blood pressure 116/66, pulse oximetry 995. LABORATORY DATA: CBC within normal limits. CMP within normal limits. Toxicology: She was positive for cannabis. DIAGNOSES: 1. Bipolar 1 disorder most recent episode depressed. 2. Panic disorder with agoraphobia. 3. Opioid use disorder. 4. Cannabis use disorder. PLAN: Continue Adderall 10 mg twice daily. Increase her fluoxetine to 20 mg once daily. Estimated length of stay four to five days. Time spent: 25 minutes. HISTORY: . Vital Signs Vital Signs Date Time Temp Pulse Resp B/P (MAP) Pulse Ox O2 Delivery O2 Flow Rate FiO2 03/10/21 18:32 98.7 81 18 137/84 (101) 03/09/21 16:34 99 Room Air Current Medications Current Medications Medications (Trade) Dose Ordered Sig/Kim Route PRN Reason Start Time Stop Time Status Last Admin Dose Admin Al Hydrox/Mg Hydrox/Simethicone (Mylanta) 30 ml Q4HP PRN PO HEARTBURN/INDIGESTION 03/08/21 16:25 Amphetamine/ Dextroamphetamine (Adderall) 10 mg BID@0800,1400 PO 03/11/21 08:00 03/11/21 14:06 Aripiprazole (AbiLIFY) 10 mg DAILY PO 03/09/21 09:00 03/09/21 08:21 DC Aripiprazole (AbiLIFY) 15 mg DAILY PO 03/09/21 09:00 03/11/21 08:18 Buprenorphine/ Naloxone (Suboxone 8/2mg) 1 tab DAILY SL 03/09/21 09:00 03/09/21 09:01 DC Buprenorphine/ Naloxone (Suboxone 8/2mg) 1.5 tab DAILY SL 03/09/21 09:00 03/11/21 09:53 Bupropion HCl (Wellbutrin Xl) 150 mg DAILY PO 03/09/21 09:00 03/09/21 08:21 DC Home Med (Med Rec Complete!) ASDIRECTED XX 03/08/21 15:40 03/08/21 15:37 DC Ibuprofen (Advil) 400 mg Q6HP PRN PO PAIN 03/08/21 16:25 Magnesium Hydroxide (Milk Of Magnesia) 30 ml DAILYPRN PRN PO CONSTIPATION 03/08/21 16:25 Nicotine (Nicoderm Cq 21mg) 1 patch DAILY TD 03/08/21 09:00 03/11/21 08:18 Paroxetine HCl (PAXil) 40 mg DAILY PO 03/09/21 09:00 03/11/21 08:18 Trazodone HCl (Desyrel) 50 mg QHSP PRN PO INSOMNIA 03/08/21 16:25 Allergies Coded Allergies: haloperidol (Verified Adverse Reaction, Severe, tardive dyskinesia, 07/26/20) amoxicillin (Verified Adverse Reaction, Mild, STOMACH PAINS/VOMITING, 07/26/20) clavulanic acid (Verified Adverse Reaction, Mild, STOMACH PAINS/VOMITING, 07/26/20) PETE CRAFT MD Mar 11, 2021 15:12
[2021-03-11 16:16] VITALS: BP 117/76
[2021-03-12] MEDS: BUPRENORPHINE/NALOXONE 8-2MG SUBLINGUAL TABLET(SUBOXONE) SL SCH (08:50)
[2021-03-12] MEDS: ARIPiprazole 15 MG TAB (AbiLIFY) PO SCH (08:50)
[2021-03-12] MEDS: PILL CUTTER 1 EACH XX PRN (08:50)
[2021-03-12] MEDS: PARoxetine 20MG TABLET PO SCH (08:51)
[2021-03-12] MEDS: NICOTINE 21MG/24HR 1 EA TRANSDERMAL TD SCH (08:52)
[2021-03-12] MEDS: ADDERALL 5 MG TAB PO SCH ×2 (08:52→14:08)
[2021-03-12 16:11] VITALS: BP 112/68
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
[2021-03-13] MEDS: PARoxetine 20MG TABLET PO SCH (08:15)
[2021-03-13] MEDS: NICOTINE 21MG/24HR 1 EA TRANSDERMAL TD SCH (08:15)
[2021-03-13] MEDS: ADDERALL 5 MG TAB PO SCH ×2 (08:15→15:49)
[2021-03-13] MEDS: ARIPiprazole 15 MG TAB (AbiLIFY) PO SCH (08:15)
[2021-03-13] MEDS: BUPRENORPHINE/NALOXONE 8-2MG SUBLINGUAL TABLET(SUBOXONE) SL SCH (09:46)
[2021-03-13 17:09] VITALS: BP 114/66
[2021-03-13] MEDS ORDERED: diphenhydrAMINE 50MG CAP PO ONE (17:30)
[2021-03-14 06:34] VITALS: BP 130/66
[2021-03-14] MEDS: BUPRENORPHINE/NALOXONE 8-2MG SUBLINGUAL TABLET(SUBOXONE) SL SCH (08:53)
[2021-03-14] MEDS: NICOTINE 21MG/24HR 1 EA TRANSDERMAL TD SCH (08:53)
[2021-03-14] MEDS: PARoxetine 20MG TABLET PO SCH (08:53)
[2021-03-14] MEDS: ARIPiprazole 15 MG TAB (AbiLIFY) PO SCH (08:53)
[2021-03-14] MEDS: ADDERALL 5 MG TAB PO SCH ×2 (08:53→13:16)
[2021-03-14] MEDS: buPROPion **XL** TABLET 150MG (WELLBUTRIN XL) PO SCH (09:37)
[2021-03-14] MEDS ORDERED: diphenhydrAMINE 25MG CAP PO ONE (12:55)
--- NOTE | 2021-03-14 14:50 | MHIPNPDOC ---
[facility] Progress Note Progress Note DATE OF SERVICE: 03/14/21 SUBJECTIVE: "I'm depressed but Adderall is helping me" "am still depressed" My sinus is bothering me" OBJECTIVE: The patient is a 25-year-old female mother of two children living with her fiance and her children, who was admitted because of suicidal thoughts. She was brought by her mother. The patient has a long history of mental illness and has been diagnosed with bipolar 1 disorder. She also has an extensive history of substance abuse. She is currently on Suboxone. She has had multiple psychiatric hospitalizations. Now currently, she reports she is depressed, asked for Benadryl. MENTAL STATUS EXAMINATION: Casually dressed. Fairly well groomed. Made good eye contact. Psychomotor activity is retarded. Speech rate, rhythm, and volume are good. Mood is depressed. Affect is constricted. Thought process is linear and goal directed. Thought content denied any suicidal or homicidal ideas. Perception denied any auditory or visual hallucinations. Insight and judgment are limited. Memory immediate, remote, and recent are good. Attention is good. VITAL SIGNS: Temperature 97.9, pulse 60, respiratory rate 16, blood pressure 116/66, pulse oximetry 995. LABORATORY DATA: CBC within normal limits. CMP within normal limits. Toxicology: She was positive for cannabis. DIAGNOSES: 1. Bipolar 1 disorder most recent episode depressed. 2. Panic disorder with agoraphobia. 3. Opioid use disorder. 4. Cannabis use disorder. PLAN: Continue Adderall 10 mg twice daily. Increase her fluoxetine to 20 mg once daily. Estimated length of stay four to five days. Needs further stabillization. Time spent: 25 minutes. Vital Signs Vital Signs Date Time Temp Pulse Resp B/P (MAP) Pulse Ox O2 Delivery O2 Flow Rate FiO2 03/14/21 06:34 97.4 110 18 130/66 (87) 100 Room Air Current Medications Current Medications Medications (Trade) Dose Ordered Sig/Kim Route PRN Reason Start Time Stop Time Status Last Admin Dose Admin Al Hydrox/Mg Hydrox/Simethicone (Mylanta) 30 ml Q4HP PRN PO HEARTBURN/INDIGESTION 03/08/21 16:25 Amphetamine/ Dextroamphetamine (Adderall) 10 mg BID@0800,1400 PO 03/11/21 08:00 03/14/21 13:16 Aripiprazole (AbiLIFY) 10 mg DAILY PO 03/09/21 09:00 03/09/21 08:21 DC Aripiprazole (AbiLIFY) 15 mg DAILY PO 03/09/21 09:00 03/14/21 08:53 Buprenorphine/ Naloxone (Suboxone 8/2mg) 1 tab DAILY SL 03/09/21 09:00 03/09/21 09:01 DC Buprenorphine/ Naloxone (Suboxone 8/2mg) 1.5 tab DAILY SL 03/09/21 09:00 03/14/21 08:53 Bupropion HCl (Wellbutrin Xl) 150 mg DAILY PO 03/09/21 09:00 03/09/21 08:21 DC Bupropion HCl (Wellbutrin Xl) 150 mg QAM PO 03/14/21 10:00 03/14/21 09:37 Home Med (Med Rec Complete!) ASDIRECTED XX 03/08/21 15:40 03/08/21 15:37 DC Ibuprofen (Advil) 400 mg Q6HP PRN PO PAIN 03/08/21 16:25 Magnesium Hydroxide (Milk Of Magnesia) 30 ml DAILYPRN PRN PO CONSTIPATION 03/08/21 16:25 Nicotine (Nicoderm Cq 21mg) 1 patch DAILY TD 03/08/21 09:00 03/14/21 08:53 Paroxetine HCl (PAXil) 40 mg DAILY PO 03/09/21 09:00 03/14/21 08:53 Trazodone HCl (Desyrel) 50 mg QHSP PRN PO INSOMNIA 03/08/21 16:25 Allergies Coded Allergies: haloperidol (Verified Adverse Reaction, Severe, tardive dyskinesia, 07/26/20) amoxicillin (Verified Adverse Reaction, Mild, STOMACH PAINS/VOMITING, 07/26/20) clavulanic acid (Verified Adverse Reaction, Mild, STOMACH PAINS/VOMITING, 07/26/20) PETE CRAFT MD Mar 14, 2021 14:50
[2021-03-14 18:11] VITALS: BP 104/59
[2021-03-15 06:00] VITALS: BP 102/61
[2021-03-15] MEDS: ADDERALL 5 MG TAB PO SCH ×2 (08:07→14:11)
[2021-03-15] MEDS: buPROPion **XL** TABLET 150MG (WELLBUTRIN XL) PO SCH (08:07)
[2021-03-15] MEDS: PARoxetine 20MG TABLET PO SCH (08:07)
[2021-03-15] MEDS: ARIPiprazole 15 MG TAB (AbiLIFY) PO SCH (08:07)
[2021-03-15] MEDS: NICOTINE 21MG/24HR 1 EA TRANSDERMAL TD SCH (08:08)
[2021-03-15] MEDS: BUPRENORPHINE/NALOXONE 8-2MG SUBLINGUAL TABLET(SUBOXONE) SL SCH (08:12)
[2021-03-15] MEDS: PILL CUTTER 1 EACH XX PRN (08:13)
--- NOTE | 2021-03-15 13:57 | MHIPNPDOC ---
[facility] Progress Note Progress Note DATE OF SERVICE: 03/15/21 SUBJECTIVE: "I'm depressed but Adderall is helping me" "am less depressed" OBJECTIVE: The patient is a 25-year-old female mother of two children living with her fiance and her children, who was admitted because of suicidal thoughts. She was brought by her mother. The patient has a long history of mental illness and has been diagnosed with bipolar 1 disorder. She also has an extensive history of substance abuse. She is currently on Suboxone. She has had multiple psychiatric hospitalizations. Now currently, she reports she is depressed, asked for Benadryl. Pt calmer, but still depressed. MENTAL STATUS EXAMINATION: Casually dressed. Fairly well groomed. Made good eye contact. Psychomotor activity is retarded. Speech rate, rhythm, and volume are good. Mood is depressed. Affect is constricted. Thought process is linear and goal directed. Thought content denied any suicidal or homicidal ideas. Perception denied any auditory or visual hallucinations. Insight and judgment are limited. Memory immediate, remote, and recent are good. Attention is good. VITAL SIGNS: Temperature 97.9, pulse 60, respiratory rate 16, blood pressure 116/66, pulse oximetry 995. LABORATORY DATA: CBC within normal limits. CMP within normal limits. Toxicology: She was positive for cannabis. DIAGNOSES: 1. Bipolar 1 disorder most recent episode depressed. 2. Panic disorder with agoraphobia. 3. Opioid use disorder. 4. Cannabis use disorder. PLAN: Continue Adderall 10 mg twice daily. Increase her fluoxetine to 20 mg once daily. Estimated length of stay four to five days. Needs further stabillization. Time spent: 25 minutes. Vital Signs Vital Signs Date Time Temp Pulse Resp B/P (MAP) Pulse Ox O2 Delivery O2 Flow Rate FiO2 03/15/21 08:26 Room Air 03/15/21 06:00 98.9 68 16 102/61 (75) 100 Current Medications Current Medications Medications (Trade) Dose Ordered Sig/Kim Route PRN Reason Start Time Stop Time Status Last Admin Dose Admin Al Hydrox/Mg Hydrox/Simethicone (Mylanta) 30 ml Q4HP PRN PO HEARTBURN/INDIGESTION 03/08/21 16:25 Amphetamine/ Dextroamphetamine (Adderall) 10 mg BID@0800,1400 PO 03/11/21 08:00 03/15/21 08:07 Aripiprazole (AbiLIFY) 10 mg DAILY PO 03/09/21 09:00 03/09/21 08:21 DC Aripiprazole (AbiLIFY) 15 mg DAILY PO 03/09/21 09:00 03/15/21 08:07 Buprenorphine/ Naloxone (Suboxone 8/2mg) 1 tab DAILY SL 03/09/21 09:00 03/09/21 09:01 DC Buprenorphine/ Naloxone (Suboxone 8/2mg) 1.5 tab DAILY SL 03/09/21 09:00 03/15/21 08:12 Bupropion HCl (Wellbutrin Xl) 150 mg DAILY PO 03/09/21 09:00 03/09/21 08:21 DC Bupropion HCl (Wellbutrin Xl) 150 mg QAM PO 03/14/21 10:00 03/15/21 08:07 Home Med (Med Rec Complete!) ASDIRECTED XX 03/08/21 15:40 03/08/21 15:37 DC Ibuprofen (Advil) 400 mg Q6HP PRN PO PAIN 03/08/21 16:25 Magnesium Hydroxide (Milk Of Magnesia) 30 ml DAILYPRN PRN PO CONSTIPATION 03/08/21 16:25 Nicotine (Nicoderm Cq 21mg) 1 patch DAILY TD 03/08/21 09:00 03/15/21 08:08 Paroxetine HCl (PAXil) 40 mg DAILY PO 03/09/21 09:00 03/15/21 08:07 Trazodone HCl (Desyrel) 50 mg QHSP PRN PO INSOMNIA 03/08/21 16:25 Allergies Coded Allergies: haloperidol (Verified Adverse Reaction, Severe, tardive dyskinesia, 07/26/20) amoxicillin (Verified Adverse Reaction, Mild, STOMACH PAINS/VOMITING, 07/26/20) clavulanic acid (Verified Adverse Reaction, Mild, STOMACH PAINS/VOMITING, 07/26/20) PETE CRAFT MD Mar 15, 2021 13:57
[2021-03-15] MEDS ORDERED: diphenhydrAMINE 50MG CAP PO ONE (16:00)
[2021-03-15 18:00] VITALS: BP_SYST 109; BP_SYST 134; BP_DIAS 69; BP_DIAS 72
[2021-03-16] MEDS: buPROPion **XL** TABLET 150MG (WELLBUTRIN XL) PO SCH (08:01)
[2021-03-16] MEDS: ARIPiprazole 15 MG TAB (AbiLIFY) PO SCH (08:01)
[2021-03-16] MEDS: NICOTINE 21MG/24HR 1 EA TRANSDERMAL TD SCH (08:01)
[2021-03-16] MEDS: ADDERALL 5 MG TAB PO SCH ×2 (08:01→13:03)
[2021-03-16] MEDS: PARoxetine 20MG TABLET PO SCH (08:01)
[2021-03-16] MEDS: BUPRENORPHINE/NALOXONE 8-2MG SUBLINGUAL TABLET(SUBOXONE) SL SCH (08:09)
--- NOTE | 2021-03-16 11:12 | MHIPNPDOC ---
[facility] Progress Note Progress Note DATE OF SERVICE: 03/16/21 SUBJECTIVE: "I'm not depressed,but sightly anxious OBJECTIVE: The patient is a 25-year-old female mother of two children living with her fiance and her children, who was admitted because of suicidal thoughts. She was brought by her mother. The patient has a long history of mental illness and has been diagnosed with bipolar 1 disorder. She also has an extensive history of substance abuse. She is currently on Suboxone. She has had multiple psychiatric hospitalizations. Now currently, she reports she is depressed, asked for Benadryl. Pt calmer,but anxious. MENTAL STATUS EXAMINATION: Casually dressed. Fairly well groomed. Made good eye contact. Psychomotor activity is retarded. Speech rate, rhythm, and volume are good. Mood is depressed. Affect is constricted. Thought process is linear and goal directed. Thought content denied any suicidal or homicidal ideas. Perception denied any auditory or visual hallucinations. Insight and judgment are limited. Memory immediate, remote, and recent are good. Attention is good. LABORATORY DATA: CBC within normal limits. CMP within normal limits. Toxicology: She was positive for cannabis. DIAGNOSES: 1. Bipolar 1 disorder most recent episode depressed. 2. Panic disorder with agoraphobia. 3. Opioid use disorder. 4. Cannabis use disorder. PLAN: Continue Adderall 10 mg twice daily. Increase her fluoxetine to 20 mg once daily.Add gabapentin 300mg tid Time spent: 25 minutes. Vital Signs Vital Signs Date Time Temp Pulse Resp B/P (MAP) Pulse Ox O2 Delivery O2 Flow Rate FiO2 03/15/21 18:00 98.5 76 14 134/72 (92) 03/15/21 08:26 Room Air 03/15/21 06:00 100 Current Medications Current Medications Medications (Trade) Dose Ordered Sig/Kim Route PRN Reason Start Time Stop Time Status Last Admin Dose Admin Al Hydrox/Mg Hydrox/Simethicone (Mylanta) 30 ml Q4HP PRN PO HEARTBURN/INDIGESTION 03/08/21 16:25 Amphetamine/ Dextroamphetamine (Adderall) 10 mg BID@0800,1400 PO 03/11/21 08:00 03/16/21 08:01 Aripiprazole (AbiLIFY) 10 mg DAILY PO 03/09/21 09:00 03/09/21 08:21 DC Aripiprazole (AbiLIFY) 15 mg DAILY PO 03/09/21 09:00 03/16/21 08:01 Buprenorphine/ Naloxone (Suboxone 8/2mg) 1 tab DAILY SL 03/09/21 09:00 03/09/21 09:01 DC Buprenorphine/ Naloxone (Suboxone 8/2mg) 1.5 tab DAILY SL 03/09/21 09:00 03/16/21 08:09 Bupropion HCl (Wellbutrin Xl) 150 mg DAILY PO 03/09/21 09:00 03/09/21 08:21 DC Bupropion HCl (Wellbutrin Xl) 150 mg QAM PO 03/14/21 10:00 03/16/21 08:01 Home Med (Med Rec Complete!) ASDIRECTED XX 03/08/21 15:40 03/08/21 15:37 DC Ibuprofen (Advil) 400 mg Q6HP PRN PO PAIN 03/08/21 16:25 Magnesium Hydroxide (Milk Of Magnesia) 30 ml DAILYPRN PRN PO CONSTIPATION 03/08/21 16:25 Nicotine (Nicoderm Cq 21mg) 1 patch DAILY TD 03/08/21 09:00 03/16/21 08:01 Paroxetine HCl (PAXil) 40 mg DAILY PO 03/09/21 09:00 03/16/21 08:01 Trazodone HCl (Desyrel) 50 mg QHSP PRN PO INSOMNIA 03/08/21 16:25 Allergies Coded Allergies: haloperidol (Verified Adverse Reaction, Severe, tardive dyskinesia, 07/26/20) amoxicillin (Verified Adverse Reaction, Mild, STOMACH PAINS/VOMITING, 07/26/20) clavulanic acid (Verified Adverse Reaction, Mild, STOMACH PAINS/VOMITING, 07/26/20) PETE CRAFT MD Mar 16, 2021 11:12
[2021-03-16] MEDS ORDERED: diphenhydrAMINE 50MG/ML VIAL (J1200) IV ONE (13:15)
[2021-03-16] MEDS ORDERED: diphenhydrAMINE 50MG CAP PO ONE (13:20)
[2021-03-16] MEDS: GABAPENTIN 300 MG CAP PO SCH ×2 (16:08→20:47)
[2021-03-16 17:49] VITALS: BP 112/67
[2021-03-17] MEDS: ADDERALL 5 MG TAB PO SCH (07:56)
[2021-03-17] MEDS: buPROPion **XL** TABLET 150MG (WELLBUTRIN XL) PO SCH (08:05)
[2021-03-17] MEDS: PARoxetine 20MG TABLET PO SCH (08:05)
[2021-03-17] MEDS: BUPRENORPHINE/NALOXONE 8-2MG SUBLINGUAL TABLET(SUBOXONE) SL SCH (08:05)
[2021-03-17] MEDS: NICOTINE 21MG/24HR 1 EA TRANSDERMAL TD SCH (08:06)
[2021-03-17] MEDS: GABAPENTIN 300 MG CAP PO SCH (08:06)
[2021-03-17] MEDS: ARIPiprazole 15 MG TAB (AbiLIFY) PO SCH (08:06)
[2021-03-17] MEDS ORDERED: ABIL1TAB12 PO (08:30)
[2021-03-17] MEDS ORDERED: GABA-282 PO (08:30)
[2021-03-17] MEDS ORDERED: Amphetamine/Dextroamphetamine PO ×2 (08:30→11:17)
--- NOTE | 2021-03-17 08:56 | MHDS ---
[facility] DISCHARGE SUMMARY DATE OF ADMISSION: 03/08/2021 DATE OF DISCHARGE: 03/17/2021 IDENTIFYING DATA: She is a 25-year-old female, mother of two children living with her fiancee and her children, admitted because of suicidal thoughts. She was brought by her mother. The patient has a long history of mental illness, has been diagnosed with bipolar 1 disorder. She has extensive history of substance abuse, currently on Suboxone. She has history of multiple psychiatric hospitalizations. For details of history of present illness, past psychiatric history, personal history, medical history, substance history, please refer to the initial evaluation. COURSE IN THE HOSPITAL: The patient initially was depressed, had suicidal thoughts. She was placed on fluoxetine and gabapentin. She was given Adderall. She also was receiving individual, group and Milieu therapy. She made gradual recovery. She started attending groups. Her suicidal thoughts resolved. She slept better. Denied any side effect of the medication. She was stable at the time of discharge. MENTAL STATUS EXAMINATION: Causally dressed, fairly well groomed, made good eye contact. Psychomotor activity is normal. Speech, rate and rhythm, volume are good. Mood is euthymic. Affect is mood congruent. Thought process: Linear, goal directed. Thought content: Denied any suicidal or homicidal ideas. Perception: Denied any auditory hallucinations. Insight and judgment are good. Memory immediate, remote and recent are good. Her attention is good. DIAGNOSES: 1. Bipolar 1 disorder, most recent episode depressed. 2. Panic disorder with agoraphobia. 3. Opiate use disorder. 4. Cannabis use disorder. VITAL SIGNS: Temperature 98.5, pulse is 87, respirations 17, blood pressure is 112/67. LABORATORY DATA: Complete blood count (CBC) within normal limits. Comprehensive metabolic panel (CMP) within normal limits. Toxicology: She was positive for cannabis. MEDICATIONS: Gabapentin 300 mg three times a day, Wellbutrin XL 150 mg in the a.m., amphetamine 10 mg twice a day. She is on naloxone prescribed by her doctor, omeprazole 15 mg daily, paroxetine 40 mg once daily. PLAN: The patient will be followed up at [facility] by Dr. Peña. She will be going home. Time spent less than 30 minutes.
[2021-03-17] MEDS ORDERED: ADDE10TA PO (11:17)
== END 2021-03-17 11:22 | disposition home or self-care (01) | DRG 753 ==
LOC: M ED 10:20 → M ED INP 16:24 → M PSY 22:21
PROVIDERS: ADMIT Psychiatry & Neurology Psychiatry; ATTEND Psychiatry & Neurology Psychiatry
DX: F31.30 Bipolar disorder, current episode depressed, mild or moderate severity, unspecified (principal); F40.01 Agoraphobia with panic disorder; F11.10 Opioid abuse, uncomplicated; F12.10 Cannabis abuse, uncomplicated; R45.851 Suicidal ideations; F43.10 Post-traumatic stress disorder, unspecified; F41.1 Generalized anxiety disorder; F90.9 Attention-deficit hyperactivity disorder, unspecified type; J45.909 Unspecified asthma, uncomplicated; F17.210 Nicotine dependence, cigarettes, uncomplicated; Z88.1 Allergy status to other antibiotic agents; Z88.8 Allergy status to other drugs, medicaments and biological substances; Z90.49 Acquired absence of other specified parts of digestive tract; Z20.822 Contact with and (suspected) exposure to COVID-19; Z91.5 Personal history of self-harm; Z81.8 Family history of other mental and behavioral disorders

== ENCOUNTER 2021-03-24 18:15 | Observation (INO) | payer OTHER ==
[~2021-03-24] VITALS: Ht 172.7 cm; Wt 65.7 kg
[~2021-03-24 18:15] MED LIST changes: +ABIL1TAB12 PO; +ADDE10TA PO; +ADDE20CA3 PO; +Amphetamine/Dextroamphetamine PO; -BUPRENORPHINE/NALOXONE 8-2MG SUBLINGUAL TABLET(SUBOXONE) SL ONE
[2021-03-24] MEDS ORDERED: LORazepam 0.5 MG TAB PO ONE (19:05)
[2021-03-24 19:52] LABS: HEMATOCRIT 35.3 % (36.0-47.0); HEMOGLOBIN 11.6 g/dl (12.0-15.5); MEAN CORPUSCULAR HEMOGLOBIN 30.4 pg (27.0-33.0); MEAN CORPUSCULAR HGB CONC 32.9 g/dl (32.0-36.5); MEAN CORPUSCULAR VOLUME 92.7 fl (80.0-96.0); PLATELET COUNT, AUTOMATED 211 10^3/uL (150-450); RED BLOOD COUNT 3.81 10^6/uL (4.00-5.40)
[2021-03-24] MEDS ORDERED: LORazepam 2 MG/ML VIAL IV STA ×2 (20:09→23:12)
[2021-03-24 20:14] LABS: AMPHETAMINES LEVEL URINE POSITIVE (NEGATIVE); BARBITURATES URINE POSITIVE (NEGATIVE); BENZODIAZEPINES URINE NEGATIVE (NEGATIVE); CANNABINOIDS URINE POSITIVE (NEGATIVE); COCAINE METABOLITE URINE POSITIVE (NEGATIVE); METHADONE URINE NEGATIVE (NEGATIVE); OPIATES URINE NEGATIVE (NEGATIVE); PHENCYCLIDINE URINE NEGATIVE (NEGATIVE)
[2021-03-24 20:15] LABS: HCG, SERUM QUALITATIVE NEGATIVE (NEGATIVE)
[2021-03-24] MEDS: NS 1,000 ML IV SCH (20:16)
[2021-03-24 20:28] LABS: ACETAMINOPHEN LEVEL 3.6 UG/ML (10.0-30.0); ALBUMIN 3.5 GM/DL (3.2-5.2); ALT/SGPT 46 U/L (12-78); BILIRUBIN,DIRECT < 0.1 MG/DL (0.0-0.2); BILIRUBIN,TOTAL 0.1 MG/DL (0.2-1.0); BLOOD UREA NITROGEN 14 MG/DL (7-18); CALCIUM LEVEL 8.3 MG/DL (8.5-10.1); CARBON DIOXIDE LEVEL 24 MEQ/L (21-32); CHLORIDE LEVEL 112 MEQ/L (98-107); CREATININE FOR GFR 0.78 MG/DL (0.55-1.30); ETHYL ALCOHOL (ETHANOL) < 0.003 % (0.000-0.010); GLOMERULAR FILTRATION RATE > 60.0 (>60); GLUCOSE, FASTING 88 MG/DL (70-100); POTASSIUM SERUM 4.2 MEQ/L (3.5-5.1); SALICYLATE LEVEL 2.5 MG/DL (5.0-30.0); SODIUM LEVEL 142 MEQ/L (136-145); TOTAL PROTEIN 6.7 GM/DL (6.4-8.2)
[2021-03-24 20:54] LABS: PHENOBARBITAL LEVEL 2.1 UG/ML (15.0-40.0)
[2021-03-24] MEDS ORDERED: ACETAMINOPHEN TAB 650MG DOSE (2X325MG) PO PRN (21:50)
[2021-03-24] MEDS ORDERED: ABIL1TAB12 PO (21:50)
[2021-03-24] MEDS ORDERED: MAALOX 30 ML SUSP *UDC PO PRN (21:50)
[2021-03-24] MEDS ORDERED: ADDE10TA PO (21:50)
[2021-03-24] MEDS ORDERED: MOM 30ML SUSPENSION UDC PO PRN (21:50)
[2021-03-24] MEDS ORDERED: GABA-282 PO (21:50)
[2021-03-24] MEDS ORDERED: PATIENT COMMENT (21:52)
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
[2021-03-24 22:02] LABS: RSV AMPLIFICATION NEGATIVE (NEGATIVE)
[2021-03-24 23:44] LABS: MAGNESIUM LEVEL 1.8 MG/DL (1.8-2.4)
[2021-03-24 23:50] VITALS: BP 137/63
[2021-03-25] MEDS: NS 1,000 ML IV SCH (00:12)
[2021-03-25] MEDS ORDERED: LORazepam 2 MG/ML VIAL IV STA (02:10)
[2021-03-25 04:00] VITALS: BP 109/65
--- NOTE | 2021-03-25 05:05 | ECGEPIP ---
[facility] Test Date: 2021-03-25 Pat Name: CAITLYN RUSSELL Department: Room: [place] [address] Gender: Female Director Experimental Medicine: [email or web address] : 1995 Requested By: MATTHIAS ZAMORANO Order Number: [id number] Reading MD: Anay Santa Measurements Intervals [place] Rate: 99 P: 13 DC: 142 QRS: 42 QRSD: 98 T: 2 QT: 374 QTc: 479 Interpretive Statements Normal sinus rhythm RATE SLOWER NSTTWA PERSISTS RV CONDUCTION DELAY C/W 03/24/21 Electronically Signed on 03-25-2021 5:04:47 EDT by Anay Santa
[2021-03-25 08:56] LABS: BASO % 0.4 % (0.0-1.0); EOS # 0.3 10^3/uL (0.0-0.5); EOS % 4.9 % (0.0-3.0); HEMATOCRIT 33.1 % (36.0-47.0); HEMOGLOBIN 11.1 g/dl (12.0-15.5); LYMPH # 1.5 10^3/uL (1.5-5.0); LYMPH % 28.7 % (24.0-44.0); MEAN CORPUSCULAR HEMOGLOBIN 31.1 pg (27.0-33.0); MEAN CORPUSCULAR HGB CONC 33.5 g/dl (32.0-36.5); MEAN CORPUSCULAR VOLUME 92.7 fl (80.0-96.0); MONO # 0.5 10^3/uL (0.0-0.8); NEUTROPHILS # 2.9 10^3/uL (1.5-8.5); NEUTROPHILS % 56.8 % (36.0-66.0); PLATELET COUNT, AUTOMATED 207 10^3/uL (150-450); RED BLOOD COUNT 3.57 10^6/uL (4.00-5.40); WHITE BLOOD COUNT 5.1 10^3/uL (4.0-10.0)
[2021-03-25] MEDS ORDERED: BUPRENORPHINE/NALOXONE 2-0.5MG SUBLINGUAL TABLET(SUBOXONE) SL SCH (09:00)
[2021-03-25] MEDS ORDERED: ENOXAPARIN 40MG/0.4ML SYRINGE (J1650 PER 10MG) SC SCH (09:00)
[2021-03-25] MEDS: DOCUSATE SODIUM 100MG CAPSULE PO SCH ×2 (09:00→21:00)
[2021-03-25] MEDS ORDERED: BUPRENORPHINE/NALOXONE 8-2MG SUBLINGUAL TABLET(SUBOXONE) SL SCH (09:00)
--- NOTE | 2021-03-25 09:30 | ECGEPIP ---
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
[2021-03-25 09:38] LABS: ALBUMIN 3.2 GM/DL (3.2-5.2); ALT/SGPT 37 U/L (12-78); BILIRUBIN,TOTAL 0.2 MG/DL (0.2-1.0); BLOOD UREA NITROGEN 9 MG/DL (7-18); CALCIUM LEVEL 8.1 MG/DL (8.5-10.1); CARBON DIOXIDE LEVEL 24 MEQ/L (21-32); CHLORIDE LEVEL 111 MEQ/L (98-107); CREATININE FOR GFR 0.69 MG/DL (0.55-1.30); FREE T4 1.01 NG/DL (0.76-1.46); GLOMERULAR FILTRATION RATE > 60.0 (>60); GLUCOSE, FASTING 79 MG/DL (70-100); MAGNESIUM LEVEL 1.9 MG/DL (1.8-2.4); POTASSIUM SERUM 4.3 MEQ/L (3.5-5.1); SODIUM LEVEL 140 MEQ/L (136-145); TOTAL PROTEIN 6.2 GM/DL (6.4-8.2)
--- NOTE | 2021-03-25 09:53 | ECGEPIP ---
[facility] ED Test Date: 2021-03-24 Pat Name: CAITLYN RUSSELL Department: Room: [place] [address] Gender: Female Port Surveyor: OSCAR : 1995 Requested By: ONEAL Berman Order Number: [id number] Reading MD: Jeanne Isbell Measurements Intervals [place] Rate: 110 P: 36 NE: 144 QRS: 52 QRSD: 94 T: 6 QT: 362 QTc: 489 Interpretive Statements Sinus tachycardia Nonspecific T wave abnormality increased rate 02/15/21 Electronically Signed on 03-25-2021 9:53:36 EDT by Jeanne Isbell
--- NOTE | 2021-03-25 14:34 | IPNPDOC ---
Text Note Date of Service The patient was seen on 03/25/21. NOTE Subjective: Patient is lethargic in the morning, did not answer my question. Objective: GENERAL APPEARANCE: somnolent F HEENT: no scleral icterus, no JVD, EOMI CARDIOVASCULAR: S1S2 LUNGS: CTA ABDOMEN: soft & not tender w palpitation MUSCULOSKELETAL: no cyanosis, no swelling INTEGUMENT: no generalized pallor NEUROLOGICAL: cranial nerve function from 2-12 intact intact, moves 4 limbs Assessment and plan 25 yo F with a pmhx of depression, schizoaffective disorder, PTSD, ADHD, asthma, brought to ER with agitation and suicidal ideation after argument that took place in her home with her significant other. Admitted for observation, with planned psychiatric consult and likely admission to [facility]. Suicidal attempt/depression/bipolar disorder Patient overdosed with bupropion QTc <500 Sitter Appreciate/agree with psych consult Sinus tachycardia Secondary to agitation Continue ativan VS,Fishbone, I+O VS, Fishbone, I+O Laboratory Tests 03/24/21 19:40 03/25/21 08:21 Vital Signs Date Time Temp Pulse Resp B/P (MAP) Pulse Ox O2 Delivery O2 Flow Rate FiO2 03/25/21 04:00 96.9 98 17 109/65 (80) 96 Room Air I&O- Last 24 Hours up to 6 AM 03/25/21 06:00 Intake Total 450 ml Output Total 200 ml Balance 250 ml EDWARD DEUTSCH DO Mar 25, 2021 14:34
[2021-03-25] MEDS ORDERED: LORazepam 2 MG/ML VIAL IM STA (14:37)
[2021-03-25] MEDS ORDERED: LORazepam 2 MG/ML VIAL As Ordered ONE (14:39)
[2021-03-25] MEDS ORDERED: LORazepam 1 MG TAB PO ONE (14:40)
[2021-03-25] MEDS ORDERED: LORazepam 1 MG TAB PO STA (14:41)
--- NOTE | 2021-03-25 14:42 | IPNPDOC ---
Date Seen The patient was seen on 03/25/21. Progress Note code 25 was called by RN. Patient was increasingly agitated, hallucinating, removed her saline lock, and intentionally hit her hand against the bathroom door. Sitter called RN to activate Code 25. Patient is distraught in tears, but agreed to receiving ativan intramuscularly. plan: Pt's attending physician, Dr. Bauman, arrived in the room, and has agreed to manage the patient's acute needs. VS, I&O, 24H, Fishbone Vital Signs/I&O Vital Signs Date Time Temp Pulse Resp B/P (MAP) Pulse Ox O2 Delivery O2 Flow Rate FiO2 03/25/21 04:00 96.9 98 17 109/65 (80) 96 Room Air I&O- Last 24 Hours up to 6 AM 03/25/21 06:00 Intake Total 450 ml Output Total 200 ml Balance 250 ml Laboratory Data 24H LABS Laboratory Tests 2 03/24/21 19:40: Nucleated Red Blood Cells % (auto) 0.0, Anion Gap 6L, Glomerular Filtration Rate > 60.0, Calcium Level 8.3L, Magnesium Level 1.8, Total Bilirubin 0.1L, Direct Bilirubin < 0.1, Aspartate Amino Transf (AST/SGOT) 32, Alanine Aminotransferase (ALT/SGPT) 46, Alkaline Phosphatase 59, Total Protein 6.7, Albumin 3.5, Albumin/Globulin Ratio 1.1L, Thyroid Stimulating Hormone (TSH) 4.040H, Human Chorionic Gonadotropin, Qual NEGATIVE, Salicylates Level 2.5L, Urine Opiates Screen NEGATIVE, Urine Methadone Screen NEGATIVE, Acetaminophen Level 3.6L, Urine Barbiturates Screen POSITIVEH, Urine Phencyclidine Screen NEGATIVE, Urine Amphetamines Screen POSITIVEH, Phenobarbital Level 2.1L, Urine Benzodiazepines S creen NEGATIVE, Urine Cocaine Metabolite Screen POSITIVEH, Urine Cannabinoids Screen POSITIVEH, Ethyl Alcohol Level < 0.003 03/24/21 20:51: Coronavirus (COVID-19)(PCR) NEGATIVE, Influenza Type A (RT-PCR) NEGATIVE, Influenza Type B (RT-PCR) NEGATIVE, Respiratory Syncytial Virus (PCR) NEGATIVE 03/25/21 08:21: Nucleated Red Blood Cells % (auto) 0.0, Anion Gap 5L, Glomerular Filtration Rate > 60.0, Calcium Level 8.1L, Magnesium Level 1.9, Total Bilirubin 0.2#, Aspartate Amino Transf (AST/SGOT) 23, Alanine Aminotransferase (ALT/SGPT) 37, Alkaline Phosphatase 51, Total Protein 6.2L, Albumin 3.2, Albumin/Globulin Ratio 1.1L, Immature Granulocyte % (Auto) 0.2, Neutrophils (%) (Auto) 56.8, Lymphocytes (%) (Auto) 28.7, Monocytes (%) (Auto) 9.0H, Eosinophils (%) (Auto) 4.9H, Basophils (%) (Auto) 0.4, Neutrophils # (Auto) 2.9, Lymphocytes # (Auto) 1.5, Monocytes # (Auto) 0.5, Eosinophils # (Auto) 0.3, Basophils # (Auto) 0.0, Free Thyroxine 1.01 CBC/BMP Laboratory Tests 03/24/21 19:40 03/25/21 08:21 SATNAM ADEN MD Mar 25, 2021 14:42
[2021-03-25 16:00] VITALS: BP 117/69
[2021-03-25] MEDS ORDERED: hydrOXYzine 25 MG TAB PO PRN (16:40)
[2021-03-25] MEDS ORDERED: OLANZapine 10 MG TAB PO ONE (16:40)
[2021-03-25] MEDS: LORazepam 2 MG/ML VIAL IM PRN ×2 (16:49→22:16)
[2021-03-25] MEDS ORDERED: OLANZapine INTRAMUSCULAR 10MG VIAL IM ONE (17:30)
[2021-03-25] MEDS ORDERED: NICOTINE 21MG/24HR 1 EA TRANSDERMAL TD SCH (22:20)
--- NOTE | 2021-03-26 16:01 | DS.PDOC ---
Discharge Summary General Date of Admission Mar 24, 2021 at 21:49 Date of Discharge 03/26/21 Discharge Summary PROCEDURES PERFORMED DURING STAY: [None]. ADMITTING DIAGNOSES: Suicidal attempt/depression/bipolar disorder/acute psychosis Sinus tachycardia DISCHARGE DIAGNOSES: Suicidal attempt/depression/bipolar disorder/acute psychosis Sinus tachycardia COMPLICATIONS/CHIEF COMPLAINT: Anxiety,Auditory Hallucinations,Intentional Od. HISTORY OF PRESENT ILLNESS: 25 yo F with a pmhx of depression, schizoaffective disorder, PTSD, ADHD, asthma, brought to ER with agitation and suicidal ideation after argument that took place in her home with her significant other. Admitted for observation, with planned psychiatric consult and likely admission to [facility]. HOSPITAL COURSE: During hospital stay following issue addressed Suicidal attempt/depression/bipolar disorder Patient overdosed with bupropion EKG showed QTc <500 Sitter psych team recommended to transfer patient to mental health unit Sinus tachycardia Secondary to agitation Continue ativan DISCHARGE MEDICATIONS: Please see below. ALLERGIES: Please see below. PHYSICAL EXAMINATION ON DISCHARGE: VITAL SIGNS: Please see below. GENERAL APPEARANCE: somnolent F HEENT: no scleral icterus, no JVD, EOMI CARDIOVASCULAR: S1S2 LUNGS: CTA ABDOMEN: soft & not tender w palpitation MUSCULOSKELETAL: no cyanosis, no swelling INTEGUMENT: no generalized pallor NEUROLOGICAL: cranial nerve function from 2-12 intact intact, moves 4 limbs LABORATORY DATA: Please see below. PROGNOSIS: Fair ACTIVITY: [As tolerated]. DIET: Regular DISPOSITION: [facility]. DISCHARGE CONDITION: Medically clear TIME SPENT ON DISCHARGE: 40 minutes. Vital Signs/I&Os Vital Signs Date Time Temp Pulse Resp B/P (MAP) Pulse Ox O2 Delivery O2 Flow Rate FiO2 03/25/21 16:00 97.8 113 18 117/69 (85) 97 Room Air I&O- Last 24 Hours up to 6 AM 03/26/21 06:00 Intake Total 1820 ml Output Total 1500 ml Balance 320 ml Discharge Medications Scheduled Aripiprazole (Abilify) 15 Mg Tablet, 15 MG PO DAILY, (Reported) Buprenorphine HCl/Naloxone HCl (Buprenor-Nalox 12-3 mg Sl Film) 1 Each Film, 1 FILM SL DAILY, (Reported) Dextroamphetamine/Amphetamine (Adderall 10 mg Tablet) 10 Mg Tablet, 1 TAB PO BID, (Reported) Gabapentin (Gabapentin) 300 Mg Capsule, 300 MG PO TID, (Reported) Paroxetine HCl (Paroxetine HCl) 40 Mg Tablet, 40 MG PO DAILY, (Reported) Miscellaneous Medications [Patient Comment] , (Reported) MED REC COMPLETE VIA EXTERNAL MED HISTORY AND PREVIOUS DISCHARGE PAPERWORK (03/17/21) Allergies Coded Allergies: haloperidol (Verified Adverse Reaction, Severe, tardive dyskinesia, 07/26/20) amoxicillin (Verified Adverse Reaction, Mild, STOMACH PAINS/VOMITING, 07/26/20) clavulanic acid (Verified Adverse Reaction, Mild, STOMACH PAINS/VOMITING, 07/26/20) EDWARD DEUTSCH DO March 26, 2021 16:01
[2021-03-27] MEDS ORDERED: ADDE20TA PO (15:23)
[2021-03-27] MEDS ORDERED: BUPR-365 PO (15:26)
== END 2021-03-26 01:33 ==
LOC: M ED 18:15 → M ED INP 21:49 → ENRESERV 23:00 → M PCU 03-25
PROVIDERS: ADMIT Family Medicine; ATTEND Family Medicine
DX: T14.91XA Suicide attempt, initial encounter (principal); T39.312A Poisoning by propionic acid derivatives, intentional self-harm, initial encounter; Y92.89 Other specified places as the place of occurrence of the external cause; R00.0 Tachycardia, unspecified; F25.0 Schizoaffective disorder, bipolar type; F43.10 Post-traumatic stress disorder, unspecified; F32.9 Major depressive disorder, single episode, unspecified; F41.1 Generalized anxiety disorder; D64.9 Anemia, unspecified; R94.6 Abnormal results of thyroid function studies; F90.9 Attention-deficit hyperactivity disorder, unspecified type; F23 Brief psychotic disorder; Z79.899 Other long term (current) drug therapy; K44.9 Diaphragmatic hernia without obstruction or gangrene; F19.20 Other psychoactive substance dependence, uncomplicated; Z88.0 Allergy status to penicillin; Z88.8 Allergy status to other drugs, medicaments and biological substances; J45.909 Unspecified asthma, uncomplicated; F17.218 Nicotine dependence, cigarettes, with other nicotine-induced disorders
CPT/HCPCS: 36415; 80048; 80053; 80076; 80143; 80184; 80307; 82077; 83735; 84439; 84443; 84703; 85025; 85027; 87631; 93005; 93041; 94760; 96361; 96372; 96374; 96376; 99285; J2060

== ENCOUNTER 2021-03-25 21:51 | Inpatient (IN) | payer OTHER ==
[~2021-03-25] VITALS: Ht 172.7 cm; Wt 65.7 kg
[~2021-03-25 21:51] MED LIST changes: +PATIENT COMMENT
[2021-03-25] MEDS ORDERED: MOM 30ML SUSPENSION UDC PO PRN (22:20)
[2021-03-25] MEDS ORDERED: ACETAMINOPHEN TAB 650MG DOSE (2X325MG) PO PRN (22:20)
[2021-03-25] MEDS ORDERED: MAALOX 30 ML SUSP *UDC PO PRN (22:20)
[2021-03-26] MEDS: BUPRENORPHINE/NALOXONE 8-2MG SUBLINGUAL TABLET(SUBOXONE) SL SCH (08:32)
[2021-03-26] MEDS: BUPRENORPHINE/NALOXONE 2-0.5MG SUBLINGUAL TABLET(SUBOXONE) SL SCH (08:32)
[2021-03-26] MEDS: DOCUSATE SODIUM 100MG CAPSULE PO SCH ×2 (08:32→20:39)
[2021-03-26] MEDS ORDERED: BUPRENORPHINE/NALOXONE 2-0.5MG SUBLINGUAL TABLET(SUBOXONE) SL SCH (09:00)
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
[2021-03-26] MEDS ORDERED: LORazepam 2 MG/ML VIAL IM STA (13:13)
[2021-03-26] MEDS ORDERED: chlorproMAZINE INJ 50MG/2ML AMP (J3230) IM STA (13:13)
[2021-03-26 13:30] VITALS: BP 121/82
[2021-03-26 14:00] VITALS: BP 112/63
--- NOTE | 2021-03-26 15:09 | MHCR ---
[facility] CONSULTATION DATE: 03/25/2021 This is an assessment via video. I have been asked to see her by the Hospitalist, Dr. Alan Bauman. CHIEF COMPLAINT: She has taken an overdose. SUBJECTIVE: She is 25 years old, has a long history of emotional difficulties, has diagnosed variously with bipolar disorder, opiate use disorder, posttraumatic stress disorder, and some of the records suggest schizoaffective disorder. She was at the inpatient unit just recently, March 08, stayed there until March 17, a few days ago, was seen by Dr. Hansen whose discharge summary is reviewed. She was discharged on Gabapentin 300 mg three times a day, Wellbutrin XL 150 mg in the morning, a form of amphetamine 10 mg twice a day, Paroxetine 40 mg daily. She used to be followed up at [place]. This was one of several hospitalizations, and was here in January of this year as well when seen by Yuliana Brink, was here for about three days or so. That discharge summary is reviewed as well. She says she came in to see mental health clinicians as she was feeling depressed, suicidal. She took several Wellbutrin, thinks there were 15 to 20, indicates she had wished to kill herself at the time. She says she came to the hospital by herself, also indicates had auditory and visual hallucinations, which she said even continued after the overdose. The ER record suggests that she had been smoking crack for four or five days and that she felt she could take a gun to her head. She was noted to be somewhat confused in the ER, a flight of ideas, not very coherent, required considerable direction. PAST PSYCHIATRIC HISTORY: Please refer to previous summaries. I would suggest doing the same for a background history. PAST MEDICAL HISTORY: There is apparently a history of a head injury, has overdosed in the past as well. Has hiatal hernia, asthma. SUBSTANCE ABUSE HISTORY: Has a history of polysubstance abuse, opiate misuse, at some point was on Suboxone. MENTAL STATUS EXAM: She is neat, guarded, but cooperative somewhat. Currently, no agitation, no psychomotor retardation, she is coherent. Affect restricted in range but reactive. Denies any homicidal ideations or intents but has suicidal thoughts. Does not at present appear to be internally preoccupied. She is alert, able to maintain and shift attention adequately. She is oriented to place, somewhat to time, thought it was the end of February. No fluctuation of consciousness. Judgment and insight are compromised. ASSESSMENT: Other specified bipolar disorder. Posttraumatic stress disorder by history. Generalized anxiety disorder by history. The other possibility is schizoaffective disorder. Opiate use disorder. Has mood fluctuations, has been suicidal, took an overdose. Needs inpatient psychiatric hospitalization and further management when she is fully medically cleared. RECOMMENDATIONS: Inpatient psychiatry hospitalization when she is fully medically cleared, she is due to be cleared later on in the evening and after an EKG as initial EKGs had some prolongation of her Qtc interval, at 489. Thank you for the consult. If you have any questions, please call. My assessment was discussed with Dr. Alan Pepper. The assessment took 25 minutes. JOHN
[2021-03-26] MEDS: OLANZapine ORAL DISINTEGRATING TAB 5MG PO PRN (18:19)
[2021-03-26] MEDS ORDERED: chlorproMAZINE 25 MG TABLET PO ONE (19:00)
[2021-03-26] MEDS: NICOTINE 21MG/24HR 1 EA TRANSDERMAL TD SCH (19:05)
[2021-03-27] MEDS: BUPRENORPHINE/NALOXONE 8-2MG SUBLINGUAL TABLET(SUBOXONE) SL SCH (08:19)
[2021-03-27] MEDS: NICOTINE 21MG/24HR 1 EA TRANSDERMAL TD SCH (08:21)
[2021-03-27] MEDS: BUPRENORPHINE/NALOXONE 2-0.5MG SUBLINGUAL TABLET(SUBOXONE) SL SCH (08:21)
[2021-03-27] MEDS: DOCUSATE SODIUM 100MG CAPSULE PO SCH ×2 (08:24→20:24)
--- NOTE | 2021-03-27 12:53 | MHHPE ---
[facility] HISTORY AND PHYSICAL DATE OF ADMISSION: 03/26/2021 CHIEF COMPLAINT: She has been agitated. SUBJECTIVE: She is 25 years old, has a long history of emotional difficulties with various diagnoses including bipolar disorder, opioid use disorder, posttraumatic stress disorder. I had seen her yesterday on the consult service. Please refer to my consultation note for details related to the circumstances of her being hospitalized. She had been discharged from the psychiatry unit just recently, in late February, and she came back after taking a substantial overdose of Wellbutrin, was intent on killing herself. She was transferred to the inpatient psychiatry unit after fully medically cleared and today has been agitated. When I saw her, had just been placed in restraints, she had just been released from them, and was quite agitated and after a few minutes she said she did not want to speak with me and the interview was cut short. Has been agitated during the day as well, has required several periods of direction and anti-agitation medications. When I had gone to see her later on at the unit, she was asleep and given the day's events and the agitation, it is thought not to wake her up. PAST HISTORY/BACKGROUND HISTORY: Please refer to previous summary. MENTAL STATUS EXAMINATION: Fair hygiene, uncooperative, angry, upset, agitated but coherent. Denies suicidal ideas or intents. Denies homicidal ideas or intents. There is no evidence of any psychosis. I could not make a formal assessment regarding orientation, but she indicates she does not remember seeing me here yesterday nor what has happened recently, but then was able to indicate other certain events. Judgment and insight are compromised. ASSESSMENT: 1. Other specified bipolar and related disorders. 2. Posttraumatic stress disorder by history. 3. Generalized anxiety disorder. 4. Opiate use disorder. 5. Consider schizoaffective disorder. PLAN: She is admitted to inpatient psychiatry unit, placed on relevant precautions earlier on, including restraints, which were then removed. We will look at obtaining collateral information. We will look at resuming previous medication regimen. She will be involved in therapy one-on-one and will have one-on-one observations for now. She will receive a medicine consult if indicated. She will be discharged with followup when she is stable. I anticipate a 5-7 day stay. Given recent frequent hospitalizations, may need to consider long-term care. JOHN
[2021-03-27] MEDS ORDERED: ADDE20TA PO (15:23)
[2021-03-27] MEDS ORDERED: BUPR-365 PO (15:26)
[2021-03-27] MEDS: OLANZapine ORAL DISINTEGRATING TAB 5MG PO PRN (17:32)
[2021-03-27] MEDS: PARoxetine 20MG TABLET PO SCH (17:35)
[2021-03-27] MEDS: ARIPiprazole 15 MG TAB (AbiLIFY) PO SCH (17:36)
[2021-03-27] MEDS ORDERED: chlorproMAZINE INJ 50MG/2ML AMP (J3230) IM STA (17:45)
[2021-03-27] MEDS: GABAPENTIN 300 MG CAP PO SCH ×2 (20:24→22:54)
[2021-03-28] MEDS: ARIPiprazole 15 MG TAB (AbiLIFY) PO SCH (08:57)
[2021-03-28] MEDS: PARoxetine 20MG TABLET PO SCH (08:57)
[2021-03-28] MEDS: DOCUSATE SODIUM 100MG CAPSULE PO SCH ×2 (08:58→21:00)
[2021-03-28] MEDS: GABAPENTIN 300 MG CAP PO SCH ×3 (08:58→21:00)
[2021-03-28] MEDS: NICOTINE 21MG/24HR 1 EA TRANSDERMAL TD SCH (08:58)
[2021-03-28] MEDS ORDERED: buPROPion **XL** TABLET 150MG (WELLBUTRIN XL) PO SCH (09:00)
[2021-03-28] MEDS: BUPRENORPHINE/NALOXONE 8-2MG SUBLINGUAL TABLET(SUBOXONE) SL SCH (09:13)
[2021-03-28] MEDS: BUPRENORPHINE/NALOXONE 2-0.5MG SUBLINGUAL TABLET(SUBOXONE) SL SCH (09:14)
--- NOTE | 2021-03-28 15:13 | IPNPDOC ---
Text Note Date of Service The patient was seen on 03/26/21. NOTE code 25 was called by RN in mental health unit. Patient was increasingly agitated, hallucinating. Patient was seen and evaluated Patient was restrained. No any visual signs trauma or injury. Case was discussed with nurses. Pending evaluation and treatment by psych team VS,Italo, I+O VS, Pricillae, I+O Vital Signs Date Time Temp Pulse Resp B/P (MAP) Pulse Ox O2 Delivery O2 Flow Rate FiO2 03/26/21 15:45 16 03/26/21 14:15 Room Air 03/26/21 14:00 98.0 105 112/63 100 EDWARD DEUTSCH DO March 28, 2021 15:12
--- NOTE | 2021-03-28 15:44 | MHIPNPDOC ---
[facility] Progress Note Progress Note DATE OF SERVICE: 03/28/21 HISTORY: This is one of multiple admissions for a 25 year old Single, Disabled, Domiciled, who had overdosed on Wellbutrin with an intent to kill her self. She was admitted to the medical unit initially and was readmitted to [facility] for her suicide attempt. She was discharged from this facility in February and was going to rehab. VITAL SIGNS: See below. CURRENT MEDICATIONS: See below. MENTAL STATUS EXAMINATION: Patient is a 25 year old Single, Disabled, Domiciled, who had overdosed on Wellbutrin with an intent to kill herself. Speech: Is fluid, conversant, normal rate, tone and volume Language skills are intact Thought processes including: linear and goal oriented Thought content: denies depression and anxiety. Denies suicidal/homicidal ideation, planning or intent. Abstract reasoning, and computation: fair Description of associations: denies, none observed Description of abnormal or psychotic thoughts: denies, none observed. Judgment: fair Insight: fair Orientation: alert and oriented to person, place, time and situation Recent and remote memory: intact Attention span and concentration: good Language: expansive Fund of knowledge: average Mood: Euthymic Mood Affect: reactive DIAGNOSES: Bipolar, Unspecified PTSD cannabis Use Disorder Nicotine Use Disorder ADHD Generalized Anxiety Disorder Opiate Use Disorder and Dependence, per old charts ASSESSMENT: Patient presents with unkempt and poor hygiene. Reports that she has no idea why she was admitted. "They say I overdosed but I don't remember." Reviewed with patient her last discharge treatment plan, patient states that she went to Rehab and left after one day because they were going to not going to take her off Suboxone. She states that her boyfriend does not want her on Suboxone. She denies suicidal ideation, depression, anxiety and wants to be discharged to home because tomorrow is her birthday. She asked if she can be placed back on Adderall. This request was denied. On previous admissions patient had reported interpersonal conflicts with her significant other and states that she will be going to her mother's home. Reinforced with patient that Adderall and Suboxone used concurrently after her overdose may be too much for her system. MANAGEMENT PLAN: Continue all medications, discharge when stable. TIME SPENT: 25 minutes. Vital Signs Vital Signs Date Time Temp Pulse Resp B/P (MAP) Pulse Ox O2 Delivery O2 Flow Rate FiO2 03/26/21 15:45 16 03/26/21 14:15 Room Air 03/26/21 14:00 98.0 105 112/63 100 Current Medications Current Medications Medications (Trade) Dose Ordered Sig/Kim Route PRN Reason Start Time Stop Time Status Last Admin Dose Admin Acetaminophen (Tylenol Tab) 650 mg Q6HP PRN PO HEADACHE or DISCOMFORT 03/25/21 22:20 Al Hydrox/Mg Hydrox/Simethicone (Mylanta) 30 ml Q4HP PRN PO HEARTBURN/INDIGESTION 03/25/21 22:20 Aripiprazole (AbiLIFY) 15 mg DAILY PO 03/27/21 09:00 03/28/21 08:57 Buprenorphine/ Naloxone (Suboxone 2/ 0.5mg) 1 tab DAILY SL 03/26/21 09:00 03/26/21 02:56 DC Buprenorphine/ Naloxone (Suboxone 2/ 0.5mg) 2 tab DAILY SL 03/26/21 09:00 03/28/21 09:14 Buprenorphine/ Naloxone (Suboxone 8/2mg) 1 tab DAILY SL 03/26/21 09:00 03/28/21 09:13 Bupropion HCl (Wellbutrin Xl) 150 mg DAILY PO 03/28/21 09:00 UNV Chlorpromazine HCl (Thorazine) 50 mg STAT STAT IM 03/26/21 13:13 03/26/21 13:15 DC 03/26/21 13:18 Chlorpromazine HCl (Thorazine) 50 mg STAT STAT IM 03/27/21 17:45 03/27/21 17:47 DC Docusate Sodium (Colace) 100 mg BID PO 03/26/21 09:00 03/28/21 08:58 Gabapentin (Neurontin) 300 mg TID PO 03/27/21 21:00 03/28/21 08:58 Home Med (Med Rec Complete!) ASDIRECTED XX 03/27/21 15:25 03/27/21 15:33 DC Lorazepam (Ativan) 1 mg STAT STAT IM 03/26/21 13:13 03/26/21 13:15 DC 03/26/21 13:18 Magnesium Hydroxide (Milk Of Magnesia) 30 ml DAILYPRN PRN PO CONSTIPATION 03/25/21 22:20 Nicotine (Nicoderm Cq 21mg) 1 patch DAILY TD 03/26/21 09:00 03/28/21 08:58 Olanzapine (ZyPREXA ZYDIS) 5 mg Q4HP PRN PO AGITATION 03/25/21 22:20 03/27/21 17:32 Paroxetine HCl (PAXil) 40 mg DAILY PO 03/27/21 09:00 03/28/21 08:57 Trazodone HCl (Desyrel) 50 mg QHSP PRN PO INSOMNIA 03/25/21 22:20 Allergies Coded Allergies: haloperidol (Verified Adverse Reaction, Severe, tardive dyskinesia, 07/26/20) amoxicillin (Verified Adverse Reaction, Mild, STOMACH PAINS/VOMITING, 07/26/20) clavulanic acid (Verified Adverse Reaction, Mild, STOMACH PAINS/VOMITING, 07/26/20) CODY TRIPP NP March 28, 2021 14:51
[2021-03-28 18:00] VITALS: BP 142/84
[2021-03-28] MEDS: OLANZapine ORAL DISINTEGRATING TAB 5MG PO PRN (19:37)
--- NOTE | 2021-03-28 20:26 | MHIPN ---
[facility] PROGRESS NOTE DATE: 03/27/2021 This is a video assessment, it is done in the presence of staff. CHIEF COMPLAINT: She feels a bit better. SUBJECTIVE: She is seen for followup. Indicates feels a bit better, and more rested, she has slept better last night, and part of the day today as well. She does not remember much of yesterday, though a bit vague on this, had had periods of agitation. MENTAL STATUS EXAMINATION: She is neat, she is cooperative, somewhat less guarded, currently no agitation, no psychomotor retardation. Answers questions logically, coherently. Affect is restricted but reactive. Denies suicidal thoughts or intents, no homicidal ideas or intents, no overt delusions elicited. Judgment and insight are compromised. ASSESSMENT: Other specified bipolar and related disorder. Posttraumatic stress disorder by history. Opioid use disorder. Less agitated, calmer overall, and has been more rested. PLAN: Continue current care and observations, and we will resume some of her previous medications, including gabapentin and Abilify, but currently not the Wellbutrin, and she says she had been on Adderall as well, but given the history of substance misuse, I am not comfortable prescribing her the Adderall. Further recommendations will be made depending on the clinical picture. She will be seen by the assigned clinician tomorrow.
[2021-03-29 06:47] VITALS: BP 125/83
[2021-03-29] MEDS: DOCUSATE SODIUM 100MG CAPSULE PO SCH ×2 (09:48→20:18)
[2021-03-29] MEDS: ARIPiprazole 15 MG TAB (AbiLIFY) PO SCH (09:48)
[2021-03-29] MEDS: PARoxetine 20MG TABLET PO SCH (09:48)
[2021-03-29] MEDS: GABAPENTIN 300 MG CAP PO SCH ×3 (09:48→20:17)
[2021-03-29] MEDS: NICOTINE 21MG/24HR 1 EA TRANSDERMAL TD SCH (09:49)
[2021-03-29] MEDS: BUPRENORPHINE/NALOXONE 8-2MG SUBLINGUAL TABLET(SUBOXONE) SL SCH (09:50)
[2021-03-29] MEDS: BUPRENORPHINE/NALOXONE 2-0.5MG SUBLINGUAL TABLET(SUBOXONE) SL SCH (09:50)
--- NOTE | 2021-03-29 13:28 | MHIPNPDOC ---
[facility] Progress Note Progress Note DATE OF SERVICE: 03/29/21 HISTORY: This is one of multiple admissions for a 25 year old Single, Disabled, Domiciled, who had overdosed on Wellbutrin with an intent to kill her self. She was admitted to the medical unit initially and was readmitted to [facility] for her suicide attempt. She was discharged from this facility in February and was going to rehab. VITAL SIGNS: See below. CURRENT MEDICATIONS: See below. MENTAL STATUS EXAMINATION: Patient is a 25 year old Single, Disabled, Domiciled, who had overdosed on Wellbutrin with an intent to kill herself. Speech: Is fluid, conversant, normal rate, tone and volume Language skills are intact Thought processes including: linear and goal oriented Thought content: reports mild depression and anxiety. Denies suicidal/homicidal ideation, planning or intent. Abstract reasoning, and computation: fair Description of associations: denies, none observed Description of abnormal or psychotic thoughts: denies, none observed. Judgment: fair Insight: fair Orientation: alert and oriented to person, place, time and situation Recent and remote memory: intact Attention span and concentration: good Language: expansive Fund of knowledge: average Mood: Depressed and Anxious Affect: Flat DIAGNOSES: Bipolar, Unspecified PTSD cannabis Use Disorder Nicotine Use Disorder ADHD Generalized Anxiety Disorder Opiate Use Disorder and Dependence, per old charts ASSESSMENT: Patient is disheveled and has poor hygiene. She states that she has depression and anxiety today. According to staff, she spent most of the day in bed yesterday. Wants to return to Rehab, states that she has called several before she was admitted to the hospital for her suicide attempt. She states that she has not been able to complete Rehab the last few times because she misses her children. States that she completed Rehab fully in 2016 and 2018 but can't recall how long she was able to abstain from drugs after her rehab. Discussed with patient that completing Rehab would be to see her children for a longer period. She had reported that she has not seen them very much because she has been hospitalized multiple times in the last 6-9 months. She states that she is nervous and anxious. She denies SI/HI today. MANAGEMENT PLAN: Continue all medications, discharge when stable. TIME SPENT: 25 minutes. Vital Signs Vital Signs Date Time Temp Pulse Resp B/P (MAP) Pulse Ox O2 Delivery O2 Flow Rate FiO2 03/29/21 06:47 97.7 95 20 125/83 (97) 100 Room Air Current Medications Current Medications Medications (Trade) Dose Ordered Sig/Kim Route PRN Reason Start Time Stop Time Status Last Admin Dose Admin Acetaminophen (Tylenol Tab) 650 mg Q6HP PRN PO HEADACHE or DISCOMFORT 03/25/21 22:20 Al Hydrox/Mg Hydrox/Simethicone (Mylanta) 30 ml Q4HP PRN PO HEARTBURN/INDIGESTION 03/25/21 22:20 Aripiprazole (AbiLIFY) 15 mg DAILY PO 03/27/21 09:00 03/29/21 09:48 Buprenorphine/ Naloxone (Suboxone 2/ 0.5mg) 1 tab DAILY SL 03/26/21 09:00 03/26/21 02:56 DC Buprenorphine/ Naloxone (Suboxone 2/ 0.5mg) 2 tab DAILY SL 03/26/21 09:00 03/29/21 09:50 Buprenorphine/ Naloxone (Suboxone 8/2mg) 1 tab DAILY SL 03/26/21 09:00 03/29/21 09:50 Bupropion HCl (Wellbutrin Xl) 150 mg DAILY PO 03/28/21 09:00 UNV Chlorpromazine HCl (Thorazine) 50 mg STAT STAT IM 03/26/21 13:13 03/26/21 13:15 DC 03/26/21 13:18 Chlorpromazine HCl (Thorazine) 50 mg STAT STAT IM 03/27/21 17:45 03/27/21 17:47 DC Docusate Sodium (Colace) 100 mg BID PO 03/26/21 09:00 03/29/21 09:48 Gabapentin (Neurontin) 300 mg TID PO 03/27/21 21:00 03/29/21 09:48 Home Med (Med Rec Complete!) ASDIRECTED XX 03/27/21 15:25 03/27/21 15:33 DC Lorazepam (Ativan) 1 mg STAT STAT IM 03/26/21 13:13 03/26/21 13:15 DC 03/26/21 13:18 Magnesium Hydroxide (Milk Of Magnesia) 30 ml DAILYPRN PRN PO CONSTIPATION 03/25/21 22:20 Nicotine (Nicoderm Cq 21mg) 1 patch DAILY TD 03/26/21 09:00 03/29/21 09:49 Olanzapine (ZyPREXA ZYDIS) 5 mg Q4HP PRN PO AGITATION 03/25/21 22:20 03/28/21 19:37 Paroxetine HCl (PAXil) 40 mg DAILY PO 03/27/21 09:00 03/29/21 09:48 Trazodone HCl (Desyrel) 50 mg QHSP PRN PO INSOMNIA 03/25/21 22:20 Allergies Coded Allergies: haloperidol (Verified Adverse Reaction, Severe, tardive dyskinesia, 07/26/20) amoxicillin (Verified Adverse Reaction, Mild, STOMACH PAINS/VOMITING, 07/26/20) clavulanic acid (Verified Adverse Reaction, Mild, STOMACH PAINS/VOMITING, 07/26/20) CODY TRIPP PLATE STRAIGHTENER March 29, 2021 13:28
[2021-03-29 18:00] VITALS: BP 130/63
[2021-03-29] MEDS: traZODone 50 MG TAB PO PRN (20:17)
[2021-03-30] MEDS: NICOTINE 21MG/24HR 1 EA TRANSDERMAL TD SCH (08:08)
[2021-03-30] MEDS: DOCUSATE SODIUM 100MG CAPSULE PO SCH ×2 (08:09→21:00)
[2021-03-30] MEDS: GABAPENTIN 300 MG CAP PO SCH ×3 (08:09→21:43)
[2021-03-30] MEDS: PARoxetine 20MG TABLET PO SCH (08:09)
[2021-03-30] MEDS: ARIPiprazole 15 MG TAB (AbiLIFY) PO SCH (08:09)
[2021-03-30] MEDS: BUPRENORPHINE/NALOXONE 2-0.5MG SUBLINGUAL TABLET(SUBOXONE) SL SCH (08:10)
[2021-03-30] MEDS: BUPRENORPHINE/NALOXONE 8-2MG SUBLINGUAL TABLET(SUBOXONE) SL SCH (08:10)
[2021-03-30] MEDS: OLANZapine ORAL DISINTEGRATING TAB 5MG PO PRN (13:28)
--- NOTE | 2021-03-30 15:23 | MHIPNPDOC ---
[facility] Progress Note Progress Note DATE OF SERVICE: 03/30/21 HISTORY: This is one of multiple admissions for a 25 year old Single, Disabled, Domiciled, who had overdosed on Wellbutrin with an intent to kill her self. She was admitted to the medical unit initially and was readmitted to [facility] for her suicide attempt. She was discharged from this facility in February and was going to rehab. VITAL SIGNS: See below. CURRENT MEDICATIONS: See below. MENTAL STATUS EXAMINATION: Patient is a 25 year old Single, Disabled, Domiciled, who had overdosed on Wellbutrin with an intent to kill herself. Speech: Is fluid, conversant, normal rate, tone and volume Language skills are intact Thought processes including: linear and goal oriented Thought content: reports mild depression and anxiety. Denies suicidal/homicidal ideation, planning or intent. Abstract reasoning, and computation: fair Description of associations: denies, none observed Description of abnormal or psychotic thoughts: denies, none observed. Judgment: fair Insight: fair Orientation: alert and oriented to person, place, time and situation Recent and remote memory: intact Attention span and concentration: good Language: expansive Fund of knowledge: average Mood: Depressed and Anxious Affect: Flat DIAGNOSES: Bipolar, Unspecified PTSD cannabis Use Disorder Nicotine Use Disorder ADHD Generalized Anxiety Disorder Opiate Use Disorder and Dependence, per old charts ASSESSMENT: Patient is disheveled and has poor hygiene. She states that she has decreased depression and anxiety today. States that her boyfriend wants her to stay on Suboxone but does not want her on the Adderall. She vacillates between wanting to go to Rehab and going home to be with her daughters. Patient reports that she is doing better, her arms are improving (she had scratched her arms up) Patient is requesting Paxil increase, patient is reporting that she is decreased depression, encouraged and reinforced that much of her depression is the substance use. MANAGEMENT PLAN: Continue all medications, discharge when stable. TIME SPENT: 25 minutes. Vital Signs Vital Signs Date Time Temp Pulse Resp B/P (MAP) Pulse Ox O2 Delivery O2 Flow Rate FiO2 03/29/21 18:00 98.2 92 16 130/63 (85) Room Air 03/29/21 06:47 100 Current Medications Current Medications Medications (Trade) Dose Ordered Sig/Kim Route PRN Reason Start Time Stop Time Status Last Admin Dose Admin Acetaminophen (Tylenol Tab) 650 mg Q6HP PRN PO HEADACHE or DISCOMFORT 03/25/21 22:20 Al Hydrox/Mg Hydrox/Simethicone (Mylanta) 30 ml Q4HP PRN PO HEARTBURN/INDIGESTION 03/25/21 22:20 Aripiprazole (AbiLIFY) 15 mg DAILY PO 03/27/21 09:00 03/30/21 08:09 Buprenorphine/ Naloxone (Suboxone 2/ 0.5mg) 1 tab DAILY SL 03/26/21 09:00 03/26/21 02:56 DC Buprenorphine/ Naloxone (Suboxone 2/ 0.5mg) 2 tab DAILY SL 03/26/21 09:00 03/30/21 08:10 Buprenorphine/ Naloxone (Suboxone 8/2mg) 1 tab DAILY SL 03/26/21 09:00 03/30/21 08:10 Bupropion HCl (Wellbutrin Xl) 150 mg DAILY PO 03/28/21 09:00 UNV Chlorpromazine HCl (Thorazine) 50 mg STAT STAT IM 03/26/21 13:13 03/26/21 13:15 DC 03/26/21 13:18 Chlorpromazine HCl (Thorazine) 50 mg STAT STAT IM 03/27/21 17:45 03/27/21 17:47 DC Docusate Sodium (Colace) 100 mg BID PO 03/26/21 09:00 03/30/21 08:09 Gabapentin (Neurontin) 300 mg TID PO 03/27/21 21:00 03/30/21 08:09 Home Med (Med Rec Complete!) ASDIRECTED XX 03/27/21 15:25 03/27/21 15:33 DC Lorazepam (Ativan) 1 mg STAT STAT IM 03/26/21 13:13 03/26/21 13:15 DC 03/26/21 13:18 Magnesium Hydroxide (Milk Of Magnesia) 30 ml DAILYPRN PRN PO CONSTIPATION 03/25/21 22:20 Nicotine (Nicoderm Cq 21mg) 1 patch DAILY TD 03/26/21 09:00 03/30/21 08:08 Olanzapine (ZyPREXA ZYDIS) 5 mg Q4HP PRN PO AGITATION 03/25/21 22:20 03/30/21 13:28 Paroxetine HCl (PAXil) 40 mg DAILY PO 03/27/21 09:00 03/30/21 08:09 Trazodone HCl (Desyrel) 50 mg QHSP PRN PO INSOMNIA 03/25/21 22:20 03/29/21 20:17 Allergies Coded Allergies: haloperidol (Verified Adverse Reaction, Severe, tardive dyskinesia, ) amoxicillin (Verified Adverse Reaction, Mild, STOMACH PAINS/VOMITING, 07/26/20) clavulanic acid (Verified Adverse Reaction, Mild, STOMACH PAINS/VOMITING, 07/26/20) CODY TRIPP OFFICE ASSISTANT March 30, 2021 15:23
[2021-03-30 17:47] VITALS: BP 116/58
[2021-03-30] MEDS: traZODone 50 MG TAB PO PRN (21:44)
[2021-03-31] MEDS: GABAPENTIN 300 MG CAP PO SCH ×3 (08:04→21:41)
[2021-03-31] MEDS: ARIPiprazole 15 MG TAB (AbiLIFY) PO SCH (08:04)
[2021-03-31] MEDS: DOCUSATE SODIUM 100MG CAPSULE PO SCH ×2 (08:04→21:41)
[2021-03-31] MEDS: NICOTINE 21MG/24HR 1 EA TRANSDERMAL TD SCH (08:04)
[2021-03-31] MEDS: PARoxetine 20MG TABLET PO SCH (08:04)
[2021-03-31] MEDS: BUPRENORPHINE/NALOXONE 8-2MG SUBLINGUAL TABLET(SUBOXONE) SL SCH (09:12)
[2021-03-31] MEDS: BUPRENORPHINE/NALOXONE 2-0.5MG SUBLINGUAL TABLET(SUBOXONE) SL SCH (09:12)
--- NOTE | 2021-03-31 14:09 | MHIPNPDOC ---
[facility] Progress Note Progress Note DATE OF SERVICE: 03/31/21 HISTORY: This is one of multiple admissions for a 25 year old Single, Disabled, Domiciled, who had overdosed on Wellbutrin with an intent to kill he rself. She was admitted to the medical unit initially and was readmitted to [facility] for her suicide attempt. She was discharged from this facility in February and was going to rehab but left soon after her admission to the facility reporting that she did not want to be continued on Suboxone. On this occasion, patient reportedly had been arguing with her boyfriend and she took an overdose. She reports that she does not remember this. Denies that she had been suicidal. VITAL SIGNS: See below. CURRENT MEDICATIONS: See below. MENTAL STATUS EXAMINATION: Patient is a 25 year old Single, Disabled, Domiciled, who had overdo sed on Wellbutrin with an intent to kill herself. Speech: Is fluid, normal rate, tone and volume, minimally conversant Language skills are intact Thought processes including: linear and goal oriented Thought content: reports decreased depression and anxiety. Denies suicidal/homicidal ideation, planning or intent. Abstract reasoning, and computation: fair Description of associations: denies, none observed Description of abnormal or psychotic thoughts: denies, none observed. Judgment: fair Insight: fair Orientation: alert and oriented to person, place, time and situation Recent and remote memory: intact Attention span and concentration: good Language: expansive Fund of knowledge: average Mood: denies depression and anxiety, but appears to be mildly depressed Affect: Flat DIAGNOSES: Bipolar, Unspecified PTSD cannabis Use Disorder Nicotine Use Disorder ADHD Generalized Anxiety Disorder Opiate Use Disorder and Dependence, per old charts ASSESSMENT: Patient awaken for her interview. She is quite disheveled and not attending to her ADLS. Her hair is unkempt. Patient states that she is agreeable to wait for rehab availability. Given that patient had a serious overdose with ICU admission it would be beneficial for patient to continue her hospitalization to have door to door admission to Rehab. If patient is discharged to home, there is a likelihood that she would return to the hospital in a short period of time without inpatient treatment for substance use. She had reported that on her last rehab admission she left because she wanted to be taken off Suboxone. I reinforced with her the likelihood that she would fail Rehab without continued Suboxone RX during her inpatient treatment in Rehab. She reports that she now wants to continue taking Suboxone. She divulged that she misunderstood her boyfriend's wishes - he wants her to continue taking Suboxone but he does not want her to take Adderall. She denies any physical complaints, denies any depression or anxiety but she appears to be mildly depressed and moderately anxious in the interview. Her eye contact was intermittent and she was impoverished in speech, mildly non-conversant and answered questions with minimal responses. MANAGEMENT PLAN: Continue all medications. New medication change - Patient has Paxil IR 40 mg will stop this and start Paxil CP 50 mg switching the treatment from IR to CR paroxetine could improve depressive symptoms. Will discharge to Rehab when bed is available. TIME SPENT: 25 minutes. Vital Signs Vital Signs Date Time Temp Pulse Resp B/P (MAP) Pulse Ox O2 Delivery O2 Flow Rate FiO2 03/30/21 17:47 97.1 92 18 116/58 (77) 03/29/21 18:00 Room Air 03/29/21 06:47 100 Current Medications Current Medications Medications (Trade) Dose Ordered Sig/Kim Route PRN Reason Start Time Stop Time Status Last Admin Dose Admin Acetaminophen (Tylenol Tab) 650 mg Q6HP PRN PO HEADACHE or DISCOMFORT 03/25/21 22:20 Al Hydrox/Mg Hydrox/Simethicone (Mylanta) 30 ml Q4HP PRN PO HEARTBURN/INDIGESTION 03/25/21 22:20 Aripiprazole (AbiLIFY) 15 mg DAILY PO 03/27/21 09:00 03/31/21 08:04 Buprenorphine/ Naloxone (Suboxone 2/ 0.5mg) 1 tab DAILY SL 03/26/21 09:00 03/26/21 02:56 DC Buprenorphine/ Naloxone (Suboxone 2/ 0.5mg) 2 tab DAILY SL 03/26/21 09:00 03/31/21 09:12 Buprenorphine/ Naloxone (Suboxone 8/2mg) 1 tab DAILY SL 03/26/21 09:00 03/31/21 09:12 Bupropion HCl (Wellbutrin Xl) 150 mg DAILY PO 03/28/21 09:00 UNV Chlorpromazine HCl (Thorazine) 50 mg STAT STAT IM 03/26/21 13:13 03/26/21 13:15 DC 03/26/21 13:18 Chlorpromazine HCl (Thorazine) 50 mg STAT STAT IM 03/27/21 17:45 03/27/21 17:47 DC Docusate Sodium (Colace) 100 mg BID PO 03/26/21 09:00 03/31/21 08:04 Gabapentin (Neurontin) 300 mg TID PO 03/27/21 21:00 03/31/21 08:04 Home Med (Med Rec Complete!) ASDIRECTED XX 03/27/21 15:25 03/27/21 15:33 DC Lorazepam (Ativan) 1 mg STAT STAT IM 03/26/21 13:13 03/26/21 13:15 DC 03/26/21 13:18 Magnesium Hydroxide (Milk Of Magnesia) 30 ml DAILYPRN PRN PO CONSTIPATION 03/25/21 22:20 Miscellaneous (Unresolved Clarification Entry) SEE LABEL COMMENTS DAILY XX 03/31/21 09:00 Nicotine (Nicoderm Cq 21mg) 1 patch DAILY TD 03/26/21 09:00 03/31/21 08:04 Olanzapine (ZyPREXA ZYDIS) 5 mg Q4HP PRN PO AGITATION 03/25/21 22:20 03/30/21 13:28 Paroxetine HCl (PAXil) 40 mg DAILY PO 03/27/21 09:00 03/31/21 08:04 Trazodone HCl (Desyrel) 50 mg QHSP PRN PO INSOMNIA 03/25/21 22:20 03/30/21 21:44 Allergies Coded Allergies: haloperidol (Verified Adverse Reaction, Severe, tardive dyskinesia, 07/26/20) amoxicillin (Verified Adverse Reaction, Mild, STOMACH PAINS/VOMITING, 07/26/20) clavulanic acid (Verified Adverse Reaction, Mild, STOMACH PAINS/VOMITING, 07/26/20) CODY TRIPP CHAIRPERSON ANESTHESIOLOGY March 31, 2021 14:09
[2021-03-31 19:01] VITALS: BP 107/70
[2021-04-01] MEDS: PARoxetine 25 MG CR TAB (PAXIL CR) PO SCH (09:14)
[2021-04-01] MEDS: GABAPENTIN 300 MG CAP PO SCH ×3 (09:15→20:38)
[2021-04-01] MEDS: ARIPiprazole 15 MG TAB (AbiLIFY) PO SCH (09:15)
[2021-04-01] MEDS: DOCUSATE SODIUM 100MG CAPSULE PO SCH ×2 (09:15→20:38)
[2021-04-01] MEDS: NICOTINE 21MG/24HR 1 EA TRANSDERMAL TD SCH (09:16)
[2021-04-01] MEDS: BUPRENORPHINE/NALOXONE 2-0.5MG SUBLINGUAL TABLET(SUBOXONE) SL SCH (09:45)
[2021-04-01] MEDS: BUPRENORPHINE/NALOXONE 8-2MG SUBLINGUAL TABLET(SUBOXONE) SL SCH (09:45)
--- NOTE | 2021-04-01 15:06 | MHIPNPDOC ---
[facility] Progress Note Progress Note DATE OF SERVICE: 04/01/21 HISTORY: This is one of multiple admissions for a 25 year old Single, Disabled, Domiciled, who had overdosed on Wellbutrin with an intent to kill her self. She was admitted to the medical unit initially and was readmitted to [facility] for her suicide attempt. She was discharged from this facility in February and was going to rehab but left soon after her admission to the facility reporting that she did not want to be continued on Suboxone. On this occasion, patient reportedly had been arguing with her boyfriend and she took an overdose. She reports that she does not remember this. Denies that she had been suicidal. VITAL SIGNS: See below. CURRENT MEDICATIONS: See below. MENTAL STATUS EXAMINATION: Patient is a 25 year old Single, Disabled, Domiciled, who had overdos ed on Wellbutrin with an intent to kill herself. Speech: Is fluid, normal rate, tone and volume, minimally conversant Language skills are intact Thought processes including: linear and goal oriented Thought content: reports decreased depression and anxiety. Denies suicidal/homicidal ideation, planning or intent. Abstract reasoning, and computation: fair Description of associations: denies, none observed Description of abnormal or psychotic thoughts: denies, none observed. Judgment: fair Insight: fair Orientation: alert and oriented to person, place, time and situation Recent and remote memory: intact Attention span and concentration: good Language: expansive Fund of knowledge: average Mood: denies depression and anxiety, but appears to be mildly depressed Affect: Flat DIAGNOSES: Bipolar, Unspecified PTSD cannabis Use Disorder Nicotine Use Disorder ADHD Generalized Anxiety Disorder Opiate Use Disorder and Dependence, per old charts ASSESSMENT: Patient is seen today. She is dressed in hospital clothing and is slightly disheveled. She is alert and oriented 3, states that she feels "much better". States that her depression and anxiety have decreased since she's been here. She states that she does not recall the circumstances around how she got hospitalized but that her fianc has told her over the telephone that she made suicidal statements. She denies SI/HI. Denies AH/VH. She states that she wants rehabilitation and that the event planner is working on getting into a rehabilitation program. States that she prefers going straight to rehabilitation when she is discharged. States that her last rehab was a bout a month ago at [facility] and she only lasted one day because;" I was missing my children". States that this time she believes she will be able to complete rehab. States that she is addicted to opiates and is on Suboxone. She is asking for Seroquel or sleep. Says she wakes up at 2 o'clock in the morning and is unable to fall back asleep and that Trazodone is not working for her. Started her on Seroquel 100mg QHS. . MANAGEMENT PLAN: Continue all medications. Seroquel 100mg PO QHS started. Will discharge to Rehab when bed is available. TIME SPENT: 25 minutes. Vital Signs Vital Signs Date Time Temp Pulse Resp B/P (MAP) Pulse Ox O2 Delivery O2 Flow Rate FiO2 03/31/21 19:01 98.1 97 14 107/70 (82) 03/29/21 18:00 Room Air 03/29/21 06:47 100 Current Medications Current Medications Medications (Trade) Dose Ordered Sig/Kim Route PRN Reason Start Time Stop Time Status Last Admin Dose Admin Acetaminophen (Tylenol Tab) 650 mg Q6HP PRN PO HEADACHE or DISCOMFORT 03/25/21 22:20 Al Hydrox/Mg Hydrox/Simethicone (Mylanta) 30 ml Q4HP PRN PO HEARTBURN/INDIGESTION 03/25/21 22:20 Aripiprazole (AbiLIFY) 15 mg DAILY PO 03/27/21 09:00 04/01/21 09:15 Buprenorphine/ Naloxone (Suboxone 2/ 0.5mg) 1 tab DAILY SL 03/26/21 09:00 03/26/21 02:56 DC Buprenorphine/ Naloxone (Suboxone 2/ 0.5mg) 2 tab DAILY SL 03/26/21 09:00 04/01/21 09:45 Buprenorphine/ Naloxone (Suboxone 8/2mg) 1 tab DAILY SL 03/26/21 09:00 04/01/21 09:45 Bupropion HCl (Wellbutrin Xl) 150 mg DAILY PO 03/28/21 09:00 UNV Chlorpromazine HCl (Thorazine) 50 mg STAT STAT IM 03/26/21 13:13 03/26/21 13:15 DC 03/26/21 13:18 Chlorpromazine HCl (Thorazine) 50 mg STAT STAT IM 03/27/21 17:45 03/27/21 17:47 DC Docusate Sodium (Colace) 100 mg BID PO 03/26/21 09:00 04/01/21 09:15 Gabapentin (Neurontin) 300 mg TID PO 03/27/21 21:00 04/01/21 09:15 Home Med (Med Rec Complete!) ASDIRECTED XX 03/27/21 15:25 03/27/21 15:33 DC Lorazepam (Ativan) 1 mg STAT STAT IM 03/26/21 13:13 03/26/21 13:15 DC 03/26/21 13:18 Magnesium Hydroxide (Milk Of Magnesia) 30 ml DAILYPRN PRN PO CONSTIPATION 03/25/21 22:20 Miscellaneous (Unresolved Clarification Entry) SEE LABEL COMMENTS DAILY XX 03/31/21 09:00 04/01/21 12:05 DC Nicotine (Nicoderm Cq 21mg) 1 patch DAILY TD 03/26/21 09:00 04/01/21 09:16 Olanzapine (ZyPREXA ZYDIS) 5 mg Q4HP PRN PO AGITATION 03/25/21 22:20 03/30/21 13:28 Paroxetine HCl (PAXil CR) 50 mg DAILY PO 04/01/21 09:00 04/01/21 09:14 Paroxetine HCl (PAXil) 40 mg DAILY PO 03/27/21 09:00 03/31/21 14:14 DC 03/31/21 08:04 Trazodone HCl (Desyrel) 50 mg QHSP PRN PO INSOMNIA 03/25/21 22:20 03/30/21 21:44 Allergies Coded Allergies: haloperidol (Verified Adverse Reaction, Severe, tardive dyskinesia, 07/26/20) amoxicillin (Verified Adverse Reaction, Mild, STOMACH PAINS/VOMITING, 07/26/20) clavulanic acid (Verified Adverse Reaction, Mild, STOMACH PAINS/VOMITING, 07/26/20) CODY TRIPP SENIOR JAVA SOFTWARE DEVELOPER April 01, 2021 15:06
[2021-04-01 17:40] VITALS: BP 108/58
[2021-04-01] MEDS: QUEtiapine FUMARATE 100 MG TAB PO SCH (20:38)
[2021-04-02 06:49] VITALS: BP 113/54
[2021-04-02] MEDS: NICOTINE 21MG/24HR 1 EA TRANSDERMAL TD SCH (08:12)
[2021-04-02] MEDS: PARoxetine 25 MG CR TAB (PAXIL CR) PO SCH (08:13)
[2021-04-02] MEDS: ARIPiprazole 15 MG TAB (AbiLIFY) PO SCH (08:13)
[2021-04-02] MEDS: DOCUSATE SODIUM 100MG CAPSULE PO SCH ×2 (08:14→20:01)
[2021-04-02] MEDS: GABAPENTIN 300 MG CAP PO SCH ×3 (08:14→20:01)
[2021-04-02] MEDS: BUPRENORPHINE/NALOXONE 8-2MG SUBLINGUAL TABLET(SUBOXONE) SL SCH (09:18)
[2021-04-02] MEDS: BUPRENORPHINE/NALOXONE 2-0.5MG SUBLINGUAL TABLET(SUBOXONE) SL SCH (09:18)
[2021-04-02 17:55] VITALS: BP 107/56
[2021-04-02] MEDS: QUEtiapine FUMARATE 100 MG TAB PO SCH (20:01)
[2021-04-03 06:15] VITALS: BP 109/73
[2021-04-03] MEDS: DOCUSATE SODIUM 100MG CAPSULE PO SCH ×2 (08:49→21:00)
[2021-04-03] MEDS: GABAPENTIN 300 MG CAP PO SCH ×3 (08:49→19:49)
[2021-04-03] MEDS: BUPRENORPHINE/NALOXONE 8-2MG SUBLINGUAL TABLET(SUBOXONE) SL SCH (08:49)
[2021-04-03] MEDS: BUPRENORPHINE/NALOXONE 2-0.5MG SUBLINGUAL TABLET(SUBOXONE) SL SCH (08:49)
[2021-04-03] MEDS: PARoxetine 25 MG CR TAB (PAXIL CR) PO SCH (08:49)
[2021-04-03] MEDS: ARIPiprazole 15 MG TAB (AbiLIFY) PO SCH (08:50)
[2021-04-03] MEDS: NICOTINE 21MG/24HR 1 EA TRANSDERMAL TD SCH (10:40)
[2021-04-03] MEDS: QUEtiapine FUMARATE 100 MG TAB PO SCH (19:49)
[2021-04-04 06:43] VITALS: BP 111/58
[2021-04-04] MEDS: DOCUSATE SODIUM 100MG CAPSULE PO SCH ×2 (07:58→20:58)
[2021-04-04] MEDS: ARIPiprazole 15 MG TAB (AbiLIFY) PO SCH (07:58)
[2021-04-04] MEDS: PARoxetine 25 MG CR TAB (PAXIL CR) PO SCH (07:58)
[2021-04-04] MEDS: NICOTINE 21MG/24HR 1 EA TRANSDERMAL TD SCH (07:58)
[2021-04-04] MEDS: GABAPENTIN 300 MG CAP PO SCH ×3 (07:58→20:57)
[2021-04-04] MEDS: BUPRENORPHINE/NALOXONE 8-2MG SUBLINGUAL TABLET(SUBOXONE) SL SCH (09:31)
[2021-04-04] MEDS: BUPRENORPHINE/NALOXONE 2-0.5MG SUBLINGUAL TABLET(SUBOXONE) SL SCH (09:31)
--- NOTE | 2021-04-04 15:31 | MHIPNPDOC ---
[facility] Progress Note Progress Note DATE OF SERVICE: 04/04/21 HISTORY: This is one of multiple admissions for a 25 year old Single, Disabled, Domiciled, who had overdosed on Wellbutrin with an intent to kill he rself. She was admitted to the medical unit initially and was readmitted to [facility] for her suicide attempt. She was discharged from this facility in February and was going to rehab but left soon after her admission to the facility reporting that she did not want to be continued on Suboxone. On this occasion, patient reportedly had been arguing with her boyfriend and she took an overdose. She reports that she does not remember this. Denies that she had been suicidal. VITAL SIGNS: See below. CURRENT MEDICATIONS: See below. MENTAL STATUS EXAMINATION: Patient is a 25 year old Single, Disabled, Domiciled, who had overdo sed on Wellbutrin with an intent to kill herself. Speech: Is fluid, normal rate, tone and volume, minimally conversant Language skills are intact Thought processes including: linear and goal oriented Thought content: reports decreased depression and anxiety. Denies suicidal/homicidal ideation, planning or intent. Abstract reasoning, and computation: fair Description of associations: denies, none observed Description of abnormal or psychotic thoughts: denies, none observed. Judgment: fair Insight: fair Orientation: alert and oriented to person, place, time and situation Recent and remote memory: intact Attention span and concentration: good Language: expansive Fund of knowledge: average Mood: denies depression. Reports anxiety. Affect: Flat DIAGNOSES: Bipolar, Unspecified PTSD cannabis Use Disorder Nicotine Use Disorder ADHD Generalized Anxiety Disorder Opiate Use Disorder and Dependence, per old chart. ASSESSMENT:Patient is interviewed today. She is dressed in hospital clothing and is slightly dishevelled. She states that she has been feeling; "good as far as depression". States that Seroquel has julia helping her with her sleep but that she has been having " bad cravings" for the past 2 days. She is on Suboxone 12mg daily, states that she was on 16mg daily at one point. Reports that she still feels anxious, rates her anxiety level at 6/10. States that she is worried about her cravings interfering with her plans for rehab. She voices her desire to get clean. States that she want to do it for her family and her health. States that she has failed rehab before but that she is optimistic this time round that she will complete rehab and get clean from substances. States that [facility] is currently reviewing her application. States that she is working with the resource management planner on starting the process for [facility] application. She would prefer to go straight to rehab when she is discharged. She denies SI. Denies HI/AV/VH. She is participating in group activities and in compliant with her current treatment plan. . MANAGEMENT PLAN: Continue all medications. Will discharge to Rehab when bed is available. TIME SPENT: 25 minutes. Vital Signs Vital Signs Date Time Temp Pulse Resp B/P (MAP) Pulse Ox O2 Delivery O2 Flow Rate FiO2 04/04/21 06:43 98.1 65 20 111/58 (75) 96 Room Air Current Medications Current Medications Medications (Trade) Dose Ordered Sig/Kim Route PRN Reason Start Time Stop Time Status Last Admin Dose Admin Acetaminophen (Tylenol Tab) 650 mg Q6HP PRN PO HEADACHE or DISCOMFORT 03/25/21 22:20 04/03/21 10:39 Al Hydrox/Mg Hydrox/Simethicone (Mylanta) 30 ml Q4HP PRN PO HEARTBURN/INDIGESTION 03/25/21 22:20 Aripiprazole (AbiLIFY) 15 mg DAILY PO 03/27/21 09:00 04/04/21 07:58 Buprenorphine/ Naloxone (Suboxone 2/ 0.5mg) 1 tab DAILY SL 03/26/21 09:00 03/26/21 02:56 DC Buprenorphine/ Naloxone (Suboxone 2/ 0.5mg) 2 tab DAILY SL 03/26/21 09:00 04/04/21 09:31 Buprenorphine/ Naloxone (Suboxone 8/2mg) 1 tab DAILY SL 03/26/21 09:00 04/04/21 09:31 Bupropion HCl (Wellbutrin Xl) 150 mg DAILY PO 03/28/21 09:00 UNV Chlorpromazine HCl (Thorazine) 50 mg STAT STAT IM 03/26/21 13:13 03/26/21 13:15 DC 03/26/21 13:18 Chlorpromazine HCl (Thorazine) 50 mg STAT STAT IM 03/27/21 17:45 03/27/21 17:47 DC Docusate Sodium (Colace) 100 mg BID PO 03/26/21 09:00 04/04/21 07:58 Gabapentin (Neurontin) 300 mg TID PO 03/27/21 21:00 04/04/21 07:58 Home Med (Med Rec Complete!) ASDIRECTED XX 03/27/21 15:25 03/27/21 15:33 DC Lorazepam (Ativan) 1 mg STAT STAT IM 03/26/21 13:13 03/26/21 13:15 DC 03/26/21 13:18 Magnesium Hydroxide (Milk Of Magnesia) 30 ml DAILYPRN PRN PO CONSTIPATION 03/25/21 22:20 Miscellaneous (Unresolved Clarification Entry) SEE LABEL COMMENTS DAILY XX 03/31/21 09:00 04/01/21 12:05 DC Nicotine (Nicoderm Cq 21mg) 1 patch DAILY TD 03/26/21 09:00 04/04/21 07:58 Olanzapine (ZyPREXA ZYDIS) 5 mg Q4HP PRN PO AGITATION 03/25/21 22:20 03/30/21 13:28 Paroxetine HCl (PAXil CR) 50 mg DAILY PO 04/01/21 09:00 04/04/21 07:58 Paroxetine HCl (PAXil) 40 mg DAILY PO 03/27/21 09:00 03/31/21 14:14 DC 03/31/21 08:04 Quetiapine Fumarate (SEROquel) 100 mg QHS PO 04/01/21 21:00 04/03/21 19:49 Trazodone HCl (Desyrel) 50 mg QHSP PRN PO INSOMNIA 03/25/21 22:20 04/01/21 15:08 DC 03/30/21 21:44 Allergies Coded Allergies: haloperidol (Verified Adverse Reaction, Severe, tardive dyskinesia, 07/26/20) amoxicillin (Verified Adverse Reaction, Mild, STOMACH PAINS/VOMITING, 07/26/20) clavulanic acid (Verified Adverse Reaction, Mild, STOMACH PAINS/VOMITING, 07/26/20) CODY TRIPP REPAIR TABLE OPERATOR April 04, 2021 15:31
[2021-04-04 16:19] VITALS: BP 108/60
[2021-04-04] MEDS: QUEtiapine FUMARATE 100 MG TAB PO SCH (20:57)
[2021-04-05] MEDS: DOCUSATE SODIUM 100MG CAPSULE PO SCH ×2 (08:06→19:58)
[2021-04-05] MEDS: NICOTINE 21MG/24HR 1 EA TRANSDERMAL TD SCH (08:06)
[2021-04-05] MEDS: PARoxetine 25 MG CR TAB (PAXIL CR) PO SCH (08:06)
[2021-04-05] MEDS: BUPRENORPHINE/NALOXONE 8-2MG SUBLINGUAL TABLET(SUBOXONE) SL SCH (08:06)
[2021-04-05] MEDS: ARIPiprazole 15 MG TAB (AbiLIFY) PO SCH (08:06)
[2021-04-05] MEDS: GABAPENTIN 300 MG CAP PO SCH ×3 (08:06→19:58)
[2021-04-05] MEDS: BUPRENORPHINE/NALOXONE 2-0.5MG SUBLINGUAL TABLET(SUBOXONE) SL SCH (08:07)
[2021-04-05] MEDS: ADDERALL 5 MG TAB PO SCH (13:04)
--- NOTE | 2021-04-05 15:23 | MHIPNPDOC ---
[facility] Progress Note Progress Note DATE OF SERVICE: 04/05/21 HISTORY: This is one of multiple admissions for a 25 year old Single, Disabled, Domiciled, who had overdosed on Wellbutrin with an intent to kill he rself. She was admitted to the medical unit initially and was readmitted to [facility] for her suicide attempt. She was discharged from this facility in February and was going to rehab but left soon after her admission to the facility reporting that she did not want to be continued on Suboxone. On this occasion, patient reportedly had been arguing with her boyfriend and she took an overdose. She reports that she does not remember this. Denies that she had been suicidal. VITAL SIGNS: See below. CURRENT MEDICATIONS: See below. MENTAL STATUS EXAMINATION: Patient is a 25 year old Single, Disabled, Domiciled, who had overdo sed on Wellbutrin with an intent to kill herself. Speech: Is fluid, normal rate, tone and volume, minimally conversant Language skills are intact Thought processes including: linear and goal oriented Thought content: reports decreased depression and anxiety. Denies suicidal/homicidal ideation, planning or intent. Abstract reasoning, and computation: fair Description of associations: denies, none observed Description of abnormal or psychotic thoughts: denies, none observed. Judgment: fair Insight: fair Orientation: alert and oriented to person, place, time and situation Recent and remote memory: intact Attention span and concentration: good Language: expansive Fund of knowledge: average Mood: denies depression. Reports anxiety. Affect: Flat DIAGNOSES: Bipolar, Unspecified PTSD cannabis Use Disorder Nicotine Use Disorder ADHD Generalized Anxiety Disorder Opiate Use Disorder and Dependence, per old chart. ASSESSMENT: Patient reporting that she is having "cravings." she is observed to be restless. She requested Adderall. Educated patient on her Suboxone and Stimulant use. Patient states that she needs Adderall to lower her anxiety level. States that she is depressed and anxiety because of the cravings. C onfronted patient about the use of her Adderall in the past, as there were reports that her boyfriend had been selling her Adderall. She denies this. Provider is reluctant but agreed to this as patient has this Rx by her outpatient provider. MANAGEMENT PLAN: Continue all medications. Adderall started. Will discharge to Rehab when bed is available. TIME SPENT: 25 minutes. Vital Signs Vital Signs Date Time Temp Pulse Resp B/P (MAP) Pulse Ox O2 Delivery O2 Flow Rate FiO2 04/04/21 16:19 96.6 68 16 108/60 (76) 100 Room Air Current Medications Current Medications Medications (Trade) Dose Ordered Sig/Kim Route PRN Reason Start Time Stop Time Status Last Admin Dose Admin Acetaminophen (Tylenol Tab) 650 mg Q6HP PRN PO HEADACHE or DISCOMFORT 03/25/21 22:20 04/03/21 10:39 Al Hydrox/Mg Hydrox/Simethicone (Mylanta) 30 ml Q4HP PRN PO HEARTBURN/INDIGESTION 03/25/21 22:20 Aripiprazole (AbiLIFY) 15 mg DAILY PO 03/27/21 09:00 04/05/21 08:06 Buprenorphine/ Naloxone (Suboxone 2/ 0.5mg) 1 tab DAILY SL 03/26/21 09:00 03/26/21 02:56 DC Buprenorphine/ Naloxone (Suboxone 2/ 0.5mg) 2 tab DAILY SL 03/26/21 09:00 04/05/21 08:07 Buprenorphine/ Naloxone (Suboxone 8/2mg) 1 tab DAILY SL 03/26/21 09:00 04/05/21 08:06 Bupropion HCl (Wellbutrin Xl) 150 mg DAILY PO 03/28/21 09:00 UNV Chlorpromazine HCl (Thorazine) 50 mg STAT STAT IM 03/26/21 13:13 03/26/21 13:15 DC 03/26/21 13:18 Chlorpromazine HCl (Thorazine) 50 mg STAT STAT IM 03/27/21 17:45 03/27/21 17:47 DC Docusate Sodium (Colace) 100 mg BID PO 03/26/21 09:00 04/05/21 08:06 Gabapentin (Neurontin) 300 mg TID PO 03/27/21 21:00 04/05/21 08:06 Home Med (Med Rec Complete!) ASDIRECTED XX 03/27/21 15:25 03/27/21 15:33 DC Lorazepam (Ativan) 1 mg STAT STAT IM 03/26/21 13:13 03/26/21 13:15 DC 03/26/21 13:18 Magnesium Hydroxide (Milk Of Magnesia) 30 ml DAILYPRN PRN PO CONSTIPATION 03/25/21 22:20 Miscellaneous (Unresolved Clarification Entry) SEE LABEL COMMENTS DAILY XX 03/31/21 09:00 04/01/21 12:05 DC Nicotine (Nicoderm Cq 21mg) 1 patch DAILY TD 03/26/21 09:00 04/05/21 08:06 Olanzapine (ZyPREXA ZYDIS) 5 mg Q4HP PRN PO AGITATION 03/25/21 22:20 03/30/21 13:28 Paroxetine HCl (PAXil CR) 50 mg DAILY PO 04/01/21 09:00 04/05/21 08:06 Paroxetine HCl (PAXil) 40 mg DAILY PO 03/27/21 09:00 03/31/21 14:14 DC 03/31/21 08:04 Quetiapine Fumarate (SEROquel) 100 mg QHS PO 04/01/21 21:00 04/04/21 20:57 Trazodone HCl (Desyrel) 50 mg QHSP PRN PO INSOMNIA 03/25/21 22:20 04/01/21 15:08 DC 03/30/21 21:44 Allergies Coded Allergies: haloperidol (Verified Adverse Reaction, Severe, tardive dyskinesia, 07/26/20) amoxicillin (Verified Adverse Reaction, Mild, STOMACH PAINS/VOMITING, 07/26/20) clavulanic acid (Verified Adverse Reaction, Mild, STOMACH PAINS/VOMITING, 07/26/20) CODY TRIPP NP April 05, 2021 11:29
[2021-04-05 16:20] VITALS: BP 121/66
[2021-04-05] MEDS: QUEtiapine FUMARATE 100 MG TAB PO SCH (19:58)
[2021-04-06] MEDS: ADDERALL 5 MG TAB PO SCH ×2 (07:32→13:01)
[2021-04-06] MEDS: NICOTINE 21MG/24HR 1 EA TRANSDERMAL TD SCH (08:02)
[2021-04-06] MEDS: DOCUSATE SODIUM 100MG CAPSULE PO SCH ×2 (08:02→21:00)
[2021-04-06] MEDS: GABAPENTIN 300 MG CAP PO SCH ×3 (08:02→20:03)
[2021-04-06] MEDS: ARIPiprazole 15 MG TAB (AbiLIFY) PO SCH (08:02)
[2021-04-06] MEDS: PARoxetine 25 MG CR TAB (PAXIL CR) PO SCH (08:02)
[2021-04-06] MEDS: BUPRENORPHINE/NALOXONE 2-0.5MG SUBLINGUAL TABLET(SUBOXONE) SL SCH (09:39)
[2021-04-06] MEDS: BUPRENORPHINE/NALOXONE 8-2MG SUBLINGUAL TABLET(SUBOXONE) SL SCH (09:39)
--- NOTE | 2021-04-06 12:28 | MHIPNPDOC ---
[facility] Progress Note Progress Note DATE OF SERVICE: 04/06/21 HISTORY: This is one of multiple admissions for a 25 year old Single, Disabled, Domiciled, who had overdosed on Wellbutrin with an intent to kill he rself. She was admitted to the medical unit initially and was readmitted to [facility] for her suicide attempt. She was discharged from this facility in February and was going to rehab but left soon after her admission to the facility reporting that she did not want to be continued on Suboxone. On this occasion, patient reportedly had been arguing with her boyfriend and she took an overdose. She reports that she does not remember this. Denies that she had been suicidal. VITAL SIGNS: See below. CURRENT MEDICATIONS: See below. MENTAL STATUS EXAMINATION: Patient is a 25 year old Single, Disabled, Domiciled, who had overdo sed on Wellbutrin with an intent to kill herself. Speech: Is fluid, normal rate, tone and volume, minimally conversant Language skills are intact Thought processes including: linear and goal oriented Thought content: reports decreased depression and anxiety. Denies suicidal/homicidal ideation, planning or intent. Abstract reasoning, and computation: fair Description of associations: denies, none observed Description of abnormal or psychotic thoughts: denies, none observed. Judgment: fair Insight: fair Orientation: alert and oriented to person, place, time and situation Recent and remote memory: intact Attention span and concentration: good Language: expansive Fund of knowledge: average Mood: brighter "less depressed Reports anxiety. Affect: congruent with mood DIAGNOSES: Bipolar, Unspecified PTSD cannabis Use Disorder Nicotine Use Disorder ADHD Generalized Anxiety Disorder Opiate Use Disorder and Dependence, per old chart. ASSESSMENT: Patient states that she is accepted into [facility] but there is a waiting list. Reports that the Adderall has helped her. States that her m ood and anxiety is both low. Depression and anxiety is improved. She attending groups. Reports that she is sleeping well. Seroquel is helping her and that she does not feel groggy like Trazodone did. She denies suicidality. Reports that she is communicating with her mother as she has both of her daughters and that her girls are doing well. Reports that she wants to continue her plans for discharge to Rehab and that she will fail if she doesn't go door to door. MANAGEMENT PLAN: Continue all medications. Adderall started. Will discharge to Rehab when bed is available. TIME SPENT: 25 minutes. Vital Signs Vital Signs Date Time Temp Pulse Resp B/P (MAP) Pulse Ox O2 Delivery O2 Flow Rate FiO2 04/05/21 16:20 98.9 89 16 121/66 (84) 98 Room Air Current Medications Current Medications Medications (Trade) Dose Ordered Sig/Kim Route PRN Reason Start Time Stop Time Status Last Admin Dose Admin Acetaminophen (Tylenol Tab) 650 mg Q6HP PRN PO HEADACHE or DISCOMFORT 03/25/21 22:20 04/03/21 10:39 Al Hydrox/Mg Hydrox/Simethicone (Mylanta) 30 ml Q4HP PRN PO HEARTBURN/INDIGESTION 03/25/21 22:20 Amphetamine/ Dextroamphetamine (Adderall) 20 mg BID@0800,1400 PO 04/05/21 14:00 04/06/21 07:32 Aripiprazole (AbiLIFY) 15 mg DAILY PO 03/27/21 09:00 04/06/21 08:02 Buprenorphine/ Naloxone (Suboxone 2/ 0.5mg) 1 tab DAILY SL 03/26/21 09:00 03/26/21 02:56 DC Buprenorphine/ Naloxone (Suboxone 2/ 0.5mg) 2 tab DAILY SL 03/26/21 09:00 04/06/21 09:39 Buprenorphine/ Naloxone (Suboxone 8/2mg) 1 tab DAILY SL 03/26/21 09:00 04/06/21 09:39 Bupropion HCl (Wellbutrin Xl) 150 mg DAILY PO 03/28/21 09:00 UNV Chlorpromazine HCl (Thorazine) 50 mg STAT STAT IM 03/26/21 13:13 03/26/21 13:15 DC 03/26/21 13:18 Chlorpromazine HCl (Thorazine) 50 mg STAT STAT IM 03/27/21 17:45 03/27/21 17:47 DC Docusate Sodium (Colace) 100 mg BID PO 03/26/21 09:00 04/06/21 08:02 Gabapentin (Neurontin) 300 mg TID PO 03/27/21 21:00 04/06/21 08:02 Home Med (Med Rec Complete!) ASDIRECTED XX 03/27/21 15:25 03/27/21 15:33 DC Lorazepam (Ativan) 1 mg STAT STAT IM 03/26/21 13:13 03/26/21 13:15 DC 03/26/21 13:18 Magnesium Hydroxide (Milk Of Magnesia) 30 ml DAILYPRN PRN PO CONSTIPATION 03/25/21 22:20 Miscellaneous (Unresolved Clarification Entry) SEE LABEL COMMENTS DAILY XX 03/31/21 09:00 04/01/21 12:05 DC Nicotine (Nicoderm Cq 21mg) 1 patch DAILY TD 03/26/21 09:00 04/06/21 08:02 Olanzapine (ZyPREXA ZYDIS) 5 mg Q4HP PRN PO AGITATION 03/25/21 22:20 03/30/21 13:28 Paroxetine HCl (PAXil CR) 50 mg DAILY PO 04/01/21 09:00 04/06/21 08:02 Paroxetine HCl (PAXil) 40 mg DAILY PO 03/27/21 09:00 03/31/21 14:14 DC 03/31/21 08:04 Quetiapine Fumarate (SEROquel) 100 mg QHS PO 04/01/21 21:00 04/05/21 19:58 Trazodone HCl (Desyrel) 50 mg QHSP PRN PO INSOMNIA 03/25/21 22:20 04/01/21 15:08 DC 03/30/21 21:44 Allergies Coded Allergies: haloperidol (Verified Adverse Reaction, Severe, tardive dyskinesia, 07/26/20) amoxicillin (Verified Adverse Reaction, Mild, STOMACH PAINS/VOMITING, 07/26/20) clavulanic acid (Verified Adverse Reaction, Mild, STOMACH PAINS/VOMITING, 07/26/20) CODY TRIPP EXTENSION PROFESSOR April 06, 2021 12:28
[2021-04-06 16:17] VITALS: BP 127/76
[2021-04-06] MEDS: QUEtiapine FUMARATE 100 MG TAB PO SCH (20:03)
[2021-04-07] MEDS: ADDERALL 5 MG TAB PO SCH ×2 (08:01→13:51)
[2021-04-07] MEDS: ARIPiprazole 15 MG TAB (AbiLIFY) PO SCH (08:01)
[2021-04-07] MEDS: PARoxetine 25 MG CR TAB (PAXIL CR) PO SCH (08:01)
[2021-04-07] MEDS: DOCUSATE SODIUM 100MG CAPSULE PO SCH ×2 (08:02→20:00)
[2021-04-07] MEDS: NICOTINE 21MG/24HR 1 EA TRANSDERMAL TD SCH (08:02)
[2021-04-07] MEDS: GABAPENTIN 300 MG CAP PO SCH ×3 (08:02→20:00)
[2021-04-07] MEDS: BUPRENORPHINE/NALOXONE 8-2MG SUBLINGUAL TABLET(SUBOXONE) SL SCH (09:26)
[2021-04-07] MEDS: BUPRENORPHINE/NALOXONE 2-0.5MG SUBLINGUAL TABLET(SUBOXONE) SL SCH (09:26)
--- NOTE | 2021-04-07 14:03 | MHIPNPDOC ---
[facility] Progress Note Progress Note DATE OF SERVICE: 04/07/21 HISTORY: This is one of multiple admissions for a 25 year old Single, Disabled, Domiciled, who had overdosed on Wellbutrin with an intent to kill he rself. She was admitted to the medical unit initially and was readmitted to [facility] for her suicide attempt. She was discharged from this facility in February and was going to rehab but left soon after her admission to the facility reporting that she did not want to be continued on Suboxone. On this occasion, patient reportedly had been arguing with her boyfriend and she took an overdose. She reports that she does not remember this. Denies that she had been suicidal. VITAL SIGNS: See below. CURRENT MEDICATIONS: See below. MENTAL STATUS EXAMINATION: Patient is a 25 year old Single, Disabled, Domiciled, who had overdo sed on Wellbutrin with an intent to kill herself. Speech: Is fluid, normal rate, tone and volume, minimally conversant Language skills are intact Thought processes including: linear and goal oriented Thought content: reports decreased depression and anxiety. Denies suicidal/homicidal ideation, planning or intent. Abstract reasoning, and computation: fair Description of associations: denies, none observed Description of abnormal or psychotic thoughts: denies, none observed. Judgment: fair Insight: fair Orientation: alert and oriented to person, place, time and situation Recent and remote memory: intact Attention span and concentration: good Language: expansive Fund of knowledge: average Mood: brighter "less depressed Reports anxiety. Affect: congruent with mood DIAGNOSES: Bipolar, Unspecified PTSD cannabis Use Disorder Nicotine Use Disorder ADHD Generalized Anxiety Disorder Opiate Use Disorder and Dependence, per old chart. ASSESSMENT: Patient is seen today in the interview room. She is dressed in hospital clothing and is slightly dishevelled. She is alert and oriented X3, pleasant. She states that she has a mild headache but is otherwise doing "good". Denies being depressed. Denies being anxious. Denies HI/AH/VH. States that her craving substances in " very low". She is in good spirits and states that she gets updates on her children and that they are reportedly doing well. She again states that she does not remember attempting to commit suicide. She voices her desire to get clean from substances and would prefer a door to door to rehab. Since this is her 14 day, she agrees to sign a voluntary stay document. She was accepted to [facility] and remains on the waiting list. MANAGEMENT PLAN: Continue all medications. Adderall started. Will discharge to Rehab when bed is available. TIME SPENT: 25 minutes. Vital Signs Vital Signs Date Time Temp Pulse Resp B/P (MAP) Pulse Ox O2 Delivery O2 Flow Rate FiO2 04/06/21 16:17 98.6 92 16 127/76 (93) 100 Room Air Current Medications Current Medications Medications (Trade) Dose Ordered Sig/Kim Route PRN Reason Start Time Stop Time Status Last Admin Dose Admin Acetaminophen (Tylenol Tab) 650 mg Q6HP PRN PO HEADACHE or DISCOMFORT 03/25/21 22:20 04/03/21 10:39 Al Hydrox/Mg Hydrox/Simethicone (Mylanta) 30 ml Q4HP PRN PO HEARTBURN/INDIGESTION 03/25/21 22:20 Amphetamine/ Dextroamphetamine (Adderall) 20 mg BID@0800,1400 PO 04/05/21 14:00 04/06/21 13:01 Aripiprazole (AbiLIFY) 15 mg DAILY PO 03/27/21 09:00 04/06/21 08:02 Buprenorphine/ Naloxone (Suboxone 2/ 0.5mg) 1 tab DAILY SL 03/26/21 09:00 03/26/21 02:56 DC Buprenorphine/ Naloxone (Suboxone 2/ 0.5mg) 2 tab DAILY SL 03/26/21 09:00 04/06/21 09:39 Buprenorphine/ Naloxone (Suboxone 8/2mg) 1 tab DAILY SL 03/26/21 09:00 04/06/21 09:39 Bupropion HCl (Wellbutrin Xl) 150 mg DAILY PO 03/28/21 09:00 UNV Chlorpromazine HCl (Thorazine) 50 mg STAT STAT IM 03/26/21 13:13 03/26/21 13:15 DC 03/26/21 13:18 Chlorpromazine HCl (Thorazine) 50 mg STAT STAT IM 03/27/21 17:45 03/27/21 17:47 DC Docusate Sodium (Colace) 100 mg BID PO 03/26/21 09:00 04/06/21 08:02 Gabapentin (Neurontin) 300 mg TID PO 03/27/21 21:00 04/06/21 20:03 Home Med (Med Rec Complete!) ASDIRECTED XX 03/27/21 15:25 03/27/21 15:33 DC Lorazepam (Ativan) 1 mg STAT STAT IM 03/26/21 13:13 03/26/21 13:15 DC 03/26/21 13:18 Magnesium Hydroxide (Milk Of Magnesia) 30 ml DAILYPRN PRN PO CONSTIPATION 03/25/21 22:20 Miscellaneous (Unresolved Clarification Entry) SEE LABEL COMMENTS DAILY XX 03/31/21 09:00 04/01/21 12:05 DC Nicotine (Nicoderm Cq 21mg) 1 patch DAILY TD 03/26/21 09:00 04/06/21 08:02 Olanzapine (ZyPREXA ZYDIS) 5 mg Q4HP PRN PO AGITATION 03/25/21 22:20 03/30/21 13:28 Paroxetine HCl (PAXil CR) 50 mg DAILY PO 04/01/21 09:00 04/06/21 08:02 Paroxetine HCl (PAXil) 40 mg DAILY PO 03/27/21 09:00 03/31/21 14:14 DC 03/31/21 08:04 Quetiapine Fumarate (SEROquel) 100 mg QHS PO 04/01/21 21:00 04/06/21 20:03 Trazodone HCl (Desyrel) 50 mg QHSP PRN PO INSOMNIA 03/25/21 22:20 04/01/21 15:08 DC 03/30/21 21:44 Allergies Coded Allergies: haloperidol (Verified Adverse Reaction, Severe, tardive dyskinesia, 07/26/20) amoxicillin (Verified Adverse Reaction, Mild, STOMACH PAINS/VOMITING, 07/26/20) clavulanic acid (Verified Adverse Reaction, Mild, STOMACH PAINS/VOMITING, 07/26/20) CODY TRIPP RESIDENTIAL SALES REP April 07, 2021 07:20
[2021-04-07 17:18] VITALS: BP 99/56
[2021-04-07] MEDS: QUEtiapine FUMARATE 100 MG TAB PO SCH (20:00)
[2021-04-08] MEDS: ADDERALL 5 MG TAB PO SCH ×2 (07:38→13:35)
[2021-04-08] MEDS: NICOTINE 21MG/24HR 1 EA TRANSDERMAL TD SCH (07:57)
[2021-04-08] MEDS: GABAPENTIN 300 MG CAP PO SCH ×3 (07:58→21:46)
[2021-04-08] MEDS: ARIPiprazole 15 MG TAB (AbiLIFY) PO SCH (07:58)
[2021-04-08] MEDS: PARoxetine 25 MG CR TAB (PAXIL CR) PO SCH (07:58)
[2021-04-08] MEDS: DOCUSATE SODIUM 100MG CAPSULE PO SCH ×2 (07:58→21:00)
[2021-04-08] MEDS: BUPRENORPHINE/NALOXONE 8-2MG SUBLINGUAL TABLET(SUBOXONE) SL SCH (09:11)
[2021-04-08] MEDS: BUPRENORPHINE/NALOXONE 2-0.5MG SUBLINGUAL TABLET(SUBOXONE) SL SCH (09:11)
--- NOTE | 2021-04-08 12:03 | MHIPNPDOC ---
[facility] Progress Note Progress Note DATE OF SERVICE: 04/08/21 HISTORY: This is one of multiple admissions for a 25 year old Single, Disabled, Domiciled, who had overdosed on Wellbutrin with an intent to kill he rself. She was admitted to the medical unit initially and was readmitted to [facility] for her suicide attempt. She was discharged from this facility in February and was going to rehab but left soon after her admission to the facility reporting that she did not want to be continued on Suboxone. On this occasion, patient reportedly had been arguing with her boyfriend and she took an overdose. She reports that she does not remember this. Denies that she had been suicidal. VITAL SIGNS: See below. CURRENT MEDICATIONS: See below. MENTAL STATUS EXAMINATION: Patient is a 25 year old Single, Disabled, Domiciled, who had overdo sed on Wellbutrin with an intent to kill herself. Speech: Is fluid, normal rate, tone and volume, minimally conversant Language skills are intact Thought processes including: linear and goal oriented Thought content: reports decreased depression and anxiety. Denies suicidal/homicidal ideation, planning or intent. Abstract reasoning, and computation: fair Description of associations: denies, none observed Description of abnormal or psychotic thoughts: denies, none observed. Judgment: fair Insight: fair Orientation: alert and oriented to person, place, time and situation Recent and remote memory: intact Attention span and concentration: good Language: expansive Fund of knowledge: average Mood: " not bad" Reports decreased depression and anxiety. Affect: congruent with mood DIAGNOSES: Bipolar, Unspecified PTSD cannabis Use Disorder Nicotine Use Disorder ADHD Generalized Anxiety Disorder Opiate Use Disorder and Dependence, per old chart. ASSESSMENT: Patient is interviewed today. She is dressed in hospital clothing and is slightly disheveled. She is alert and oriented 3. Asked about her mood today, she states "not bad". She denies being depressed or anxious. She reports that her cravings are low. At this point, she is just waiting for a bed to become available at [facility]. Patient continues to say that she prefers to go door to door. She explains that she has failed other rehabs, but is hopeful that this time she will be able complete rehabilitation and stay sober. States that she has been getting updates on her children and she is happy that they're doing well. She states, "I want to get clean because of them". She denies SI. Denies HI/AH/VH. . She has been compliant with her medications a nd she has been attending group psychotherapy sessions. MANAGEMENT PLAN: Continue all medications. Adderall started. Will discharge to Rehab when bed is available. TIME SPENT: 25 minutes. Vital Signs Vital Signs Date Time Temp Pulse Resp B/P (MAP) Pulse Ox O2 Delivery O2 Flow Rate FiO2 04/07/21 17:18 98.1 78 20 99/56 (70) Room Air 04/06/21 16:17 100 Current Medications Current Medications Medications (Trade) Dose Ordered Sig/Kim Route PRN Reason Start Time Stop Time Status Last Admin Dose Admin Acetaminophen (Tylenol Tab) 650 mg Q6HP PRN PO HEADACHE or DISCOMFORT 03/25/21 22:20 04/03/21 10:39 Al Hydrox/Mg Hydrox/Simethicone (Mylanta) 30 ml Q4HP PRN PO HEARTBURN/INDIGESTION 03/25/21 22:20 Amphetamine/ Dextroamphetamine (Adderall) 20 mg BID@0800,1400 PO 04/05/21 14:00 04/08/21 07:38 Aripiprazole (AbiLIFY) 15 mg DAILY PO 03/27/21 09:00 04/08/21 07:58 Buprenorphine/ Naloxone (Suboxone 2/ 0.5mg) 1 tab DAILY SL 03/26/21 09:00 03/26/21 02:56 DC Buprenorphine/ Naloxone (Suboxone 2/ 0.5mg) 2 tab DAILY SL 03/26/21 09:00 04/08/21 09:11 Buprenorphine/ Naloxone (Suboxone 8/2mg) 1 tab DAILY SL 03/26/21 09:00 04/08/21 09:11 Bupropion HCl (Wellbutrin Xl) 150 mg DAILY PO 03/28/21 09:00 UNV Chlorpromazine HCl (Thorazine) 50 mg STAT STAT IM 03/26/21 13:13 03/26/21 13:15 DC 03/26/21 13:18 Chlorpromazine HCl (Thorazine) 50 mg STAT STAT IM 03/27/21 17:45 03/27/21 17:47 DC Docusate Sodium (Colace) 100 mg BID PO 03/26/21 09:00 04/08/21 07:58 Gabapentin (Neurontin) 300 mg TID PO 03/27/21 21:00 04/08/21 07:58 Home Med (Med Rec Complete!) ASDIRECTED XX 03/27/21 15:25 03/27/21 15:33 DC Lorazepam (Ativan) 1 mg STAT STAT IM 03/26/21 13:13 03/26/21 13:15 DC 03/26/21 13:18 Magnesium Hydroxide (Milk Of Magnesia) 30 ml DAILYPRN PRN PO CONSTIPATION 03/25/21 22:20 Miscellaneous (Unresolved Clarification Entry) SEE LABEL COMMENTS DAILY XX 03/31/21 09:00 04/01/21 12:05 DC Nicotine (Nicoderm Cq 21mg) 1 patch DAILY TD 03/26/21 09:00 04/08/21 07:57 Olanzapine (ZyPREXA ZYDIS) 5 mg Q4HP PRN PO AGITATION 03/25/21 22:20 03/30/21 13:28 Paroxetine HCl (PAXil CR) 50 mg DAILY PO 04/01/21 09:00 04/08/21 07:58 Paroxetine HCl (PAXil) 40 mg DAILY PO 03/27/21 09:00 03/31/21 14:14 DC 03/31/21 08:04 Quetiapine Fumarate (SEROquel) 100 mg QHS PO 04/01/21 21:00 04/07/21 20:00 Trazodone HCl (Desyrel) 50 mg QHSP PRN PO INSOMNIA 03/25/21 22:20 04/01/21 15:08 DC 03/30/21 21:44 Allergies Coded Allergies: haloperidol (Verified Adverse Reaction, Severe, tardive dyskinesia, 07/26/20) amoxicillin (Verified Adverse Reaction, Mild, STOMACH PAINS/VOMITING, 07/26/20) clavulanic acid (Verified Adverse Reaction, Mild, STOMACH PAINS/VOMITING, 07/26/20) CODY TRIPP DIGITAL PRODUCT MANAGER April 08, 2021 12:03
[2021-04-08 16:26] VITALS: BP 112/62
[2021-04-08] MEDS: QUEtiapine FUMARATE 100 MG TAB PO SCH (21:47)
[2021-04-09] MEDS: ADDERALL 5 MG TAB PO SCH ×2 (07:22→13:24)
[2021-04-09] MEDS: PARoxetine 25 MG CR TAB (PAXIL CR) PO SCH (08:59)
[2021-04-09] MEDS: NICOTINE 21MG/24HR 1 EA TRANSDERMAL TD SCH (08:59)
[2021-04-09] MEDS: GABAPENTIN 300 MG CAP PO SCH ×3 (08:59→19:56)
[2021-04-09] MEDS: DOCUSATE SODIUM 100MG CAPSULE PO SCH ×2 (09:00→21:00)
[2021-04-09] MEDS: ARIPiprazole 15 MG TAB (AbiLIFY) PO SCH (09:00)
[2021-04-09] MEDS: BUPRENORPHINE/NALOXONE 8-2MG SUBLINGUAL TABLET(SUBOXONE) SL SCH (09:32)
[2021-04-09] MEDS: BUPRENORPHINE/NALOXONE 2-0.5MG SUBLINGUAL TABLET(SUBOXONE) SL SCH (09:32)
[2021-04-09 16:38] VITALS: BP 113/65
[2021-04-09] MEDS: QUEtiapine FUMARATE 100 MG TAB PO SCH (19:56)
[2021-04-09] MEDS: diphenhydrAMINE 50MG CAP PO PRN (20:16)
[2021-04-10 06:55] VITALS: BP 115/62
[2021-04-10] MEDS: ADDERALL 5 MG TAB PO SCH ×2 (07:29→13:41)
[2021-04-10] MEDS: NICOTINE POLACRILEX 2 MG GUM PO PRN ×2 (08:39→20:42)
[2021-04-10] MEDS: GABAPENTIN 300 MG CAP PO SCH ×3 (08:40→20:33)
[2021-04-10] MEDS: DOCUSATE SODIUM 100MG CAPSULE PO SCH ×2 (08:40→21:00)
[2021-04-10] MEDS: ARIPiprazole 15 MG TAB (AbiLIFY) PO SCH (08:40)
[2021-04-10] MEDS: PARoxetine 25 MG CR TAB (PAXIL CR) PO SCH (08:40)
[2021-04-10] MEDS: BUPRENORPHINE/NALOXONE 2-0.5MG SUBLINGUAL TABLET(SUBOXONE) SL SCH (09:34)
[2021-04-10] MEDS: BUPRENORPHINE/NALOXONE 8-2MG SUBLINGUAL TABLET(SUBOXONE) SL SCH (09:35)
[2021-04-10] MEDS: diphenhydrAMINE 50MG CAP PO PRN (15:06)
[2021-04-10 16:20] VITALS: BP 106/59
[2021-04-10] MEDS: QUEtiapine FUMARATE 100 MG TAB PO SCH (20:33)
[2021-04-11] MEDS: NICOTINE POLACRILEX 2 MG GUM PO PRN ×2 (08:04→12:35)
[2021-04-11] MEDS: ADDERALL 5 MG TAB PO SCH ×2 (08:05→14:01)
[2021-04-11] MEDS: ARIPiprazole 15 MG TAB (AbiLIFY) PO SCH (08:06)
[2021-04-11] MEDS: PARoxetine 25 MG CR TAB (PAXIL CR) PO SCH (08:06)
[2021-04-11] MEDS: DOCUSATE SODIUM 100MG CAPSULE PO SCH ×2 (08:06→20:45)
[2021-04-11] MEDS: BUPRENORPHINE/NALOXONE 2-0.5MG SUBLINGUAL TABLET(SUBOXONE) SL SCH (08:07)
[2021-04-11] MEDS: GABAPENTIN 300 MG CAP PO SCH ×3 (08:07→20:45)
[2021-04-11] MEDS: BUPRENORPHINE/NALOXONE 8-2MG SUBLINGUAL TABLET(SUBOXONE) SL SCH (08:07)
[2021-04-11] MEDS: diphenhydrAMINE 50MG CAP PO PRN ×2 (11:18→20:47)
--- NOTE | 2021-04-11 15:04 | MHIPNPDOC ---
[facility] Progress Note Progress Note DATE OF SERVICE: 04/11/21 HISTORY: This is one of multiple admissions for a 25 year old Single, Disabled, Domiciled, who had overdosed on Wellbutrin with an intent to kill he rself. She was admitted to the medical unit initially and was readmitted to [facility] for her suicide attempt. She was discharged from this facility in February and was going to rehab but left soon after her admission to the facility reporting that she did not want to be continued on Suboxone. On this occasion, patient reportedly had been arguing with her boyfriend and she took an overdose. She reports that she does not remember this. Denies that she had been suicidal. VITAL SIGNS: See below. CURRENT MEDICATIONS: See below. MENTAL STATUS EXAMINATION: Patient is a 25 year old Single, Disabled, Domiciled, who had overdo sed on Wellbutrin with an intent to kill herself. Speech: Is fluid, normal rate, tone and volume, minimally conversant Language skills are intact Thought processes including: linear and goal oriented Thought content: Denies suicidal/homicidal ideation, planning or intent. Abstract reasoning, and computation: fair Description of associations: denies, none observed Description of abnormal or psychotic thoughts: denies, none observed. Judgment: fair Insight: fair Orientation: alert and oriented to person, place, time and situation Recent and remote memory: intact Attention span and concentration: good Language: expansive Fund of knowledge: average Mood: Reports that " I'm starting to get depressed and anxious again". Affect: congruent with mood DIAGNOSES: Bipolar, Unspecified PTSD cannabis Use Disorder Nicotine Use Disorder ADHD Generalized Anxiety Disorder Opiate Use Disorder and Dependence, per old chart. ASSESSMENT: Patient is seen today. She is dressed in hospital clothing and is disheveled. She is alert and oriented 3. Patient states "I'm starting to get depressed and anxious again. I feel like signing myself out of the hospital". Patient states that she is getting anxious and restless from waiting for a rehabilitation bed to become available. She states that the wait is too long. She was accepted at [facility], but is on the waiting list. She has also been accepted at [facility]. She states that she is afraid of going home before rehabilitation for fear of using substances again. She discusses what sobriety would mean to her. She states that she wants to be clean for her children and her family. She states that she wants to wait a few more days, but that she is getting tired of waiting. She has been compliant with her medication. She has been attending group therapy. She denies suicidal ideation. Denies HI/AH/VH. Reinforced with patient the benefits of recovery and she reiterates that her desire is to complete rehabilitation and be clean from substances. Encouraged her to attend group activities, write, read and interact with peers to keep her mind occupied. MANAGEMENT PLAN: Continue all medications. Adderall started. Will discharge to Rehab when bed is available. TIME SPENT: 25 minutes. Vital Signs Vital Signs Date Time Temp Pulse Resp B/P (MAP) Pulse Ox O2 Delivery O2 Flow Rate FiO2 04/10/21 16:20 98.2 90 15 106/59 (75) 97 Room Air Current Medications Current Medications Medications (Trade) Dose Ordered Sig/Kim Route PRN Reason Start Time Stop Time Status Last Admin Dose Admin Acetaminophen (Tylenol Tab) 650 mg Q6HP PRN PO HEADACHE or DISCOMFORT 03/25/21 22:20 04/03/21 10:39 Al Hydrox/Mg Hydrox/Simethicone (Mylanta) 30 ml Q4HP PRN PO HEARTBURN/INDIGESTION 03/25/21 22:20 Amphetamine/ Dextroamphetamine (Adderall) 20 mg BID@0800,1400 PO 04/05/21 14:00 04/11/21 14:01 Aripiprazole (AbiLIFY) 15 mg DAILY PO 03/27/21 09:00 04/11/21 08:06 Buprenorphine/ Naloxone (Suboxone 2/ 0.5mg) 1 tab DAILY SL 03/26/21 09:00 03/26/21 02:56 DC Buprenorphine/ Naloxone (Suboxone 2/ 0.5mg) 2 tab DAILY SL 03/26/21 09:00 04/11/21 08:07 Buprenorphine/ Naloxone (Suboxone 8/2mg) 1 tab DAILY SL 03/26/21 09:00 04/11/21 08:07 Bupropion HCl (Wellbutrin Xl) 150 mg DAILY PO 03/28/21 09:00 UNV Chlorpromazine HCl (Thorazine) 50 mg STAT STAT IM 03/26/21 13:13 03/26/21 13:15 DC 03/26/21 13:18 Chlorpromazine HCl (Thorazine) 50 mg STAT STAT IM 03/27/21 17:45 03/27/21 17:47 DC Diphenhydramine HCl (Benadryl) 50 mg Q8HP PRN PO ALLERGIES 04/09/21 20:05 04/11/21 11:18 Docusate Sodium (Colace) 100 mg BID PO 03/26/21 09:00 04/11/21 08:06 Gabapentin (Neurontin) 300 mg TID PO 03/27/21 21:00 04/11/21 08:07 Home Med (Med Rec Complete!) ASDIRECTED XX 03/27/21 15:25 03/27/21 15:33 DC Lorazepam (Ativan) 1 mg STAT STAT IM 03/26/21 13:13 03/26/21 13:15 DC 03/26/21 13:18 Magnesium Hydroxide (Milk Of Magnesia) 30 ml DAILYPRN PRN PO CONSTIPATION 03/25/21 22:20 Miscellaneous (Unresolved Clarification Entry) SEE LABEL COMMENTS DAILY XX 03/31/21 09:00 04/01/21 12:05 DC Nicotine (Nicoderm Cq 21mg) 1 patch DAILY TD 03/26/21 09:00 04/09/21 09:49 DC 04/09/21 08:59 Nicotine (Nicorette) 2 mg Q4HP PRN PO NICOTINE WITHDRAWAL 04/09/21 09:50 04/11/21 12:35 Olanzapine (ZyPREXA ZYDIS) 5 mg Q4HP PRN PO AGITATION 03/25/21 22:20 03/30/21 13:28 Paroxetine HCl (PAXil CR) 50 mg DAILY PO 04/01/21 09:00 04/11/21 08:06 Paroxetine HCl (PAXil) 40 mg DAILY PO 03/27/21 09:00 03/31/21 14:14 DC 03/31/21 08:04 Quetiapine Fumarate (SEROquel) 100 mg QHS PO 04/01/21 21:00 04/10/21 20:33 Trazodone HCl (Desyrel) 50 mg QHSP PRN PO INSOMNIA 03/25/21 22:20 04/01/21 15:08 DC 03/30/21 21:44 Allergies Coded Allergies: haloperidol (Verified Adverse Reaction, Severe, tardive dyskinesia, 07/26/20) amoxicillin (Verified Adverse Reaction, Mild, STOMACH PAINS/VOMITING, 07/26/20) clavulanic acid (Verified Adverse Reaction, Mild, STOMACH PAINS/VOMITING, 07/26/20) CODY TRIPP NP April 11, 2021 15:04
[2021-04-11 16:54] VITALS: BP 110/60
[2021-04-11] MEDS: QUEtiapine FUMARATE 100 MG TAB PO SCH (20:45)
[2021-04-12] MEDS: PARoxetine 25 MG CR TAB (PAXIL CR) PO SCH (09:09)
[2021-04-12] MEDS: DOCUSATE SODIUM 100MG CAPSULE PO SCH ×2 (09:10→21:00)
[2021-04-12] MEDS: ARIPiprazole 15 MG TAB (AbiLIFY) PO SCH (09:10)
[2021-04-12] MEDS: GABAPENTIN 300 MG CAP PO SCH ×3 (09:10→21:23)
[2021-04-12] MEDS: BUPRENORPHINE/NALOXONE 2-0.5MG SUBLINGUAL TABLET(SUBOXONE) SL SCH (09:11)
[2021-04-12] MEDS: diphenhydrAMINE 50MG CAP PO PRN ×2 (09:11→17:37)
[2021-04-12] MEDS: BUPRENORPHINE/NALOXONE 8-2MG SUBLINGUAL TABLET(SUBOXONE) SL SCH (09:11)
[2021-04-12] MEDS ORDERED: QUET100T2 PO (11:45)
[2021-04-12] MEDS ORDERED: PARO25TA4 PO (11:45)
[2021-04-12] MEDS ORDERED: DOK1CAP7 PO (11:45)
[2021-04-12] MEDS ORDERED: ABIL1TAB12 PO (11:45)
[2021-04-12] MEDS ORDERED: GABA-282 PO (11:45)
--- NOTE | 2021-04-12 12:02 | MHIPNPDOC ---
[facility] Progress Note Progress Note DATE OF SERVICE: 04/12/21 HISTORY: This is one of multiple admissions for a 25 year old Single, Disabled, Domiciled, who had overdosed on Wellbutrin with an intent to kill he rself. She was admitted to the medical unit initially and was readmitted to [facility] for her suicide attempt. She was discharged from this facility in February and was going to rehab but left soon after her admission to the facility reporting that she did not want to be continued on Suboxone. On this occasion, patient reportedly had been arguing with her boyfriend and she took an overdose. She reports that she does not remember this. Denies that she had been suicidal. VITAL SIGNS: See below. CURRENT MEDICATIONS: See below. MENTAL STATUS EXAMINATION: Patient is a 25 year old Single, Disabled, Domiciled, who had overdo sed on Wellbutrin with an intent to kill herself. Speech: Is fluid, normal rate, tone and volume, conversant Language skills are intact Thought processes including: linear and goal oriented Thought content: Denies suicidal/homicidal ideation, planning or intent. Abstract reasoning, and computation: fair Description of associations: denies, none observed Description of abnormal or psychotic thoughts: denies, none observed. Judgment: good Insight: good Orientation: alert and oriented to person, place, time and situation Recent and remote memory: intact Attention span and concentration: good Language: expansive Fund of knowledge: average Mood: Reports that "I am doing good today." Affect: congruent with mood, Bright mood and affect DIAGNOSES: Bipolar, Unspecified PTSD cannabis Use Disorder Nicotine Use Disorder ADHD Generalized Anxiety Disorder Opiate Use Disorder and Dependence, per old chart. ASSESSMENT: Patient is seen today. She is dressed in hospital clothing and is disheveled. She is alert and oriented 3. Patient denies depression and anxiety, states "I am excited but a little nervous because I have never been there before." She reports that she is prepared and motivated. She reports overall that she feels better. Her plan is to complete the rehab, she worries that her boyfriend smoking Marijuana, feels that she may be tempted if she is around him. She wants to speak to him about this or stay with her mother after rehab. MANAGEMENT PLAN: Continue all medications. Adderall started. Discharge to [facility] tomorrow. TIME SPENT: 25 minutes. Vital Signs Vital Signs Date Time Temp Pulse Resp B/P (MAP) Pulse Ox O2 Delivery O2 Flow Rate FiO2 04/11/21 16:54 98.6 75 20 110/60 (77) 04/10/21 16:20 97 Room Air Current Medications Current Medications Medications (Trade) Dose Ordered Sig/Kim Route PRN Reason Start Time Stop Time Status Last Admin Dose Admin Acetaminophen (Tylenol Tab) 650 mg Q6HP PRN PO HEADACHE or DISCOMFORT 03/25/21 22:20 04/03/21 10:39 Al Hydrox/Mg Hydrox/Simethicone (Mylanta) 30 ml Q4HP PRN PO HEARTBURN/INDIGESTION 03/25/21 22:20 Amphetamine/ Dextroamphetamine (Adderall) 20 mg BID@0800,1400 PO 04/05/21 14:00 04/12/21 08:36 DC 04/11/21 14:01 Aripiprazole (AbiLIFY) 15 mg DAILY PO 03/27/21 09:00 04/12/21 09:10 Buprenorphine/ Naloxone (Suboxone 2/ 0.5mg) 1 tab DAILY SL 03/26/21 09:00 03/26/21 02:56 DC Buprenorphine/ Naloxone (Suboxone 2/ 0.5mg) 2 tab DAILY SL 03/26/21 09:00 04/12/21 09:11 Buprenorphine/ Naloxone (Suboxone 8/2mg) 1 tab DAILY SL 03/26/21 09:00 04/12/21 09:11 Bupropion HCl (Wellbutrin Xl) 150 mg DAILY PO 03/28/21 09:00 UNV Chlorpromazine HCl (Thorazine) 50 mg STAT STAT IM 03/26/21 13:13 03/26/21 13:15 DC 03/26/21 13:18 Chlorpromazine HCl (Thorazine) 50 mg STAT STAT IM 03/27/21 17:45 03/27/21 17:47 DC Diphenhydramine HCl (Benadryl) 50 mg Q8HP PRN PO ALLERGIES 04/09/21 20:05 04/12/21 09:11 Docusate Sodium (Colace) 100 mg BID PO 03/26/21 09:00 04/12/21 09:10 Gabapentin (Neurontin) 300 mg TID PO 03/27/21 21:00 04/12/21 09:10 Home Med (Med Rec Complete!) ASDIRECTED XX 03/27/21 15:25 03/27/21 15:33 DC Lorazepam (Ativan) 1 mg STAT STAT IM 03/26/21 13:13 03/26/21 13:15 DC 03/26/21 13:18 Magnesium Hydroxide (Milk Of Magnesia) 30 ml DAILYPRN PRN PO CONSTIPATION 03/25/21 22:20 Miscellaneous (Unresolved Clarification Entry) SEE LABEL COMMENTS DAILY XX 03/31/21 09:00 04/01/21 12:05 DC Nicotine (Nicoderm Cq 21mg) 1 patch DAILY TD 03/26/21 09:00 04/09/21 09:49 DC 04/09/21 08:59 Nicotine (Nicorette) 2 mg Q4HP PRN PO NICOTINE WITHDRAWAL 04/09/21 09:50 04/11/21 12:35 Olanzapine (ZyPREXA ZYDIS) 5 mg Q4HP PRN PO AGITATION 03/25/21 22:20 03/30/21 13:28 Paroxetine HCl (PAXil CR) 50 mg DAILY PO 04/01/21 09:00 04/12/21 09:09 Paroxetine HCl (PAXil) 40 mg DAILY PO 03/27/21 09:00 03/31/21 14:14 DC 03/31/21 08:04 Quetiapine Fumarate (SEROquel) 100 mg QHS PO 04/01/21 21:00 04/11/21 20:45 Trazodone HCl (Desyrel) 50 mg QHSP PRN PO INSOMNIA 03/25/21 22:20 04/01/21 15:08 DC 03/30/21 21:44 Allergies Coded Allergies: haloperidol (Verified Adverse Reaction, Severe, tardive dyskinesia, 07/26/20) amoxicillin (Verified Adverse Reaction, Mild, STOMACH PAINS/VOMITING, 07/26/20) clavulanic acid (Verified Adverse Reaction, Mild, STOMACH PAINS/VOMITING, 07/26/20) CODY TRIPP ACID REGENERATOR April 12, 2021 12:02
[2021-04-12] MEDS: NICOTINE POLACRILEX 2 MG GUM PO PRN ×2 (12:08→17:38)
[2021-04-12 16:14] VITALS: BP 103/60
[2021-04-12] MEDS: QUEtiapine FUMARATE 100 MG TAB PO SCH (21:23)
[2021-04-13] MEDS: ARIPiprazole 15 MG TAB (AbiLIFY) PO SCH (06:01)
[2021-04-13] MEDS: GABAPENTIN 300 MG CAP PO SCH (06:02)
[2021-04-13] MEDS: PARoxetine 25 MG CR TAB (PAXIL CR) PO SCH (06:02)
[2021-04-13] MEDS: BUPRENORPHINE/NALOXONE 2-0.5MG SUBLINGUAL TABLET(SUBOXONE) SL SCH (06:02)
[2021-04-13] MEDS: DOCUSATE SODIUM 100MG CAPSULE PO SCH (06:02)
[2021-04-13] MEDS: BUPRENORPHINE/NALOXONE 8-2MG SUBLINGUAL TABLET(SUBOXONE) SL SCH (06:02)
[2021-04-13] MEDS: NICOTINE POLACRILEX 2 MG GUM PO PRN (06:06)
[2021-04-13] MEDS: diphenhydrAMINE 50MG CAP PO PRN (06:06)
[2021-04-13 06:42] VITALS: BP 104/61
[2021-04-13] MEDS ORDERED: COLA100C5 PO (10:38)
[2021-04-13] MEDS ORDERED: PAXI25TA13 PO (10:38)
[2021-04-13] MEDS ORDERED: SERO50TA PO (10:38)
[2021-04-13] MEDS ORDERED: ABIL1TAB12 PO (10:38)
[2021-04-13] MEDS ORDERED: GABA-282 PO (10:38)
--- NOTE | 2021-04-14 08:12 | MHDSPDOC ---
[facility] Discharge Summary Discharge Summary DATE OF ADMISSION: March 26, 2021 at 01:52 DATE OF DISCHARGE: April 13, 2021 at 07:00 DISCHARGE DIAGNOSES: Bipolar, Unspecified PTSD Cannabis Use Disorder Nicotine Use Disorder ADHD Generalized Anxiety Disorder Opiate Use Disorder and Dependence, per old chart. REASON FOR ADMISSION: This is one of multiple admissions for a 25 year old Single, Disabled, Domiciled, who had overdosed on Wellbutrin with an intent to kill herself. She was admitted to the medical unit initially and [facility]. She was discharged from this facility in February and was going to rehab but left soon after her admission to the facility reporting that she did not want to be continued on Suboxone. On this occasion, patient reportedly had been arguing with her boyfriend and she took an overdose. She reports that she does not remember this. Denies that she had been suicidal. VITAL SIGNS: See below. CONSULTANTS INVOLVED: See Medical H + P by Hospitalist TREATMENT AND PROGRESS ON THE UNIT: Patient was [facility] on a 39 legal status he was afforded the following treatment modalities: 1) Individual Therapy 2) Group Therapy 3) Medication Management 4) Milieu Therapy 5) Safe Environment HOSPITAL COURSE: Patient is admitted [facility] on a 9.39 after being medically cleared on the medical floor s/p an overdose of Wellbutrin. Patient had reported that she did not remember a fight that she had with her boyfriend or the suicide attempt. She reported that she was not depressed or anxious or suicidal prior to this. While hospitalized patient stated that she wanted to go to a rehab. Patient has been discharged [facility] on multiple occasions to a rehab where she left the next day after the last transfer. On this admission, patient was quite motivated to return to rehab. She requested Adderall, reporting increased anxiety and inability to attend groups without this. Radha hodge was notified by a rehab treatment facility that was willing to accept her that Adderall had to be discontinued and she was agreeable to this. While hospitalized she attended groups, she was social with peers and was visible on the unit. DISCHARGE ASSESSMENT: In today's interview, patient is alert and oriented, pts dress is appropriate. Hygiene and grooming is well-kempt. Smiles on approach and is pleasant and engaged in the interview. Denies depression and anxiety. Denies suicidal and homicidal ideation, planning or intent. Denies and is not observed with phoebe, psychotic symptoms of delusions, bizarre thinking, obsessio ns, paranoia, ruminations illogical thoughts, flight of ideas or having poor insight and judgement. Patient has normal mentation, and meets criteria for discharge. She has been waiting for availability at rehab treatment for substance use - she is being transferred to [facility] in [place], [place]. MENTAL STATUS EXAMINATION ON DISCHARGE: This is one of multiple admissions for a 25 year old Single, Disabled, Domiciled, who had overdosed on Wellbutrin with an intent to kill herself. Speech: Is fluid, conversant, normal rate, tone and volume Language skills are intact Thought processes including: linear and goal oriented Thought content: denies depression and anxiety. Denies suicidal/homicidal ideation, planning or intent. Abstract reasoning, and computation: fair Description of associations: denies, none observed Description of abnormal or psychotic thoughts: denies, none observed. Judgment: fair Insight: fair Orientation: alert and oriented to person, place, time and situation Recent and remote memory: intact Attention span and concentration: good Language: expansive Fund of knowledge: average Mood: Euthymic Mood Affect: reactive MEDICATIONS ON DISCHARGE: See Medication Reconciliation - Patient's prescriptions were sent to [place], [place] where the rehab is located. Per rehab the Adderall had to be discontinued and they would take care of the Suboxone Rx PLAN/FOLLOWUP ARRANGEMENTS: [facility] The amount of time spent in the coordination of care for this patient was approximately 25 minutes. ETOH/Disorder Med Rx ETOH/DRUG DISORDER RX: N/A (patient is being tranferred to a rehab treatment facility - they will provide Rx) Vital Signs/I&Os Vital Signs Date Time Temp Pulse Resp B/P (MAP) Pulse Ox O2 Delivery O2 Flow Rate FiO2 04/13/21 06:42 97.4 70 16 104/61 (75) 98 Room Air Medications Scheduled Aripiprazole (Abilify) 15 Mg Tablet, 15 MG PO DAILY for Mood, #7 Aripiprazole (Abilify) 15 Mg Tablet, 15 MG PO DAILY for Mood for 30 Days, #30 Docusate Sodium (Dok) 100 Mg Capsule, 100 MG PO BID for Stool Softener, #14 Docusate Sodium (Colace) 100 Mg Capsule, 100 MG PO BID for Stool Softener for 60 Days, #120 Gabapentin (Gabapentin) 300 Mg Capsule, 300 MG PO TID for anxiety, #21 Gabapentin (Gabapentin) 300 Mg Capsule, 300 MG PO TID for Anxiety, #90 PARoxetine HCl (Paroxetine Cr) 25 Mg Tab.er.24h, 50 MG PO DAILY for Mood, #14 Paroxetine HCl (Paxil Cr) 25 Mg Tab.er.24h, 50 MG PO DAILY for Mood for 30 Days, #60 Quetiapine Fumarate (Quetiapine Fumarate) 100 Mg Tablet, 100 MG PO QHS for Insomnia, #7 Quetiapine Fumarate (Seroquel) 50 Mg Tablet, 150 MG PO QHS for Insomnia, #90 Allergies Coded Allergies: haloperidol (Verified Adverse Reaction, Severe, tardive dyskinesia, 07/26/20) amoxicillin (Verified Adverse Reaction, Mild, STOMACH PAINS/VOMITING, 07/26/20) clavulanic acid (Verified Adverse Reaction, Mild, STOMACH PAINS/VOMITING, 07/26/20) CODY TRIPP NP April 14, 2021 08:02
== END 2021-04-13 07:00 | DRG 753 ==
LOC: M PSY 03-26 01:52
PROVIDERS: ADMIT Psychiatry & Neurology Psychiatry; ATTEND Psychiatry & Neurology Psychiatry
DX: F31.9 Bipolar disorder, unspecified (principal); F43.10 Post-traumatic stress disorder, unspecified; F12.10 Cannabis abuse, uncomplicated; F17.210 Nicotine dependence, cigarettes, uncomplicated; F41.1 Generalized anxiety disorder; F11.10 Opioid abuse, uncomplicated; F90.9 Attention-deficit hyperactivity disorder, unspecified type; R45.851 Suicidal ideations; J45.909 Unspecified asthma, uncomplicated; F25.9 Schizoaffective disorder, unspecified; Z91.5 Personal history of self-harm; Z91.19 Patient's noncompliance with other medical treatment and regimen; Z79.899 Other long term (current) drug therapy; Z88.1 Allergy status to other antibiotic agents; Z88.8 Allergy status to other drugs, medicaments and biological substances; Z78.1 Physical restraint status

== ENCOUNTER 2022-03-20 08:56 | Emergency (ER) | payer OTHER ==
[~2022-03-20] VITALS: Ht 172.7 cm; Wt 77.3 kg
[~2022-03-20 08:56] MED LIST changes: +ARIP10TA32 PO; +BUPR-364 PO; +BUPR-365 PO; -BUPR100T10 PO; +DOK1CAP4 PO; -OLAN10TA2 PO; +OLAN1TAB20 PO; +PARO25TA11 PO; +PARO25TA12 PO; +SERO50TA PO
[2022-03-20 08:57] VITALS: BP 119/75
[2022-03-20] MEDS ORDERED: NS 1,000 ML IV ONE (09:50)
[2022-03-20] MEDS ORDERED: PANTOPRAZOLE 40MG VIAL IV ONE (09:55)
[2022-03-20] MEDS ORDERED: PROMETHAZINE 25MG/ML 1ML VIAL IV ONE (09:55)
[2022-03-20 10:30] LABS: BASO % 0.2 % (0.0-1.0); EOS % 0.2 % (0.0-3.0); HEMATOCRIT 44.8 % (36.0-47.0); HEMOGLOBIN 15.2 g/dl (12.0-15.5); LYMPH # 1.3 10^3/uL (1.5-5.0); LYMPH % 12.5 % (24.0-44.0); MEAN CORPUSCULAR HEMOGLOBIN 31.1 pg (27.0-33.0); MEAN CORPUSCULAR HGB CONC 33.9 g/dl (32.0-36.5); MEAN CORPUSCULAR VOLUME 91.6 fl (80.0-96.0); MONO # 0.4 10^3/uL (0.0-0.8); NEUTROPHILS # 8.7 10^3/uL (1.5-8.5); NEUTROPHILS % 82.7 % (36.0-66.0); PLATELET COUNT, AUTOMATED 295 10^3/uL (150-450); RED BLOOD COUNT 4.89 10^6/uL (4.00-5.40); WHITE BLOOD COUNT 10.5 10^3/uL (4.0-10.0)
[2022-03-20 11:02] LABS: ALBUMIN 4.7 GM/DL (3.2-5.2); BILIRUBIN,DIRECT 0.1 MG/DL (0.0-0.2); BILIRUBIN,TOTAL 0.6 MG/DL (0.2-1.0); TOTAL PROTEIN 8.7 GM/DL (6.4-8.2)
[2022-03-20] MEDS ORDERED: CAPSAICIN 0.025% CR 60 GM TOP ONE (11:10)
[2022-03-20] MEDS ORDERED: ONDANSETRON 4MG/2ML VIAL IV ONE (11:10)
[2022-03-20] MEDS ORDERED: KETOROLAC 30 MG/ML 1ML VIAL IM ONE (11:20)
[2022-03-20] MEDS ORDERED: GI COCKTAIL 50ML BTL(HYOSCYAMINE/MAALOX/LIDOCAINE VISCOUS)(1:3:1) PO ONE (12:15)
[2022-03-21] MEDS ORDERED: ONDA4TAB6 PO (02:34)
== END 2022-03-20 12:36 | disposition left against medical advice (07) ==
LOC: M ED 08:56
DX: O99.891 Other specified diseases and conditions complicating pregnancy (principal); F12.188 Cannabis abuse with other cannabis-induced disorder; R10.13 Epigastric pain; Z3A.00 Weeks of gestation of pregnancy not specified; F41.9 Anxiety disorder, unspecified; J45.909 Unspecified asthma, uncomplicated; F90.9 Attention-deficit hyperactivity disorder, unspecified type; F31.9 Bipolar disorder, unspecified; K44.9 Diaphragmatic hernia without obstruction or gangrene; F43.10 Post-traumatic stress disorder, unspecified; Z79.899 Other long term (current) drug therapy; F17.200 Nicotine dependence, unspecified, uncomplicated; Z53.21 Procedure and treatment not carried out due to patient leaving prior to being seen by health care provider; Z88.0 Allergy status to penicillin; Z88.8 Allergy status to other drugs, medicaments and biological substances
CPT/HCPCS: 76801; 80047; 80076; 83690; 84702; 85025; 96361; 96372; 96374; 96375; 99283; C9113; J1885; J2405; J2550

== ENCOUNTER 2022-03-20 21:25 | Emergency (ER) | payer OTHER ==
[~2022-03-20] VITALS: Ht 172.7 cm; Wt 77.3 kg
[2022-03-21] MEDS ORDERED: HALOPERIDOL 5MG/ML VIAL (J1630 PER 1) IV ONE
[2022-03-21] MEDS ORDERED: NS 1,000 ML IV ONE
[2022-03-21 01:08] LABS: BASO % 0.1 % (0.0-1.0); HEMATOCRIT 40.9 % (36.0-47.0); HEMOGLOBIN 14.7 g/dl (12.0-15.5); LYMPH # 0.8 10^3/uL (1.5-5.0); LYMPH % 4.7 % (24.0-44.0); MEAN CORPUSCULAR HEMOGLOBIN 32.2 pg (27.0-33.0); MEAN CORPUSCULAR HGB CONC 35.9 g/dl (32.0-36.5); MEAN CORPUSCULAR VOLUME 89.7 fl (80.0-96.0); MONO # 0.5 10^3/uL (0.0-0.8); MONO % 2.8 % (2.0-8.0); NEUTROPHILS # 16.5 10^3/uL (1.5-8.5); NEUTROPHILS % 91.8 % (36.0-66.0); PLATELET COUNT, AUTOMATED 294 10^3/uL (150-450); RED BLOOD COUNT 4.56 10^6/uL (4.00-5.40)
[2022-03-21 01:36] LABS: ALBUMIN 4.5 GM/DL (3.2-5.2); ALT/SGPT 23 U/L (12-78); BILIRUBIN,DIRECT 0.2 MG/DL (0.0-0.2); BILIRUBIN,TOTAL 0.7 MG/DL (0.2-1.0); BLOOD UREA NITROGEN 13 MG/DL (7-18); CALCIUM LEVEL 9.8 MG/DL (8.5-10.1); CARBON DIOXIDE LEVEL 22 MEQ/L (21-32); CHLORIDE LEVEL 105 MEQ/L (98-107); CREATININE FOR GFR 0.92 MG/DL (0.55-1.30); GLOMERULAR FILTRATION RATE > 60.0 (>60); GLUCOSE, FASTING 127 MG/DL (70-100); LIPASE 38 U/L (73-393); POTASSIUM SERUM 3.8 MEQ/L (3.5-5.1); SODIUM LEVEL 138 MEQ/L (136-145); TOTAL PROTEIN 8.5 GM/DL (6.4-8.2)
[2022-03-21] MEDS ORDERED: ONDA4TAB6 PO (02:34)
[2022-03-21 02:38] VITALS: BP 130/78
[2022-03-22] MEDS ORDERED: PROM25SU3 PR (11:54)
== END 2022-03-21 02:58 | disposition home or self-care (01) ==
LOC: M ED 21:25 → EDBD 21:25 → M ED 03-21 02:58
DX: F12.188 Cannabis abuse with other cannabis-induced disorder (principal); J45.909 Unspecified asthma, uncomplicated; F31.9 Bipolar disorder, unspecified; F11.10 Opioid abuse, uncomplicated; K44.9 Diaphragmatic hernia without obstruction or gangrene; F25.9 Schizoaffective disorder, unspecified; Z79.899 Other long term (current) drug therapy; Z88.0 Allergy status to penicillin; Z88.8 Allergy status to other drugs, medicaments and biological substances
CPT/HCPCS: 74021; 80048; 80076; 83690; 85025; 96361; 96374; 99284; J1630

== ENCOUNTER 2022-03-22 04:55 | Emergency (ER) | payer OTHER ==
[~2022-03-22] VITALS: Ht 172.7 cm; Wt 69.7 kg
[~2022-03-22 04:55] MED LIST changes: +ONDA4TAB6 PO
[2022-03-22] MEDS ORDERED: PROMETHAZINE 25MG/ML 1ML VIAL IV ONE (07:45)
[2022-03-22] MEDS ORDERED: NS 1,000 ML IV ONE (07:45)
[2022-03-22 08:53] LABS: BASO % 0.2 % (0.0-1.0); HEMATOCRIT 40.3 % (36.0-47.0); HEMOGLOBIN 14.1 g/dl (12.0-15.5); LYMPH # 0.9 10^3/uL (1.5-5.0); LYMPH % 6.7 % (24.0-44.0); MEAN CORPUSCULAR HEMOGLOBIN 31.8 pg (27.0-33.0); MONO # 0.4 10^3/uL (0.0-0.8); MONO % 2.9 % (2.0-8.0); NEUTROPHILS # 12.2 10^3/uL (1.5-8.5); NEUTROPHILS % 89.7 % (36.0-66.0); PLATELET COUNT, AUTOMATED 280 10^3/uL (150-450); RED BLOOD COUNT 4.43 10^6/uL (4.00-5.40); WHITE BLOOD COUNT 13.6 10^3/uL (4.0-10.0)
[2022-03-22 09:08] LABS: BLOOD UREA NITROGEN 14 MG/DL (7-18); CALCIUM LEVEL 9.7 MG/DL (8.5-10.1); CARBON DIOXIDE LEVEL 27 MEQ/L (21-32); CHLORIDE LEVEL 105 MEQ/L (98-107); CREATININE FOR GFR 0.75 MG/DL (0.55-1.30); GLOMERULAR FILTRATION RATE > 60.0 (>60); GLUCOSE, FASTING 102 MG/DL (70-100); POTASSIUM SERUM 3.5 MEQ/L (3.5-5.1); SODIUM LEVEL 139 MEQ/L (136-145)
[2022-03-22] MEDS ORDERED: PROM25SU3 PR (11:54)
[2022-03-22 12:22] VITALS: BP 128/67
== END 2022-03-22 12:24 | disposition home or self-care (01) ==
LOC: M ED 04:55 → EDBD 04:55 → M ED 12:24
DX: O21.9 Vomiting of pregnancy, unspecified (principal); Z88.1 Allergy status to other antibiotic agents; Z88.8 Allergy status to other drugs, medicaments and biological substances; Z79.899 Other long term (current) drug therapy
CPT/HCPCS: 36415; 80048; 85025; 96361; 96374; 99284; J2550

== ENCOUNTER 2025-07-15 07:17 | Inpatient (IN) | payer OTHER ==
[~2025-07-15] VITALS: Ht 172.7 cm; Wt 65.4 kg
[~2025-07-15 07:17] MED LIST changes: -ARIP10TA32 PO; +ARIP10TA63 PO; +GABA-1172 PO; +GABA-1635 PO; -GABA-282 PO; -GABA800T4 PO; +ONDA-282 PO; -ONDA4TAB6 PO; -PAXI30TA11 PO; +PAXI30TA12 PO; -PAXI40TA10 PO; +PAXI40TA12 PO; -SUCR1ORA2 PO; +SUCR1ORA20 PO
[2025-07-15] MEDS ORDERED: VYVA50CA4 PO ×2 (07:36→11:28)
[2025-07-15] MEDS: NICOTINE 21 MG/24 HR 1 EA TRANSDERMAL TD ONE (10:06)
[2025-07-15] MEDS ORDERED: ARIP960S IM (11:28)
[2025-07-15] MEDS ORDERED: SUBL100I SC (11:28)
[2025-07-15] MEDS ORDERED: HOME MED LIST COMPLETE! XX SCH (11:30)
[2025-07-15] MEDS ORDERED: OLANZapine 5 MG TAB PO PRN (12:45)
[2025-07-15] MEDS ORDERED: MAALOX 30 ML SUSP *UDC PO PRN (12:45)
[2025-07-15] MEDS ORDERED: MOM 30 ML SUSPENSION UDC PO PRN (12:45)
[2025-07-15] MEDS ORDERED: ACETAMINOPHEN 325 MG TAB PO PRN (12:45)
[2025-07-15 14:51] VITALS: BP 121/76; TEMP 98; O2SAT 100
[2025-07-15] MEDS: traZODone 50 MG TAB PO PRN (20:03)
[2025-07-15] MEDS: LORazepam 1 MG TAB PO PRN (22:20)
[2025-07-16 06:29] VITALS: BP 101/58; TEMP 97.3; O2SAT 95
[2025-07-16] MEDS: NICOTINE 14 MG/24 HR TRANSDERMAL TD SCH (08:03)
[2025-07-16] MEDS: IBUPROFEN 400 MG TAB PO PRN (10:40)
[2025-07-16] MEDS: DEXTROAMPHETAMINE/AMPHETAMINE 5 MG *ER* CAPSULE PO SCH (10:58)
[2025-07-16] MEDS: ARIPiprazole MONOHYDRATE 400 MG INJ (FREE PSY INPT ONLY) IM SCH (12:18)
[2025-07-16 15:05] VITALS: BP 111/71; TEMP 97.7; O2SAT 99
[2025-07-17 06:30] VITALS: BP 107/58; TEMP 98.4; O2SAT 98
[2025-07-17] MEDS: DEXTROAMPHETAMINE/AMPHETAMINE 5 MG *ER* CAPSULE PO SCH (08:55)
[2025-07-17 15:22] VITALS: BP 117/67; TEMP 98; O2SAT 100
[2025-07-18 07:04] VITALS: BP 107/58; TEMP 98.6; O2SAT 98
[2025-07-19] MEDS: DEXTROAMPHETAMINE/AMPHETAMINE 5 MG *ER* CAPSULE PO SCH (08:06)
[2025-07-19 15:07] VITALS: BP 116/69; TEMP 97.9; O2SAT 100
[2025-07-20] MEDS ORDERED: ABIL10TA9 PO (09:06)
== END 2025-07-20 10:50 | disposition home or self-care (01) | DRG 753 ==
LOC: M ED 07:17 → M ED INP 12:43 → M PSY 14:01
PROVIDERS: ADMIT Internal Medicine; ATTEND Internal Medicine
DX: F31.4 Bipolar disorder, current episode depressed, severe, without psychotic features (principal); Z91.148 Patient's other noncompliance with medication regimen for other reason; R45.851 Suicidal ideations; F12.90 Cannabis use, unspecified, uncomplicated; F41.1 Generalized anxiety disorder; F90.9 Attention-deficit hyperactivity disorder, unspecified type; F43.10 Post-traumatic stress disorder, unspecified; Z88.8 Allergy status to other drugs, medicaments and biological substances; G47.00 Insomnia, unspecified; J45.909 Unspecified asthma, uncomplicated; F17.290 Nicotine dependence, other tobacco product, uncomplicated; Z79.899 Other long term (current) drug therapy